=== PATIENT | male | born 1950 | race Caucasian/White ===

== ENCOUNTER 2019-07-10 13:51 | Inpatient (IN) ==
--- OUTSIDE RECORDS SUMMARY | 2019-07-10 13:53 | External Medical Summary | Continuity of Care Document ---
:1950 Author Name Tj Palm Address Unavailable Unavailable , Care Team Providers Name Role Phone Jaleel Damon M.D. 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 Refills: 0 Aspirin EC 81 MG Oral Tablet Delayed Release; TAKE 1 TABLET DAILY. Refills: 0 Fish Oil 1000 MG Oral Capsule; Take one capsule three times a day. Refills: 0 Multi-Vitamin TABS; TAKE 1 TABLET DAILY. Refills: 0 Iron 325 (65 Fe) MG Oral Tablet; Take 1 tablet daily Refills: 0 Glucovance 5-500 MG TABS; Take one tablet 3 times each day. Refills: 0 Procedures History of Neuroplasty Decompression Median Nerve At Carpal Status: Completed Tunnel History of Cardiovascular Surgery Cardiac Defect Repair Status: Completed Immunizations Immunizations not documented Family History Father Family history of Non-Hodgkin's Lymphoma Status: Active Mother Family history of Lung Cancer (V16.1) Status: Active Family history of Type 2 Diabetes Mellitus Status: Active Sister Family history of Type 2 Diabetes Mellitus Status: Active Family history of Type 2 Diabetes Mellitus Status: Active Social History - Smoking Status Ex-smoker Plan of Treatment Planned Observations Planned Goals not documented Results No Known Results Results not documented
[2019-07-10] MEDS ORDERED: SODIUM CHLORIDE 0.9% 1000ML 1,000 ML IV SCH (14:30)
--- NOTE | 2019-07-10 14:51 | Emergency Department Note ---
History of Present Illness General Chief complaint: Shortness of Breath/Dyspnea Stated complaint: SOB Time Seen by Provider: 07/10/19 14:21 History of Present Illness Maximum Pain Intensity: 0 This is a 69-year-old male presenting to the emergency department for evaluation of shortness of breath symptoms over the past 3 days. The patient has a past medical history of liver transplant at the age of 19, and is currently on the transplant list for a kidney transplant. He does have chronic kidney disease and had a fistula placed at [facility] 5 days ago. The patient delayed presentation to the ER with his symptoms because he had an appointment today with his nephrology team. The patient was referred to the ER for evaluation following that visit. The patient is diabetic but states his sugars have been running well. He is not on any blood thinners, but is unable to walk more than 20 feet without having to stop to breathe. He has not had any recent fever symptoms, and does relate a dry cough. He does urinate, but states that his last creatinine was 3.9. The patient does not have a reported history of cardiac disease. He is on immunosuppressants due to his transplant history. Home Medications Home Medications Medication Instructions Recorded Confirmed Type amlodipine 5 mg PO BID 07/10/19 07/11/19 History cholecalciferol (vitamin D3) 2,000 unit PO DAILY 07/10/19 07/10/19 History [Vitamin D3] clindamycin phosphate 1 applic TOPICAL BID 07/10/19 07/10/19 History entecavir 0.5 mg PO DAILY 07/10/19 07/10/19 History ezetimibe [Zetia] 10 mg PO DAILY 07/10/19 07/10/19 History hydralazine 75 mg PO BID 07/10/19 07/11/19 History hydroxyzine HCl 25 mg PO Q6 PRN 07/10/19 07/10/19 History insulin aspart U-100 10 - 16 unit SUBCUT TIDM 07/10/19 07/10/19 History levothyroxine 75 mcg PO DAILY 07/10/19 07/10/19 History metoprolol succinate 100 mg PO DAILY 07/10/19 07/10/19 History mycophenolate mofetil 250 mg PO BID 07/10/19 07/10/19 History omeprazole 20 mg PO BID 07/10/19 07/10/19 History sodium bicarbonate 1,300 mg PO BID 07/10/19 07/10/19 History tacrolimus 1 mg PO Q12H 07/10/19 07/10/19 History Allergies Allergy/AdvReac Type Severity Reaction Status Date / Time aspirin AdvReac told Verified 07/10/19 15:23 him to not take any aspirin Past Med/Surg History Medical History Abnormal CT scan, chest ACEI/ARB contraindicated Acute hypoxemic respiratory failure Anemia CKD (chronic kidney disease) stage 5, GFR less than 15 ml/min Diabetes mellitus type 2 with complications Diastolic CHF, acute on chronic DVT (deep venous thrombosis) Esophageal varices History of hepatocellular carcinoma associated with HERNANDEZ cirrhosis; s/p liver transplant Hypertension Hypothyroidism Idiopathic interstitial pneumonia Immunocompromised patient Liver transplant recipient HERNANDEZ (nonalcoholic steatohepatitis) Peripheral vascular disease in diabetes mellitus Sleep apnea Surgical History Status post liver transplant Family History Mother Colorectal cancer Diabetes Father Non-Hodgkin lymphoma Sister Renal cancer Sister Diabetes Brother Diabetes Social History Preferred Language: Swedish Communication Ability: Effective 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 Beliefs That Will Affect Care: None Current Living Situation: Spouse Other Information That Helps Us Care for You: No Feels Safe at Home: Yes Safety Concerns: Feels Safe At This Time Smoking Status: Former smoker Hx Alcohol Use: No Hx Substance Use: No Review of Systems A total of 10 systems reviewed and were otherwise negative Physical Exam Vital Signs Vital Signs - 24 hr 07/10/19 16:41 07/10/19 16:53 07/10/19 17:00 Pulse Rate 101 H 101 H Pulse Rate [Apical] 103 H Pulse Rate from SpO2 Sensor 89 89 Pulse Rhythm [Apical] Irregular Pulse Strength [Apical] Normal Respiratory Rate 29 H 22 30 H Respiratory Effort / Characteristics Non-Labored Spontaneous Respiratory Depth Normal Respiratory Pattern Regular Blood Pressure 171/80 H 170/98 H Blood Pressure [Right Arm] 171/80 H Blood Pressure Mean 107 116 Blood Pressure Mean [Right Arm] 110 Blood Pressure Position [Right Arm] Lying Pulse Oximetry 91 92 93 Oxygen Delivery Method Nasal Cannula Nasal Cannula Nasal Cannula Oxygen Flow Rate 3 2 3 VITALS: Vitals are noted on the nurse's note and reviewed by myself. Vital signs with hypertension, tachycardia, and hypoxia GENERAL: Well-developed, well-nourished, white male, who is in no acute distress and resting comfortably. Patient is cooperative with the examination. HEAD: Normocephalic atraumatic. MOUTH: Mucous membranes moist. Tonsils are not enlarged. Pharynx without erythema, blood, or exudate. Uvula midline. Airway patent. NECK: Supple without nuchal rigidity. No lymphadenopathy. No thyromegaly. Cervical spine is nontender. HEART: Regular rate and rhythm without murmurs gallops or rubs. LUNGS: Mildly distant but otherwise clear bilateral ABDOMEN: Positive normal bowel sounds x 4. Soft, nontender, without masses or organomegaly. No guarding or rebound tenderness. MUSCULOSKELETAL: No muscle atrophy, erythema, or edema noted. Full range of motion in all extremities. Dialysis fistula identified in the left arm appears well-healing. No significant lower extremity edema. NEURO: Patient was alert and oriented to person place and time. CN II through XII grossly intact. SKIN: The skin was without rashes, erythema, edema, or bruising. Capillary refill less than 2 seconds. Course Administered Medications Amlodipine Besylate (Norvasc) 5 mg PO BID [facility] Stop: 08/10/19 08:59 Last Admin: 07/11/19 09:05 Dose: 5 mg Documented by: [id number] Clotrimazole (Lotrimin 1%) 1 appln EXT BID [facility] Stop: 08/10/19 08:59 Last Admin: 07/11/19 09:14 Dose: 1 appln Documented by: [id number] Ezetimibe (Zetia) 10 mg PO DAILY [facility] Stop: 08/10/19 08:59 Last Admin: 07/11/19 09:05 Dose: 10 mg Documented by: [id number] Hydralazine HCl (Apresoline) 75 mg PO BID [facility] Stop: 08/10/19 08:59 Last Admin: 07/11/19 09:04 Dose: 75 mg Documented by: [id number] Hydroxyzine HCl (Vistaril) 25 mg PO Q6 PRN PRN Reason: Itching Stop: 03/25/20 19:31 Last Admin: 07/11/19 09:03 Dose: 25 mg Documented by: [id number] Heparin Sodium/Dextrose (Heparin Sodium/Dextrose) 25,000 units in 500 mls @ 31 mls/hr IV .Q16H8M [facility]; Protocol Stop: 08/10/19 00:44 Last Titration: 07/11/19 19:12 Dose: 1,550 units/hr, 31 mls/hr Documented by: [id number] Cosigned by: [id number] Admin: 07/11/19 17:46 Dose: 1,550 units/hr, 31 mls/hr Documented by: [id number] Cosigned by: [id number] Titration: 07/11/19 17:46 Dose: 1,550 units/hr, 31 mls/hr Documented by: [id number] Cosigned by: [id number] Titration: 07/11/19 15:03 Dose: 1,550 units/hr, 31 mls/hr Documented by: [id number] Cosigned by: [id number] Titration: 07/11/19 07:03 Dose: 1,550 units/hr, 31 mls/hr Documented by: [id number] Cosigned by: [id number] Admin: 07/11/19 02:12 Dose: 1,550 units/hr, 31 mls/hr Documented by: [id number] Cosigned by: [id number] Ceftriaxone Sodium 2,000 mg/ (Dextrose) 70 mls @ 100 mls/hr IV Q24H [facility]; Protocol Stop: 07/18/19 15:59 Last Infusion: 07/11/19 17:27 Dose: 0 mls/hr Documented by: [id number] Admin: 07/11/19 16:48 Dose: 100 mls/hr Documented by: [id number] Azithromycin 500 mg/ Dextrose 255 mls @ 125 mls/hr IV Q24H [facility] Stop: 07/18/19 16:59 Last Admin: 07/11/19 17:46 Dose: 125 mls/hr Documented by: [id number] Insulin Aspart (Novolog Flexpen) 0 units SC ACHS [facility] Stop: 08/09/19 20:59 Last Admin: 07/11/19 17:15 Dose: 6 units Documented by: [id number] Cosigned by: [id number] Admin: 07/11/19 12:14 Dose: 8 units Documented by: [id number] Cosigned by: [id number] Admin: 02/25/20 09:23 Dose: 4 units Documented by: [id number] Cosigned by: [id number] Admin: 07/10/19 21:34 Dose: 7 units Documented by: [id number] Cosigned by: [id number] Insulin Glargine (Lantus Solostar Pen) 0 - 12 units SC BID [facility]; Protocol Stop: 08/10/19 08:59 Last Admin: 07/11/19 09:11 Dose: 8 units Documented by: [id number] Cosigned by: [id number] Levothyroxine Sodium (Synthroid) 75 mcg PO DAILYBB [facility] Stop: 08/10/19 06:29 Last Admin: 07/11/19 06:20 Dose: 75 mcg Documented by: [id number] Magnesium Oxide (Mag-Ox) 400 mg PO QAM [facility] Stop: 08/10/19 08:59 Last Admin: 07/11/19 09:07 Dose: 400 mg Documented by: [id number] Metoprolol Succinate (Toprol Xl) 100 mg PO DAILY [facility] Stop: 08/10/19 08:59 Last Admin: 07/11/19 09:03 Dose: 100 mg Documented by: [id number] Miscellaneous (Order Awaiting Action) 1 ea N/A QS [facility] Stop: 08/10/19 00:00 Last Admin: 07/11/19 15:51 Dose: Not Given Documented by: [id number] Admin: 07/11/19 09:14 Dose: Not Given Documented by: [id number] Admin: 07/11/19 01:03 Dose: Not Given Documented by: [id number] Mycophenolate Mofetil (Cellcept) 250 mg PO BID [facility] Stop: 08/09/19 20:59 Last Admin: 07/11/19 09:08 Dose: 250 mg Documented by: [id number] Admin: 07/10/19 21:26 Dose: 250 mg Documented by: [id number] Pantoprazole Sodium (Protonix) 40 mg PO BID [facility] Stop: 08/09/19 20:59 Last Admin: 07/11/19 09:06 Dose: 40 mg Documented by: [id number] Admin: 07/10/19 21:31 Dose: 40 mg Documented by: [id number] Sodium Bicarbonate (Sodium Bicarbonate) 1,300 mg PO BID [facility] Stop: 08/09/19 20:59 Last Admin: 07/11/19 09:05 Dose: 1,300 mg Documented by: [id number] Admin: 07/10/19 21:30 Dose: 1,300 mg Documented by: [id number] Tacrolimus (Prograf) 1 mg PO Q12 [facility] Stop: 08/09/19 20:59 Last Admin: 07/11/19 17:16 Dose: 1 mg Documented by: [id number] Admin: 07/11/19 11:07 Dose: 1 mg Documented by: [id number] Admin: 07/10/19 21:26 Dose: 1 mg Documented by: [id number] Vitamin D (Vitamin D3) 2,000 units PO DAILY [facility] Stop: 08/10/19 08:59 Last Admin: 07/11/19 09:03 Dose: 2,000 units Documented by: [id number] Discontinued Medications Heparin Sodium/Dextrose () 1 ea IV Q15M [facility]; Protocol Stop: 07/11/19 03:00 Last Admin: 07/11/19 01:54 Dose: Not Given Documented by: [id number] Hydralazine HCl (Apresoline) 75 mg PO QID [facility] Stop: 08/09/19 20:59 Last Admin: 07/10/19 21:26 Dose: 75 mg Documented by: [id number] Sodium Chloride (Nss 1000ml) 1,000 mls @ 999 mls/hr IV .Q1H1M [facility] Stop: 07/10/19 15:30 Last Infusion: 07/10/19 16:22 Dose: 0 mls/hr Documented by: [id number] Admin: 07/10/19 15:03 Dose: 999 mls/hr Documented by: [id number] Piperacillin Sod/Tazobactam Sod (Zosyn) 4.5 gm in 120 mls @ 240 mls/hr IV NOW ONE Stop: 07/10/19 17:41 Last Infusion: 07/10/19 18:36 Dose: 0 mls/hr Documented by: [id number] Admin: 07/10/19 17:36 Dose: 240 mls/hr Documented by: [id number] Furosemide 80 mg/ Syringe 8 mls @ 4 mls/min IV NOW ONE Stop: 07/10/19 20:46 Last Admin: 07/10/19 21:06 Dose: 4 mls/min Documented by: [id number] Magnesium Sulfate/Dextrose (Magnesium Sulfate / D5w) 1 gm in 100 mls @ 100 mls/hr IV ONE ONE Stop: 07/10/19 21:44 Last Infusion: 07/10/19 23:14 Dose: 0 mls/hr Documented by: [id number] Admin: 07/10/19 21:06 Dose: 100 mls/hr Documented by: [id number] Heparin Sodium (Porcine) 7,000 (units/ Syringe) 7 mls @ 10 mls/min IV NOW ONE Stop: 07/11/19 02:01 Last Admin: 07/11/19 02:12 Dose: 10 mls/min Documented by: [id number] Cosigned by: [id number] Furosemide 40 mg/ Syringe 4 mls @ 4 mls/min IV ONE ONE Stop: 07/11/19 16:01 Last Admin: 07/11/19 16:48 Dose: 4 mls/min Documented by: [id number] Medical Decision Making Differential Diagnosis Differential diagnosis includes, but is not limited to: Myocardial infarction, dysrhythmia, pericarditis, pneumothorax, aortic aneurysm/dissection, DVT/PE, anxiety, GERD, PUD, electrolyte imbalance, thyroid disorder, pneumonia, bronchitis, pancreatitis, and others Laboratory Data Result diagrams: 07/10/19 14:40 07/11/19 09:06 Lab Results 07/10/19 07/10/19 07/10/19 Range/Units 14:40 14:40 14:40 WBC 10.24 (4.8-10.8) K/uL RBC 4.65 L (4.7-6.1) M/uL Hgb 11.8 L (14.0-18.0) g/dL Hct 36.0 L (42-52) % MCV 77.4 L (80-100) fL MCH 25.4 (25-34) pg MCHC 32.8 (32-36) g/dL RDW Std Deviation 40.5 (36.4-46.3) fL RDW Coeff of Ana María 14.3 (11.5-14.5) % Plt Count 205 (130-400) K/uL MPV 10.1 (7.4-10.4) fL Immature Gran % (Auto) 0.5 % Neut % (Auto) 71.6 % Lymph % (Auto) 15.7 % [place] % (Auto) 10.2 % Eos % (Auto) 1.8 % Baso % (Auto) 0.2 % Immature Gran # (Auto) 0.05 H (0.00-0.02) K/uL Neut # (Auto) 7.34 H (1.4-6.5) K/uL Lymph # (Auto) 1.61 (1.2-3.4) K/uL [place] # (Auto) 1.04 H (0.11-0.59) K/uL Eos # (Auto) 0.18 (0-0.5) K/uL Baso # (Auto) 0.02 (0-0.2) K/uL ESR > 90 H (0-14) mm/hr PT (9.0-12.0) Seconds INR (0.9-1.1) APTT (21.0-31.0) Seconds PTT Ratio ABG pH (7.35-7.45) ABG pCO2 (35-46) mmHg ABG pO2 (80-95) mmHg ABG HCO3 (19-24) mmol/L ABG O2 Saturation (90-95) % ABG Base Excess (-9-1.8) mEq/L Rolo Test (Pos) Barometric Pressure mm/Hg Oxygen Given Sodium 136 (136-145) mmol/L Potassium 4.2 (3.5-5.1) mmol/L Chloride 109 H (98-107) mmol/L Carbon Dioxide 18 L (21-32) mmol/L Anion Gap 9.0 (3-11) BUN 61 H (7-18) mg/dl Creatinine 4.22 H (0.6-1.4) mg/dl Est Cr Clr Drug Dosing 20.0 ml/min Est GFR ( Amer) 15.5 Est GFR (Non-Af Amer) 13.4 BUN/Creatinine Ratio 14.5 (10-20) Glucose 173 H (70-99) mg/dl Lactate (0.4-2.0) mmol/L Calcium 9.4 (8.5-10.1) mg/dl Magnesium 1.7 L (1.8-2.4) mg/dl Total Bilirubin 0.5 (0.2-1) mg/dl AST 10 L (15-37) U/L ALT 9 L (12-78) U/L Alkaline Phosphatase 75 (45-117) U/L Troponin I < 0.015 (0-0.045) ng/ml C-Reactive Protein 12.20 H (0-0.29) mg/dl NT-Pro-B Natriuret Pep 7988 H (0-900) pg/ml Total Protein 8.0 (6.4-8.2) gm/dl Albumin 3.4 (3.4-5.0) gm/dl Globulin 4.6 H (2.5-4.0) gm/dl Albumin/Globulin Ratio 0.7 L (0.9-2) Lipase 162 (73-393) U/L Procalcitonin (0-0.5) ng/ml 07/10/19 07/10/19 07/10/19 Range/Units 14:40 14:40 14:40 WBC (4.8-10.8) K/uL RBC (4.7-6.1) M/uL Hgb (14.0-18.0) g/dL Hct (42-52) % MCV (80-100) fL MCH (25-34) pg MCHC (32-36) g/dL RDW Std Deviation (36.4-46.3) fL RDW Coeff of Ana María (11.5-14.5) % Plt Count (130-400) K/uL MPV (7.4-10.4) fL Immature Gran % (Auto) % Neut % (Auto) % Lymph % (Auto) % [place] % (Auto) % Eos % (Auto) % Baso % (Auto) % Immature Gran # (Auto) (0.00-0.02) K/uL Neut # (Auto) (1.4-6.5) K/uL Lymph # (Auto) (1.2-3.4) K/uL [place] # (Auto) (0.11-0.59) K/uL Eos # (Auto) (0-0.5) K/uL Baso # (Auto) (0-0.2) K/uL ESR (0-14) mm/hr PT 11.2 (9.0-12.0) Seconds INR 1.1 (0.9-1.1) APTT 31.1 H (21.0-31.0) Seconds PTT Ratio 1.1 ABG pH (7.35-7.45) ABG pCO2 (35-46) mmHg ABG pO2 (80-95) mmHg ABG HCO3 (19-24) mmol/L ABG O2 Saturation (90-95) % ABG Base Excess (-9-1.8) mEq/L Rolo Test (Pos) Barometric Pressure mm/Hg Oxygen Given Sodium (136-145) mmol/L Potassium (3.5-5.1) mmol/L Chloride (98-107) mmol/L Carbon Dioxide (21-32) mmol/L Anion Gap (3-11) BUN (7-18) mg/dl Creatinine (0.6-1.4) mg/dl Est Cr Clr Drug Dosing ml/min Est GFR ( Amer) Est GFR (Non-Af Amer) BUN/Creatinine Ratio (10-20) Glucose (70-99) mg/dl Lactate 1.2 (0.4-2.0) mmol/L Calcium (8.5-10.1) mg/dl Magnesium (1.8-2.4) mg/dl Total Bilirubin (0.2-1) mg/dl AST (15-37) U/L ALT (12-78) U/L Alkaline Phosphatase (45-117) U/L Troponin I (0-0.045) ng/ml C-Reactive Protein (0-0.29) mg/dl NT-Pro-B Natriuret Pep (0-900) pg/ml Total Protein (6.4-8.2) gm/dl Albumin (3.4-5.0) gm/dl Globulin (2.5-4.0) gm/dl Albumin/Globulin Ratio (0.9-2) Lipase (73-393) U/L Procalcitonin 0.20 (0-0.5) ng/ml 07/10/19 Range/Units 14:51 WBC (4.8-10.8) K/uL RBC (4.7-6.1) M/uL Hgb (14.0-18.0) g/dL Hct (42-52) % MCV (80-100) fL MCH (25-34) pg MCHC (32-36) g/dL RDW Std Deviation (36.4-46.3) fL RDW Coeff of Ana María (11.5-14.5) % Plt Count (130-400) K/uL MPV (7.4-10.4) fL Immature Gran % (Auto) % Neut % (Auto) % Lymph % (Auto) % [place] % (Auto) % Eos % (Auto) % Baso % (Auto) % Immature Gran # (Auto) (0.00-0.02) K/uL Neut # (Auto) (1.4-6.5) K/uL Lymph # (Auto) (1.2-3.4) K/uL [place] # (Auto) (0.11-0.59) K/uL Eos # (Auto) (0-0.5) K/uL Baso # (Auto) (0-0.2) K/uL ESR (0-14) mm/hr PT (9.0-12.0) Seconds INR (0.9-1.1) APTT (21.0-31.0) Seconds PTT Ratio ABG pH 7.39 (7.35-7.45) ABG pCO2 26 L (35-46) mmHg ABG pO2 73 L (80-95) mmHg ABG HCO3 15 L (19-24) mmol/L ABG O2 Saturation 95.1 H (90-95) % ABG Base Excess -8.4 (-9-1.8) mEq/L Rolo Test Pos (Pos) Barometric Pressure 729.3 mm/Hg Oxygen Given 2L Sodium (136-145) mmol/L Potassium (3.5-5.1) mmol/L Chloride (98-107) mmol/L Carbon Dioxide (21-32) mmol/L Anion Gap (3-11) BUN (7-18) mg/dl Creatinine (0.6-1.4) mg/dl Est Cr Clr Drug Dosing ml/min Est GFR ( Amer) Est GFR (Non-Af Amer) BUN/Creatinine Ratio (10-20) Glucose (70-99) mg/dl Lactate (0.4-2.0) mmol/L Calcium (8.5-10.1) mg/dl Magnesium (1.8-2.4) mg/dl Total Bilirubin (0.2-1) mg/dl AST (15-37) U/L ALT (12-78) U/L Alkaline Phosphatase (45-117) U/L Troponin I (0-0.045) ng/ml C-Reactive Protein (0-0.29) mg/dl NT-Pro-B Natriuret Pep (0-900) pg/ml Total Protein (6.4-8.2) gm/dl Albumin (3.4-5.0) gm/dl Globulin (2.5-4.0) gm/dl Albumin/Globulin Ratio (0.9-2) Lipase (73-393) U/L Procalcitonin (0-0.5) ng/ml Imaging Data Radiologist's Impression: XR chest 2V PA/lateral CLINICAL HISTORY: Shortness of breath. COMPARISON STUDY: Chest radiograph August 12, 2012. Chest CT August 14, 2012. FINDINGS: Note is made of median sternotomy wires. There is no pneumothorax. Small left and trace right pleural effusions are present. Interstitial thickening is noted with multifocal bilateral airspace opacities, greater within the left lung. Mild cardiomegaly is noted. IMPRESSION: 1. Interstitial thickening and bilateral airspace opacities, greater within the left lung. Pulmonary edema is favored however an infectious process could appear similar. Radiographic follow up is recommended. 2. Small left and trace right pleural effusions. ECG Data Attestation: I personally reviewed and interpreted this ECG as follows: Indication: + SOB/dyspnea Additional Comments: Normal sinus rhythm @96 BPM QT [address] and T wave abnormality Abnormal ECG When compared with ECG of 25-JUL-2012 21:25, Vent. rate has increased BY 32 BPM Criteria for Septal infarct are no longer Present MDM Narrative Physical exam and history were performed. Nursing notes, EMR, and Medication List were personally reviewed. Patient appears to have difficulty breathing over the past few days. He does have an extensive past medical history. IV access was established and labs were obtained. Chest x-ray was performed. EKG is as above. He was placed on the magnetic observer. He does have a recent procedure with a fistula placement in his left arm. The patient's blood work is as above and was reviewed. He does not have a significantly elevated white blood cell count. His hemoglobin is 11.8. INR is negative. His creatinine is 4.4 which is evidently slightly worse than normal, but he does have chronic kidney disease. Transaminases are not diagnostic. Inflammatory markers are elevated. Procalcitonin and lactic acid are negative. Troponin x1 is negative. Chest x-ray may show pulmonary edema versus interstitial thickening per my and radiology interpretation. The patient remained in normal sinus rhythm with a rate in the 70s while on the magnetic observer. On reevaluation he continued to have episodic hypoxia and responded well with ox ygen via nasal cannula. The case was discussed with my attending, Dr. Gutierrez, who remained involved in care decision making. Overall the patient does not appear well for discharge home. The case was discussed with the [facility] team who agreed to evaluate the patient here in the ER. Please see their dictation for further patient course, plan, and disposition. The chart was completed utilizing [employer] Speech Voice Recognition Software. Grammatical errors, random word insertions, pronoun errors, and incomplete sentences are an occasional consequence of this system due to software limitations, ambient noise, and hardware issues. Any formal questions or concerns about the content, text, or information contained within the body of this dictation should be directly addressed to the provider for clarification. . Impression & Plan Acute respiratory failure with hypoxia, Elevated sedimentation rate Discharge Plan Visit Data *Final* Discharge Date/Time: 07/10/19 18:51 Chief Complaint: Shortness of Breath/Dyspnea Stated Complaint: SOB ED Provider: Celso Gutierrez ED Midlevel Provider: Harsh Basilio Discharge Problem: Acute respiratory failure with hypoxia, Elevated sedimentation rate Patient Disposition: Admitted As Inpatient Discharge Instructions Interventions: ED Discharge Assessment Last Done: 07/10/19 18:51
[2019-07-10 14:58] LABS: Basophils # (auto) 0.02 K/uL (0-0.2); Basophils % (auto) 0.2 %; Eosinophils # (auto) 0.18 K/uL (0-0.5); Eosinophils % (auto) 1.8 %; Hemoglobin 11.8 g/dL (14.0-18.0); Immature Granulocytes # (auto) 0.05 K/uL (0.00-0.02); Immature Granulocytes % (auto) 0.5 %; Lymphocytes # (auto) 1.61 K/uL (1.2-3.4); Lymphocytes % (auto) 15.7 %; Mean Corpuscular Hemoglobin 25.4 pg (25-34); Mean Corpuscular Hgb Conc 32.8 g/dL (32-36); Mean Corpuscular Volume 77.4 fL (80-100); Mean Platelet Volume 10.1 fL (7.4-10.4); Monocytes # (auto) 1.04 K/uL (0.11-0.59); Monocytes % (auto) 10.2 %; Neutrophils # (auto) 7.34 K/uL (1.4-6.5); Neutrophils % (auto) 71.6 %; Platelet Count 205 K/uL (130-400); RDW Coefficient of Variation 14.3 % (11.5-14.5); RDW Standard Deviation 40.5 fL (36.4-46.3); Red Blood Count 4.65 M/uL (4.7-6.1); White Blood Count 10.24 K/uL (4.8-10.8)
[2019-07-10 15:09] LABS: INR 1.1 (0.9-1.1); Partial Thromboplastin Ratio 1.1; Partial Thromboplastin Time 31.1 Seconds (21.0-31.0); Prothrombin Time 11.2 Seconds (9.0-12.0)
[2019-07-10 15:13] LABS: Alanine Aminotransferase 9 U/L (12-78); Albumin Level 3.4 gm/dl (3.4-5.0); Aspartate Aminotransferase 10 U/L (15-37); BUN Creatinine Ratio 14.5 (10-20); Blood Urea Nitrogen 61 mg/dl (7-18); Calcium 9.4 mg/dl (8.5-10.1); Carbon Dioxide 18 mmol/L (21-32); Chloride 109 mmol/L (98-107); Est GFR (African American) 15.5; Est GFR (Non-African American) 13.4; Glucose 173 mg/dl (70-99); Lipase 162 U/L (73-393); Magnesium 1.7 mg/dl (1.8-2.4); Potassium 4.2 mmol/L (3.5-5.1); Sodium 136 mmol/L (136-145)
[2019-07-10 15:14] LABS: Base Excess ABG -8.4 mEq/L (-9-1.8); HCO3 ABG 15 mmol/L (19-24); Oxygen Saturation ABG 95.1 % (90-95); PCO2 ABG 26 mmHg (35-46); PO2 ABG 73 mmHg (80-95); pH ABG 7.39 (7.35-7.45)
[2019-07-10 15:15] LABS: Allen Test Pos (Pos)
[2019-07-10 15:16] LABS: Albumin Globulin Ratio 0.7 (0.9-2); Alkaline Phosphatase 75 U/L (45-117); Bilirubin,Total 0.5 mg/dl (0.2-1); Globulin 4.6 gm/dl (2.5-4.0); NT Pro B Type Natriuretic Pept 7928 pg/ml (0-900); Troponin I < 0.015 ng/ml (0-0.045)
--- NOTE | 2019-07-10 16:31 | Emergency Department Note ---
ED Visit Note This Patient was discussed with the physician medical assistant secretary, Harsh Basilio PA-C. The pertinent historical and physical exam findings were confirmed. I agree with the studies ordered and with the interpretations of these studies. I agree with the disposition and care plan. .
--- NOTE | 2019-07-10 16:37 | XRay Report ---
XR chest 2V PA/lateral CLINICAL HISTORY: Shortness of breath. COMPARISON STUDY: Chest radiograph August 12, 2012. Chest CT August 14, 2012. FINDINGS: Note is made of median sternotomy wires. There is no pneumothorax. Small left and trace rig ht pleural effusions are present. Interstitial thickening is noted with multifocal bilateral airspace opacities, greater within the left lung. Mild cardiomegaly is noted. IMPRESSION: 1. Interstitial thickening and bilateral airspace opacities, greater within the left lung. Pulmonary edema is favored however an infectious process could appear similar. Radiographic follow up is recomm ended. 2. Small left and trace right pleural effusions. ACT 112: Negative or not required by law. Electronically signed by: Gio Johnson M.D. 07/10/2019 4:36 PM
[2019-07-10] MEDS ORDERED: PIPERACILL/TAZOBAC CONSULT ACTIVE PRN (17:12)
[2019-07-10] MEDS ORDERED: PIPERACILLIN/TAZOBACTAM 4.5 GM/120 ML BAG IV ONE (17:12)
--- NOTE | 2019-07-10 18:41 | History & Physical Report ---
Date of Service July 10, 2019 Assessment & Plan (1) Acute respiratory failure with hypoxia: Progressive dyspnea over past several weeks. Now SOB with minimal exertion. Tachypneic. O2 sats as low as 86% on RA. Chest x-ray suggests pulmonary edema, but consider infectious or inflammatory process. Calf DVT. May or may not have pulmonary embolism, but chest x-ray suggests other processes. Supplemental O2 as needed. Specific problems are discussed below. (2) Abnormal chest x-ray: Chest x-ray suggests pulmonary edema, but consider infectious or inflammatory process. Pro-BNP elevated, but may been high because of CKD. Furosemide 80 mg IV tonight. Check f/u chest x-ray in a.m. Check echo. If chest x-ray does not improve with diuresis, must consider other pathologies besides pulmonary edema. Consider CMV pneumonia. Check blood CMV PCR. Consider inflammatory etiologies. May need further imaging (e.g., CT) and / or Pulmonary Medicine consultation if no improvement. (3) DVT (deep venous thrombosis): VTE considered because of acute worsening of symptoms a few days ago. Venous duplex demonstrates calf DVT (present on admission). May or may not have pulmonary embolism. Best not to obtain CTA of chest due to CKD and unlikely that VQ scan would be useful. Not good candidate for enoxaparin or DOAC because of renal disease. Start IV heparin and consider starting warfarin pending further consideration. (4) Elevated sedimentation rate: ESR > 90. CRP 12.2. No fever. Respiratory symptoms as noted. Consider infection or inflammatory disease. Blood cultures obtained in ED and received a dose of piperacillin / tazobactam. Will hold further dosing of antibiotics unless cultures positive or clinical condition changes. Immunosuppressed. Consider opportunistic infections, including CMV. Check blood CMV PCR. Will need further pulmonary evaluation if chest x-ray and symptoms do not improve with diuresis. On hydralazine. Consider drug-induced lupus. Check KHADRA. Consider further testing for inflammatory disorders if ongoing concerns. (5) Hypertension: Continue metoprolol, amlodipine, hydralazine. (6) Status post liver transplant: History of cirrhosis attributed to HERNANEDZ. S/P liver transplant at [facility] [place] 2012. Continue mycophenolate mofetil and tacrolimus. (7) CKD (chronic kidney disease) stage 4, GFR 15-29 ml/min: CKD IV with creatinine now 4.22. Recent AV fistula LUE. Consult Nephrology to assist with management. (8) Hypomagnesemia: Serum Mg 1.7. Ventricular ectopy noted on ekg monitor tech. Replace with caution. Follow. (9) Diabetes mellitus type 2 with complications: DM type 2 complicated by peripheral vascular disease. Managed with insulin aspartate at home. Check Hgb A1C. Lantus / NovoLog per protocol. (10) Peripheral vascular disease in diabetes mellitus: History of intermittent claudication. Patient reports that he was seen by a specialist (? Vascular Surgery) who did not recommend any intervention. Suspected occlusion of bilateral posterior tibial arteries noted on venous duplex. Check follow-up arterial duplex. (11) DVT prophylaxis: Treating for acute DVT as discussed above (12) Discharge planning issues: Discharge disposition to be determined. Family Medicine follow-up with Dr. Maldonado. Nephrology follow-up with Dr. Kamara. Transplant Medicine follow-up at [facility] [place]. History of Present Illness Chief Complaint: SOB Primary Care Provider: Herberth Maldonado MD 69 YO male followed by Dr. Maldonado. History of hypertension, CKD IV, liver transplant, DM type 2 and other problems as noted. Experiencing dyspnea on exertion for last several weeks. Occasional nonproductive cough. No fever. One day of mild pharyngitis. No anginal symptoms or pleuritic chest pain. Worsening dyspnea a few days ago. Seen in clinic today and referred to ED because of respiratory symptoms. Allergies Allergy/AdvReac Type Severity Reaction Status Date / Time aspirin AdvReac told Verified 07/10/19 15:23 him to not take any aspirin Home Medications Home Medications Medication Instructions Recorded Confirmed Type amlodipine 5 mg PO BID 07/10/19 07/11/19 History cholecalciferol (vitamin D3) 2,000 unit PO DAILY 07/10/19 07/10/19 History [Vitamin D3] clindamycin phosphate 1 applic TOPICAL BID 07/10/19 07/10/19 History entecavir 0.5 mg PO DAILY 07/10/19 07/10/19 History ezetimibe [Zetia] 10 mg PO DAILY 07/10/19 07/10/19 History hydralazine 75 mg PO BID 07/10/19 07/11/19 History hydroxyzine HCl 25 mg PO Q6 PRN 07/10/19 07/10/19 History insulin aspart U-100 10 - 16 unit SUBCUT TIDM 07/10/19 07/10/19 History levothyroxine 75 mcg PO DAILY 07/10/19 07/10/19 History metoprolol succinate 100 mg PO DAILY 07/10/19 07/10/19 History mycophenolate mofetil 250 mg PO BID 07/10/19 07/10/19 History omeprazole 20 mg PO BID 07/10/19 07/10/19 History sodium bicarbonate 1,300 mg PO BID 07/10/19 07/10/19 History tacrolimus 1 mg PO Q12H 07/10/19 07/10/19 History Past Med/Surg History Medical History (Updated 07/11/19 @ 01:30 by Dereck Smiley MD) ACEI/ARB contraindicated Anemia CKD (chronic kidney disease) stage 4, GFR 15-29 ml/min Diabetes mellitus type 2 with complications Esophageal varices History of hepatocellular carcinoma associated with HERNANDEZ cirrhosis; s/p liver transplant Hypertension Hypothyroidism HERNANDEZ (nonalcoholic steatohepatitis) Peripheral vascular disease in diabetes mellitus Sleep apnea Surgical History Status post liver transplant Family History (Updated 07/11/19 @ 00:30 by Dereck Smiley MD) Mother Colorectal cancer Diabetes Father Non-Hodgkin lymphoma Sister Renal cancer Sister Diabetes Brother Diabetes Social History Preferred Language: Com[place] Communication Ability: 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 Beliefs That Will Affect Care: None Current Living Situation: Spouse Other Information That Helps Us Care for You: No Feels Safe at Home: Yes Safety Concerns: Feels Safe At This Time Smoking Status: Former smoker Hx Alcohol Use: No Hx Substance Use: No Review of Systems Constitutional: + weight loss (few pounds); no fever Eyes: no diplopia and no worsening vision Ear, Nose, Mouth, Throat: as per Subjective / HPI Respiratory: as per Subjective / HPI Cardiovascular: no chest pain, no palpitations and no edema Gastrointestinal: no nausea, no vomiting, no constipation, no diarrhea/loose s tools, no blood in stools and no melena Musculoskeletal: no joint pain and no myalgia Integumentary: no rash and no new lesions Neurologic: no headache(s) Endocrine: no polydipsia and no polyuria Hematologic / Lymphatic: + easy bruising; no easy bleeding and no lymphadenopathy Physical Exam Constitutional: WD/WN, vitals as above no acute distress Eyes: PERRL, conjunctivae normal, anicteric sclerae ENMT: external ear and nose normal, oropharynx normal Neck: trachea midline, no thyromegaly Respiratory: + tachypneic Auscultation: + rales Cardiovascular: Rate/Rhythm: regular rate (with occasional ectopy) Heart Sounds: no gallop, no murmur and no cardiac rub Vessels: + JVD Extremities: normal capillary refill; no calf tenderness and no edema Gastrointestinal (Abdomen): normal bowel sounds, soft, nontender, no hepatosplenomegaly Musculoskeletal: Head/Neck/Chest: neck supple Extremities: strength 5/5 throughout; + extremities abnormal to inspection (recent AV fistula LUE; good thrill; incision OK), no cyanosis and no clubbing Skin: + rash (erythematous rash right abdomen measuring few cm in diameter) Neurologic: PERRL, EOMI no facial palsy no dysarthria or aphasia Psychiatric: Orientation: alert and oriented x 3 Affect: euthymic affect Lymphatic: no cervical lymphadenopathy Results & Data Vital Signs (Past 12 Hours) Vital Signs Temp Pulse Pulse Resp BP BP Pulse Ox 07/10/19 16:53 103 H 22 171/80 H 92 07/10/19 14:33 93 H 17 94 07/10/19 14:16 36.8 C 112 H 20 186/81 H 86 L Laboratory Results Laboratory Results - last 24 hr 07/10/19 07/10/19 07/10/19 14:40 14:40 14:40 WBC 10.24 RBC 4.65 L Hgb 11.8 L Hct 36.0 L MCV 77.4 L MCH 25.4 MCHC 32.8 RDW Std Deviation 40.5 RDW Coeff of Ana María 14.3 Plt Count 205 MPV 10.1 Immature Gran % (Auto) 0.5 Neut % (Auto) 71.6 Lymph % (Auto) 15.7 Power % (Auto) 10.2 Eos % (Auto) 1.8 Baso % (Auto) 0.2 Immature Gran # (Auto) 0.05 H Neut # (Auto) 7.34 H Lymph # (Auto) 1.61 Power # (Auto) 1.04 H Eos # (Auto) 0.18 Baso # (Auto) 0.02 ESR > 90 H PT INR APTT PTT Ratio ABG pH ABG pCO2 ABG pO2 ABG HCO3 ABG O2 Saturation ABG Base Excess Rolo Test Barometric Pressure Oxygen Given Sodium 136 Potassium 4.2 Chloride 109 H Carbon Dioxide 18 L Anion Gap 9.0 BUN 61 H Creatinine 4.22 H Est Cr Clr Drug Dosing 20.0 Est GFR ( Amer) 15.5 Est GFR (Non-Af Amer) 13.4 BUN/Creatinine Ratio 14.5 Glucose 173 H POC Glucose Lactate Calcium 9.4 Magnesium 1.7 L Total Bilirubin 0.5 AST 10 L ALT 9 L Alkaline Phosphatase 75 Troponin I < 0.015 C-Reactive Protein 12.20 H NT-Pro-B Natriuret Pep 7928 H Total Protein 8.0 Albumin 3.4 Globulin 4.6 H Albumin/Globulin Ratio 0.7 L Lipase 162 Procalcitonin Urine Color Urine Appearance Urine pH Ur Specific [place] Urine Protein Urine Glucose (UA) Urine Ketones Urine Blood Urine Nitrite Urine Bilirubin Urine Urobilinogen Ur Leukocyte Esterase Urine WBC (Auto) Urine RBC (Auto) U Hyaline Cast (Auto) U Epithel Cells (Auto) Urine Bacteria (Auto) Urine Yeast 07/10/19 07/10/19 07/10/19 14:40 14:40 14:40 WBC RBC Hgb Hct MCV MCH MCHC RDW Std Deviation RDW Coeff of Ana María Plt Count MPV Immature Gran % (Auto) Neut % (Auto) Lymph % (Auto) Power % (Auto) Eos % (Auto) Baso % (Auto) Immature Gran # (Auto) Neut # (Auto) Lymph # (Auto) Power # (Auto) Eos # (Auto) Baso # (Auto) ESR PT 11.2 INR 1.1 APTT 31.1 H PTT Ratio 1.1 ABG pH ABG pCO2 ABG pO2 ABG HCO3 ABG O2 Saturation ABG Base Excess Rolo Test Barometric Pressure Oxygen Given Sodium Potassium Chloride Carbon Dioxide Anion Gap BUN Creatinine Est Cr Clr Drug Dosing Est GFR ( Amer) Est GFR (Non-Af Amer) BUN/Creatinine Ratio Glucose POC Glucose Lactate 1.2 Calcium Magnesium Total Bilirubin AST ALT Alkaline Phosphatase Troponin I C-Reactive Protein NT-Pro-B Natriuret Pep Total Protein Albumin Globulin Albumin/Globulin Ratio Lipase Procalcitonin 0.20 Urine Color Urine Appearance Urine pH Ur Specific [place] Urine Protein Urine Glucose (UA) Urine Ketones Urine Blood Urine Nitrite Urine Bilirubin Urine Urobilinogen Ur Leukocyte Esterase Urine WBC (Auto) Urine RBC (Auto) U Hyaline Cast (Auto) U Epithel Cells (Auto) Urine Bacteria (Auto) Urine Yeast 07/10/19 07/10/19 07/10/19 14:51 18:40 19:47 WBC RBC Hgb Hct MCV MCH MCHC RDW Std Deviation RDW Coeff of Ana María Plt Count MPV Immature Gran % (Auto) Neut % (Auto) Lymph % (Auto) Power % (Auto) Eos % (Auto) Baso % (Auto) Immature Gran # (Auto) Neut # (Auto) Lymph # (Auto) Power # (Auto) Eos # (Auto) Baso # (Auto) ESR PT INR APTT PTT Ratio ABG pH 7.39 ABG pCO2 26 L ABG pO2 73 L ABG HCO3 15 L ABG O2 Saturation 95.1 H ABG Base Excess -8.4 Rolo Test Pos Barometric Pressure 729.3 Oxygen Given 2L Sodium 138 Potassium 4.1 Chloride 112 H Carbon Dioxide 17 L Anion Gap 9.0 BUN 57 H Creatinine 4.08 H Est Cr Clr Drug Dosing 20.7 Est GFR ( Amer) 16.2 Est GFR (Non-Af Amer) 14.0 BUN/Creatinine Ratio 14.0 Glucose 145 H POC Glucose Lactate Calcium 8.7 Magnesium Total Bilirubin AST ALT Alkaline Phosphatase Troponin I C-Reactive Protein NT-Pro-B Natriuret Pep Total Protein Albumin Globulin Albumin/Globulin Ratio Lipase Procalcitonin Urine Color Yellow Urine Appearance Clear Urine pH 5.0 Ur Specific [place] 1.017 Urine Protein 3+ H Urine Glucose (UA) Trace H Urine Ketones Negative Urine Blood Negative Urine Nitrite Negative Urine Bilirubin Negative Urine Urobilinogen Negative Ur Leukocyte Esterase Negative Urine WBC (Auto) 1-5 Urine RBC (Auto) 0-4 U Hyaline Cast (Auto) 1-5 U Epithel Cells (Auto) 5-10 H Urine Bacteria (Auto) Negative Urine Yeast Not Reportable 07/10/19 20:37 WBC RBC Hgb Hct MCV MCH MCHC RDW Std Deviation RDW Coeff of Ana María Plt Count MPV Immature Gran % (Auto) Neut % (Auto) Lymph % (Auto) Power % (Auto) Eos % (Auto) Baso % (Auto) Immature Gran # (Auto) Neut # (Auto) Lymph # (Auto) Power # (Auto) Eos # (Auto) Baso # (Auto) ESR PT INR APTT PTT Ratio ABG pH ABG pCO2 ABG pO2 ABG HCO3 ABG O2 Saturation ABG Base Excess Rolo Test Barometric Pressure Oxygen Given Sodium Potassium Chloride Carbon Dioxide Anion Gap BUN Creatinine Est Cr Clr Drug Dosing Est GFR ( Amer) Est GFR (Non-Af Amer) BUN/Creatinine Ratio Glucose POC Glucose 219 H Lactate Calcium Magnesium Total Bilirubin AST ALT Alkaline Phosphatase Troponin I C-Reactive Protein NT-Pro-B Natriuret Pep Total Protein Albumin Globulin Albumin/Globulin Ratio Lipase Procalcitonin Urine Color Urine Appearance Urine pH Ur Specific [place] Urine Protein Urine Glucose (UA) Urine Ketones Urine Blood Urine Nitrite Urine Bilirubin Urine Urobilinogen Ur Leukocyte Esterase Urine WBC (Auto) Urine RBC (Auto) U Hyaline Cast (Auto) U Epithel Cells (Auto) Urine Bacteria (Auto) Urine Yeast Diagnostic Findings PORTABLE CHEST X-RAY FINDINGS: Note is made of median sternotomy wires. There is no pneumothorax. Small left and trace right pleural effusions are present. Interstitial thickening is noted with multifocal bilateral airspace opacities, greater within the left lung. Mild cardiomegaly is noted. IMPRESSION: 1. Interstitial thickening and bilateral airspace opacities, greater within the left lung. Pulmonary edema is favored however an infectious process could appear similar. Radiographic follow up is recommended. 2. Small left and trace right pleural effusions. ACT 112: Negative or not required by law. Electronically signed by: Gio Johnson M.D. 07/10/2019 4:36 PM VENOUS DUPLEX LOWER EXTREMITIES FINDINGS: There is deep venous thrombus within one of two paired right posterior tibial veins. No additional sites of deep venous thrombus are identified within either lower extremity. Incidental note was made of suspected occlusion of the bilateral posterior tibial arteries. IMPRESSION: 1. Deep venous thrombus within one of two paired right posterior tibial veins. No additional sites of deep venous thrombus within either lower extremity. 2. Suspected occlusion of the bilateral posterior tibial arteries. ACT 112: Negative or not required by law. Electronically signed by: Gio Johnson M.D. 07/10/2019 11:04 PM ECG Additional Comments: EKG performed at 1433 reviewed and demonstrated NSR at 96 / min, T-wave flattening I, aVL, slight ST depression V4-6. Code Status & VTE Plan Code Status Advanced directives and code status discussed with patient. He believes that he has some form of advanced directive, but does not recall specific document. He indicates that he would not want extraordinary measures undertaken or continued if prognosis was grave, but would want resuscitation attempted in the event of a cardiopulmonary arrest if there was a reasonable chance of a meaningful recovery. Resuscitation status, therefore, is full code.
[2019-07-10 19:27] LABS: Appearance Urine Clear (Clear); Bacteria Urine Automated Negative (Negative); Bilirubin Urine Negative (Negative); Blood Urine Negative (Negative); Color Urine Yellow; Glucose Urine UA Trace (Negative); Ketones Urine Negative (Negative); Leukocyte Esterase Urine Negative (Negative); Nitrite Urine Negative (Negative); Protein Urine 3+ (Negative); RBC Urine Automated 0-4 /hpf (0-4); Specific Gravity Urine 1.017 (1.000-1.030); Urobilinogen Urine Negative (Negative)
[2019-07-10 20:39] LABS: Calcium 8.7 mg/dl (8.5-10.1); Creatinine Clr Calc Pharmacy 20.7 ml/min; Est GFR (African American) 16.2; Potassium 4.1 mmol/L (3.5-5.1)
[2019-07-10] MEDS ORDERED: MAGNESIUM SULFATE / D5W 1 GM/100 ML BAG IV ONE (20:45)
[2019-07-10] MEDS ORDERED: FUROSEMIDE 80 MG in SYRINGE 0 ML IV ONE (20:45)
[2019-07-10] MEDS: MYCOPHENOLATE MOFETIL 250 MG CAP PO SCH (21:26)
[2019-07-10] MEDS: TACROLIMUS 1 MG CAP PO SCH (21:26)
[2019-07-10] MEDS: SODIUM BICARBONATE 650 MG TAB PO SCH (21:30)
[2019-07-10] MEDS: PANTOprazole 40 MG TAB PO SCH (21:31)
[2019-07-10] MEDS: INSULIN ASPART 100 UNITS/ML 3 ML PEN SC SCH (21:34)
--- NOTE | 2019-07-10 23:05 | Ultrasound Report ---
BILATERAL LOWER EXTREMITY VENOUS DOPPLER CLINICAL HISTORY: Shortness of breath. COMPARISON STUDY: No previous studies for comparison. TECHNIQUE: Sonography of the deep venous system of the bilateral lower extremities was performed. Co mpression and augmentation were evaluated. FINDINGS: There is deep venous thrombus within one of two paired right posterior tibial veins. No add itional sites of deep venous thrombus are identified within either lower extremity. Incidental note w as made of suspected occlusion of the bilateral posterior tibial arteries. IMPRESSION: 1. Deep venous thrombus within one of two paired right posterior tibial veins. No additional sites of deep venous thrombus within either lower extremity. 2. Suspected occlusion of the bilateral posterior tibial arteries. ACT 112: Negative or not required by law. Electronically signed by: Gio Johnson M.D. 07/10/2019 11:04 PM
[2019-07-11] MEDS ORDERED: HEPARIN IV BOLUS 7,000 UNITS in SYRINGE 0 ML IV ONE ×2 (02:00→20:00)
[2019-07-11] MEDS: HEPARIN SODIUM/DEXTROSE 25,000 UNITS/500 ML BAG IV SCH ×2 (02:12→17:46)
[2019-07-11] MEDS: LEVOTHYROXINE SODIUM 75 MCG TABLET PO SCH (06:20)
--- NOTE | 2019-07-11 07:05 | XRay Report ---
XR chest 1V portable HISTORY: 69 years-old Male dyspnea acute shortness of breath COMPARISON: Chest radiographs 07/10/2019, chest CT 08/14/2012 TECHNIQUE: Portable AP view of the chest FINDINGS: Cardiac silhouette is enlarged, unchanged. Prior median sternotomy. Calcified plaque of the thoracic aortic arch. No pneumothorax. Degenerative changes of the shoulders and spine. There is mildly improv ed aeration of the left lung with persistent mixed interstitial and alveolar opacities. Trace pleural effusions. IMPRESSION: 1. Mildly improved aeration of the left lung with persistent mixed interstitial and alveolar opacitie s, left greater than right. Findings are suggestive of probable asymmetric pulmonary edema with nonsp ecific pneumonitis also in the differential. 2. Trace pleural effusions. ACT 112: Negative or not required by law. The above report was generated using voice recognition software. It may contain grammatical, syntax o r spelling errors. Electronically signed by: Phillip Murcia M.D. 07/11/2019 7:04 AM
[2019-07-11 07:50] LABS: Influenza A virus by PCR Neg for Influ A (Neg); Influenza B virus by PCR Neg for Influ B (Neg)
--- NOTE | 2019-07-11 08:16 | Nephrology Consultation ---
Date of Consultation July 11, 2019 Assessment & Plan (1) Acute hypoxemic respiratory failure: he had 80 mg IV lasix last evening; and got another 40 mg this afternoon IV. at baseline he has no 02 needs. -will give another 40 mg this evening IV lasix 2100, than standing for am bid17 40 mg IV -can use more lasix prn as indicated -f/u pulm recs Present on Admission?: Yes (2) Status post liver transplant: -continue FK, MMF current doses -ordered level for FK 8 AM tomorrow; also retimed AM labs for 0800 Present on Admission?: Yes (3) CKD (chronic kidney disease) stage 5, GFR less than 15 ml/min: baseline creatinine since early April 3.9-4.5, for early CKD 5. pt has maturing AVF. he is also listed for renal transplant. he has a nonanion gap metabolic acidosis; no other electrolyte issues at this time -daily bmp -no indication for emergent dialysis but cannot rule out need this admission; would need dialysis access if need arose -continue sodium bicarbonate po > he had not been taking this as OP so we may get improvement after a few doses; follow on bmp -for now no fluid or sodium limit, no renal diet necessarily needed -f/u vascular consultation recommendations Present on Admission?: Yes (4) Abnormal CT scan, chest: -pulmonary following; work up in process >> top of differential is idiopathic interstitial PNA / interstitial lung disease Present on Admission?: Yes History of Present Illness Attending Physician: Dashawn Tabor MD History of Present Illness 69-year-old male whom I am asked to evaluate for acute on chronic renal failure after he was admitted yesterday for evaluation of acute hypoxic respiratory failure and DVT. Past medical history includes liver transplant for N[place] and hepatocellular carcinoma 2012, about 2 g daily proteinuric CKD 4 from diabetes and calcineurin inhibitor toxicity, hypertension, peripheral arterial disease. I saw the patient in CKD clinic yesterday and referred him to the ER for evaluation of worsening exertional dyspnea the point where he could not walk 15 feet on a flat surface without stopping to rest in the setting of uncontrolled hypertension. He had undergone AV fistula creation July 05. Breathing symptoms came on abruptly July 06 and worsened through the weekend. He had opted without seeking medical advice starting July 08 not to take any of his blood pressure medications due to concerns that these might worsen his dyspnea. He had also sought evaluation by PCP in May for a week of intermittent dyspnea with dry cough. No marked exertional component at that time; chest x- ray was unremarkable for acute or chronic process. Within May and a clinic visit yesterday, 3 and physical exam not particularly remarkable for volume overload: No edema no weight gain no crackles on lung exam. His creatinine as an outpatient has been running in the high threes to mid fours since summer 2018, most recently 3.9 on May 22, 2019. Allergies Allergy/AdvReac Type Severity Reaction Status Date / Time aspirin AdvReac told Verified 07/10/19 15:23 him to not take any aspirin Home Medications Home Medications Medication Instructions Recorded Confirmed Type amlodipine 5 mg PO BID 07/10/19 07/11/19 History cholecalciferol (vitamin D3) 2,000 unit PO DAILY 07/10/19 07/10/19 History [Vitamin D3] clindamycin phosphate 1 applic TOPICAL BID 07/10/19 07/10/19 History entecavir 0.5 mg PO DAILY 07/10/19 07/10/19 History ezetimibe [Zetia] 10 mg PO DAILY 07/10/19 07/10/19 History hydralazine 75 mg PO BID 07/10/19 07/11/19 History hydroxyzine HCl 25 mg PO Q6 PRN 07/10/19 07/10/19 History insulin aspart U-100 10 - 16 unit SUBCUT TIDM 07/10/19 07/10/19 History levothyroxine 75 mcg PO DAILY 07/10/19 07/10/19 History metoprolol succinate 100 mg PO DAILY 07/10/19 07/10/19 History mycophenolate mofetil 250 mg PO BID 07/10/19 07/10/19 History omeprazole 20 mg PO BID 07/10/19 07/10/19 History sodium bicarbonate 1,300 mg PO BID 07/10/19 07/10/19 History tacrolimus 1 mg PO Q12H 07/10/19 07/10/19 History Patient History Medical History Abnormal CT scan, chest ACEI/ARB contraindicated Acute hypoxemic respiratory failure Anemia CKD (chronic kidney disease) stage 5, GFR less than 15 ml/min Diabetes mellitus type 2 with complications Diastolic CHF, acute on chronic DVT (deep venous thrombosis) Esophageal varices History of hepatocellular carcinoma associated with NUNES cirrhosis; s/p liver transplant Hypertension Hypothyroidism Idiopathic interstitial pneumonia Immunocompromised patient Liver transplant recipient NUNES (nonalcoholic steatohepatitis) Peripheral vascular disease in diabetes mellitus Sleep apnea Surgical History Status post liver transplant Family History Mother Colorectal cancer Diabetes Father Non-Hodgkin lymphoma Sister Renal cancer Sister Diabetes Brother Diabetes Social History Preferred Language: Portuguese Communication Ability: Effective Autos Disassembler Required: No Beliefs That Will Affect Care: None Current Living Situation: Spouse Other Information That Helps Us Care for You: No Feels Safe at Home: Yes Safety Concerns: Feels Safe At This Time Smoking Status: Former smoker Hx Alcohol Use: No Hx Substance Use: No Review of Systems Review of Systems: All systems reviewed & are unremarkable except as noted in HPI & below Respiratory: as per Subjective / HPI, + cough and + dyspnea on exertion; no pain on inspiration Cardiovascular: no palpitations and no edema Gastrointestinal: no early satiety, no vomiting and no diarrhea/loose stools Genitourinary: no dysuria, no difficulty urinating, no urinary frequency and no urinary hesitancy Integumentary: no rash Physical Exam Constitutional: well developed and well nourished; no acute distress (on 02NC3L) Eyes: EOM intact bilaterally ENMT: Ears: no external ear abnormality Nose: no external nose abnormality Mouth: + dry oral mucous membranes Neck: no nuchal rigidity Respiratory: normal respiratory effort Auscultation: + diminished lung sounds and + crackles (fine insp and diffuse in post gallardo) Cardiovascular: RRR, no murmur, no edema Extremities: + AV fistula (+t/b) Gastrointestinal (Abdomen): Inspection/Auscultation: normal bowel sounds Percussion/Palpation: abdomen soft; abdomen nontender Musculoskeletal: Extremities: strength 5/5 throughout Skin: no rashes, warm and dry Neurologic: sam, fluent speech; unchanged fine tremor Psychiatric: A+Ox3, euthymic affect Results & Data Vital Signs (Past 12 Hours) Vital Signs Temp Pulse Resp BP Pulse Ox 07/11/19 07:31 36.9 C 85 18 184/77 H 93 07/11/19 04:28 36.4 C L 79 19 176/80 H 94 07/10/19 23:28 36.5 C 86 22 178/63 H 92 Laboratory Results 07/10/19 14:40 07/10/19 19:47 urine and blood cxs in process abg reviewed Diagnostic Findings venous doppler 1. Deep venous thrombus within one of two paired right posterior tibial veins. No additional sites of deep venous thrombus within either lower extremity. 2. Suspected occlusion of the bilateral posterior tibial arteries. CXR 1. Mildly improved aeration of the left lung with persistent mixed interstitial and alveolar opacities, left greater than right. Findings are suggestive of probable asymmetric pulmonary edema with nonspecific pneumonitis also in the differential. 2. Trace pleural effusions. chest CT FINDINGS: Mild paraseptal emphysema. No pneumothorax. The central airways are patent. Small bilateral pleural effusions. There is mild subpleural interstitial thickening with scattered subpleural densities seen throughout the lungs. Small areas of honeycombing within the left upper lobe anteriorly. Therefore, this favors chronic fibrotic change. There is also perihilar groundglass density throughout the majority of the left upper lobe. There are a few additional patchy groundglass densities within the left lower lobe. There are poststernotomy changes. No suspicious lytic or blastic osseous lesions. The visualized liver, spleen, and adrenal glands unremarkable. The heart is normal in size. Caliber thoracic aorta. There are few mildly enlarged mediastinal lymph nodes. Dominant subcarinal lymph node measures 1.7 cm in short axis diameter. There are few prominent AP window lymph nodes. No definite hilar lymphadenopathy. IMPRESSION: 1. Groundglass densities throughout the majority of the left lung which likely represents an acute pneumonitis. 2. Mild subpleural initial thickening with scattered subpleural densities and a few small areas of honeycombing. This favors chronic fibrotic change. 3. Mild paraseptal emphysema. 4. Small bilateral pleural effusions. 5. Prominent mediastinal lymph nodes. This may be reactive.
--- NOTE | 2019-07-11 08:58 | Ultrasound Report ---
US arterial duplex LE BI CLINICAL HISTORY: intermittent claudication COMPARISON STUDY: None. FINDINGS: The ankle brachial indices were not performed due to the patient's known right DVT. Elevate d peak systolic velocity within the bilateral common femoral, right mid peroneal, left mid anterior t ibial, left proximal superficial femoral, and right dorsalis pedis arteries consistent with areas of stenosis. Monophasic waveforms within the bilateral dorsalis pedis arteries. The distal right posteri or tibial artery and the distal left posterior tibial artery appear occluded. IMPRESSION: 1. Occluded bilateral distal posterior tibial arteries.. 2. Monophasic waveforms within the bilateral dorsalis pedis arteries likely due to diffuse atheroscle rotic disease. 3. Multifocal areas of stenosis as described above. ACT 112: Negative or not required by law. Electronically signed by: Saurabh Nunez M.D. 07/11/2019 8:57 AM
[2019-07-11] MEDS ORDERED: AMLODIPINE BESYLATE 5 MG TAB PO SCH (09:00)
[2019-07-11] MEDS ORDERED: ENTECAVIR 0.5 MG PO SCH (09:00)
[2019-07-11] MEDS: METOPROLOL SUCC 50MG EXT REL TAB PO SCH (09:03)
[2019-07-11] MEDS: CHOLECALCIFEROL 1,000 UNITS 25 MCG TAB PO SCH (09:03)
[2019-07-11] MEDS: AMLODIPINE BESYLATE 5 MG TAB PO SCH ×2 (09:05→20:29)
[2019-07-11] MEDS: SODIUM BICARBONATE 650 MG TAB PO SCH ×2 (09:05→20:28)
[2019-07-11] MEDS: EZETIMIBE 10 MG TABLET PO SCH (09:05)
[2019-07-11] MEDS: PANTOprazole 40 MG TAB PO SCH ×2 (09:06→20:28)
[2019-07-11] MEDS: MAGNESIUM OXIDE 400 MG TAB PO SCH (09:07)
[2019-07-11] MEDS: MYCOPHENOLATE MOFETIL 250 MG CAP PO SCH ×2 (09:08→20:29)
[2019-07-11] MEDS: INSULIN GLARGINE SOLOSTAR 100 UNITS/ML 3 ML PEN SC SCH ×2 (09:11→20:32)
[2019-07-11] MEDS: CLOTRIMAZOLE 1% CR 15 GM TUBE EXT SCH ×2 (09:14→20:30)
[2019-07-11] MEDS: INSULIN ASPART 100 UNITS/ML 3 ML PEN SC SCH ×4 (09:23→20:32)
[2019-07-11 09:48] LABS: Partial Thromboplastin Ratio 1.7
[2019-07-11 09:51] LABS: Partial Thromboplastin Time 45.2 Seconds (21.0-31.0)
[2019-07-11 09:52] LABS: BUN Creatinine Ratio 13.2 (10-20); Calcium 9.1 mg/dl (8.5-10.1); Creatinine Clr Calc Pharmacy 18.9 ml/min; Est GFR (African American) 14.6; Est GFR (Non-African American) 12.6; Magnesium 1.8 mg/dl (1.8-2.4)
[2019-07-11 09:54] LABS: Estimated Average Glucose 140 mg/dl; Hemoglobin A1C 6.5 % (4.5-5.6)
[2019-07-11] MEDS: TACROLIMUS 1 MG CAP PO SCH ×2 (11:07→17:16)
--- NOTE | 2019-07-11 11:36 | CT Scan Report ---
CT chest wo con CT DOSE: 495.31 mGy.cm HISTORY: Abnormal chest x-ray. R/O Pneumonia/Interstial lung disease TECHNIQUE: Multiaxial CT images of the chest were performed without contrast. A dose lowering techni que was utilized adhering to the principles of ALARA. COMPARISON: Chest CT 08/14/2012. Chest x-ray 07/11/2019. FINDINGS: Mild paraseptal emphysema. No pneumothorax. The central airways are patent. Small bilateral pleural effusions. There is mild subpleural interstitial thickening with scattered subpleural densit ies seen throughout the lungs. Small areas of honeycombing within the left upper lobe anteriorly. The refore, this favors chronic fibrotic change. There is also perihilar groundglass density throughout t he majority of the left upper lobe. There are a few additional patchy groundglass densities within th e left lower lobe. There are poststernotomy changes. No suspicious lytic or blastic osseous lesions. The visualized liver, spleen, and adrenal glands unremarkable. The heart is normal in size. Caliber t horacic aorta. There are few mildly enlarged mediastinal lymph nodes. Dominant subcarinal lymph node measures 1.7 cm in short axis diameter. There are few prominent AP window lymph nodes. No definite hi lar lymphadenopathy. IMPRESSION: 1. Groundglass densities throughout the majority of the left lung which likely represents an acute pn eumonitis. 2. Mild subpleural initial thickening with scattered subpleural densities and a few small areas of ho neycombing. This favors chronic fibrotic change. 3. Mild paraseptal emphysema. 4. Small bilateral pleural effusions. 5. Prominent mediastinal lymph nodes. This may be reactive. ACT 112: Negative or not required by law. Electronically signed by: Saurabh Nunez M.D. 07/11/2019 11:34 AM
--- NOTE | 2019-07-11 14:31 | Electrocardiogram Report ---
Test Reason : Blood Pressure : / mmHG Vent. Rate : 096 BPM Atrial Rate : 096 BPM P-R Int : 148 ms QRS Dur : 092 ms QT Int : 338 ms P-R-T Axes : 053 -06 087 degrees QTc Int : 427 ms Normal sinus rhythm Nonspecific ST and T wave abnormality Abnormal ECG When compared with ECG of 25-JUL-2012 21:25, Vent. rate has increased BY 32 BPM Confirmed by Geovanni Little ([id number]) on 07/11/2019 2:31:01 PM Referred By: Confirmed By:Gibson Little
--- NOTE | 2019-07-11 15:27 | Pulmonary Consultation ---
Date of Consultation July 11, 2019 Assessment & Plan (1) Idiopathic interstitial pneumonia: I did review the patient's chest CT which demonstrates upper lobe groundglass opacities with subpleural honeycombing. He also has some increased septal line thickening and small bilateral effusions. This is a nonspecific pattern and is likely related to an ill-defined idiopathic interstitial pneumonia. These findings may be compatible with fibrotic NSIP and less likely UIP-like pattern. Rheumatological/mixed connective tissue disorder may also present this way. 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 Infectious etiology may also present this way especially in light of his immunocompromised state. Pneumocystis carinii pneumonia is always a concern in those who are immunocompromised. I will check an LDH, however this is nonspecific. If it is negative, it is very unlikely that he has pneumocystis. I suspect that common things being common, this is most likely an IIP/ILD with superimposed heart failure given his grade 2 diastolic dysfunction and/or pneumonia. Recommend diuresis. Unfortunately, he was unable to undergo a CT of his chest with contrast to evaluate for evidence of pulmonary embolism. He does have an acute DVT. I am very reluctant to perform a bronchoscopy in light of the possibility that he may have pulmonary emboli and also in light of the fact that he is anticoagulated. He would not be a good candidate for a VQ scan at this time given the acute infiltrates in addition to his chronic fibrotic findings on his lung. I would also treat for the possibility of typical bacterial pneumonia and atypical infectious processes such as mycoplasma and Legionella. Please check a mycoplasma antibody and a urine Legionella specimen. I would recommend starting him on Rocephin and azithromycin and transitioning him to oral medications once he shows clinical improvement. He will need follow-up in the pulmonary clinic with pulmonary function testing and repeat imaging. I am ordering for serologic testing for interstitial lung disease. Lastly, there is an unlikely possibility that these findings are bilingual call center representative of pulmonary infarcts, however pulmonary infarcts usually present with wedge-shaped opacities in the periphery and not as groundglass opacities with subpleural honeycombing. Continue anticoagulation for his DVT. Thank you for the consult. I will continue to follow with you. (2) Diastolic CHF, acute on chronic: (3) CKD (chronic kidney disease) stage 5, GFR less than 15 ml/min: (4) Immunocompromised patient: (5) Abnormal CT scan, chest: (6) Acute hypoxemic respiratory failure: (7) DVT (deep venous thrombosis): History of Present Illness Reason for Consultation: Abnormal CT chest Requesting Physician: Dr. Smiley Attending Physician: Dashawn Tabor MD History of Present Illness This is a 69-year-old male with a past medical history of chronic renal failure (CKD stage IV/V, diabetes, liver transplant for fatty liver disease and hepatocellular carcinoma in 2012, hypertension and peripheral arterial disease who presented to the ER after going to his CKD clinic appointment. His symptoms are notable for significant exertional dyspnea while walking on a flat surface. He was also hypertensive in the emergency department with systolic blood pressures in the 170s. He recently undergone a fistula placement in his left arm on July 05 and noticed he had breathing issues the following day and through the weekend. He has been having some dry coughing. He denies any chest pain. He denies any nausea or vomiting. Troponin on admission was negative. EKG demonstrated nonspecific ST and T wave abnormalities. Echocardiogram on 07/11/2019 demonstrated normal ejection fraction with an EF of 55- 60%. Moderate concentric left ventricular hypertrophy was noted. Left atrium was mildly dilated. Right ventricle was normal. No significant valvular pericardial issues. Labs were significant for mild microcytic anemia with a hemoglobin of 11.8. No significant peripheral eosinophilia was noted. ESR was greater than 90. ABG was consistent with mixed respiratory alkalosis and metabolic acidosis and hypoxemia with a PO2 of 73. Chemistry with metabolic acidosis and creatinine of 4.4. Glucose elevated to 219. Anion gap of 8. Ultrasound of the bilateral lower extremities was performed which demonstrated a DVT within 1 of the 2 paired right posterior tibial veins. CT chest demonstrated groundglass densities throughout the majority of the left lung which likely represent an acute pneumonitis. Mild subpleural interstitial thickening with scattered subpleural densities and a few small areas of honeycombing noted. Patient smoked proximally 35 years ago. He smoked for 20 years roughly 1 pack/day. 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 He lives with his and has hot air for air conditioning. He lives in a house that is approximately 100 years old and [place]. He was previously in the and served in the [employer]. He served for 2 years. He was stationed in [place], [place], [place] and [place]. Underwent a liver transplant in 2012. He is on Prograf and tacrolimus. Denies any animal exposures at home. No open water sources. Allergies Allergy/AdvReac Type Severity Reaction Status Date / Time aspirin AdvReac told Verified 07/10/19 15:23 him to not take any aspirin Home Medications Home Medications Medication Instructions Recorded Confirmed Type amlodipine 5 mg PO BID 07/10/19 07/11/19 History cholecalciferol (vitamin D3) 2,000 unit PO DAILY 07/10/19 07/10/19 History [Vitamin D3] clindamycin phosphate 1 applic TOPICAL BID 07/10/19 07/10/19 History entecavir 0.5 mg PO DAILY 07/10/19 07/10/19 History ezetimibe [Zetia] 10 mg PO DAILY 07/10/19 07/10/19 History hydralazine 75 mg PO BID 07/10/19 07/11/19 History hydroxyzine HCl 25 mg PO Q6 PRN 07/10/19 07/10/19 History insulin aspart U-100 10 - 16 unit SUBCUT TIDM 07/10/19 07/10/19 History levothyroxine 75 mcg PO DAILY 07/10/19 07/10/19 History metoprolol succinate 100 mg PO DAILY 07/10/19 07/10/19 History mycophenolate mofetil 250 mg PO BID 07/10/19 07/10/19 History omeprazole 20 mg PO BID 07/10/19 07/10/19 History sodium bicarbonate 1,300 mg PO BID 07/10/19 07/10/19 History tacrolimus 1 mg PO Q12H 07/10/19 07/10/19 History Patient History Medical History (Updated 07/11/19 @ 15:32 by Vidal Abad MD) Abnormal CT scan, chest ACEI/ARB contraindicated Acute hypoxemic respiratory failure Anemia CKD (chronic kidney disease) stage 4, GFR 15-29 ml/min CKD (chronic kidney disease) stage 5, GFR less than 15 ml/min Diabetes mellitus type 2 with complications Diastolic CHF, acute on chronic DVT (deep venous thrombosis) Esophageal varices History of hepatocellular carcinoma associated with HERNANDEZ cirrhosis; s/p liver transplant Hypertension Hypothyroidism Idiopathic interstitial pneumonia Immunocompromised patient Liver transplant recipient HERNANDEZ (nonalcoholic steatohepatitis) Peripheral vascular disease in diabetes mellitus Sleep apnea Surgical History Status post liver transplant Family History (Updated 07/11/19 @ 00:30 by Dereck Smiley MD) Mother Colorectal cancer Diabetes Father Non-Hodgkin lymphoma Sister Renal cancer Sister Diabetes Brother Diabetes Social History Preferred Language: Kiswahili Communication Ability: Effective Naturopathic Physician Required: No Beliefs That Will Affect Care: None Current Living Situation: Spouse Other Information That Helps Us Care for You: No Feels Safe at Home: Yes Safety Concerns: Feels Safe At This Time Smoking Status: Former smoker Hx Alcohol Use: No Hx Substance Use: No Review of Systems Review of Systems: All systems reviewed & are unremarkable except as noted in Subjective Physical Exam Constitutional: WD/WN, vitals as above Eyes: PERRL, conjunctivae normal, anicteric sclerae ENMT: external ear and nose normal, oropharynx normal Neck: normal visual inspection Respiratory: Mild inspiratory crackles noted. Mild tachypnea. Cardiovascular: RRR, no murmur, no edema Gastrointestinal (Abdomen): Inspection/Auscultation: abdomen not distended Old surgical scar noted. Small macular rash on the right side of his abdomen. Musculoskeletal: no cyanosis or clubbing, extremities motor strength 5/5 Skin: no rashes, warm and dry Neurologic: PERRL, EOMI, accommodation nl, no face palsy, no dysarthria Psychiatric: A+Ox3, euthymic affect Results & Data ([facility]) Vital Signs (Past 12 Hours) Vital Signs Temp Pulse Pulse Resp BP Pulse Ox 07/11/19 11:12 97.7 F 76 16 158/74 H 97 07/11/19 08:00 76 07/11/19 07:31 98.4 F 85 18 184/77 H 93 07/11/19 04:28 97.5 F L 79 19 176/80 H 94 PG Care Time/CCT Total # of Minutes Spent Total Time Spent with Patient: Total time spent is greater than 50% in coordination of care (as documented) at patient's floor/unit and/or counseling patient: Coding Level of Care Code 90881 Inpt Consult Level 5 Diagnoses Idiopathic interstitial pneumonia J84.111 Diastolic CHF, acute on chronic I50.33 CKD (chronic kidney disease) stage 5, GFR less than 15 ml/min N18.5 Immunocompromised patient D89.[address] scan, chest R93.89 Acute hypoxemic respiratory failure J96.01 DVT (deep venous thrombosis) I82.409
[2019-07-11] MEDS ORDERED: FUROSEMIDE 40 MG in SYRINGE 0 ML IV ONE ×2 (16:00→21:00)
[2019-07-11] MEDS ORDERED: cefTRIAXone SODIUM 2,000 MG in DEXTROSE 5% 50 ML IV SCH (16:00)
[2019-07-11 16:09] LABS: C Reactive Protein 11.1 mg/dl (0-0.29)
[2019-07-11] MEDS ORDERED: AZITHROMYCIN 500 MG in DEXTROSE 5% 250 ML IV SCH (17:00)
--- NOTE | 2019-07-11 17:34 | Hospitalist Progress Note ---
Date of Service July 11, 2019 Assessment & Plan (1) Acute respiratory failure with hypoxia: Progressive dyspnea over past several weeks. Likely secondary to interstitial lung disease/interstitial inflammatory process and is complicated by diastolic CHF Now SOB with minimal exertion. Chest x-ray suggests pulmonary edema, but consider infectious or inflammatory process. CT of the chest showed probable interstitial pneumonitis/pulmonary fibrosis Has bilateral leg DVT and has been on intravenous heparin, no contrasted study to rule out pulmonary embolism Appreciate pulmonary input and recommendation Received 1 dose of Zosyn in the emergency room and will continue with intravenous ceftriaxone and azithromycin for 5 days in total Received another dose of IV Lasix today of 40 mg Clinically a little better today (2) Diastolic CHF, acute on chronic: Acute diastolic CHF with preserved EF Admitted with progressive shortness of breath for several weeks Chest x-ray and CT did show questionable fluid overload Echo-normal LV chamber size with moderate concentric LVH, EF of 55 to 60%, no segmental LV wall motion abnormalities, grade 2 diastolic dysfunction, mild LA enlargement and no significant valvular pathology Received 80 mg of Lasix IV in the emergency room Will give 40 mg IV x1 dose today (3) Abnormal chest x-ray: Interstitial pneumonitis/fibrotic lung disease Chest x-ray suggests pulmonary edema, but consider infectious or inflammatory process. Pro-BNP elevated, but may been high because of CKD. CT scan of the chest showed-groundglass densities throughout the majority of the left lung which is likely representing acute pneumonitis Chronic fibrotic changes with a small bilateral pleural effusion and prominent mediastinal lymph nodes Will send mycoplasma and Legionella titer CMV serologies already been sent Has been started with intravenous ceftriaxone and azithromycin (4) DVT (deep venous thrombosis): VTE considered because of acute worsening of symptoms a few days ago. Venous duplex demonstrates calf DVT (present on admission). May or may not have pulmonary embolism. Best not to obtain CTA of chest due to CKD and unlikely that VQ scan would be useful. Not good candidate for enoxaparin or DOAC because of renal disease. Start IV heparin and consider starting warfarin pending further consideration. Remains stable (5) Elevated sedimentation rate: ESR > 90. CRP 12.2. No fever. Respiratory symptoms as noted. Consider infection or inflammatory disease. Blood cultures obtained in ED and received a dose of piperacillin / tazobactam. Likely has pneumonitis Antibiotics have been started (6) Hypertension: Continue metoprolol, amlodipine, hydralazine. (7) Status post liver transplant: History of cirrhosis attributed to HERNANDEZ. S/P liver transplant at [facility] [place] 2012. Continue mycophenolate mofetil and tacrolimus. (8) CKD (chronic kidney disease) stage 4, GFR 15-29 ml/min: CKD IV with creatinine now 4.22. Recent AV fistula LUE. Consult Nephrology to assist with management. Appreciate nephrology input and recommendation (9) Hypomagnesemia: Serum Mg 1.7. Ventricular ectopy noted on substance abuse counselor. Replace with caution. Follow. (10) Diabetes mellitus type 2 with complications: DM type 2 complicated by peripheral vascular disease. Managed with insulin aspartate at home. Check Hgb A1C. Lantus / NovoLog per protocol. (11) Peripheral vascular disease in diabetes mellitus: History of intermittent claudication. Patient reports that he was seen by a specialist (? Vascular Surgery) who did not recommend any intervention. Suspected occlusion of bilateral posterior tibial arteries noted on venous duplex. Check follow-up arterial duplex.-Shows posterior tibial occlusion Will get vascular surgery involved (12) DVT prophylaxis: Treating for acute DVT as discussed above (13) Discharge planning issues: Discharge disposition to be determined. Family Medicine follow-up with Dr. Maldonado. Nephrology follow-up with Dr. Kamara. Transplant Medicine follow-up at [facility] [place]. Admission and Anticipated Discharge Date Admission Date: July 10, 2019 Subjective 07/11/2019 Patient was seen and examined in telemetry unit Is a 69-year-old male with significant past medical history including CKD, type 2 diabetes with complications, esophageal varices, history of hepatocellular carcinoma status post liver transplant, hypertension, peripheral vascular disease and sleep apnea was admitted yesterday with increasing shortness of breath that has been going on for about 2 weeks He has been feeling a little bit better this morning Still has shortness of breath at rest without any pain No fever and/or chills and denies any abdominal pain nausea or vomiting Review of Systems Review of Systems: All systems reviewed and are unremarkable except as noted below Constitutional: + weight loss (few pounds); no fever Ear, Nose, Mouth, Throat: as per Subjective / HPI Respiratory: + cough, + dyspnea, + dyspnea on exertion and + wheezing; no hemoptysis Musculoskeletal: Pain secondary to claudication Hematologic / Lymphatic: + easy bruising; no easy bleeding and no lymphadenopathy Physical Exam Physical Exam: Lying in bed with moderate distress due to shortness of breath Constitutional: well developed, well nourished, + acute distress (Mild shortness of breath) and + ill appearing Eyes: PERRL, conjunctivae normal, anicteric sclerae ENMT: external ear and nose normal, oropharynx normal Neck: trachea midline, no thyromegaly Respiratory: + respiratory distress (Moderate shortness of breath at rest) Auscultation: + diminished lung sounds, + crackles (Bibasilar crackles) and + wheezes (Minimal wheezing) Cardiovascular: Rate/Rhythm: regular rate and regular rhythm Heart Sounds: no murmur Gastrointestinal (Abdomen): Inspection/Auscultation: abdomen normal to inspection and normal bowel sounds; abdomen not distended Percussion/Palpation: abdomen soft; abdomen nontender Musculoskeletal: Extremities: no cyanosis, no clubbing and no petechiae No acute arthritis involving any joints Neurologic: moves all extremities; no focal motor deficits Alert, awake and oriented x3 Lymphatic: no cervical or axillary lymphadenopathy Results & Data ([facility]) Vital Signs (Past 12 Hours) Vital Signs Temp Pulse Pulse Resp BP Pulse Ox 07/11/19 15:31 36.5 C 76 18 152/69 H 99 07/11/19 11:12 36.5 C 76 16 158/74 H 97 07/11/19 08:00 76 07/11/19 07:31 36.9 C 85 18 184/77 H 93 Laboratory Results [facility] 07/10/19 07/11/19 19:47 09:06 Sodium 138 138 Potassium 4.1 4.0 Chloride 112 H 110 H Carbon Dioxide 17 L 20 L BUN 57 H 59 H Creatinine 4.08 H 4.44 H D Glucose 145 H 164 H Calcium 8.7 9.1 Cardiac Enzymes 07/11/19 Range/Units 15:27 Total Creatine Kinase 41 (39-308) U/L Urine 07/10/19 Range/Units 18:40 Urine Color Yellow Urine Appearance Clear (Clear) Urine pH 5.0 (4.5-7.5) Ur Specific [place] 1.017 (1.000-1.030) Urine Protein 3+ H (Negative) Urine Glucose (UA) Trace H (Negative) Diagnostic Findings CT of the chest without contrast 1. Groundglass densities throughout the majority of the left lung which likely represents an acute pneumonitis. 2. Mild subpleural initial thickening with scattered subpleural densities and a few small areas of honeycombing. This favors chronic fibrotic change. 3. Mild paraseptal emphysema. 4. Small bilateral pleural effusions. 5. Prominent mediastinal lymph nodes. This may be reactive. Arterial Doppler:IMPRESSION: 1. Occluded bilateral distal posterior tibial arteries.. 2. Monophasic waveforms within the bilateral dorsalis pedis arteries likely due to diffuse atherosclerotic disease. 3. Multifocal areas of stenosis as described above. Venous duplex: IMPRESSION: 1. Deep venous thrombus within one of two paired right posterior tibial veins. No additional sites of deep venous thrombus within either lower extremity. 2. Suspected occlusion of the bilateral posterior tibial arteries. Medications Administered Current Inpatient Medications Amlodipine Besylate (Norvasc) 5 mg PO BID [facility] Stop: 08/10/19 08:59 Last Admin: 07/11/19 09:05 Dose: 5 mg Documented by: Clotrimazole (Lotrimin 1%) 1 appln EXT BID [facility] Stop: 08/10/19 08:59 Last Admin: 07/11/19 09:14 Dose: 1 appln Documented by: Ezetimibe (Zetia) 10 mg PO DAILY [facility] Stop: 08/10/19 08:59 Last Admin: 07/11/19 09:05 Dose: 10 mg Documented by: Hydralazine HCl (Apresoline) 75 mg PO BID [facility] Stop: 08/10/19 08:59 Last Admin: 07/11/19 09:04 Dose: 75 mg Documented by: Hydroxyzine HCl (Vistaril) 25 mg PO Q6 PRN PRN Reason: Itching Stop: 08/09/19 19:31 Last Admin: 07/11/19 09:03 Dose: 25 mg Documented by: Heparin Sodium/Dextrose (Heparin Sodium/Dextrose) 25,000 units in 500 mls @ 31 mls/hr IV .[id number] [facility]; Protocol Stop: 08/10/19 00:44 Last Titration: 07/11/19 15:03 Dose: 1,550 units/hr, 31 mls/hr Documented by: Ceftriaxone Sodium 2,000 mg/ (Dextrose) 70 mls @ 100 mls/hr IV Q24H [facility]; Protocol Stop: 07/18/19 15:59 Last Admin: 07/11/19 16:48 Dose: 100 mls/hr Documented by: Azithromycin 500 mg/ Dextrose 255 mls @ 125 mls/hr IV Q24H [facility] Stop: 07/18/19 16:59 Furosemide 40 mg/ Syringe 4 mls @ 4 mls/min IV ONE ONE Stop: 07/11/19 21:01 Furosemide 40 mg/ Syringe 4 mls @ 4 mls/min IV BID17 [facility] Stop: 08/11/19 08:59 Insulin Aspart (Novolog Flexpen) 0 units SC ACHS [facility] Stop: 08/09/19 20:59 Last Admin: 07/11/19 17:15 Dose: 6 units Documented by: Insulin Glargine (Lantus Solostar Pen) 0 - 12 units SC BID [facility]; Protocol Stop: 08/10/19 08:59 Last Admin: 07/11/19 09:11 Dose: 8 units Documented by: Levothyroxine Sodium (Synthroid) 75 mcg PO DAILYBB [facility] Stop: 08/10/19 06:29 Last Admin: 07/11/19 06:20 Dose: 75 mcg Documented by: Magnesium Oxide (Mag-Ox) 400 mg PO QAM [facility] Stop: 08/10/19 08:59 Last Admin: 07/11/19 09:07 Dose: 400 mg Documented by: Metoprolol Succinate (Toprol Xl) 100 mg PO DAILY [facility] Stop: 08/10/19 08:59 Last Admin: 07/11/19 09:03 Dose: 100 mg Documented by: Miscellaneous (Order Awaiting Action) 1 ea N/A QS [facility] Stop: 08/10/19 00:00 Last Admin: 07/11/19 15:51 Dose: Not Given Documented by: Mycophenolate Mofetil (Cellcept) 250 mg PO BID [facility] Stop: 08/09/19 20:59 Last Admin: 07/11/19 09:08 Dose: 250 mg Documented by: Pantoprazole Sodium (Protonix) 40 mg PO BID [facility] Stop: 08/09/19 20:59 Last Admin: 07/11/19 09:06 Dose: 40 mg Documented by: Sodium Bicarbonate (Sodium Bicarbonate) 1,300 mg PO BID [facility] Stop: 08/09/19 20:59 Last Admin: 07/11/19 09:05 Dose: 1,300 mg Documented by: Tacrolimus (Prograf) 1 mg PO Q12 [facility] Stop: 08/09/19 20:59 Last Admin: 07/11/19 17:16 Dose: 1 mg Documented by: Vitamin D (Vitamin D3) 2,000 units PO DAILY [facility] Stop: 08/10/19 08:59 Last Admin: 07/11/19 09:03 Dose: 2,000 units Documented by:
[2019-07-11 19:35] LABS: Partial Thromboplastin Ratio 1.3; Partial Thromboplastin Time 35.9 Seconds (21.0-31.0)
[2019-07-12 03:03] LABS: Partial Thromboplastin Ratio 2.3
[2019-07-12 03:21] LABS: Partial Thromboplastin Time 61.5 Seconds (21.0-31.0)
[2019-07-12] MEDS: LEVOTHYROXINE SODIUM 75 MCG TABLET PO SCH (05:06)
[2019-07-12 05:49] LABS: Basophils # (auto) 0.03 K/uL (0-0.2); Basophils % (auto) 0.4 %; Eosinophils # (auto) 0.42 K/uL (0-0.5); Eosinophils % (auto) 5.5 %; Hematocrit (blood only) 32.4 % (42-52); Hemoglobin 10.6 g/dL (14.0-18.0); Immature Granulocytes # (auto) 0.02 K/uL (0.00-0.02); Immature Granulocytes % (auto) 0.3 %; Lymphocytes # (auto) 1.57 K/uL (1.2-3.4); Lymphocytes % (auto) 20.6 %; Mean Corpuscular Hemoglobin 24.9 pg (25-34); Mean Corpuscular Hgb Conc 32.7 g/dL (32-36); Mean Corpuscular Volume 76.2 fL (80-100); Mean Platelet Volume 9.6 fL (7.4-10.4); Monocytes # (auto) 0.86 K/uL (0.11-0.59); Monocytes % (auto) 11.3 %; Neutrophils # (auto) 4.71 K/uL (1.4-6.5); Neutrophils % (auto) 61.9 %; Platelet Count 185 K/uL (130-400); RDW Coefficient of Variation 13.9 % (11.5-14.5); RDW Standard Deviation 38.4 fL (36.4-46.3); Red Blood Count 4.25 M/uL (4.7-6.1); White Blood Count 7.61 K/uL (4.8-10.8)
[2019-07-12 06:26] LABS: BUN Creatinine Ratio 14.2 (10-20); Creatinine Clr Calc Pharmacy 18.5 ml/min; Est GFR (African American) 14.3; Est GFR (Non-African American) 12.4
--- NOTE | 2019-07-12 08:00 | Hospitalist Progress Note ---
Date of Service July 12, 2019 Assessment & Plan (1) Acute respiratory failure with hypoxia: Progressive dyspnea over past several weeks. Likely secondary to interstitial lung disease/interstitial inflammatory process and is complicated by diastolic CHF SOB with minimal exertion. Chest x-ray suggests pulmonary edema, but consider infectious or inflammatory process. CT of the chest showed probable interstitial pneumonitis/pulmonary fibrosis Has bilateral leg DVT and has been on intravenous heparin, no contrasted study to rule out pulmonary embolism Appreciate pulmonary input and recommendation Received 1 dose of Zosyn in the emergency room and will continue with intravenous ceftriaxone and azithromycin for 5 days in total IV Lasix 40 mg x2 today Clinically better today (2) Diastolic CHF, acute on chronic: Acute diastolic CHF with preserved EF Admitted with progressive shortness of breath for several weeks Chest x-ray and CT did show questionable fluid overload Echo-normal LV chamber size with moderate concentric LVH, EF of 55 to 60%, no segmental LV wall motion abnormalities, grade 2 diastolic dysfunction, mild LA enlargement and no significant valvular pathology Received 80 mg of Lasix IV in the emergency room Then again 40 mg IV x1 dose yesterday and 40 mg IV x2 today (07/12) (3) Abnormal chest x-ray: Interstitial pneumonitis/fibrotic lung disease Chest x-ray suggests pulmonary edema, but consider infectious or inflammatory process. Pro-BNP elevated, but may been high because of CKD. CT scan of the chest showed-groundglass densities throughout the majority of the left lung which is likely representing acute pneumonitis Chronic fibrotic changes with a small bilateral pleural effusion and prominent mediastinal lymph nodes Will send mycoplasma and Legionella titer - pending CMV serologies already been sent - pending Started on intravenous ceftriaxone and azithromycin (4) DVT (deep venous thrombosis): VTE considered because of acute worsening of symptoms a few days ago. Venous duplex demonstrates calf DVT (present on admission). May or may not have pulmonary embolism. Best not to obtain CTA of chest due to CKD and unlikely that VQ scan would be useful. Not good candidate for enoxaparin or DOAC because of renal disease. Started IV heparin, plan to start warfarin tonight (07/12), monitor PT/INR Remains stable (5) Elevated sedimentation rate: ESR > 90. CRP 12.2. No fever. Respiratory symptoms as noted. Consider infection or inflammatory disease. Blood cultures obtained in ED and received a dose of piperacillin / tazobactam, now on ceftriaxone and azithro Likely has pneumonitis Antibiotics have been started (6) Hypertension: Continue metoprolol, amlodipine, hydralazine. (7) Status post liver transplant: History of cirrhosis attributed to HERNANDEZ. S/P liver transplant at [facility] 2012. Continue mycophenolate mofetil and tacrolimus. (8) CKD (chronic kidney disease) stage 4, GFR 15-29 ml/min: CKD stage V with creatinine now 4.5 Recent AV fistula LUE. Nephrology consulted to assist with management. Appreciate nephrology input and recommendation (9) Hypomagnesemia: Serum Mg 1.7. Ventricular ectopy noted on alarm security or surveillance monitor. Replace with caution. Follow. (10) Diabetes mellitus type 2 with complications: DM type 2 complicated by peripheral vascular disease. Managed with insulin aspartate at home. Hgb A1C 6.5% Lantus / NovoLog per protocol. (11) Peripheral vascular disease in diabetes mellitus: History of intermittent claudication. Patient reports that he was seen by a specialist (? Vascular Surgery) who did not recommend any intervention. Suspected occlusion of bilateral posterior tibial arteries noted on venous duplex. Check follow-up arterial duplex.-Shows posterior tibial occlusion Vascular surgery consulted - no intervention planned at this time. (12) DVT prophylaxis: Treating for acute DVT as discussed above (13) Discharge planning issues: Discharge disposition to be determined. Family Medicine follow-up with Dr. Maldonado. Nephrology follow-up with Dr. Kamara. Transplant Medicine follow-up at [facility]. Admission and Anticipated Discharge Date Admission Date: July 10, 2019 Subjective No acute events overnight. Pt is ambulating to the bathroom w/o difficulty. Denies any fever, chills, chest pain.He continues to have dry cough, no sputum production. Denies any abd. pain, nausea or vomiting. Review of Systems Review of Systems: All systems reviewed & are unremarkable except as noted in HPI & below Constitutional: no fever and no chills Respiratory: + cough (dry) and + dyspnea (improved) Cardiovascular: no chest pain and no palpitations Gastrointestinal: no abdominal pain, no nausea and no vomiting Physical Exam Physical Exam: Physical Exam: Sitting up in bed, in NAD, on NC Constitutional: well developed, well nourished,+ ill appearing Eyes: PERRL, EOMI, conjunctivae normal, anicteric sclerae ENMT: external ear and nose normal, oropharynx normal Neck: trachea midline, no thyromegaly Respiratory: + diminished lung sounds, + crackles (mild bibasilar crackles) and + wheezes (minimal wheezing) Cardiovascular: Rate/Rhythm: regular rate and regular rhythm Heart Sounds: no murmur Gastrointestinal (Abdomen): Inspection/Auscultation: abdomen normal to inspection and normal bowel sounds; abdomen not distended Percussion/Palpation: abdomen soft; abdomen nontender Musculoskeletal: Extremities: no cyanosis, no clubbing and no petechiae, No acute arthritis involving any joints, moves all 4 extremities spontaneously Neurologic: Alert, awake and oriented x3, speech fluent, no facial asymmetry, moves all extremities Results & Data ([facility]) Vital Signs (Past 12 Hours) Vital Signs Temp Pulse Pulse Resp BP BP Pulse Ox 07/12/19 07:20 36.5 C 72 19 151/71 H 93 07/12/19 03:41 36.7 C 63 17 169/72 H 95 07/12/19 03:30 36.4 C L 91 H 18 107/67 92 07/12/19 00:23 77 07/12/19 00:07 36.5 C 78 19 139/80 96 Laboratory Results 07/12/19 07/12/19 07/12/19 Range/Units 07:43 05:30 05:30 WBC 7.61 (4.8-10.8) K/uL RBC 4.25 L (4.7-6.1) M/uL Hgb 10.6 L (14.0-18.0) g/dL Hct 32.4 L (42-52) % MCV 76.2 L (80-100) fL MCH 24.9 L (25-34) pg MCHC 32.7 (32-36) g/dL RDW Std Deviation 38.4 (36.4-46.3) fL RDW Coeff of Ana María 13.9 (11.5-14.5) % Plt Count 185 (130-400) K/uL MPV 9.6 (7.4-10.4) fL Immature Gran % (Auto) 0.3 % Neut % (Auto) 61.9 % Lymph % (Auto) 20.6 % [place] % (Auto) 11.3 % Eos % (Auto) 5.5 % Baso % (Auto) 0.4 % Immature Gran # (Auto) 0.02 (0.00-0.02) K/uL Neut # (Auto) 4.71 (1.4-6.5) K/uL Lymph # (Auto) 1.57 (1.2-3.4) K/uL [place] # (Auto) 0.86 H (0.11-0.59) K/uL Eos # (Auto) 0.42 (0-0.5) K/uL Baso # (Auto) 0.03 (0-0.2) K/uL ESR (0-14) mm/hr APTT (21.0-31.0) Seconds PTT Ratio Sodium 135 L (136-145) mmol/L Potassium 4.0 (3.5-5.1) mmol/L Chloride 105 (98-107) mmol/L Carbon Dioxide 19 L (21-32) mmol/L Anion Gap 11.0 (3-11) BUN 64 H (7-18) mg/dl Creatinine 4.51 H* (0.6-1.4) mg/dl Est Cr Clr Drug Dosing 18.5 ml/min Est GFR ( Amer) 14.3 Est GFR (Non-Af Amer) 12.4 BUN/Creatinine Ratio 14.2 (10-20) Glucose 138 H (70-99) mg/dl POC Glucose 144 H (70-99) mg/dl Estimat Average Glucose mg/dl Hemoglobin A1c (4.5-5.6) % Calcium 9.0 (8.5-10.1) mg/dl Magnesium (1.8-2.4) mg/dl Lactate Dehydrogenase (87-241) U/L Total Creatine Kinase (39-308) U/L C-Reactive Protein (0-0.29) mg/dl Tacrolimus Rheumatoid Factor Cycl Citrul Peptide IgG (0-4.99) U/ml KHADRA Screen Proteinase 3 (PR3) ANCA Anti-Neutrophil (Flow) TAWNYA-1 Antibody SS-A/Ro Antibody SS-B/La Antibody Sm (James) Antibody BUYER TOBACCO HEAD Antibody Scl-70 Scleroderma Ab Double Strand DNA Ab Anti-Centromere Ab Glomerular Base Memb Ab CMV Specimen Source CMV Qnt PCR IU/mL CMV Qnt PCR log IU/mL Urine Legionella Ag Mycoplasma pneumon IgM 07/12/19 07/12/19 07/11/19 Range/Units 05:30 02:22 20:04 WBC (4.8-10.8) K/uL RBC (4.7-6.1) M/uL Hgb (14.0-18.0) g/dL Hct (42-52) % MCV (80-100) fL MCH (25-34) pg MCHC (32-36) g/dL RDW Std Deviation (36.4-46.3) fL RDW Coeff of Ana María (11.5-14.5) % Plt Count (130-400) K/uL MPV (7.4-10.4) fL Immature Gran % (Auto) % Neut % (Auto) % Lymph % (Auto) % [place] % (Auto) % Eos % (Auto) % Baso % (Auto) % Immature Gran # (Auto) (0.00-0.02) K/uL Neut # (Auto) (1.4-6.5) K/uL Lymph # (Auto) (1.2-3.4) K/uL [place] # (Auto) (0.11-0.59) K/uL Eos # (Auto) (0-0.5) K/uL Baso # (Auto) (0-0.2) K/uL ESR (0-14) mm/hr APTT 61.5 H* (21.0-31.0) Seconds PTT Ratio 2.3 Sodium (136-145) mmol/L Potassium (3.5-5.1) mmol/L Chloride (98-107) mmol/L Carbon Dioxide (21-32) mmol/L Anion Gap (3-11) BUN (7-18) mg/dl Creatinine (0.6-1.4) mg/dl Est Cr Clr Drug Dosing ml/min Est GFR ( Amer) Est GFR (Non-Af Amer) BUN/Creatinine Ratio (10-20) Glucose (70-99) mg/dl POC Glucose 153 H (70-99) mg/dl Estimat Average Glucose mg/dl Hemoglobin A1c (4.5-5.6) % Calcium (8.5-10.1) mg/dl Magnesium (1.8-2.4) mg/dl Lactate Dehydrogenase (87-241) U/L Total Creatine Kinase (39-308) U/L C-Reactive Protein (0-0.29) mg/dl Tacrolimus Pending Rheumatoid Factor Cycl Citrul Peptide IgG (0-4.99) U/ml KHADRA Screen Proteinase 3 (PR3) ANCA Anti-Neutrophil (Flow) TAWNYA-1 Antibody SS-A/Ro Antibody SS-B/La Antibody Sm (James) Antibody BUYER TOBACCO HEAD Antibody Scl-70 Scleroderma Ab Double Strand DNA Ab Anti-Centromere Ab Glomerular Base Memb Ab CMV Specimen Source CMV Qnt PCR IU/mL CMV Qnt PCR log IU/mL Urine Legionella Ag Mycoplasma pneumon IgM 07/11/19 07/11/19 07/11/19 Range/Units 19:07 17:16 16:22 WBC (4.8-10.8) K/uL RBC (4.7-6.1) M/uL Hgb (14.0-18.0) g/dL Hct (42-52) % MCV (80-100) fL MCH (25-34) pg MCHC (32-36) g/dL RDW Std Deviation (36.4-46.3) fL RDW Coeff of Ana María (11.5-14.5) % Plt Count (130-400) K/uL MPV (7.4-10.4) fL Immature Gran % (Auto) % Neut % (Auto) % Lymph % (Auto) % [place] % (Auto) % Eos % (Auto) % Baso % (Auto) % Immature Gran # (Auto) (0.00-0.02) K/uL Neut # (Auto) (1.4-6.5) K/uL Lymph # (Auto) (1.2-3.4) K/uL [place] # (Auto) (0.11-0.59) K/uL Eos # (Auto) (0-0.5) K/uL Baso # (Auto) (0-0.2) K/uL ESR (0-14) mm/hr APTT 35.9 H (21.0-31.0) Seconds PTT Ratio 1.3 Sodium (136-145) mmol/L Potassium (3.5-5.1) mmol/L Chloride (98-107) mmol/L Carbon Dioxide (21-32) mmol/L Anion Gap (3-11) BUN (7-18) mg/dl Creatinine (0.6-1.4) mg/dl Est Cr Clr Drug Dosing ml/min Est GFR ( Amer) Est GFR (Non-Af Amer) BUN/Creatinine Ratio (10-20) Glucose (70-99) mg/dl POC Glucose 123 H (70-99) mg/dl Estimat Average Glucose mg/dl Hemoglobin A1c (4.5-5.6) % Calcium (8.5-10.1) mg/dl Magnesium (1.8-2.4) mg/dl Lactate Dehydrogenase (87-241) U/L Total Creatine Kinase (39-308) U/L C-Reactive Protein (0-0.29) mg/dl Tacrolimus Rheumatoid Factor Cycl Citrul Peptide IgG (0-4.99) U/ml KHADRA Screen Proteinase 3 (PR3) ANCA Anti-Neutrophil (Flow) TAWNYA-1 Antibody SS-A/Ro Antibody SS-B/La Antibody Sm (James) Antibody BUYER TOBACCO HEAD Antibody Scl-70 Scleroderma Ab Double Strand DNA Ab Anti-Centromere Ab Glomerular Base Memb Ab CMV Specimen Source CMV Qnt PCR IU/mL CMV Qnt PCR log IU/mL Urine Legionella Ag Pending Mycoplasma pneumon IgM 07/11/19 07/11/19 07/11/19 Range/Units 15:27 15:27 15:27 WBC (4.8-10.8) K/uL RBC (4.7-6.1) M/uL Hgb (14.0-18.0) g/dL Hct (42-52) % MCV (80-100) fL MCH (25-34) pg MCHC (32-36) g/dL RDW Std Deviation (36.4-46.3) fL RDW Coeff of Ana María (11.5-14.5) % Plt Count (130-400) K/uL MPV (7.4-10.4) fL Immature Gran % (Auto) % Neut % (Auto) % Lymph % (Auto) % [place] % (Auto) % Eos % (Auto) % Baso % (Auto) % Immature Gran # (Auto) (0.00-0.02) K/uL Neut # (Auto) (1.4-6.5) K/uL Lymph # (Auto) (1.2-3.4) K/uL [place] # (Auto) (0.11-0.59) K/uL Eos # (Auto) (0-0.5) K/uL Baso # (Auto) (0-0.2) K/uL ESR (0-14) mm/hr APTT (21.0-31.0) Seconds PTT Ratio Sodium (136-145) mmol/L Potassium (3.5-5.1) mmol/L Chloride (98-107) mmol/L Carbon Dioxide (21-32) mmol/L Anion Gap (3-11) BUN (7-18) mg/dl Creatinine (0.6-1.4) mg/dl Est Cr Clr Drug Dosing ml/min Est GFR ( Amer) Est GFR (Non-Af Amer) BUN/Creatinine Ratio (10-20) Glucose (70-99) mg/dl POC Glucose (70-99) mg/dl Estimat Average Glucose mg/dl Hemoglobin A1c (4.5-5.6) % Calcium (8.5-10.1) mg/dl Magnesium (1.8-2.4) mg/dl Lactate Dehydrogenase 169 (87-241) U/L Total Creatine Kinase (39-308) U/L C-Reactive Protein (0-0.29) mg/dl Tacrolimus Rheumatoid Factor Pending Cycl Citrul Peptide IgG < 0.40 (0-4.99) U/ml KHADRA Screen Proteinase 3 (PR3) Pending ANCA Anti-Neutrophil (Flow) Pending TAWNYA-1 Antibody Pending SS-A/Ro Antibody Pending SS-B/La Antibody Pending Sm (James) Antibody Pending BUYER TOBACCO HEAD Antibody Pending Scl-70 Scleroderma Ab Pending Double Strand DNA Ab Pending Anti-Centromere Ab Pending Glomerular Base Memb Ab Pending CMV Specimen Source CMV Qnt PCR IU/mL CMV Qnt PCR log IU/mL Urine Legionella Ag Mycoplasma pneumon IgM Pending 07/11/19 07/11/19 07/11/19 Range/Units 15:27 15:27 11:11 WBC (4.8-10.8) K/uL RBC (4.7-6.1) M/uL Hgb (14.0-18.0) g/dL Hct (42-52) % MCV (80-100) fL MCH (25-34) pg MCHC (32-36) g/dL RDW Std Deviation (36.4-46.3) fL RDW Coeff of Ana María (11.5-14.5) % Plt Count (130-400) K/uL MPV (7.4-10.4) fL Immature Gran % (Auto) % Neut % (Auto) % Lymph % (Auto) % [place] % (Auto) % Eos % (Auto) % Baso % (Auto) % Immature Gran # (Auto) (0.00-0.02) K/uL Neut # (Auto) (1.4-6.5) K/uL Lymph # (Auto) (1.2-3.4) K/uL [place] # (Auto) (0.11-0.59) K/uL Eos # (Auto) (0-0.5) K/uL Baso # (Auto) (0-0.2) K/uL ESR 88 H (0-14) mm/hr APTT (21.0-31.0) Seconds PTT Ratio Sodium (136-145) mmol/L Potassium (3.5-5.1) mmol/L Chloride (98-107) mmol/L Carbon Dioxide (21-32) mmol/L Anion Gap (3-11) BUN (7-18) mg/dl Creatinine (0.6-1.4) mg/dl Est Cr Clr Drug Dosing ml/min Est GFR ( Amer) Est GFR (Non-Af Amer) BUN/Creatinine Ratio (10-20) Glucose (70-99) mg/dl POC Glucose 219 H (70-99) mg/dl Estimat Average Glucose mg/dl Hemoglobin A1c (4.5-5.6) % Calcium (8.5-10.1) mg/dl Magnesium (1.8-2.4) mg/dl Lactate Dehydrogenase (87-241) U/L Total Creatine Kinase 41 (39-308) U/L C-Reactive Protein 11.10 H (0-0.29) mg/dl Tacrolimus Rheumatoid Factor Cycl Citrul Peptide IgG (0-4.99) U/ml KHADRA Screen Proteinase 3 (PR3) ANCA Anti-Neutrophil (Flow) TAWNYA-1 Antibody SS-A/Ro Antibody SS-B/La Antibody Sm (James) Antibody BUYER TOBACCO HEAD Antibody Scl-70 Scleroderma Ab Double Strand DNA Ab Anti-Centromere Ab Glomerular Base Memb Ab CMV Specimen Source CMV Qnt PCR IU/mL CMV Qnt PCR log IU/mL Urine Legionella Ag Mycoplasma pneumon IgM 07/11/19 07/11/19 07/11/19 Range/Units 09:06 09:06 09:06 WBC (4.8-10.8) K/uL RBC (4.7-6.1) M/uL Hgb (14.0-18.0) g/dL Hct (42-52) % MCV (80-100) fL MCH (25-34) pg MCHC (32-36) g/dL RDW Std Deviation (36.4-46.3) fL RDW Coeff of Ana María (11.5-14.5) % Plt Count (130-400) K/uL MPV (7.4-10.4) fL Immature Gran % (Auto) % Neut % (Auto) % Lymph % (Auto) % [place] % (Auto) % Eos % (Auto) % Baso % (Auto) % Immature Gran # (Auto) (0.00-0.02) K/uL Neut # (Auto) (1.4-6.5) K/uL Lymph # (Auto) (1.2-3.4) K/uL [place] # (Auto) (0.11-0.59) K/uL Eos # (Auto) (0-0.5) K/uL Baso # (Auto) (0-0.2) K/uL ESR (0-14) mm/hr APTT 45.2 H* (21.0-31.0) Seconds PTT Ratio 1.7 Sodium (136-145) mmol/L Potassium (3.5-5.1) mmol/L Chloride (98-107) mmol/L Carbon Dioxide (21-32) mmol/L Anion Gap (3-11) BUN (7-18) mg/dl Creatinine (0.6-1.4) mg/dl Est Cr Clr Drug Dosing ml/min Est GFR ( Amer) Est GFR (Non-Af Amer) BUN/Creatinine Ratio (10-20) Glucose (70-99) mg/dl POC Glucose (70-99) mg/dl Estimat Average Glucose 140 mg/dl Hemoglobin A1c 6.5 H (4.5-5.6) % Calcium (8.5-10.1) mg/dl Magnesium (1.8-2.4) mg/dl Lactate Dehydrogenase (87-241) U/L Total Creatine Kinase (39-308) U/L C-Reactive Protein (0-0.29) mg/dl Tacrolimus Rheumatoid Factor Cycl Citrul Peptide IgG (0-4.99) U/ml KHADRA Screen Pending Proteinase 3 (PR3) ANCA Pending Anti-Neutrophil (Flow) TAWNYA-1 Antibody SS-A/Ro Antibody SS-B/La Antibody Sm (James) Antibody BUYER TOBACCO HEAD Antibody Scl-70 Scleroderma Ab Double Strand DNA Ab Anti-Centromere Ab Glomerular Base Memb Ab CMV Specimen Source Pending CMV Qnt PCR IU/mL Pending CMV Qnt PCR log IU/mL Pending Urine Legionella Ag Mycoplasma pneumon IgM 07/11/19 07/11/19 Range/Units 09:06 09:02 WBC (4.8-10.8) K/uL RBC (4.7-6.1) M/uL Hgb (14.0-18.0) g/dL Hct (42-52) % MCV (80-100) fL MCH (25-34) pg MCHC (32-36) g/dL RDW Std Deviation (36.4-46.3) fL RDW Coeff of Ana María (11.5-14.5) % Plt Count (130-400) K/uL MPV (7.4-10.4) fL Immature Gran % (Auto) % Neut % (Auto) % Lymph % (Auto) % [place] % (Auto) % Eos % (Auto) % Baso % (Auto) % Immature Gran # (Auto) (0.00-0.02) K/uL Neut # (Auto) (1.4-6.5) K/uL Lymph # (Auto) (1.2-3.4) K/uL [place] # (Auto) (0.11-0.59) K/uL Eos # (Auto) (0-0.5) K/uL Baso # (Auto) (0-0.2) K/uL ESR (0-14) mm/hr APTT (21.0-31.0) Seconds PTT Ratio Sodium 138 (136-145) mmol/L Potassium 4.0 (3.5-5.1) mmol/L Chloride 110 H (98-107) mmol/L Carbon Dioxide 20 L (21-32) mmol/L Anion Gap 8.0 (3-11) BUN 59 H (7-18) mg/dl Creatinine 4.44 H D (0.6-1.4) mg/dl Est Cr Clr Drug Dosing 18.9 ml/min Est GFR ( Amer) 14.6 Est GFR (Non-Af Amer) 12.6 BUN/Creatinine Ratio 13.2 (10-20) Glucose 164 H (70-99) mg/dl POC Glucose 161 H (70-99) mg/dl Estimat Average Glucose mg/dl Hemoglobin A1c (4.5-5.6) % Calcium 9.1 (8.5-10.1) mg/dl Magnesium 1.8 (1.8-2.4) mg/dl Lactate Dehydrogenase (87-241) U/L Total Creatine Kinase (39-308) U/L C-Reactive Protein (0-0.29) mg/dl Tacrolimus Rheumatoid Factor Cycl Citrul Peptide IgG (0-4.99) U/ml KHADRA Screen Proteinase 3 (PR3) ANCA Anti-Neutrophil (Flow) TAWNYA-1 Antibody SS-A/Ro Antibody SS-B/La Antibody Sm (James) Antibody BUYER TOBACCO HEAD Antibody Scl-70 Scleroderma Ab Double Strand DNA Ab Anti-Centromere Ab Glomerular Base Memb Ab CMV Specimen Source CMV Qnt PCR IU/mL CMV Qnt PCR log IU/mL Urine Legionella Ag Mycoplasma pneumon IgM Medications Administered Current Inpatient Medications Amlodipine Besylate (Norvasc) 5 mg PO BID [facility] Stop: 08/10/19 08:59 Last Admin: 07/11/19 20:29 Dose: 5 mg Documented by: Clotrimazole (Lotrimin 1%) 1 appln EXT BID MARIO Stop: 08/10/19 08:59 Last Admin: 07/11/19 20:30 Dose: 1 appln Documented by: Ezetimibe (Zetia) 10 mg PO DAILY [facility] Stop: 08/10/19 08:59 Last Admin: 07/11/19 09:05 Dose: 10 mg Documented by: Hydralazine HCl (Apresoline) 75 mg PO BID [facility] Stop: 08/10/19 08:59 Last Admin: 07/11/19 20:27 Dose: 75 mg Documented by: Hydroxyzine HCl (Vistaril) 25 mg PO Q6 PRN PRN Reason: Itching Stop: 08/09/19 19:31 Last Admin: 07/11/19 09:03 Dose: 25 mg Documented by: Heparin Sodium/Dextrose (Heparin Sodium/Dextrose) 25,000 units in 500 mls @ 38 mls/hr IV .[id number] [facility]; Protocol Stop: 08/10/19 00:44 Last Titration: 07/12/19 07:18 Dose: Infused Documented by: Ceftriaxone Sodium 2,000 mg/ (Dextrose) 70 mls @ 100 mls/hr IV Q24H [facility]; Protocol Stop: 07/18/19 15:59 Last Infusion: 07/11/19 17:27 Dose: Infused Documented by: Azithromycin 500 mg/ Dextrose 255 mls @ 125 mls/hr IV Q24H [facility] Stop: 07/18/19 16:59 Last Infusion: 07/11/19 19:58 Dose: Infused Documented by: Furosemide 40 mg/ Syringe 4 mls @ 4 mls/min IV [id number] [facility] Stop: 08/11/19 08:59 Insulin Aspart (Novolog Flexpen) 0 units SC ACHS [facility] Stop: 08/09/19 20:59 Last Admin: 07/11/19 20:32 Dose: Not Given Documented by: Insulin Glargine (Lantus Solostar Pen) 0 - 12 units SC BID [facility]; Protocol Stop: 08/10/19 08:59 Last Admin: 07/11/19 20:32 Dose: 8 units Documented by: Levothyroxine Sodium (Synthroid) 75 mcg PO DAILYBB [facility] Stop: 08/10/19 06:29 Last Admin: 07/12/19 05:06 Dose: 75 mcg Documented by: Magnesium Oxide (Mag-Ox) 400 mg PO QAM [facility] Stop: 08/10/19 08:59 Last Admin: 07/11/19 09:07 Dose: 400 mg Documented by: Metoprolol Succinate (Toprol Xl) 100 mg PO DAILY [facility] Stop: 08/10/19 08:59 Last Admin: 07/11/19 09:03 Dose: 100 mg Documented by: Miscellaneous (Order Awaiting Action) 1 ea N/A QS [facility] Stop: 08/10/19 00:00 Last Admin: 07/11/19 23:07 Dose: Not Given Documented by: Mycophenolate Mofetil (Cellcept) 250 mg PO BID [facility] Stop: 08/09/19 20:59 Last Admin: 07/11/19 20:29 Dose: 250 mg Documented by: Pantoprazole Sodium (Protonix) 40 mg PO BID [facility] Stop: 08/09/19 20:59 Last Admin: 07/11/19 20:28 Dose: 40 mg Documented by: Sodium Bicarbonate (Sodium Bicarbonate) 1,300 mg PO BID [facility] Stop: 08/09/19 20:59 Last Admin: 07/11/19 20:28 Dose: 1,300 mg Documented by: Tacrolimus (Prograf) 1 mg PO Q12 [facility] Stop: 08/09/19 20:59 Last Admin: 07/11/19 17:16 Dose: 1 mg Documented by: Vitamin D (Vitamin D3) 2,000 units PO DAILY [facility] Stop: 08/10/19 08:59 Last Admin: 07/11/19 09:03 Dose: 2,000 units Documented by:
[2019-07-12] MEDS: INSULIN ASPART 100 UNITS/ML 3 ML PEN SC SCH ×4 (08:03→20:47)
[2019-07-12] MEDS: HEPARIN SODIUM/DEXTROSE 25,000 UNITS/500 ML BAG IV SCH ×2 (08:03→21:20)
[2019-07-12] MEDS: INSULIN GLARGINE SOLOSTAR 100 UNITS/ML 3 ML PEN SC SCH ×2 (08:03→20:47)
[2019-07-12] MEDS: AMLODIPINE BESYLATE 5 MG TAB PO SCH ×2 (08:04→20:30)
[2019-07-12] MEDS: MYCOPHENOLATE MOFETIL 250 MG CAP PO SCH ×2 (08:05→20:30)
[2019-07-12] MEDS: PANTOprazole 40 MG TAB PO SCH ×2 (08:05→20:29)
[2019-07-12] MEDS: MAGNESIUM OXIDE 400 MG TAB PO SCH (08:05)
[2019-07-12] MEDS: EZETIMIBE 10 MG TABLET PO SCH (08:05)
[2019-07-12] MEDS: CHOLECALCIFEROL 1,000 UNITS 25 MCG TAB PO SCH (08:05)
[2019-07-12] MEDS: METOPROLOL SUCC 50MG EXT REL TAB PO SCH (08:05)
[2019-07-12] MEDS: SODIUM BICARBONATE 650 MG TAB PO SCH ×2 (08:05→20:29)
[2019-07-12] MEDS: TACROLIMUS 1 MG CAP PO SCH ×2 (08:05→20:30)
[2019-07-12] MEDS: CLOTRIMAZOLE 1% CR 15 GM TUBE EXT SCH ×2 (08:06→20:29)
[2019-07-12] MEDS: FUROSEMIDE 40 MG in SYRINGE 0 ML IV SCH ×2 (08:49→16:51)
[2019-07-12] MEDS: AZITHROMYCIN 250 MG TAB PO SCH (12:00)
--- NOTE | 2019-07-12 13:36 | Consultation ---
Date of Consultation July 12, 2019 Assessment & Plan (1) Peripheral vascular disease in diabetes mellitus: Pt with mild/moderate PAD which only limits his distance ambulation to 6/10 mile and does not affect normal daily activities. Pt also with severe CKD. Pt discussed with Dr Boston. Do not recommend vascular surgical intervention at this time d/t renal risk and pt with only mild sx. Would be happy to reconsider only if pt presents with limb threatening ischemia/tissue loss. This was communicated to pt and he expresses understanding. Thank you for allowing us to participate in the care of this pt. Please call if needed. History of Present Illness Reason for Consultation: PAD Attending Physician: Dao Dacosta MD History of Present Illness 69 yo m with hx of liver transplant d/t HERNANDEZ, CKD V, hypothyroidism, DMII, PAD, HTN, and chronic anemia, admitted with worsening cough over past few weeks, seen in consultation today for PAD noted on arterial US. Pt states was seen by a different vascular surgeon in past for same, and was told that he needed to continue ambulating and did not need surgery. Pt states he used to be able to ambulate 3-5 miles and can now only ambulate 6/10 mile before his BL calves cramp. States these were same sx as he had when he saw the other vascular surgeon. No prior hx of DVT/PE, and pt denies any pain in calves at rest or edema. Pt denies rest pain, ulcerations or nonhealing wounds, chest pain, fever, LARSON, abd pain, N/V, other complaints. Pt also on the list for renal transplant and underwent LUE brachiocephalic AVF creation at [facility] last week. Arterial US demonstrates BL post tib art occlusions and mild diffuse disease otherwise. No SAMANTHA's were performed. Venous doppler demonstrates small nonocclusive throombus in 1 of 2 paired post tib veins in RLE. Allergies Allergy/AdvReac Type Severity Reaction Status Date / Time aspirin AdvReac told Verified 07/10/19 15:23 him to not take any aspirin Home Medications Home Medications Medication Instructions Recorded Confirmed Type amlodipine 5 mg PO BID 07/10/19 07/11/19 History cholecalciferol (vitamin D3) 2,000 unit PO DAILY 07/10/19 07/10/19 History [Vitamin D3] clindamycin phosphate 1 applic TOPICAL BID 07/10/19 07/10/19 History entecavir 0.5 mg PO DAILY 07/10/19 07/10/19 History ezetimibe [Zetia] 10 mg PO DAILY 07/10/19 07/10/19 History hydralazine 75 mg PO BID 07/10/19 07/11/19 History hydroxyzine HCl 25 mg PO Q6 PRN 07/10/19 07/10/19 History insulin aspart U-100 10 - 16 unit SUBCUT TIDM 07/10/19 07/10/19 History levothyroxine 75 mcg PO DAILY 07/10/19 07/10/19 History metoprolol succinate 100 mg PO DAILY 07/10/19 07/10/19 History mycophenolate mofetil 250 mg PO BID 07/10/19 07/10/19 History omeprazole 20 mg PO BID 07/10/19 07/10/19 History sodium bicarbonate 1,300 mg PO BID 07/10/19 07/10/19 History tacrolimus 1 mg PO Q12H 07/10/19 07/10/19 History Patient History Medical History Abnormal CT scan, chest ACEI/ARB contraindicated Acute hypoxemic respiratory failure Anemia CKD (chronic kidney disease) stage 5, GFR less than 15 ml/min Diabetes mellitus type 2 with complications Diastolic CHF, acute on chronic DVT (deep venous thrombosis) Esophageal varices History of hepatocellular carcinoma associated with HERNANDEZ cirrhosis; s/p liver transplant Hypertension Hypothyroidism Idiopathic interstitial pneumonia Immunocompromised patient Liver transplant recipient HERNANDEZ (nonalcoholic steatohepatitis) Peripheral vascular disease in diabetes mellitus Sleep apnea Surgical History Status post liver transplant Family History Mother Colorectal cancer Diabetes Father Non-Hodgkin lymphoma Sister Renal cancer Sister Diabetes Brother Diabetes Social History Preferred Language: Amharic Communication Ability: Effective Toe Trimmer Required: No Beliefs That Will Affect Care: None Current Living Situation: Spouse Other Information That Helps Us Care for You: No Feels Safe at Home: Yes Safety Concerns: Feels Safe At This Time Smoking Status: Former smoker Hx Alcohol Use: No Hx Substance Use: No Review of Systems Review of Systems: All systems reviewed & are unremarkable except as noted in HPI & below Physical Exam Constitutional: WD/WN, vitals as above healthy appearing and comfortable; not in distress Eyes: PERRL, conjunctivae normal, anicteric sclerae ENMT: external ear and nose normal, oropharynx normal Ears: no hearing impairment Neck: trachea midline, no thyromegaly Respiratory: normal respiratory effort, lungs clear to auscultation Auscultation: + diminished lung sounds Cardiovascular: RRR, no murmur, no edema Vessels: femoral pulses present, dorsalis pedis pulses present (+2 BLE), brachial pulses present and radial pulses present; + abnormal peripheral pulses and + posterior tibial pulses abnormal Extremities: normal capillary refill and + AV fistula (LUE with excellent thrill/bruit noted. Incision healing well.) Gastrointestinal (Abdomen): normal bowel sounds, soft, nontender, no hep atosplenomegaly Musculoskeletal: no cyanosis or clubbing, extremities motor strength 5/5 Skin: no rashes, warm and dry no ulcers and no wound Neurologic: moves all extremities; no focal motor deficits and not confused Psychiatric: A+Ox3, euthymic affect Results & Data Vital Signs (Past 12 Hours) Vital Signs Temp Pulse Resp BP BP Pulse Ox 07/12/19 10:52 36.6 C 71 18 153/66 H 95 07/12/19 07:20 36.5 C 72 19 151/71 H 93 07/12/19 03:41 36.7 C 63 17 169/72 H 95 07/12/19 03:30 36.4 C L 91 H 18 107/67 92
--- NOTE | 2019-07-12 13:49 | XRay Report ---
XR chest 2V PA/lateral HISTORY: Shortness of breath. follow up post diuresis film COMPARISON: Chest CT 07/11/2019. FINDINGS: No pneumothorax. Trace bilateral pleural effusions persist. The heart is mildly enlarged. T here are poststernotomy changes. There is left greater than right interstitial thickening most pronou nced along the periphery. The interstitial thickening slightly improved. Therefore, this favors resol ving congestive change with underlying chronic interstitial disease. No new focal lung consolidations . IMPRESSION: Improvement in the interstitial thickening suggestive of resolving congestive change on the backgroun d of chronic interstitial disease. ACT 112: Negative or not required by law. Electronically signed by: Saurabh Nunez M.D. 07/12/2019 1:48 PM
--- NOTE | 2019-07-12 15:11 | Pulmonology Progress Note ---
Date of Service July 12, 2019 Assessment & Plan (1) Idiopathic interstitial pneumonia: Procalcitonin is negative Ceftriaxone and azithromycin started Complete course of antibiotics for acute pneumonitis Avoid IV steroids Will complete work-up for fibrotic lung disease as an outpatient Continue to manage supportively (2) DVT (deep venous thrombosis): Currently anticoagulated on a heparin drip No plans for bronchoscopy or other interventional pulmonary procedures Anticoagulation per primary team (3) Acute hypoxemic respiratory failure: 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 Serologic testing has been ordered and is pending Patient with positive DVT. Anticoagulation started * Doubt that this is pulmonary emboli but unable to rule out via CTA due to renal failure and VQ scan secondary to superimposed infection. * Continue anticoagulation Continue to supplement oxygen to maintain SaO2 greater than 90% LDH is negative so probably not PCP Continue to monitor on telemetry We will follow-up in the outpatient clinic to discuss serologic testing and consideration of pulmonary function testing Thank you for including us in the care of this patient. Please refer to Dr. Abad's addendum for further recommendations and corrections We will continue to follow along with you Subjective Attending: Dr. Agosto Is a 69-year-old male that is status post liver transplant currently on antirejection medications including tacrolimus and Prograf. Presented with shortness of breath and cough. CT scan reviewed and this is most likely IIP/ILD with superimposed heart failure. Patient did respond favorably to diuretics Additional dose of furosemide ordered today LDH was negative making this unlikely to be PCP. Patient was started on ceftriaxone and azithromycin and says that he has improvement today Continues with occasional cough which is nonproductive Ambulating to and from the restroom and for short walks in the [place] without shortness of breath. No acute complaints today. Review of Systems Review of Systems: All systems reviewed & are unremarkable except as noted in HPI & below Physical Exam Physical Exam: GENERAL : No acute distress EYES: No icterus, gaze conjugate NOSE: No evidence of epistaxis MOUTH: No lesions or candidiasis NECK: Supple LUNGS: CTA B/L, no wheezes, rales or rhonchi. No induced cough with deep inspiration HEART: Regular, rate controlled ABDOMEN: Soft, NT, ND, BS Present EXTREMITIES: B/L LE edema, pedal pulses intact NEURO: A&OX3 Results & Data ([facility]) Vital Signs (Past 12 Hours) Vital Signs Temp Pulse Pulse Resp BP BP Pulse Ox 07/12/19 15:02 74 07/12/19 10:52 36.6 C 71 18 153/66 H 95 07/12/19 07:20 36.5 C 72 19 151/71 H 93 07/12/19 03:41 36.7 C 63 17 169/72 H 95 07/12/19 03:30 36.4 C L 91 H 18 107/67 92 Laboratory Results 07/12/19 05:30 07/12/19 05:30 Cumulative ins and outs: +395 mL Diagnostic Findings XR chest 2V PA/lateral HISTORY: Shortness of breath. follow up post diuresis film COMPARISON: Chest CT 07/11/2019. FINDINGS: No pneumothorax. Trace bilateral pleural effusions persist. The heart is mildly enlarged. There are poststernotomy changes. There is left greater than right interstitial thickening most pronounced along the periphery. The interstitial thickening slightly improved. Therefore, this favors resolving congestive change with underlying chronic interstitial disease. No new focal lung consolidations. IMPRESSION: Improvement in the interstitial thickening suggestive of resolving congestive change on the background of chronic interstitial disease. ACT 112: Negative or not required by law. Electronically signed by: Saurabh Nunez M.D. 07/12/2019 1:48 PM PG Care Time/CCT Total # of Minutes Spent Total Time Spent with Patient: Total time spent is greater than 50% in coordination of care (as documented) at patient's floor/unit and/or counseling patient: 20 minutes [place] [address] Subseq Hosp Care Lvl 2 Patient Type Established History Expanded Problem Focused Exam Expanded Problem Focused Medical Decision Making Moderate Complexity Diagnoses Idiopathic interstitial pneumonia J84.111 DVT (deep venous thrombosis) I82.409 Acute hypoxemic respiratory failure J96.01 Time Spent (min) 20
[2019-07-12] MEDS: DEXTROSE 5% IV SCH (16:56)
[2019-07-12] MEDS: CEFTRIAXONE SODIUM IV SCH (16:56)
[2019-07-12] MEDS ORDERED: WARFARIN SOD 5 MG TAB PO STA (18:53)
--- NOTE | 2019-07-12 21:01 | Nephrology Progress Note ---
Date of Service July 12, 2019 Assessment & Plan (1) Acute hypoxemic respiratory failure: he had 80 mg IV lasix last evening; and got another 40 mg this afternoon IV. at baseline he has no 02 needs. -cont lasix bid17 40 mg IV -can use more lasix prn as indicated -f/u w/ pulm OP (2) Status post liver transplant: -continue FK, MMF current doses -f/u pending FK trough (3) CKD (chronic kidney disease) stage 5, GFR less than 15 ml/min: baseline creatinine since early April 3.9-4.5, for early CKD 5. pt has maturing AVF. he is also listed for renal transplant. he has a nonanion gap metabolic acidosis which is improving on po bicarbonate; no other electrolyte issues at this time -daily bmp -no indication for emergent dialysis but cannot rule out need this admission; would need dialysis access if need arose -continue sodium bicarbonate po -for now no fluid or sodium limit, no renal diet necessarily needed (4) Abnormal CT scan, chest: -pulmonary following; w/u in process; no procedures planned imminently and to f/u w/ pulm as OP >> top of differential is idiopathic interstitial PNA / interstitial lung disease Admission and Anticipated Discharge Date Admission Date: July 10, 2019 Subjective pt seen on evenign rounds at about 1840. no big change in sx > still marked exertional dyspnea; no n/v, no edema, no voiding c/o; no musculoskeletal pain Review of Systems Review of Systems: All systems reviewed & are unremarkable except as noted in HPI & below Physical Exam Constitutional: well developed and well nourished; no acute distress (on 02NC3L) Eyes: EOM intact bilaterally ENMT: Ears: no external ear abnormality Nose: no external nose abnormality Mouth: + dry oral mucous membranes Neck: no nuchal rigidity Respiratory: + labored breathing (just got back in bed after up t bathroom) and able to speak in complete sentences (but pauses after each) Auscultation: + diminished lung sounds and + crackles (fine insp and diffuse in post gallardo) Cardiovascular: RRR, no murmur, no edema Extremities: + AV fistula (+t/b) Gastrointestinal (Abdomen): Inspection/Auscultation: normal bowel sounds Percussion/Palpation: abdomen soft; abdomen nontender Musculoskeletal: Extremities: strength 5/5 throughout Skin: no rashes, warm and dry Neurologic: sam, fluent speech, no tremor Psychiatric: A+Ox3, euthymic affect Results & Data ([facility]) Vital Signs (Past 12 Hours) Vital Signs Temp Pulse Pulse Resp BP BP Pulse Ox 07/12/19 19:30 36.5 C 89 18 139/63 96 07/12/19 16:00 36.4 C L 76 18 147/68 H 96 07/12/19 15:02 74 07/12/19 10:52 36.6 C 71 18 153/66 H 95
[2019-07-13] MEDS: LEVOTHYROXINE SODIUM 75 MCG TABLET PO SCH (04:38)
[2019-07-13] MEDS: ENTECAVIR 0.5 MG SCH (04:38)
[2019-07-13] MEDS: INSULIN ASPART 100 UNITS/ML 3 ML PEN SC SCH ×4 (08:12→21:36)
[2019-07-13] MEDS: METOPROLOL SUCC 50MG EXT REL TAB PO SCH (08:13)
[2019-07-13] MEDS: INSULIN GLARGINE SOLOSTAR 100 UNITS/ML 3 ML PEN SC SCH ×2 (08:13→21:34)
[2019-07-13] MEDS: MAGNESIUM OXIDE 400 MG TAB PO SCH (08:13)
[2019-07-13] MEDS: TACROLIMUS 1 MG CAP PO SCH ×2 (08:13→21:29)
[2019-07-13] MEDS: AMLODIPINE BESYLATE 5 MG TAB PO SCH ×2 (08:13→21:39)
[2019-07-13] MEDS: SODIUM BICARBONATE 650 MG TAB PO SCH ×2 (08:13→21:32)
[2019-07-13] MEDS: CHOLECALCIFEROL 1,000 UNITS 25 MCG TAB PO SCH (08:13)
[2019-07-13] MEDS: EZETIMIBE 10 MG TABLET PO SCH (08:13)
[2019-07-13] MEDS: PANTOprazole 40 MG TAB PO SCH ×2 (08:13→21:29)
[2019-07-13] MEDS: MYCOPHENOLATE MOFETIL 250 MG CAP PO SCH ×2 (08:14→21:28)
[2019-07-13] MEDS: CLOTRIMAZOLE 1% CR 15 GM TUBE EXT SCH (08:14)
[2019-07-13] MEDS: FUROSEMIDE 40 MG in SYRINGE 0 ML IV SCH (08:14)
[2019-07-13 08:17] LABS: Hematocrit (blood only) 33.1 % (42-52); Mean Corpuscular Hemoglobin 25.1 pg (25-34); Mean Corpuscular Hgb Conc 33.2 g/dL (32-36); Mean Corpuscular Volume 75.6 fL (80-100); Mean Platelet Volume 9.5 fL (7.4-10.4); Platelet Count 204 K/uL (130-400); RDW Coefficient of Variation 13.7 % (11.5-14.5); RDW Standard Deviation 37.4 fL (36.4-46.3); Red Blood Count 4.38 M/uL (4.7-6.1); White Blood Count 9.82 K/uL (4.8-10.8)
[2019-07-13 08:41] LABS: INR 1.2 (0.9-1.1); Partial Thromboplastin Ratio 1.9; Prothrombin Time 11.7 Seconds (9.0-12.0)
[2019-07-13] MEDS ORDERED: ENTECAVIR 0.5 MG SCH (09:00)
[2019-07-13 09:05] LABS: BUN Creatinine Ratio 13.9 (10-20); Calcium 8.7 mg/dl (8.5-10.1); Creatinine Clr Calc Pharmacy 16.8 ml/min; Est GFR (African American) 12.7; Magnesium 1.5 mg/dl (1.8-2.4); Potassium 3.9 mmol/L (3.5-5.1)
[2019-07-13 09:12] LABS: Partial Thromboplastin Time 52.8 Seconds (21.0-31.0)
--- NOTE | 2019-07-13 11:19 | Nephrology Progress Note ---
Date of Service July 13, 2019 Assessment & Plan (1) Acute hypoxemic respiratory failure: at baseline he has no 02 needs but suspect he will have new baseline w/ new 02 needs -will today chnage lasix to po 60 mg bid 17 -can use more lasix prn as indicated -f/u w/ pulm OP (2) Status post liver transplant: -continue FK, MMF current doses -f/u pending FK trough (still in process 07/13 AM) (3) CKD (chronic kidney disease) stage 5, GFR less than 15 ml/min: baseline creatinine since early April 3.9-4.5, for early CKD 5. pt has maturing AVF. he is also listed for renal transplant. he has a nonanion gap metabolic acidosis which is stalled despite starting po bicarbonate; no other electrolyte issues at this time; 3+ dipstick proteinuria on presentation; hx of known 1.5-2 gm OP protienuria, as recently as 04/2019. Already for lung dz has several serologies w/ potential renal overlap pending such as ANCA, anti ds DNA, anti GBM. However w/ his advanced ckd, unlikely to salvage renal function w/ tx if any of these come back positive -will check prot/creat ratio and for completeness of proteinuria w/u recheck spep/upep, kappa-lambda ratio (low index of suspicion for paraproteinemia however) -daily bmp -no indication for emergent dialysis but cannot rule out need this admission; would need dialysis access if need arose -continue sodium bicarbonate po -for now no fluid or sodium limit, no renal diet necessarily needed (4) Abnormal CT scan, chest: -pulmonary following; w/u in process; no procedures planned imminently and to f/u w/ pulm as OP >> top of differential is idiopathic interstitial PNA / interstitial lung disease Admission and Anticipated Discharge Date Admission Date: July 10, 2019 Subjective seen on rounds this am; still w/ exertional dypsnea; not much dyspnea at rest. does have decreased appetite; no edema, no N/v, no confusion, no voiding c/o Review of Systems Review of Systems: All systems reviewed & are unremarkable except as noted in HPI & below Physical Exam Constitutional: well developed and well nourished; no acute distress (on 02NC3 L) Eyes: EOM intact bilaterally ENMT: Ears: no external ear abnormality Nose: no external nose abnormality Mouth: + dry oral mucous membranes Neck: no nuchal rigidity Respiratory: + labored breathing (even sitting in bed; slight) and able to speak in complete sentences (but pauses after several) Auscultation: + diminished lung sounds and + crackles (fine insp and diffuse in post gallardo) Cardiovascular: RRR, no murmur, no edema Extremities: + AV fistula (+t/b) Gastrointestinal (Abdomen): Inspection/Auscultation: normal bowel sounds Percussion/Palpation: abdomen soft; abdomen nontender Musculoskeletal: Extremities: strength 5/5 throughout Skin: no rashes, warm and dry Neurologic: sam, fluent speech, no tremor Psychiatric: A+Ox3, euthymic affect Results & Data ([facility]) Vital Signs (Past 12 Hours) Vital Signs Temp Pulse Pulse Resp BP BP Pulse Ox 07/13/19 07:46 36.8 C 76 18 146/74 H 96 07/13/19 07:43 74 07/13/19 00:29 75 07/12/19 23:29 36.6 C 75 18 150/55 H 94 Laboratory Results 07/13/19 08:02 07/13/19 08:02
--- NOTE | 2019-07-13 11:23 | Pulmonology Progress Note ---
Date of Service July 13, 2019 Assessment & Plan (1) Idiopathic interstitial pneumonia: Procalcitonin is negative Day #4 of antibiotics * ceftriaxone and azithromycin Complete course of antibiotics for acute pneumonitis Avoid IV steroids Will complete work-up for fibrotic lung disease as an outpatient Continue to manage supportively (2) Acute hypoxemic respiratory failure: 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 Serologic testing has been ordered and is pending Patient with positive DVT. Anticoagulation started * Doubt that this is pulmonary emboli but unable to rule out via CTA due to renal failure and VQ scan secondary to superimposed infection. * Continue anticoagulation Continue to supplement oxygen to maintain SaO2 greater than 90% LDH is negative so probably not PCP Patient was walked in the [place] this morning and desaturated to 78% on room air with exercise with good waveform on pulse oximeter. Patient will need a formal 6-minute walk test prior to discharge and may require supplemental oxygen. Chest x-ray yesterday with improvement following diuresis (3) DVT (deep venous thrombosis): Currently anticoagulated on a heparin drip No plans for bronchoscopy or other interventional pulmonary procedures Anticoagulation per primary team Thank you for including us in the care of this patient. Please refer to Dr. Abad's addendum for further recommendations and corrections We will sign off at this time. Please feel free to reconsult as needed We will follow-up in the outpatient clinic to discuss serologic testing and consideration of pulmonary function testing Subjective Attending: Dr. Abad Patient is doing well this morning. He feels like his oxygen requirements are decreased. He was ambulating in the room without difficulty overnight and this morning. He denies any chest pain or tightness. He has no fever or chills. He has no acute complaints. Review of Systems Review of Systems: All systems reviewed & are unremarkable except as noted in HPI & below Physical Exam Physical Exam: GENERAL : No acute distress EYES: No icterus, gaze conjugate NOSE: No evidence of epistaxis MOUTH: No lesions or candidiasis NECK: Supple LUNGS: CTA B/L, no wheezes, rales or rhonchi HEART: Regular, rate controlled ABDOMEN: Soft, NT, ND, BS Present EXTREMITIES: No LE edema, pedal pulses intact NEURO: A&OX3 Results & Data ([facility]) Vital Signs (Past 12 Hours) Vital Signs Temp Pulse Pulse Resp BP BP Pulse Ox 07/13/19 07:46 36.8 C 76 18 146/74 H 96 02/27/20 07:43 74 07/13/19 00:29 75 07/12/19 23:29 36.6 C 75 18 150/55 H 94 Laboratory Results 07/13/19 08:02 07/13/19 08:02 Diagnostic Findings XR chest 2V PA/lateral HISTORY: Shortness of breath. follow up post diuresis film COMPARISON: Chest CT 07/11/2019. FINDINGS: No pneumothorax. Trace bilateral pleural effusions persist. The heart is mildly enlarged. There are poststernotomy changes. There is left greater than right interstitial thickening most pronounced along the periphery. The interstitial thickening slightly improved. Therefore, this favors resolving congestive change with underlying chronic interstitial disease. No new focal lung consolidations. IMPRESSION: Improvement in the interstitial thickening suggestive of resolving congestive change on the background of chronic interstitial disease. ACT 112: Negative or not required by law. Electronically signed by: Saurabh Nunez M.D. 07/12/2019 1:48 PM PG Care Time/CCT Total # of Minutes Spent Total Time Spent with Patient: Total time spent is greater than 50% in coordination of care (as documented) at patient's floor/unit and/or counseling patient: 20 Coding Level of Care Code 53817 Subseq Hosp Care Lvl 2 Diagnoses Idiopathic interstitial pneumonia J84.111 Acute hypoxemic respiratory failure J96.01 DVT (deep venous thrombosis) I82.409
[2019-07-13] MEDS: AZITHROMYCIN 250 MG TAB PO SCH (12:16)
[2019-07-13] MEDS: HEPARIN SODIUM/DEXTROSE 25,000 UNITS/500 ML BAG IV SCH (12:18)
--- NOTE | 2019-07-13 14:29 | Hospitalist Progress Note ---
Date of Service July 13, 2019 Assessment & Plan (1) Acute respiratory failure with hypoxia: Progressive dyspnea over past several weeks. Likely secondary to interstitial lung disease/interstitial inflammatory process and is complicated by diastolic CHF SOB with minimal exertion. Chest x-ray suggests pulmonary edema, but consider infectious or inflammatory process. CT of the chest showed probable interstitial pneumonitis/pulmonary fibrosis Has bilateral leg DVT and has been on intravenous heparin, no contrasted study to rule out pulmonary embolism Appreciate pulmonary input and recommendation Received 1 dose of Zosyn in the emergency room and will continue with IV ceftriaxone and azithromycin for 5 days in total IV Lasix 40 mg x2 yesterday, will switch to PO lasix 60 mg x2 today Seems clinically better today, down to 2L from 3L (2) Diastolic CHF, acute on chronic: Acute diastolic CHF with preserved EF Admitted with progressive shortness of breath for several weeks Chest x-ray and CT did show questionable fluid overload Echo-normal LV chamber size with moderate concentric LVH, EF of 55 to 60%, no segmental LV wall motion abnormalities, grade 2 diastolic dysfunction, mild LA enlargement and no significant valvular pathology Received 80 mg of Lasix IV in the emergency room Continued IV diuresis, received 40 mg IV x2 yesterday, will switch to PO lasix (07/13) (3) Abnormal chest x-ray: Interstitial pneumonitis/fibrotic lung disease Chest x-ray suggests pulmonary edema, but consider infectious or inflammatory process. Pro-BNP elevated, but may been high because of CKD. CT scan of the chest showed-groundglass densities throughout the majority of the left lung which is likely representing acute pneumonitis Chronic fibrotic changes with a small bilateral pleural effusion and prominent mediastinal lymph nodes Will send mycoplasma and Legionella titer - pending CMV serologies already been sent - pending Started on intravenous ceftriaxone and azithromycin (4) DVT (deep venous thrombosis): VTE considered because of acute worsening of symptoms a few days ago. Venous duplex demonstrates calf DVT (present on admission). May or may not have pulmonary embolism. Best not to obtain CTA of chest due to CKD and unlikely that VQ scan would be useful. Not good candidate for enoxaparin or DOAC because of renal disease. Started IV heparin- continue,started warfarin (07/12), monitor PT/INR Remains stable (5) Elevated sedimentation rate: ESR > 90. CRP 12.2. No fever. Respiratory symptoms as noted. Consider infection or inflammatory disease. Blood cultures obtained in ED and received a dose of piperacillin / tazobactam, now on ceftriaxone and azithro Likely has pneumonitis Antibiotics have been started (6) Hypertension: Continue metoprolol, amlodipine, hydralazine. (7) Status post liver transplant: History of cirrhosis attributed to HERNANDEZ. [place] [facility] [place] Continue mycophenolate mofetil and tacrolimus. (8) CKD (chronic kidney disease) stage 4, GFR 15-29 ml/min: CKD stage V with creatinine now 4.5 Recent AV fistula LUE. Nephrology consulted to assist with management. Appreciate nephrology input and recommendation (9) Hypomagnesemia: Serum Mg 1.7. Ventricular ectopy noted on physics instructor. Replace with caution. Follow. (10) Diabetes mellitus type 2 with complications: DM type 2 complicated by peripheral vascular disease. Managed with insulin aspartate at home. Hgb A1C 6.5% Lantus / NovoLog per protocol. (11) Peripheral vascular disease in diabetes mellitus: History of intermittent claudication. Patient reports that he was seen by a specialist (? Vascular Surgery) who did not recommend any intervention. Suspected occlusion of bilateral posterior tibial arteries noted on venous duplex. Check follow-up arterial duplex.-Shows posterior tibial occlusion Vascular surgery consulted - no intervention planned at this time. (12) DVT prophylaxis: Treating for acute DVT as discussed above (13) Discharge planning issues: Discharge disposition to be determined. Family Medicine follow-up with Dr. Maldonado. Nephrology follow-up with Dr. Kamara. [place] [facility] [place] Admission and Anticipated Discharge Date Admission Date: July 10, 2019 Subjective Pt is lying in bed, in NAD, on NC. Denies fever, chills, chest pain, abd. pain, nausea or vomiting. Ambulates w/o much difficulty. Started on warfarin, brochure and information provided. IV lasix switched to PO. Review of Systems Review of Systems: All systems reviewed & are unremarkable except as noted in HPI & below All systems reviewed and are unremarkable except as noted below Constitutional: no fever and no chills Ear, Nose, Mouth, Throat: as per Subjective / HPI Respiratory: + cough (dry) and + dyspnea (improved) Cardiovascular: no chest pain, no palpitations and no edema Gastrointestinal: no abdominal pain, no nausea and no vomiting Physical Exam Physical Exam: Physical Exam: Sitting up in bed, in NAD, on NC Constitutional: well developed, well nourished,+ ill appearing Eyes: PERRL, EOMI, conjunctivae normal, anicteric sclerae ENMT: external ear and nose normal, oropharynx normal Neck: trachea midline, no thyromegaly Respiratory: CTAB, only very mild bibasilar crackles, no wheezing Cardiovascular: Rate/Rhythm: regular rate and regular rhythm Heart Sounds: no murmur Gastrointestinal (Abdomen): Inspection/Auscultation: abdomen normal to inspection, normal bowel sounds; abdomen not distended, soft, nontender Musculoskeletal: Extremities: no cyanosis, no clubbing and no petechiae, No acute arthritis involving any joints, moves all 4 extremities spontaneously Neurologic: Alert, awake and oriented x3, speech fluent, no facial asymmetry, moves all extremities Results & Data ([facility]) Vital Signs (Past 12 Hours) Vital Signs Temp Pulse Pulse Resp BP BP Pulse Ox 07/13/19 12:11 36.6 C 71 16 146/81 H 95 07/13/19 07:46 36.8 C 76 18 146/74 H 96 07/13/19 07:43 74 Laboratory Results 07/13/19 07/13/19 07/13/19 Range/Units Unknown 11:59 08:02 WBC (4.8-10.8) K/uL RBC (4.7-6.1) M/uL Hgb (14.0-18.0) g/dL Hct (42-52) % MCV (80-100) fL MCH (25-34) pg MCHC (32-36) g/dL RDW Std Deviation (36.4-46.3) fL RDW Coeff of Ana María (11.5-14.5) % Plt Count (130-400) K/uL MPV (7.4-10.4) fL PT (9.0-12.0) Seconds INR (0.9-1.1) APTT (21.0-31.0) Seconds PTT Ratio Sodium 131 L (136-145) mmol/L Potassium 3.9 (3.5-5.1) mmol/L Chloride 99 (98-107) mmol/L Carbon Dioxide 18 L (21-32) mmol/L Anion Gap 14.0 H (3-11) BUN 69 H (7-18) mg/dl Creatinine 4.98 H* D (0.6-1.4) mg/dl Est Cr Clr Drug Dosing 16.8 ml/min Est GFR ( Amer) 12.7 Est GFR (Non-Af Amer) 11.0 BUN/Creatinine Ratio 13.9 (10-20) Glucose 167 H (70-99) mg/dl POC Glucose 138 H (70-99) mg/dl Calcium 8.7 (8.5-10.1) mg/dl Magnesium 1.5 L (1.8-2.4) mg/dl Ur Random Creatinine Pending U Random Total Protein Pending Protein/Creatinin Ratio Pending Tacrolimus 07/13/19 07/13/19 07/13/19 Range/Units 08:02 08:02 07:29 WBC 9.82 (4.8-10.8) K/uL RBC 4.38 L (4.7-6.1) M/uL Hgb 11.0 L (14.0-18.0) g/dL Hct 33.1 L (42-52) % MCV 75.6 L (80-100) fL MCH 25.1 (25-34) pg MCHC 33.2 (32-36) g/dL RDW Std Deviation 37.4 (36.4-46.3) fL RDW Coeff of Ana María 13.7 (11.5-14.5) % Plt Count 204 (130-400) K/uL MPV 9.5 (7.4-10.4) fL PT 11.7 (9.0-12.0) Seconds INR 1.2 H (0.9-1.1) APTT 52.8 H* (21.0-31.0) Seconds PTT Ratio 1.9 Sodium (136-145) mmol/L Potassium (3.5-5.1) mmol/L Chloride (98-107) mmol/L Carbon Dioxide (21-32) mmol/L Anion Gap (3-11) BUN (7-18) mg/dl Creatinine (0.6-1.4) mg/dl Est Cr Clr Drug Dosing ml/min Est GFR ( Amer) Est GFR (Non-Af Amer) BUN/Creatinine Ratio (10-20) Glucose (70-99) mg/dl POC Glucose 151 H (70-99) mg/dl Calcium (8.5-10.1) mg/dl Magnesium (1.8-2.4) mg/dl Ur Random Creatinine U Random Total Protein Protein/Creatinin Ratio Tacrolimus 07/12/19 07/12/19 07/12/19 Range/Units 20:41 16:06 05:30 WBC (4.8-10.8) K/uL RBC (4.7-6.1) M/uL Hgb (14.0-18.0) g/dL Hct (42-52) % MCV (80-100) fL MCH (25-34) pg MCHC (32-36) g/dL RDW Std Deviation (36.4-46.3) fL RDW Coeff of Ana María (11.5-14.5) % Plt Count (130-400) K/uL MPV (7.4-10.4) fL PT (9.0-12.0) Seconds INR (0.9-1.1) APTT (21.0-31.0) Seconds PTT Ratio Sodium (136-145) mmol/L Potassium (3.5-5.1) mmol/L Chloride (98-107) mmol/L Carbon Dioxide (21-32) mmol/L Anion Gap (3-11) BUN (7-18) mg/dl Creatinine (0.6-1.4) mg/dl Est Cr Clr Drug Dosing ml/min Est GFR ( Amer) Est GFR (Non-Af Amer) BUN/Creatinine Ratio (10-20) Glucose (70-99) mg/dl POC Glucose 129 H 148 H (70-99) mg/dl Calcium (8.5-10.1) mg/dl Magnesium (1.8-2.4) mg/dl Ur Random Creatinine U Random Total Protein Protein/Creatinin Ratio Tacrolimus Medications Administered Current Inpatient Medications Amlodipine Besylate (Norvasc) 5 mg PO BID [facility] Stop: 08/10/19 08:59 Last Admin: 07/13/19 08:13 Dose: 5 mg Documented by: Azithromycin (Zithromax) 500 mg PO QDL [facility]; Protocol Stop: 07/18/19 11:29 Last Admin: 07/13/19 12:16 Dose: 500 mg Documented by: Clotrimazole (Lotrimin 1%) 1 appln EXT BID [facility] Stop: 08/10/19 08:59 Last Admin: 07/13/19 08:14 Dose: 1 appln Documented by: Ezetimibe (Zetia) 10 mg PO DAILY [facility] Stop: 08/10/19 08:59 Last Admin: 07/13/19 08:13 Dose: 10 mg Documented by: Furosemide (Lasix) 60 mg PO BID17 [facility] Stop: 08/12/19 16:59 Hydralazine HCl (Apresoline) 75 mg PO BID [facility] Stop: 08/10/19 08:59 Last Admin: 07/13/19 08:13 Dose: 75 mg Documented by: Hydroxyzine HCl (Vistaril) 25 mg PO Q6 PRN PRN Reason: Itching Stop: 08/09/19 19:31 Last Admin: 07/11/19 09:03 Dose: 25 mg Documented by: Heparin Sodium/Dextrose (Heparin Sodium/Dextrose) 25,000 units in 500 mls @ 38 mls/hr IV .[id number] [facility]; Protocol Stop: 08/10/19 00:44 Last Admin: 07/13/19 12:18 Dose: 1,900 units/hr, 38 mls/hr Documented by: Ceftriaxone Sodium 2,000 mg/ (Dextrose) 50 mls @ 100 mls/hr IV Q24H [facility]; P rotocol Stop: 07/18/19 15:59 Last Infusion: 07/12/19 17:26 Dose: Infused Documented by: Magnesium Sulfate/Dextrose (Magnesium Sulfate / D5w) 1 gm in 100 mls @ 100 mls/hr IV ONE ONE Stop: 07/13/19 15:44 Insulin Aspart (Novolog Flexpen) 0 units SC ACHS [facility] Stop: 08/09/19 20:59 Last Admin: 07/13/19 12:16 Dose: 5 units Documented by: Insulin Glargine (Lantus Solostar Pen) 0 - 12 units SC BID [facility]; Protocol Stop: 08/10/19 08:59 Last Admin: 07/13/19 08:13 Dose: 8 units Documented by: Levothyroxine Sodium (Synthroid) 75 mcg PO DAILYBB [facility] Stop: 08/10/19 06:29 Last Admin: 07/13/19 04:38 Dose: 75 mcg Documented by: Magnesium Oxide (Mag-Ox) 400 mg PO QAM [facility] Stop: 08/10/19 08:59 Last Admin: 07/13/19 08:13 Dose: 400 mg Documented by: Metoprolol Succinate (Toprol Xl) 100 mg PO DAILY [facility] Stop: 08/10/19 08:59 Last Admin: 07/13/19 08:13 Dose: 100 mg Documented by: Miscellaneous (Non-Formulary Medication) 1 ea N/A DAILY@0630 [facility] Stop: 08/12/19 06:29 Last Admin: 07/13/19 04:38 Dose: 1 ea Documented by: Mycophenolate Mofetil (Cellcept) 250 mg PO BID [facility] Stop: 08/09/19 20:59 Last Admin: 07/13/19 08:14 Dose: 250 mg Documented by: Pantoprazole Sodium (Protonix) 40 mg PO BID [facility] Stop: 08/09/19 20:59 Last Admin: 07/13/19 08:13 Dose: 40 mg Documented by: Sodium Bicarbonate (Sodium Bicarbonate) 1,300 mg PO BID [facility] Stop: 08/09/19 20:59 Last Admin: 07/13/19 08:13 Dose: 1,300 mg Documented by: Tacrolimus (Prograf) 1 mg PO Q12 [facility] Stop: 08/09/19 20:59 Last Admin: 07/13/19 08:13 Dose: 1 mg Documented by: Vitamin D (Vitamin D3) 2,000 units PO DAILY [facility] Stop: 08/10/19 08:59 Last Admin: 07/13/19 08:13 Dose: 2,000 units Documented by: Warfarin Sodium (Coumadin) 5 mg PO DAILY@1600 [facility] Stop: 08/12/19 15:59
[2019-07-13 14:33] LABS: Protein Creatinine Ratio Urine 1.1 (0-0.2); Total Protein Urine Random 40.9 mg/dl (0-11.9)
[2019-07-13] MEDS ORDERED: MAGNESIUM SULFATE / D5W 1 GM/100 ML BAG IV ONE (14:45)
[2019-07-13] MEDS: CEFTRIAXONE SODIUM IV SCH (15:36)
[2019-07-13] MEDS: DEXTROSE 5% IV SCH (15:36)
[2019-07-13] MEDS: FUROSEMIDE 20 MG TAB PO SCH (15:36)
[2019-07-13] MEDS ORDERED: WARFARIN SOD 5 MG TAB PO SCH (16:00)
[2019-07-13 16:29] LABS: ANCA Screen Negative (Negative); Anti Nuclear Antibody Screen NEGATIVE (NEGATIVE); CMV DNA Qnt Real Time PCR <200 IU/mL (<200); CMV DNA Quant PCR <2.30 log IU/mL (<2.30)
[2019-07-14] MEDS: CLOTRIMAZOLE 1% CR 15 GM TUBE EXT SCH ×3 (00:11→20:52)
[2019-07-14] MEDS: HEPARIN SODIUM/DEXTROSE 25,000 UNITS/500 ML BAG IV SCH ×2 (00:11→12:29)
[2019-07-14 05:50] LABS: Hematocrit (blood only) 30.8 % (42-52); Hemoglobin 10.3 g/dL (14.0-18.0); Mean Corpuscular Hemoglobin 25.4 pg (25-34); Mean Corpuscular Hgb Conc 33.4 g/dL (32-36); Mean Corpuscular Volume 75.9 fL (80-100); Mean Platelet Volume 9.8 fL (7.4-10.4); Platelet Count 214 K/uL (130-400); RDW Coefficient of Variation 13.6 % (11.5-14.5); RDW Standard Deviation 37.7 fL (36.4-46.3); Red Blood Count 4.06 M/uL (4.7-6.1); White Blood Count 6.97 K/uL (4.8-10.8)
[2019-07-14 06:00] LABS: INR 1.2 (0.9-1.1); Prothrombin Time 12.2 Seconds (9.0-12.0)
[2019-07-14] MEDS: ENTECAVIR 0.5 MG SCH (06:12)
[2019-07-14] MEDS: LEVOTHYROXINE SODIUM 75 MCG TABLET PO SCH (06:13)
[2019-07-14 06:37] LABS: BUN Creatinine Ratio 14.6 (10-20); Calcium 8.5 mg/dl (8.5-10.1); Creatinine Clr Calc Pharmacy 16.5 ml/min; Est GFR (African American) 12.4; Est GFR (Non-African American) 10.7; Magnesium 1.8 mg/dl (1.8-2.4)
[2019-07-14 07:45] LABS: Partial Thromboplastin Ratio 2.4
[2019-07-14 07:48] LABS: Partial Thromboplastin Time 64.7 Seconds (21.0-31.0)
[2019-07-14] MEDS: FUROSEMIDE 20 MG TAB PO SCH (07:59)
[2019-07-14] MEDS: MYCOPHENOLATE MOFETIL 250 MG CAP PO SCH ×2 (07:59→20:49)
[2019-07-14] MEDS: AMLODIPINE BESYLATE 5 MG TAB PO SCH ×2 (07:59→20:48)
[2019-07-14] MEDS: TACROLIMUS 1 MG CAP PO SCH ×2 (07:59→20:51)
[2019-07-14] MEDS: SODIUM BICARBONATE 650 MG TAB PO SCH ×2 (07:59→20:50)
[2019-07-14] MEDS: INSULIN GLARGINE SOLOSTAR 100 UNITS/ML 3 ML PEN SC SCH ×2 (08:00→20:45)
[2019-07-14] MEDS: INSULIN ASPART 100 UNITS/ML 3 ML PEN SC SCH ×4 (08:02→20:45)
[2019-07-14] MEDS: MAGNESIUM OXIDE 400 MG TAB PO SCH (08:03)
[2019-07-14] MEDS: CHOLECALCIFEROL 1,000 UNITS 25 MCG TAB PO SCH (08:04)
[2019-07-14] MEDS: EZETIMIBE 10 MG TABLET PO SCH (08:04)
[2019-07-14] MEDS: METOPROLOL SUCC 50MG EXT REL TAB PO SCH (08:04)
--- NOTE | 2019-07-14 08:33 | Hospitalist Progress Note ---
Date of Service July 14, 2019 Assessment & Plan (1) Acute respiratory failure with hypoxia: Progressive dyspnea over past several weeks. Likely secondary to interstitial lung disease/interstitial inflammatory process and is complicated by diastolic CHF SOB with minimal exertion. Chest x-ray suggests pulmonary edema, but consider infectious or inflammatory process. CT of the chest showed probable interstitial pneumonitis/pulmonary fibrosis Has bilateral leg DVT and has been on intravenous heparin, no contrasted study to rule out pulmonary embolism Appreciate pulmonary input and recommendation Received 1 dose of Zosyn in the emergency room and will continue with IV ceftriaxone and azithromycin for 5 days in total IV Lasix switched to PO lasix , received 60 mg x2 yesterday, plan to decrease to 40 mg bid, appreciate nephro input Clinically better today - on Room Air (for the first time)- 07/14, while at rest - asked the nursing to eval when walking - pt desatting w/ walking - will order Step 2 test for tomorrow PM (2) Diastolic CHF, acute on chronic: Acute diastolic CHF with preserved EF Admitted with progressive shortness of breath for several weeks Chest x-ray and CT did show questionable fluid overload Echo-normal LV chamber size with moderate concentric LVH, EF of 55 to 60%, no segmental LV wall motion abnormalities, grade 2 diastolic dysfunction, mild LA enlargement and no significant valvular pathology Received 80 mg of Lasix IV in the emergency room Continued diuresis, initially IV now on PO lasix, as above -switched to PO lasix (07/13), plan to decrease to 40 mg bid (3) Abnormal chest x-ray: Interstitial pneumonitis/fibrotic lung disease Chest x-ray suggests pulmonary edema, but consider infectious or inflammatory process. Pro-BNP elevated, but may been high because of CKD. CT scan of the chest showed-groundglass densities throughout the majority of the left lung which is likely representing acute pneumonitis Chronic fibrotic changes with a small bilateral pleural effusion and prominent mediastinal lymph nodes Will send mycoplasma and Legionella titer - pending CMV serologies already been sent - pending Started on intravenous ceftriaxone and azithromycin (4) DVT (deep venous thrombosis): VTE considered because of acute worsening of symptoms a few days ago. Venous duplex demonstrates calf DVT (present on admission). May or may not have pulmonary embolism. Best not to obtain CTA of chest due to CKD and unlikely that VQ scan would be useful. Not good candidate for enoxaparin or DOAC because of renal disease. Started IV heparin- continue,started warfarin (07/12), monitor PT/INR INR subtherapeutic, will incr. warfarin dose today - brochure and info on warfarin provided Remains stable (5) Elevated sedimentation rate: ESR > 90. CRP 12.2. No fever. Respiratory symptoms as noted. Consider infection or inflammatory disease. Blood cultures obtained in ED and received a dose of piperacillin / tazobactam, now on ceftriaxone and azithro Likely has pneumonitis Antibiotics have been started (6) Hypertension: Continue metoprolol, amlodipine, hydralazine. (7) Status post liver transplant: History of cirrhosis attributed to HERNANDEZ. S/P liver transplant at [facility] 2012. Continue mycophenolate mofetil and tacrolimus. (8) CKD (chronic kidney disease) stage 4, GFR 15-29 ml/min: CKD stage V with creatinine now 4.5 Recent AV fistula LUE. Nephrology consulted to assist with management. Appreciate nephrology input and recommendation (9) Hypomagnesemia: Serum Mg 1.7. 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 Replace with caution. Follow. (10) Diabetes mellitus type 2 with complications: DM type 2 complicated by peripheral vascular disease. Managed with insulin aspartate at home. Hgb A1C 6.5% Lantus / NovoLog per protocol. (11) Peripheral vascular disease in diabetes mellitus: History of intermittent claudication. Patient reports that he was seen by a specialist (? Vascular Surgery) who did not recommend any intervention. Suspected occlusion of bilateral posterior tibial arteries noted on venous duplex. Check follow-up arterial duplex.-Shows posterior tibial occlusion Vascular surgery consulted - no intervention planned at this time. (12) DVT prophylaxis: Treating for acute DVT as discussed above (13) Discharge planning issues: Discharge disposition to be determined. Family Medicine follow-up with Dr. Maldonado. Nephrology follow-up with Dr. Kamara. Transplant Medicine follow-up at [facility]. Admission and Anticipated Discharge Date Admission Date: July 10, 2019 Subjective Pt is lying in bed, in NAD, currently on room air. Per nursing staff pt has been on RA w/o difficulty. Asked nursing staff to check pt's sats when walking, pt desatting when walks. Denies fever, chills, chest pain, abd. pain, nausea or vomiting. Ambulates w/o much difficulty. Started on warfarin, brochure and information provided. INR not therapeutic. IV lasix already switched to PO, plan to decrease PO dose today, per nephro. Also continue bicarb. Review of Systems Review of Systems: All systems reviewed & are unremarkable except as noted in HPI & below All systems reviewed and are unremarkable except as noted below Constitutional: no fever and no chills Ear, Nose, Mouth, Throat: as per Subjective / HPI Respiratory: + cough (dry) and + dyspnea (improved) Cardiovascular: no chest pain and no palpitations Gastrointestinal: no abdominal pain, no nausea and no vomiting Physical Exam Physical Exam: Physical Exam: Sitting up in bed, in NAD, on Room Air Constitutional: well developed, well nourished,+ ill appearing Eyes: PERRL, EOMI, conjunctivae normal, anicteric sclerae ENMT: external ear and nose normal, oropharynx normal Neck: trachea midline, no thyromegaly Respiratory: CTAB, only very mild bibasilar crackles, no wheezing Cardiovascular: Rate/Rhythm: regular rate and regular rhythm Heart Sounds: no murmur Gastrointestinal (Abdomen): Inspection/Auscultation: abdomen normal to inspection, normal bowel sounds; abdomen not distended, soft, nontender Musculoskeletal: Extremities: no cyanosis, no clubbing and no petechiae, No acute arthritis involving any joints, moves all 4 extremities spontaneously Neurologic: Alert, awake and oriented x3, speech fluent, no facial asymmetry, moves all extremities Results & Data ([facility]) Vital Signs (Past 12 Hours) Vital Signs Temp Pulse Resp BP Pulse Ox 07/14/19 07:01 36.5 C 73 19 155/66 H 92 07/14/19 02:52 36.6 C 79 20 152/76 H 95 07/13/19 23:12 36.7 C 58 L 16 133/74 96 Laboratory Results 07/14/19 07/14/19 07/14/19 Range/Units 07:18 05:21 05:21 WBC (4.8-10.8) K/uL RBC (4.7-6.1) M/uL Hgb (14.0-18.0) g/dL Hct (42-52) % MCV (80-100) fL MCH (25-34) pg MCHC (32-36) g/dL RDW Std Deviation (36.4-46.3) fL RDW Coeff of Ana María (11.5-14.5) % Plt Count (130-400) K/uL MPV (7.4-10.4) fL PT (9.0-12.0) Seconds INR (0.9-1.1) APTT 64.7 H* (21.0-31.0) Seconds PTT Ratio 2.4 Sodium (136-145) mmol/L Potassium (3.5-5.1) mmol/L Chloride (98-107) mmol/L Carbon Dioxide (21-32) mmol/L Anion Gap (3-11) BUN (7-18) mg/dl Creatinine (0.6-1.4) mg/dl Est Cr Clr Drug Dosing ml/min Est GFR ( Amer) Est GFR (Non-Af Amer) BUN/Creatinine Ratio (10-20) Glucose (70-99) mg/dl POC Glucose 138 H (70-99) mg/dl Calcium (8.5-10.1) mg/dl Magnesium (1.8-2.4) mg/dl Total Protein (PEP) Pending Albumin (PEP) Pending Brmmj-7-Kftzqrinm Pending Pyqvw-4-Hpcnjzqjy Pending Hxql-5-Okzdafau Pending Oikj-5-Esdqostq Pending Gamma Globulins Pending Monoclonal Peak 3 Pending Ser Monoclonl Protein Pending Ser Monoclonal Prot 2 Pending PEP Interpretation Pending Ur Random Creatinine mg/dl U Random Total Protein (0-11.9) mg/dl Protein/Creatinin Ratio (0-0.2) Tacrolimus KHADRA Screen (NEGATIVE) ANCA (Negative) Free Madison LC, Quant Pending Free Lambda LC, Quant Pending Free Madison/Lambda Ratio Pending CMV Specimen Source CMV Qnt PCR IU/mL (<200) IU/mL CMV Qnt PCR log IU/mL (<2.30) log IU/mL 07/14/19 07/14/19 07/14/19 Range/Units 05:21 05:21 05:21 WBC 6.97 (4.8-10.8) K/uL RBC 4.06 L (4.7-6.1) M/uL Hgb 10.3 L (14.0-18.0) g/dL Hct 30.8 L (42-52) % MCV 75.9 L (80-100) fL MCH 25.4 (25-34) pg MCHC 33.4 (32-36) g/dL RDW Std Deviation 37.7 (36.4-46.3) fL RDW Coeff of Ana María 13.6 (11.5-14.5) % Plt Count 214 (130-400) K/uL MPV 9.8 (7.4-10.4) fL PT 12.2 H (9.0-12.0) Seconds INR 1.2 H (0.9-1.1) APTT (21.0-31.0) Seconds PTT Ratio Sodium 133 L (136-145) mmol/L Potassium 4.0 (3.5-5.1) mmol/L Chloride 99 (98-107) mmol/L Carbon Dioxide 20 L (21-32) mmol/L Anion Gap 14.0 H (3-11) BUN 74 H (7-18) mg/dl Creatinine 5.07 H* (0.6-1.4) mg/dl Est Cr Clr Drug Dosing 16.5 ml/min Est GFR ( Amer) 12.4 Est GFR (Non-Af Amer) 10.7 BUN/Creatinine Ratio 14.6 (10-20) Glucose 129 H (70-99) mg/dl POC Glucose (70-99) mg/dl Calcium 8.5 (8.5-10.1) mg/dl Magnesium 1.8 (1.8-2.4) mg/dl Total Protein (PEP) Albumin (PEP) Hfdhf-6-Hhbbjgvez Ytdkg-0-Sbmvvnhoi Xhjt-7-Adqntblv Xoux-1-Ucoaeshs Gamma Globulins Monoclonal Peak 3 Ser Monoclonl Protein Ser Monoclonal Prot 2 PEP Interpretation Ur Random Creatinine mg/dl U Random Total Protein (0-11.9) mg/dl Protein/Creatinin Ratio (0-0.2) Tacrolimus KHADRA Screen (NEGATIVE) ANCA (Negative) Free Madison LC, Quant Free Lambda LC, Quant Free Madison/Lambda Ratio CMV Specimen Source CMV Qnt PCR IU/mL (<200) IU/mL CMV Qnt PCR log IU/mL (<2.30) log IU/mL 07/13/19 07/13/19 07/13/19 Range/Units Unknown 20:28 16:40 WBC (4.8-10.8) K/uL RBC (4.7-6.1) M/uL Hgb (14.0-18.0) g/dL Hct (42-52) % MCV (80-100) fL MCH (25-34) pg MCHC (32-36) g/dL RDW Std Deviation (36.4-46.3) fL RDW Coeff of Ana María (11.5-14.5) % Plt Count (130-400) K/uL MPV (7.4-10.4) fL PT (9.0-12.0) Seconds INR (0.9-1.1) APTT (21.0-31.0) Seconds PTT Ratio Sodium (136-145) mmol/L Potassium (3.5-5.1) mmol/L Chloride (98-107) mmol/L Carbon Dioxide (21-32) mmol/L Anion Gap (3-11) BUN (7-18) mg/dl Creatinine (0.6-1.4) mg/dl Est Cr Clr Drug Dosing ml/min Est GFR ( Amer) Est GFR (Non-Af Amer) BUN/Creatinine Ratio (10-20) Glucose (70-99) mg/dl POC Glucose 152 H 155 H (70-99) mg/dl Calcium (8.5-10.1) mg/dl Magnesium (1.8-2.4) mg/dl Total Protein (PEP) Albumin (PEP) Rlpmd-0-Fcxpuagvy Tjmgo-5-Hvahhokrz Muug-4-Ljrboxcq Gawt-6-Cmjfolej Gamma Globulins Monoclonal Peak 3 Ser Monoclonl Protein Ser Monoclonal Prot 2 PEP Interpretation Ur Random Creatinine 36.0 mg/dl U Random Total Protein 40.9 H (0-11.9) mg/dl Protein/Creatinin Ratio 1.1 H (0-0.2) Tacrolimus KHADRA Screen (NEGATIVE) ANCA (Negative) Free Madison LC, Quant Free Lambda LC, Quant Free Madison/Lambda Ratio CMV Specimen Source CMV Qnt PCR IU/mL (<200) IU/mL CMV Qnt PCR log IU/mL (<2.30) log IU/mL 07/13/19 07/13/19 07/13/19 Range/Units 11:59 08:02 08:02 WBC (4.8-10.8) K/uL RBC (4.7-6.1) M/uL Hgb (14.0-18.0) g/dL Hct (42-52) % MCV (80-100) fL MCH (25-34) pg MCHC (32-36) g/dL RDW Std Deviation (36.4-46.3) fL RDW Coeff of Ana María (11.5-14.5) % Plt Count (130-400) K/uL MPV (7.4-10.4) fL PT 11.7 (9.0-12.0) Seconds INR 1.2 H (0.9-1.1) APTT 52.8 H* (21.0-31.0) Seconds PTT Ratio 1.9 Sodium 131 L (136-145) mmol/L Potassium 3.9 (3.5-5.1) mmol/L Chloride 99 (98-107) mmol/L Carbon Dioxide 18 L (21-32) mmol/L Anion Gap 14.0 H (3-11) BUN 69 H (7-18) mg/dl Creatinine 4.98 H* D (0.6-1.4) mg/dl Est Cr Clr Drug Dosing 16.8 ml/min Est GFR ( Amer) 12.7 Est GFR (Non-Af Amer) 11.0 BUN/Creatinine Ratio 13.9 (10-20) Glucose 167 H (70-99) mg/dl POC Glucose 138 H (70-99) mg/dl Calcium 8.7 (8.5-10.1) mg/dl Magnesium 1.5 L (1.8-2.4) mg/dl Total Protein (PEP) Albumin (PEP) Rzbxl-5-Xiysjlilf Cbdxf-1-Bynxvbvmi Xlmk-2-Jelzohsy Nbzb-3-Rypaflmm Gamma Globulins Monoclonal Peak 3 Ser Monoclonl Protein Ser Monoclonal Prot 2 PEP Interpretation Ur Random Creatinine mg/dl U Random Total Protein (0-11.9) mg/dl Protein/Creatinin Ratio (0-0.2) Tacrolimus KHADRA Screen (NEGATIVE) ANCA (Negative) Free Madison LC, Quant Free Lambda LC, Quant Free Madison/Lambda Ratio CMV Specimen Source CMV Qnt PCR IU/mL (<200) IU/mL CMV Qnt PCR log IU/mL (<2.30) log IU/mL 07/12/19 07/11/19 Range/Units 05:30 09:06 WBC (4.8-10.8) K/uL RBC (4.7-6.1) M/uL Hgb (14.0-18.0) g/dL Hct (42-52) % MCV (80-100) fL MCH (25-34) pg MCHC (32-36) g/dL RDW Std Deviation (36.4-46.3) fL RDW Coeff of Ana María (11.5-14.5) % Plt Count (130-400) K/uL MPV (7.4-10.4) fL PT (9.0-12.0) Seconds INR (0.9-1.1) APTT (21.0-31.0) Seconds PTT Ratio Sodium (136-145) mmol/L Potassium (3.5-5.1) mmol/L Chloride (98-107) mmol/L Carbon Dioxide (21-32) mmol/L Anion Gap (3-11) BUN (7-18) mg/dl Creatinine (0.6-1.4) mg/dl Est Cr Clr Drug Dosing ml/min Est GFR ( Amer) Est GFR (Non-Af Amer) BUN/Creatinine Ratio (10-20) Glucose (70-99) mg/dl POC Glucose (70-99) mg/dl Calcium (8.5-10.1) mg/dl Magnesium (1.8-2.4) mg/dl Total Protein (PEP) Albumin (PEP) Ohxvz-8-Gncxtpjae Msfll-8-Qtoqebzmb Wykm-5-Snyaynoc Aixt-2-Babhesyf Gamma Globulins Monoclonal Peak 3 Ser Monoclonl Protein Ser Monoclonal Prot 2 PEP Interpretation Ur Random Creatinine mg/dl U Random Total Protein (0-11.9) mg/dl Protein/Creatinin Ratio (0-0.2) Tacrolimus KHADRA Screen NEGATIVE (NEGATIVE) ANCA Negative (Negative) Free Madison LC, Quant Free Lambda LC, Quant Free Madison/Lambda Ratio CMV Specimen Source Plasma CMV Qnt PCR IU/mL <200 (<200) IU/mL CMV Qnt PCR log IU/mL <2.30 (<2.30) log IU/mL Medications Administered Current Inpatient Medications Amlodipine Besylate (Norvasc) 5 mg PO BID [facility] Stop: 08/10/19 08:59 Last Admin: 07/14/19 07:59 Dose: 5 mg Documented by: Azithromycin (Zithromax) 500 mg PO QDL [facility]; Protocol Stop: 07/18/19 11:29 Last Admin: 07/13/19 12:16 Dose: 500 mg Documented by: Clotrimazole (Lotrimin 1%) 1 appln EXT BID [facility] Stop: 08/10/19 08:59 Last Admin: 07/14/19 08:00 Dose: 1 appln Documented by: Ezetimibe (Zetia) 10 mg PO DAILY [facility] Stop: 08/10/19 08:59 Last Admin: 07/14/19 08:04 Dose: 10 mg Documented by: Furosemide (Lasix) 60 mg PO BID17 [facility] Stop: 08/12/19 16:59 Last Admin: 07/14/19 07:59 Dose: 60 mg Documented by: Hydralazine HCl (Apresoline) 75 mg PO BID [facility] Stop: 08/10/19 08:59 Last Admin: 07/14/19 07:57 Dose: 75 mg Documented by: Hydroxyzine HCl (Vistaril) 25 mg PO Q6 PRN PRN Reason: Itching Stop: 08/09/19 19:31 Last Admin: 07/11/19 09:03 Dose: 25 mg Documented by: Heparin Sodium/Dextrose (Heparin Sodium/Dextrose) 25,000 units in 500 mls @ 38 mls/hr IV .[id number] [facility]; Protocol Stop: 08/10/19 00:44 Last Titration: 07/14/19 08:11 Dose: 1,900 units/hr, 38 mls/hr Documented by: Ceftriaxone Sodium 2,000 mg/ (Dextrose) 50 mls @ 100 mls/hr IV Q24H [facility]; Protocol Stop: 07/18/19 15:59 Last Infusion: 07/13/19 16:16 Dose: Infused Documented by: Insulin Aspart (Novolog Flexpen) 0 units SC ACHS [facility] Stop: 08/09/19 20:59 Last Admin: 07/14/19 08:02 Dose: 6 units Documented by: Insulin Glargine (Lantus Solostar Pen) 0 - 12 units SC BID [facility]; Protocol Stop: 08/10/19 08:59 Last Admin: 07/14/19 08:00 Dose: 4 units Documented by: Levothyroxine Sodium (Synthroid) 75 mcg PO DAILYBB [facility] Stop: 08/10/19 06:29 Last Admin: 07/14/19 06:13 Dose: 75 mcg Documented by: Magnesium Oxide (Mag-Ox) 400 mg PO QAM [facility] Stop: 08/10/19 08:59 Last Admin: 07/14/19 08:03 Dose: 400 mg Documented by: Metoprolol Succinate (Toprol Xl) 100 mg PO DAILY [facility] Stop: 08/10/19 08:59 Last Admin: 07/14/19 08:04 Dose: 100 mg Documented by: Miscellaneous (Non-Formulary Medication) 1 ea N/A DAILY@0630 [facility] Stop: 08/12/19 06:29 Last Admin: 07/14/19 06:12 Dose: 1 ea Documented by: Mycophenolate Mofetil (Cellcept) 250 mg PO BID [facility] Stop: 08/09/19 20:59 Last Admin: 07/14/19 07:59 Dose: 250 mg Documented by: Pantoprazole Sodium (Protonix) 40 mg PO BID [facility] Stop: 08/09/19 20:59 Last Admin: 07/13/19 21:29 Dose: 40 mg Documented by: Sodium Bicarbonate (Sodium Bicarbonate) 1,300 mg PO BID [facility] Stop: 08/09/19 20:59 Last Admin: 07/14/19 07:59 Dose: 1,300 mg Documented by: Tacrolimus (Prograf) 1 mg PO Q12 [facility] Stop: 08/09/19 20:59 Last Admin: 07/14/19 07:59 Dose: 1 mg Documented by: Vitamin D (Vitamin D3) 2,000 units PO DAILY [facility] Stop: 08/10/19 08:59 Last Admin: 07/14/19 08:04 Dose: 2,000 units Documented by: Warfarin Sodium (Coumadin) 7.5 mg PO DAILY@1600 [facility] Stop: 08/13/19 15:59
[2019-07-14] MEDS: PANTOprazole 40 MG TAB PO SCH ×2 (08:59→20:50)
[2019-07-14] MEDS: AZITHROMYCIN 250 MG TAB PO SCH (11:35)
[2019-07-14] MEDS ORDERED: WARFARIN SOD 7.5 MG TAB PO SCH (16:00)
--- NOTE | 2019-07-14 16:58 | Nephrology Progress Note ---
Date of Service July 14, 2019 Assessment & Plan (1) Acute hypoxemic respiratory failure: at baseline he has no 02 needs; today is first day on RA -will today change lasix to po 40 mg bid 17 -can use more lasix prn as indicated -f/u w/ [facility] pulm OP (2) Status post liver transplant: -continue FK, MMF current doses -f/u pending FK trough (still in process 07/13 AM) (3) CKD (chronic kidney disease) stage 5, GFR less than 15 ml/min: Worsening renal function with obligate diuretic therapy. No bairon uremic symptoms at this time however. Baseline creatinine since early April 3.9- 4.5, for early CKD 5. pt has maturing AVF. he is also listed for renal transplant. he has a nonanion gap metabolic acidosis which is slowly improving with starting po bicarbonate; no other electrolyte issues at this time apart from mild hyponatremia and azotemia; 3+ dipstick proteinuria on presentation; hx of known 1.5-2 gm OP protienuria, as recently as 04/2019. Has 1.1 g proteinuria here. Already for lung dz has several serologies w/ potential renal overlap pending such as anti ds DNA, anti GBM. ANCA and KHADRA are negative. However w/ his advanced ckd, unlikely to salvage renal function w/ tx if any of these come back positive -Follow-up Spep/upep, kappa-lambda ratio (low index of suspicion for par aproteinemia however) -daily bmp -no indication for emergent dialysis but cannot rule out need this admission; would need dialysis access if need arose -continue sodium bicarbonate po now and at discharge -for now no fluid or sodium limit, no renal diet necessarily needed -will continue to follow with you in hospital Discharge recommendations (discharge summary updated 07/14): Recommend discharge on sodium bicarbonate -Recommend weekly basic metabolic panel, phosphorus, hemoglobin to be ordered by nephrology x4 mechanical planner to update nephrology nurses when patient is discharged mechanical planner to schedule follow-up in kidney clinic with Dr. Kamara 2 to 4 weeks after discharge in [facility] or [place] mechanical planner to schedule appointment to establish care with [facility] (4) Abnormal CT scan, chest: -pulmonary following; w/u in process; no procedures planned imminently and to f/u w/ pulm as OP >> top of differential is idiopathic interstitial PNA / interstitial lung disease >> Agree with outpatient pulmonary follow-up. Recommend given his liver transplant status and renal transplant candidacy both at [facility] that he follow-up with [facility] pulmonary team; discussed with patient and he agrees Admission and Anticipated Discharge Date Admission Date: July 10, 2019 Subjective Seen on rounds this morning at approximately 745. Feels his breathing is better. He was on room air when I saw him and remains on that this afternoon. No voiding complaints. No edema. No nausea vomiting or decreased p.o. No chest pain. Feels his exertional dyspnea has improved but he also had not been out of bed when I saw him. No rash or joint pain Review of Systems Review of Systems: All systems reviewed & are unremarkable except as noted in HPI & below Physical Exam Constitutional: well developed and well nourished; no acute distress (on room air) Eyes: EOM intact bilaterally ENMT: Ears: no external ear abnormality Nose: no external nose abnormality Mouth: + dry oral mucous membranes Neck: no nuchal rigidity Respiratory: able to speak in complete sentences (And today with no pauses); no labored breathing Auscultation: + diminished lung sounds and + crackles (fine insp and diffuse in post gallardo) Cardiovascular: RRR, no murmur, no edema Extremities: + AV fistula (+t/b) Gastrointestinal (Abdomen): Inspection/Auscultation: normal bowel sounds Percussion/Palpation: abdomen soft; abdomen nontender Musculoskeletal: Extremities: strength 5/5 throughout Skin: no rashes, warm and dry Neurologic: moves all extremities, fluent speech, no tremor Psychiatric: A+Ox3, euthymic affect Results & Data ([facility]) Vital Signs (Past 12 Hours) Vital Signs Temp Pulse Pulse Resp BP Pulse Ox 07/14/19 15:43 72 07/14/19 10:45 36.7 C 72 19 125/68 93 07/14/19 08:00 73 07/14/19 07:01 36.5 C 73 19 155/66 H 92 Laboratory Results 07/14/19 05:21 07/14/19 05:21 Tacrolimus trough 6.3
[2019-07-14] MEDS: CEFTRIAXONE SODIUM IV SCH (17:28)
[2019-07-14] MEDS: DEXTROSE 5% IV SCH (17:28)
[2019-07-14] MEDS: FUROSEMIDE 40 MG TAB PO SCH (18:53)
[2019-07-15] MEDS: HEPARIN SODIUM/DEXTROSE 25,000 UNITS/500 ML BAG IV SCH ×5 (01:24→14:34)
[2019-07-15 05:55] LABS: Hematocrit (blood only) 30.7 % (42-52); Mean Corpuscular Hemoglobin 24.7 pg (25-34); Mean Corpuscular Hgb Conc 32.6 g/dL (32-36); Mean Corpuscular Volume 75.8 fL (80-100); Mean Platelet Volume 9.8 fL (7.4-10.4); Platelet Count 210 K/uL (130-400); RDW Coefficient of Variation 13.5 % (11.5-14.5); RDW Standard Deviation 37.1 fL (36.4-46.3); Red Blood Count 4.05 M/uL (4.7-6.1); White Blood Count 6.68 K/uL (4.8-10.8)
[2019-07-15] MEDS: ENTECAVIR 0.5 MG SCH (06:11)
[2019-07-15] MEDS: LEVOTHYROXINE SODIUM 75 MCG TABLET PO SCH (06:12)
[2019-07-15 06:23] LABS: INR 1.4 (0.9-1.1); Partial Thromboplastin Ratio 3.1; Prothrombin Time 13.9 Seconds (9.0-12.0)
[2019-07-15 06:41] LABS: BUN Creatinine Ratio 15.1 (10-20); Calcium 8.6 mg/dl (8.5-10.1); Creatinine Clr Calc Pharmacy 16.3 ml/min; Est GFR (African American) 12.3; Est GFR (Non-African American) 10.6; Magnesium 1.8 mg/dl (1.8-2.4); Potassium 3.8 mmol/L (3.5-5.1)
[2019-07-15 06:48] LABS: Partial Thromboplastin Time 85.3 Seconds (21.0-31.0)
[2019-07-15] MEDS: INSULIN ASPART 100 UNITS/ML 3 ML PEN SC SCH ×4 (08:37→20:45)
[2019-07-15] MEDS: INSULIN GLARGINE SOLOSTAR 100 UNITS/ML 3 ML PEN SC SCH ×2 (08:38→20:46)
[2019-07-15] MEDS: METOPROLOL SUCC 50MG EXT REL TAB PO SCH (08:39)
[2019-07-15] MEDS: SODIUM BICARBONATE 650 MG TAB PO SCH ×2 (08:40→20:48)
[2019-07-15] MEDS: CHOLECALCIFEROL 1,000 UNITS 25 MCG TAB PO SCH (08:40)
[2019-07-15] MEDS: MAGNESIUM OXIDE 400 MG TAB PO SCH (08:40)
[2019-07-15] MEDS: MYCOPHENOLATE MOFETIL 250 MG CAP PO SCH ×2 (08:40→20:48)
[2019-07-15] MEDS: TACROLIMUS 1 MG CAP PO SCH ×2 (08:40→20:47)
[2019-07-15] MEDS: AMLODIPINE BESYLATE 5 MG TAB PO SCH ×2 (08:40→20:48)
[2019-07-15] MEDS: PANTOprazole 40 MG TAB PO SCH ×2 (08:40→20:48)
[2019-07-15] MEDS: CLOTRIMAZOLE 1% CR 15 GM TUBE EXT SCH ×2 (08:41→20:47)
[2019-07-15] MEDS: EZETIMIBE 10 MG TABLET PO SCH (08:41)
[2019-07-15] MEDS: FUROSEMIDE 40 MG TAB PO SCH ×2 (08:52→16:54)
--- NOTE | 2019-07-15 09:06 | Hospitalist Progress Note ---
Date of Service July 15, 2019 Assessment & Plan (1) Acute respiratory failure with hypoxia: Progressive dyspnea over past several weeks. Likely secondary to interstitial lung disease/interstitial inflammatory process and is complicated by diastolic CHF SOB with minimal exertion. Chest x-ray suggests pulmonary edema, but consider infectious or inflammatory process. CT of the chest showed probable interstitial pneumonitis/pulmonary fibrosis Has bilateral leg DVT and has been on intravenous heparin, no contrasted study to rule out pulmonary embolism Appreciate pulmonary input and recommendation Received 1 dose of Zosyn in the emergency room and will continue with IV ceftriaxone and azithromycin for 5 days in total IV Lasix switched to PO lasix , received 60 mg x2 yesterday, plan to decrease to 40 mg bid, appreciate nephro input Clinically better today - on Room Air (for the first time)- 07/14, while at rest - asked the nursing to eval when walking - pt desatting w/ walking - Step 2 test ordered (2) Diastolic CHF, acute on chronic: Acute diastolic CHF with preserved EF Admitted with progressive shortness of breath for several weeks Chest x-ray and CT did show questionable fluid overload Echo-normal LV chamber size with moderate concentric LVH, EF of 55 to 60%, no segmental LV wall motion abnormalities, grade 2 diastolic dysfunction, mild LA enlargement and no significant valvular pathology Received 80 mg of Lasix IV in the emergency room Continued diuresis, initially IV now on PO lasix, as above -switched to PO lasix (07/13), now decreased to 40 mg bid (3) Abnormal chest x-ray: Interstitial pneumonitis/fibrotic lung disease Chest x-ray suggests pulmonary edema, but consider infectious or inflammatory process. Pro-BNP elevated, but may been high because of CKD. CT scan of the chest showed-groundglass densities throughout the majority of the left lung which is likely representing acute pneumonitis Chronic fibrotic changes with a small bilateral pleural effusion and prominent mediastinal lymph nodes Will send mycoplasma and Legionella titer - pending CMV serologies already been sent - negative Started on intravenous ceftriaxone and azithromycin (4) DVT (deep venous thrombosis): VTE considered because of acute worsening of symptoms a few days ago Venous duplex demonstrates calf DVT (present on admission). May or may not have pulmonary embolism. Best not to obtain CTA of chest due to CKD and unlikely that VQ scan would be useful. Not good candidate for enoxaparin or DOAC because of renal disease. Started IV heparin- continue,started warfarin (07/12), monitor PT/INR INR subtherapeutic, will incr. warfarin dose today - brochure and info on warfarin provided Remains stable (5) Elevated sedimentation rate: ESR > 90. CRP 12.2. No fever. Respiratory symptoms as noted. Consider infection or inflammatory disease. Blood cultures obtained in ED and received a dose of piperacillin / tazobactam, now on ceftriaxone and azithro Likely has pneumonitis Antibiotics have been started (6) Hypertension: Continue metoprolol, amlodipine, hydralazine. (7) Status post liver transplant: History of cirrhosis attributed to HERNANDEZ. [place] [facility] [place] Continue mycophenolate mofetil and tacrolimus. (8) CKD (chronic kidney disease) stage 4, GFR 15-29 ml/min: CKD stage V with creatinine now 4.5 Recent AV fistula LUE. Nephrology consulted to assist with management. Appreciate nephrology input and recommendation - continue bicarb (9) Hypomagnesemia: Serum Mg 1.7. Ventricular ectopy noted on tie tamper. Replace with caution. Follow. (10) Diabetes mellitus type 2 with complications: DM type 2 complicated by peripheral vascular disease. Managed with insulin aspartate at home. Hgb A1C 6.5% Lantus / NovoLog per protocol. (11) Peripheral vascular disease in diabetes mellitus: History of intermittent claudication. Patient reports that he was seen by a specialist (? Vascular Surgery) who did not recommend any intervention. Suspected occlusion of bilateral posterior tibial arteries noted on venous duplex. Check follow-up arterial duplex.-Shows posterior tibial occlusion Vascular surgery consulted - no intervention planned at this time. (12) DVT prophylaxis: Treating for acute DVT as discussed above (13) Discharge planning issues: Discharge disposition: likely home Family Medicine follow-up with Dr. Maldonado. Nephrology follow-up with Dr. Kamara. [place] [facility] [place] Admission and Anticipated Discharge Date Admission Date: July 10, 2019 Subjective Pt is lying in bed, in NAD. Ambulates w/o much difficulty (but reportedly desats with walking). Denies fever, chills, chest pain, abd. pain, nausea or vomiting. Started on warfarin, brochure and information provided. INR not therapeutic yet. Cont. Po lasix and also continue bicarb. Review of Systems Review of Systems: All systems reviewed & are unremarkable except as noted in HPI & below All systems reviewed and are unremarkable except as noted below Constitutional: no fever and no chills Respiratory: + cough (dry) and + dyspnea (improved) Cardiovascular: no chest pain, no palpitations and no edema Gastrointestinal: no abdominal pain, no nausea and no vomiting Physical Exam Physical Exam: Physical Exam: Sitting up in bed, in NAD, on Room Air Constitutional: well developed, well nourished,+ ill appearing Eyes: PERRL, EOMI, conjunctivae normal, anicteric sclerae ENMT: external ear and nose normal, oropharynx normal Neck: trachea midline, no thyromegaly Respiratory: CTAB, only very mild bibasilar crackles, no wheezing Cardiovascular: Rate/Rhythm: regular rate and regular rhythm Heart Sounds: no murmur Gastrointestinal (Abdomen): Inspection/Auscultation: abdomen normal to inspection, normal bowel sounds; abdomen not distended, soft, nontender Musculoskeletal: Extremities: no cyanosis, no clubbing and no petechiae, No acute arthritis involving any joints, moves all 4 extremities spontaneously Neurologic: Alert, awake and oriented x3, speech fluent, no facial asymmetry, moves all extremities Results & Data ([facility]) Vital Signs (Past 12 Hours) Vital Signs Temp Pulse Pulse Pulse Resp BP Pulse Ox 07/15/19 07:12 36.7 C 70 16 136/68 96 07/15/19 04:15 36.4 C L 71 16 149/66 H 95 07/14/19 23:11 37 C 81 16 135/61 91 07/14/19 22:20 73 Laboratory Results 07/15/19 07/15/19 07/15/19 Range/Units 07:06 05:22 05:22 WBC (4.8-10.8) K/uL RBC (4.7-6.1) M/uL Hgb (14.0-18.0) g/dL Hct (42-52) % MCV (80-100) fL MCH (25-34) pg MCHC (32-36) g/dL RDW Std Deviation (36.4-46.3) fL RDW Coeff of Ana María (11.5-14.5) % Plt Count (130-400) K/uL MPV (7.4-10.4) fL PT 13.9 H (9.0-12.0) Seconds INR 1.4 H (0.9-1.1) APTT 85.3 H* (21.0-31.0) Seconds PTT Ratio 3.1 Sodium 131 L (136-145) mmol/L Potassium 3.8 (3.5-5.1) mmol/L Chloride 98 (98-107) mmol/L Carbon Dioxide 19 L (21-32) mmol/L Anion Gap 14.0 H (3-11) BUN 78 H (7-18) mg/dl Creatinine 5.13 H* (0.6-1.4) mg/dl Est Cr Clr Drug Dosing 16.3 ml/min Est GFR ( Amer) 12.3 Est GFR (Non-Af Amer) 10.6 BUN/Creatinine Ratio 15.1 (10-20) Glucose 128 H (70-99) mg/dl POC Glucose 141 H (70-99) mg/dl Calcium 8.6 (8.5-10.1) mg/dl Magnesium 1.8 (1.8-2.4) mg/dl Urine Legionella Ag 07/15/19 07/14/19 07/14/19 Range/Units 05:22 20:11 16:00 WBC 6.68 (4.8-10.8) K/uL RBC 4.05 L (4.7-6.1) M/uL Hgb 10.0 L (14.0-18.0) g/dL Hct 30.7 L (42-52) % MCV 75.8 L (80-100) fL MCH 24.7 L (25-34) pg MCHC 32.6 (32-36) g/dL RDW Std Deviation 37.1 (36.4-46.3) fL RDW Coeff of Ana María 13.5 (11.5-14.5) % Plt Count 210 (130-400) K/uL MPV 9.8 (7.4-10.4) fL PT (9.0-12.0) Seconds INR (0.9-1.1) APTT (21.0-31.0) Seconds PTT Ratio Sodium (136-145) mmol/L Potassium (3.5-5.1) mmol/L Chloride (98-107) mmol/L Carbon Dioxide (21-32) mmol/L Anion Gap (3-11) BUN (7-18) mg/dl Creatinine (0.6-1.4) mg/dl Est Cr Clr Drug Dosing ml/min Est GFR ( Amer) Est GFR (Non-Af Amer) BUN/Creatinine Ratio (10-20) Glucose (70-99) mg/dl POC Glucose 143 H 139 H (70-99) mg/dl Calcium (8.5-10.1) mg/dl Magnesium (1.8-2.4) mg/dl Urine Legionella Ag 07/14/19 07/11/19 Range/Units 11:13 17:16 WBC (4.8-10.8) K/uL RBC (4.7-6.1) M/uL Hgb (14.0-18.0) g/dL Hct (42-52) % MCV (80-100) fL MCH (25-34) pg MCHC (32-36) g/dL RDW Std Deviation (36.4-46.3) fL RDW Coeff of Ana María (11.5-14.5) % Plt Count (130-400) K/uL MPV (7.4-10.4) fL PT (9.0-12.0) Seconds INR (0.9-1.1) APTT (21.0-31.0) Seconds PTT Ratio Sodium (136-145) mmol/L Potassium (3.5-5.1) mmol/L Chloride (98-107) mmol/L Carbon Dioxide (21-32) mmol/L Anion Gap (3-11) BUN (7-18) mg/dl Creatinine (0.6-1.4) mg/dl Est Cr Clr Drug Dosing ml/min Est GFR ( Amer) Est GFR (Non-Af Amer) BUN/Creatinine Ratio (10-20) Glucose (70-99) mg/dl POC Glucose 134 H (70-99) mg/dl Calcium (8.5-10.1) mg/dl Magnesium (1.8-2.4) mg/dl Urine Legionella Ag SEE NOTE Medications Administered Current Inpatient Medications Amlodipine Besylate (Norvasc) 5 mg PO BID [facility] Stop: 08/10/19 08:59 Last Admin: 07/15/19 08:40 Dose: 5 mg Documented by: Azithromycin (Zithromax) 500 mg PO QDL [facility]; Protocol Stop: 07/18/19 11:29 Last Admin: 07/14/19 11:35 Dose: 500 mg Documented by: Clotrimazole (Lotrimin 1%) 1 appln EXT BID [facility] Stop: 08/10/19 08:59 Last Admin: 07/15/19 08:41 Dose: 1 appln Documented by: Ezetimibe (Zetia) 10 mg PO DAILY [facility] Stop: 08/10/19 08:59 Last Admin: 07/15/19 08:41 Dose: 10 mg Documented by: Furosemide (Lasix) 40 mg PO BID17 [facility] Stop: 08/13/19 16:59 Last Admin: 07/15/19 08:52 Dose: 40 mg Documented by: Hydralazine HCl (Apresoline) 75 mg PO BID [facility] Stop: 08/10/19 08:59 Last Admin: 07/15/19 08:40 Dose: 75 mg Documented by: Hydroxyzine HCl (Vistaril) 25 mg PO Q6 PRN PRN Reason: Itching Stop: 08/09/19 19:31 Last Admin: 07/11/19 09:03 Dose: 25 mg Documented by: Heparin Sodium/Dextrose (Heparin Sodium/Dextrose) 25,000 units in 500 mls @ 35 mls/hr IV .[id number] [facility]; Protocol Stop: 08/10/19 00:44 Last Titration: 07/15/19 07:24 Dose: 1,750 units/hr, 35 mls/hr Documented by: Ceftriaxone Sodium 2,000 mg/ (Dextrose) 50 mls @ 100 mls/hr IV Q24H [facility]; Protocol Stop: 07/18/19 15:59 Last Infusion: 07/14/19 18:18 Dose: Infused Documented by: Insulin Aspart (Novolog Flexpen) 0 units SC ACHS [facility] Stop: 08/09/19 20:59 Last Admin: 07/15/19 08:37 Dose: 5 units Documented by: Insulin Glargine (Lantus Solostar Pen) 0 - 12 units SC BID [facility]; Protocol Stop: 08/10/19 08:59 Last Admin: 07/15/19 08:38 Dose: 4 units Documented by: Levothyroxine Sodium (Synthroid) 75 mcg PO DAILYBB [facility] Stop: 08/10/19 06:29 Last Admin: 07/15/19 06:12 Dose: 75 mcg Documented by: Magnesium Oxide (Mag-Ox) 400 mg PO QAM [facility] Stop: 08/10/19 08:59 Last Admin: 07/15/19 08:40 Dose: 400 mg Documented by: Metoprolol Succinate (Toprol Xl) 100 mg PO DAILY [facility] Stop: 08/10/19 08:59 Last Admin: 07/15/19 08:39 Dose: 100 mg Documented by: Miscellaneous (Non-Formulary Medication) 1 ea N/A DAILY@0630 [facility] Stop: 08/12/19 06:29 Last Admin: 07/15/19 06:11 Dose: 1 ea Documented by: Mycophenolate Mofetil (Cellcept) 250 mg PO BID [facility] Stop: 08/09/19 20:59 Last Admin: 07/15/19 08:40 Dose: 250 mg Documented by: Pantoprazole Sodium (Protonix) 40 mg PO BID [facility] Stop: 08/09/19 20:59 Last Admin: 07/15/19 08:40 Dose: 40 mg Documented by: Sodium Bicarbonate (Sodium Bicarbonate) 1,300 mg PO BID [facility] Stop: 08/09/19 20:59 Last Admin: 07/15/19 08:40 Dose: 1,300 mg Documented by: Tacrolimus (Prograf) 1 mg PO Q12 [facility] Stop: 08/09/19 20:59 Last Admin: 07/15/19 08:40 Dose: 1 mg Documented by: Vitamin D (Vitamin D3) 2,000 units PO DAILY [facility] Stop: 08/10/19 08:59 Last Admin: 07/15/19 08:40 Dose: 2,000 units Documented by: Warfarin Sodium (Coumadin) 10 mg PO DAILY@1600 [facility] Stop: 08/14/19 15:59
[2019-07-15] MEDS: AZITHROMYCIN 250 MG TAB PO SCH (12:48)
[2019-07-15 14:03] LABS: Partial Thromboplastin Ratio 2.5
[2019-07-15 14:23] LABS: Partial Thromboplastin Time 67.8 Seconds (21.0-31.0)
[2019-07-15] MEDS: DEXTROSE 5% IV SCH (16:53)
[2019-07-15] MEDS: CEFTRIAXONE SODIUM IV SCH (16:53)
[2019-07-15] MEDS: WARFARIN SOD 10 MG TAB PO SCH (16:54)
[2019-07-15 21:50] LABS: Partial Thromboplastin Time 52.9 Seconds (21.0-31.0)
[2019-07-16 06:09] LABS: INR 1.8 (0.9-1.1); Partial Thromboplastin Ratio 2.5; Prothrombin Time 17.8 Seconds (9.0-12.0)
[2019-07-16 06:13] LABS: Partial Thromboplastin Time 67.4 Seconds (21.0-31.0)
[2019-07-16] MEDS: HEPARIN SODIUM/DEXTROSE 25,000 UNITS/500 ML BAG IV SCH ×2 (06:16→06:34)
[2019-07-16] MEDS: ENTECAVIR 0.5 MG SCH (06:20)
[2019-07-16] MEDS: LEVOTHYROXINE SODIUM 75 MCG TABLET PO SCH (06:20)
[2019-07-16] MEDS: EZETIMIBE 10 MG TABLET PO SCH (07:49)
[2019-07-16] MEDS: AMLODIPINE BESYLATE 5 MG TAB PO SCH ×2 (07:49→20:40)
[2019-07-16] MEDS: FUROSEMIDE 40 MG TAB PO SCH ×2 (07:50→18:18)
[2019-07-16] MEDS: TACROLIMUS 1 MG CAP PO SCH ×2 (07:50→20:40)
[2019-07-16] MEDS: SODIUM BICARBONATE 650 MG TAB PO SCH ×2 (07:50→20:39)
[2019-07-16] MEDS: CHOLECALCIFEROL 1,000 UNITS 25 MCG TAB PO SCH (07:50)
[2019-07-16] MEDS: METOPROLOL SUCC 50MG EXT REL TAB PO SCH (07:50)
[2019-07-16] MEDS: MAGNESIUM OXIDE 400 MG TAB PO SCH (07:50)
[2019-07-16] MEDS: PANTOprazole 40 MG TAB PO SCH ×2 (07:50→20:39)
[2019-07-16] MEDS: MYCOPHENOLATE MOFETIL 250 MG CAP PO SCH ×2 (07:50→20:39)
[2019-07-16] MEDS: INSULIN ASPART 100 UNITS/ML 3 ML PEN SC SCH ×4 (07:51→20:42)
[2019-07-16] MEDS: CLOTRIMAZOLE 1% CR 15 GM TUBE EXT SCH ×2 (07:51→20:41)
[2019-07-16] MEDS: INSULIN GLARGINE SOLOSTAR 100 UNITS/ML 3 ML PEN SC SCH ×2 (07:57→20:41)
--- NOTE | 2019-07-16 08:37 | Hospitalist Progress Note ---
Date of Service July 16, 2019 Assessment & Plan (1) Acute respiratory failure with hypoxia: Progressive dyspnea over past several weeks. Likely secondary to interstitial lung disease/interstitial inflammatory process and is complicated by diastolic CHF SOB with minimal exertion. Chest x-ray suggests pulmonary edema, but consider infectious or inflammatory process. CT of the chest showed probable interstitial pneumonitis/pulmonary fibrosis Has bilateral leg DVT and has been on intravenous heparin, no contrasted study to rule out pulmonary embolism Appreciate pulmonary input and recommendation Received 1 dose of Zosyn in the emergency room and will continue with IV ceftriaxone and azithromycin for 5 days in total IV Lasix switched to PO lasix , received 60 mg x2 yesterday, plan to decrease to 40 mg bid, appreciate nephro input Clinically better - on Room Air (for the first time on 07/14,) while at rest - asked the nursing to eval when walking - pt desatting w/ walking - Step 2 test ordered (2) Diastolic CHF, acute on chronic: Acute diastolic CHF with preserved EF Admitted with progressive shortness of breath for several weeks Chest x-ray and CT did show questionable fluid overload Echo-normal LV chamber size with moderate concentric LVH, EF of 55 to 60%, no segmental LV wall motion abnormalities, grade 2 diastolic dysfunction, mild LA enlargement and no significant valvular pathology Received 80 mg of Lasix IV in the emergency room Continued diuresis, initially IV now on PO lasix, as above -switched to PO lasix (07/13), now decreased to 40 mg bid (3) Abnormal chest x-ray: Interstitial pneumonitis/fibrotic lung disease Chest x-ray suggests pulmonary edema, but consider infectious or inflammatory process. Pro-BNP elevated, but may been high because of CKD. CT scan of the chest showed-groundglass densities throughout the majority of the left lung which is likely representing acute pneumonitis Chronic fibrotic changes with a small bilateral pleural effusion and prominent mediastinal lymph nodes Will send mycoplasma and Legionella titer - pending CMV serologies already been sent - negative Started on intravenous ceftriaxone and azithromycin, finished course (4) DVT (deep venous thrombosis): VTE considered because of acute worsening of symptoms a few days ago Venous duplex demonstrates calf DVT (present on admission). May or may not have pulmonary embolism. Best not to obtain CTA of chest due to CKD and unlikely that VQ scan would be useful. Not good candidate for enoxaparin or DOAC because of renal disease. Started IV heparin- continue,started warfarin (07/12), monitor PT/INR INR subtherapeutic, cont. to monitor - brochure and info on warfarin provided Remains stable (5) Elevated sedimentation rate: ESR > 90. CRP 12.2. No fever. Respiratory symptoms as noted. Consider infection or inflammatory disease. Blood cultures obtained in ED and received a dose of piperacillin / tazobactam, now on ceftriaxone and azithro Likely has pneumonitis Antibiotics have been started (6) Hypertension: Continue metoprolol, amlodipine, hydralazine. (7) Status post liver transplant: History of cirrhosis attributed to HERNANDEZ. S/P liver transplant at [facility] [place]. Continue mycophenolate mofetil and tacrolimus. (8) CKD (chronic kidney disease) stage 4, GFR 15-29 ml/min: CKD stage V with creatinine now 4.5 Recent AV fistula LUE. Nephrology consulted to assist with management. Appreciate nephrology input and recommendation - continue bicarb (9) Hypomagnesemia: Serum Mg 1.7. Ventricular ectopy noted on [employer]. Replace with caution. Follow. (10) Diabetes mellitus type 2 with complications: DM type 2 complicated by peripheral vascular disease. Managed with insulin aspartate at home. Hgb A1C 6.5% Lantus / NovoLog per protocol. (11) Peripheral vascular disease in diabetes mellitus: History of intermittent claudication. Patient reports that he was seen by a specialist (? Vascular Surgery) who did not recommend any intervention. Suspected occlusion of bilateral posterior tibial arteries noted on venous duplex. Check follow-up arterial duplex.-Shows posterior tibial occlusion Vascular surgery consulted - no intervention planned at this time. (12) DVT prophylaxis: Treating for acute DVT as discussed above (13) Discharge planning issues: Discharge disposition: likely home Family Medicine follow-up with Dr. Maldonado. Nephrology follow-up with Dr. Kamara. Transplant Medicine follow-up at [facility] [place]. Admission and Anticipated Discharge Date Admission Date: July 10, 2019 Subjective Pt is lying in bed, in NAD. Ambulates w/o much difficulty (but reportedly desats with walking). Denies fever, chills, chest pain, abd. pain, nausea or vomiting. Started on warfarin, brochure and information provided. INR not therapeutic yet. Cont. Po lasix and also continue bicarb. Review of Systems Review of Systems: All systems reviewed & are unremarkable except as noted in HPI & below All systems reviewed and are unremarkable except as noted below Constitutional: no fever and no chills Ear, Nose, Mouth, Throat: as per Subjective / HPI Respiratory: + cough (dry) and + dyspnea (improved) Cardiovascular: no chest pain and no palpitations Gastrointestinal: no abdominal pain, no nausea and no vomiting Physical Exam Physical Exam: Physical Exam: Sitting up in bed, in NAD, on Room Air Constitutional: well developed, well nourished Eyes: PERRL, EOMI, conjunctivae normal, anicteric sclerae ENMT: external ear and nose normal, oropharynx normal Neck: trachea midline, no thyromegaly Respiratory: CTAB, only very mild bibasilar crackles, no wheezing Cardiovascular: Rate/Rhythm: regular rate and regular rhythm Heart Sounds: no murmur Gastrointestinal (Abdomen): Inspection/Auscultation: abdomen normal to inspection, normal bowel sounds; abdomen not distended, soft, nontender Musculoskeletal: Extremities: no cyanosis, no clubbing and no petechiae, No acute arthritis involving any joints, moves all 4 extremities spontaneously Neurologic: Alert, awake and oriented x3, speech fluent, no facial asymmetry, moves all extremities Results & Data ([facility]) Vital Signs (Past 12 Hours) Vital Signs Temp Pulse Pulse Resp BP Pulse Ox 07/16/19 07:09 36.7 C 66 16 136/64 95 07/16/19 03:11 36.6 C 70 16 153/72 H 95 07/15/19 23:02 36.7 C 76 22 167/76 H 97 07/15/19 22:20 72 Laboratory Results reviewed Medications Administered reviewed
[2019-07-16 08:49] LABS: Hematocrit (blood only) 30.5 % (42-52); Mean Corpuscular Hemoglobin 24.8 pg (25-34); Mean Corpuscular Hgb Conc 32.8 g/dL (32-36); Mean Corpuscular Volume 75.7 fL (80-100); Mean Platelet Volume 10.4 fL (7.4-10.4); Platelet Count 224 K/uL (130-400); RDW Coefficient of Variation 13.4 % (11.5-14.5); Red Blood Count 4.03 M/uL (4.7-6.1); White Blood Count 5.93 K/uL (4.8-10.8)
[2019-07-16 09:09] LABS: BUN Creatinine Ratio 16.3 (10-20); Calcium 8.7 mg/dl (8.5-10.1); Creatinine Clr Calc Pharmacy 16.5 ml/min; Est GFR (African American) 12.4; Est GFR (Non-African American) 10.7; Potassium 4.2 mmol/L (3.5-5.1)
[2019-07-16] MEDS: AZITHROMYCIN 250 MG TAB PO SCH (12:06)
--- NOTE | 2019-07-16 12:22 | Progress Note ---
DATE: 07/16/2019 SUBJECTIVE: Overnight, no new issues. He feels his breathing is significantly better. Denies nausea, vomiting, chest pain or any new symptoms. He is urinating fairly well at this time. PHYSICAL EXAMINATION: VITAL SIGNS: Blood pressure 136/64, 95% on room air, temperature 36.7, pulse rate 69, respiratory rate 16. HEENT: Mucous membranes moist. NECK: Supple. No jugular venous distention. CHEST: Bilateral clear to auscultation at this time. CARDIOVASCULAR: S1 and S2, regular. ABDOMEN: Soft, nontender. EXTREMITIES: Shows no edema. LABORATORY TESTS: From this morning reviewed and shows a fairly stable CKD V, creatinine is 5.09, BUN 83. Sodium 133, potassium 4.2. Creatinine has been in the low 5 now for the last few days. Hemoglobin 10.0, platelet count 224. ASSESSMENT AND PLAN: A 69-year-old male with status post liver transplant and CKD V at baseline, admitted in the hospital with respiratory failure as well as DVT. Respiratory failure is from CHF versus idiopathic interstitial pneumonia. CKD V. Creatinine is slightly worse than his baseline. He already has an AV fistula in place for starting dialysis in near future. Continue Lasix 40 twice daily as is being done. He does not need dialysis at this moment. Continue all his transplant medication as before. No change needed. MTDD
[2019-07-16 12:45] LABS: Partial Thromboplastin Ratio 2.3
[2019-07-16 12:59] LABS: Partial Thromboplastin Time 62.6 Seconds (21.0-31.0)
[2019-07-16] MEDS: WARFARIN SOD 10 MG TAB PO SCH (16:54)
[2019-07-16] MEDS: DEXTROSE 5% IV SCH (17:42)
[2019-07-16] MEDS: CEFTRIAXONE SODIUM IV SCH (17:42)
[2019-07-16] MEDS: LACTOBACILLUS ACIDOPHILUS (FLORANEX) TAB PO SCH (18:27)
[2019-07-16] MEDS ORDERED: SODIUM CHLORIDE 0.65% NA SOLN 45 ML (OCEAN) ONE (20:44)
[2019-07-17] MEDS: HEPARIN SODIUM/DEXTROSE 25,000 UNITS/500 ML BAG IV SCH (00:29)
[2019-07-17 06:00] LABS: Hematocrit (blood only) 30.5 % (42-52); Mean Corpuscular Hemoglobin 24.6 pg (25-34); Mean Corpuscular Hgb Conc 32.8 g/dL (32-36); Mean Corpuscular Volume 74.9 fL (80-100); Mean Platelet Volume 9.5 fL (7.4-10.4); Platelet Count 211 K/uL (130-400); RDW Coefficient of Variation 13.4 % (11.5-14.5); RDW Standard Deviation 36.9 fL (36.4-46.3); Red Blood Count 4.07 M/uL (4.7-6.1); White Blood Count 5.61 K/uL (4.8-10.8)
[2019-07-17 06:19] LABS: INR 2.6 (0.9-1.1); Partial Thromboplastin Ratio 2.4; Prothrombin Time 24.9 Seconds (9.0-12.0)
[2019-07-17] MEDS: LEVOTHYROXINE SODIUM 75 MCG TABLET PO SCH (06:22)
[2019-07-17] MEDS: ENTECAVIR 0.5 MG SCH (06:22)
[2019-07-17 06:29] LABS: Partial Thromboplastin Time 64.1 Seconds (21.0-31.0)
[2019-07-17 06:47] LABS: Creatinine Clr Calc Pharmacy 16.8 ml/min; Est GFR (African American) 12.7; Potassium 4.1 mmol/L (3.5-5.1)
[2019-07-17] MEDS: AMLODIPINE BESYLATE 5 MG TAB PO SCH (08:29)
[2019-07-17] MEDS: EZETIMIBE 10 MG TABLET PO SCH (08:29)
[2019-07-17] MEDS: LACTOBACILLUS ACIDOPHILUS (FLORANEX) TAB PO SCH ×3 (08:30→16:09)
[2019-07-17] MEDS: PANTOprazole 40 MG TAB PO SCH (08:30)
[2019-07-17] MEDS: METOPROLOL SUCC 50MG EXT REL TAB PO SCH (08:30)
[2019-07-17] MEDS: TACROLIMUS 1 MG CAP PO SCH (08:30)
[2019-07-17] MEDS: SODIUM BICARBONATE 650 MG TAB PO SCH (08:30)
[2019-07-17] MEDS: MAGNESIUM OXIDE 400 MG TAB PO SCH (08:30)
[2019-07-17] MEDS: MYCOPHENOLATE MOFETIL 250 MG CAP PO SCH (08:30)
[2019-07-17] MEDS: FUROSEMIDE 40 MG TAB PO SCH ×2 (08:31→16:09)
[2019-07-17] MEDS: CHOLECALCIFEROL 1,000 UNITS 25 MCG TAB PO SCH (08:31)
[2019-07-17] MEDS: CLOTRIMAZOLE 1% CR 15 GM TUBE EXT SCH (08:31)
[2019-07-17] MEDS: INSULIN GLARGINE SOLOSTAR 100 UNITS/ML 3 ML PEN SC SCH (08:36)
[2019-07-17] MEDS: INSULIN ASPART 100 UNITS/ML 3 ML PEN SC SCH ×2 (08:37→11:45)
--- NOTE | 2019-07-17 14:41 | Nephrology Progress Note ---
Date of Service July 17, 2019 Assessment & Plan (1) Acute hypoxemic respiratory failure: at baseline he has no 02 needs; today is first day on RA -will today change lasix to po 40 mg bid 17 -can use more lasix prn as indicated -f/u w/ [facility] OP (2) Status post liver transplant: -continue FK, MMF current doses -f/u pending FK trough (still in process 07/13 AM) (3) CKD (chronic kidney disease) stage 5, GFR less than 15 ml/min: Worsening renal function with obligate diuretic therapy. No bairon uremic symptoms at this time however. Baseline creatinine since early April 3.9- 4.5, for early CKD 5. Creatinine today of 4.9 and BUN of 85. pt has maturing AVF. he is also listed for renal transplant. he has a nonanion gap metabolic acidosis which is slowly improving with starting po bicarbonate; no other electrolyte issues at this time apart from mild hyponatremia and azotemia; 3+ dipstick proteinuria on presentation; hx of known 1.5-2 gm OP protienuria, as recently as 04/2019. Has 1.1 g proteinuria here. Already for lung dz has several serologies w/ potential renal overlap pending such as anti ds DNA, anti GBM. ANCA and KHADRA are negative. However w/ his advanced ckd, unlikely to sa lvage renal function w/ tx if any of these come back positive -Follow-up Spep/upep, kappa-lambda ratio (low index of suspicion for paraproteinemia however) -daily bmp -no indication for emergent dialysis but cannot rule out need this admission; would need dialysis access if need arose -continue sodium bicarbonate po now and at discharge -for now no fluid or sodium limit, no renal diet necessarily needed -will continue to follow with you in hospital Discharge recommendations (discharge summary updated 07/14): Recommend discharge on sodium bicarbonate -Recommend weekly basic metabolic panel, phosphorus, hemoglobin to be ordered by nephrology x4 enterprise resource planner to update nephrology nurses when patient is discharged enterprise resource planner to schedule follow-up in kidney clinic with Dr. Kamara 2 to 4 weeks after discharge in [facility] or [place] enterprise resource planner to schedule appointment to establish care with [facility] (4) Abnormal CT scan, chest: -pulmonary following; w/u in process; no procedures planned imminently and to f/u w/ pulm as OP >> top of differential is idiopathic interstitial PNA / interstitial lung disease >> Agree with outpatient pulmonary follow-up. Patient to see Pulmonary as an outpatient given his liver transplant status and renal transplant candidacy both at [facility]. Admission and Anticipated Discharge Date Admission Date: July 10, 2019 Subjective Patient feels better denies any shortness of breath at rest. He has been ambulating in the halls. He gets exertional dyspnea. Still on heparin drip and Coumadin bridge. Creatinine stable at 4.9 Review of Systems Review of Systems: All systems reviewed & are unremarkable except as noted in HPI & below Physical Exam Physical Exam: General exam: Appears comfortable, no acute distress HEENT: Pupils are equal and reactive to light Neck: No JVD, neck is supple trachea is midline Respiratory system: Clear breath sounds bilaterally. Gastrointestinal: Abdomen is soft, non distended, non tender, bowel sounds are present CVS: Regular rate and rhythm. No murmurs, rubs or gallops Musculoskeletal: No joint or muscle tenderness Extremities: Non tender, no edema, peripheral pulses are present Neuro: Oriented, no tremors, no focal neurological deficits Skin: No rashes Access: Left upper arm AV fistula with good bruit Results & Data ([facility]) Vital Signs (Past 12 Hours) Vital Signs Temp Pulse Pulse Pulse Pulse Pulse Pulse 07/17/19 11:02 36.6 C 66 07/17/19 09:30 80 83 78 73 07/17/19 08:35 72 07/17/19 07:11 36.5 C 73 07/17/19 03:55 36.9 C 70 Resp Resp Resp Resp Resp BP Pulse Ox 07/17/19 11:02 16 117/66 94 07/17/19 09:30 18 20 16 16 07/17/19 08:35 07/17/19 07:11 20 113/68 94 07/17/19 03:55 20 145/74 H 93 Pulse Ox Pulse Ox Pulse Ox Pulse Ox 07/17/19 11:02 07/17/19 09:30 91 85 L 94 93 07/17/19 08:35 07/17/19 07:11 07/17/19 03:55 Laboratory Results 07/17/19 05:28 07/17/19 05:28 WBC 5.61 RBC 4.07 L MCV 74.9 L MCH 24.6 L MCHC 32.8 RDW Std Deviation 36.9 RDW Coeff of Ana María 13.4 Plt Count 211 MPV 9.5
[2019-07-17] MEDS ORDERED: WARFARIN SOD 7.5 MG TAB PO SCH (16:00)
--- NOTE | 2019-07-17 16:10 | Discharge Summary ---
Date of Service July 17, 2019 Admission HPI Per Admitting Provider 69 [address]O male followed by Dr. Maldonado. History of hypertension, CKD IV, liver transplant, DM type 2 and other problems as noted. Experiencing dyspnea on exertion for last several weeks. Occasional nonproductive cough. No fever. One day of mild pharyngitis. No anginal symptoms or pleuritic chest pain. Worsening dyspnea a few days ago. Seen in clinic today and referred to ED because of respiratory symptoms. Admission Exam Per Admitting Provider Constitutional: WD/WN, vitals as above no acute distress Eyes: PERRL, conjunctivae normal, anicteric sclerae ENMT: external ear and nose normal, oropharynx normal Neck: trachea midline, no thyromegaly Respiratory: + tachypneic Auscultation: + rales Cardiovascular: Rate/Rhythm: regular rate (with occasional ectopy) Heart Sounds: no gallop, no murmur and no cardiac rub Vessels: + JVD Extremities: normal capillary refill; no calf tenderness and no edema Gastrointestinal (Abdomen): normal bowel sounds, soft, nontender, no hepatosplenomegaly Musculoskeletal: Head/Neck/Chest: neck supple Extremities: strength 5/5 throughout; + extremities abnormal to inspection (recent AV fistula LUE; good thrill; incision OK), no cyanosis and no clubbing Skin: + rash (erythematous rash right abdomen measuring few cm in diameter) Neurologic: PERRL, EOMI, no facial palsy, no dysarthria or aphasia Psychiatric: Orientation: alert and oriented x 3 Affect: euthymic affect Lymphatic: no cervical lymphadenopathy Principal Diagnosis Acute hypoxemic respiratory failure CKD (Chronic kidney disease), stage 5 DVT CHF (diastolic, acute on chronic) 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 Discharge Exam Physical Exam: Sitting up in bed, in NAD, on Room Air Constitutional: well developed, well nourished Eyes: PERRL, EOMI, conjunctivae normal, anicteric sclerae ENMT: external ear and nose normal, oropharynx normal Neck: trachea midline, no thyromegaly Respiratory: CTAB, only very mild bibasilar crackles, no wheezing Cardiovascular: Rate/Rhythm: regular rate and regular rhythm Heart Sounds: no murmur Gastrointestinal (Abdomen): Inspection/Auscultation: abdomen normal to inspection, normal bowel sounds; abdomen not distended, soft, nontender Musculoskeletal: Extremities: no cyanosis, no clubbing and no petechiae, No acute arthritis involving any joints, moves all 4 extremities spontaneously Neurologic: Alert, awake and oriented x3, speech fluent, no facial asymmetry, moves all extremities Discharge Data Allergies Allergy/AdvReac Type Severity Reaction Status Date / Time aspirin AdvReac told Verified 07/10/19 15:23 him to not take any aspirin Consultations 07/10/19 17:13 ED Decision to Admit Stat 07/11/19 01:33 Consult Nephrology Routine 07/11/19 08:00 Consult Pulmonology Routine 07/11/19 10:32 Consult Vascular Surgery Routine Ordered Studies 07/10/19 19:32 US venous doppler LE Urgent IMPRESSION: 1. Deep venous thrombus within one of two paired right posterior tibial veins. No additional sites of deep venous thrombus within either lower extremity. 2. Suspected occlusion of the bilateral posterior tibial arteries. 07/11/19 09:00 US arterial duplex LE Routine IMPRESSION: 1. Occluded bilateral distal posterior tibial arteries.. 2. Monophasic waveforms within the bilateral dorsalis pedis arteries likely due to diffuse atherosclerotic disease. 3. Multifocal areas of stenosis as described above. 07/11/19 10:28 CT chest wo con Routine IMPRESSION: 1. Groundglass densities throughout the majority of the left lung which likely represents an acute pneumonitis. 2. Mild subpleural initial thickening with scattered subpleural densities and a few small areas of honeycombing. This favors chronic fibrotic change. 3. Mild paraseptal emphysema. 4. Small bilateral pleural effusions. 5. Prominent mediastinal lymph nodes. This may be reactive. Hospital Course (1) Acute respiratory failure with hypoxia: Progressive dyspnea over past several weeks. 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 Chest x-ray suggests pulmonary edema, but consider infectious or inflammatory process. CT of the chest showed probable interstitial pneumonitis/pulmonary fibrosis Has bilateral leg DVT and has been on intravenous heparin, no contrasted study to rule out pulmonary embolism Pulmonary medicine consulted - recommend to finish Abx course, tests to eval interst. lung disease obtained and pending - Pt should follow up with [facility] pulmonary medicine, as his other care (post-transplant) is with [facility] Pt received 1 dose of Zosyn in the emergency room, then continued with IV ceftriaxone and azithromycin and finished Abx treatment IV Lasix switched to PO lasix Nephrology consulted - recommend to continue lasix 40 mg BID on discharge, and cont. home bicarb - Also, pt will need weekly BMP, Phos, Hgb x4 after discharge, and follow up with backup sawyer, Dr. Kamara Clinically much better - on Room Air at rest, but requires 2L/min of suppl. O2 w/ ambulation - Step 2 test ordered - pt needs suppl. O2 w/ ambulation as above (2) Diastolic CHF, acute on chronic: Acute diastolic CHF with preserved EF Admitted with progressive shortness of breath for several weeks Chest x-ray and CT did show questionable fluid overload Echo-normal LV chamber size with moderate concentric LVH, EF of 55 to 60%, no segmental LV wall motion abnormalities, grade 2 diastolic dysfunction, mild LA enlargement and no significant valvular pathology Received 80 mg of Lasix IV in the emergency room Continued diuresis, initially IV now on PO lasix, as above -switched to PO lasix (07/13), now decreased to 40 mg bid (3) Abnormal chest x-ray: Interstitial pneumonitis/fibrotic lung disease Chest x-ray suggests pulmonary edema, but consider infectious or inflammatory process. Pro-BNP elevated, but may be high because of CKD. 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 May or may not have pulmonary embolism. Best not to obtain CTA of chest due to CKD and unlikely that VQ scan would be useful. Not good candidate for enoxaparin or DOAC because of renal disease. Started IV heparin- continue,started warfarin (07/12), monitor PT/INR INR 2.6 (today 07/17/2019) therapeutic, cont. to monitor - pt will need to check his INR in next 2 days - pt will be discharged on warfarin7.5 mg daily - brochure and information on warfarin provided Remains stable (5) Elevated sedimentation rate: ESR > 90. CRP 12.2. No fever. Respiratory symptoms as noted. Consider infection or inflammatory disease. Blood cultures obtained in ED and received a dose of piperacillin / tazobactam, then on ceftriaxone and azithro - finished Abx course Likely has pneumonitis/ interstitial pna vs interstitial lung disease (6) Hypertension: Continue metoprolol, amlodipine, hydralazine. (7) Status post liver transplant: History of cirrhosis attributed to HERNANDEZ. S/[place] [facility] [place]. Continue mycophenolate mofetil and tacrolimus. (8) CKD (chronic kidney disease) stage 4, GFR 15-29 ml/min: CKD stage V with creatinine now 4.5 Recent AV fistula LUE. Nephrology consulted to assist with management. Appreciate nephrology input and recommendation - continue home bicarb, lasix 40 mg BID - follow up w/ Dr. Kamara as outpt (9) Hypomagnesemia: Serum Mg 1.7. Ventricular ectopy noted on manager cardiac. Replace with caution. Follow. (10) Diabetes mellitus type 2 with complications: DM type 2 complicated by peripheral vascular disease. Managed with insulin aspartate at home. Hgb A1C 6.5% Lantus / NovoLog per protocol. (11) Peripheral vascular disease in diabetes mellitus: History of intermittent claudication. Patient reports that he was seen by a specialist (? Vascular Surgery) who did not recommend any intervention. Suspected occlusion of bilateral posterior tibial arteries noted on venous duplex. Check follow-up arterial duplex.-Shows posterior tibial occlusion Vascular surgery consulted - no intervention planned at this time. (12) DVT prophylaxis: Treating for acute DVT as discussed above (13) Discharge planning issues: Discharge disposition: home Family Medicine follow-up with Dr. Maldonado. Nephrology follow-up with Dr. Kamara. [place] Medicine [place] [facility] Pulmonary medicine follow up - needs arranged. Total Time Total Time Spent Total Time Spent (In Minutes): 50 Total Time Includes: Examination of the Patient, Discharge Planning, Medication Reconciliation and Communication With Other Providers Discharge Plan Discharge Items Patient Disposition: Home - Self-Care Reason For Visit: HYPOXIA,CHF,CKD Discharge Diagnosis: Acute hypoxemic respiratory failure CKD (Chronic kidney disease), stage 5 DVT CHF (diastolic, acute on chronic) Activity: As commented below Non-emergency contact: Primary Care Provider, [employer] and [employer] Inspector Call non-emergency contact if: you have any medication questions and your symptoms worsen Follow-up/Referrals: Herberth Maldonado MD [Primary Care Provider] - Diet: Carb Consistent or DM2 and Heart Healthy Addtl Attending Provider Instructions: Follow up with primary care doctor on 07/21/2019 at 11:05 AM . Start taking warfarin (coumadin) 7.5 mg daily, for your DVT. This dose will ad justed depending on your INR (blood test). You will need to have your INR checked in 2 days. Clinic will contact you. Take furosemide 40 mg twice a day. Use oxygen (2L / min) when ambulating. Weekly basic metabolic panel, phosphorus, hemoglobin to be ordered by nephrology x4 - blood work will be arranged by your kidney doctor. Follow-up in kidney clinic with Dr. Kamara 2 to 4 weeks after discharge in [facility] or [place], you will be called about the appointment. Establish care with [facility] pulmonary medicine - they will call you about the appointment Pending Studies at Discharge: Yes Studies:: per pulmonary Stand-Alone Forms: My [facility] [employer] [place], Smoking Cessation Medications and DC Order Prescriptions: New furosemide 40 mg Tablet 40 mg PO BID17 30 Days Qty: 30 RF: 0 warfarin [Coumadin] 7.5 mg Tablet 7.5 mg PO DAILY@1600 14 Days Qty: 14 RF: 0 magnesium oxide 400 mg (241.3 mg magnesium) Tablet 400 mg PO QAM 10 Days Qty: 10 RF: 0 Lactobacillus acidoph-L.bulgar [Floranex] 1 million cell Tablet 4 tab PO TIDM 10 Days Qty: 40 RF: 0 Continued mycophenolate mofetil 250 mg Capsule 250 mg PO BID RF: 0 metoprolol succinate 100 mg Tablet Extended Release 24 Hr 100 mg PO DAILY RF: 0 amlodipine 5 mg Tablet 5 mg PO BID RF: 0 levothyroxine 75 mcg Tablet 75 mcg PO DAILY RF: 0 clindamycin phosphate 1 % Gel 1 applic TOPICAL BID RF: 0 sodium bicarbonate 650 mg Tablet 1,300 mg PO BID RF: 0 insulin aspart U-100 100 unit/mL Solution 10 - 16 unit SUBCUT TIDM RF: 0 omeprazole 20 mg Capsule,Delayed Release(Dr/Ec) 20 mg PO BID RF: 0 hydroxyzine HCl 25 mg Tablet 25 mg PO Q6 PRN (Reason: Itching) RF: 0 hydralazine 50 mg Tablet 75 mg PO BID RF: 0 tacrolimus 1 mg Capsule 1 mg PO Q12H RF: 0 ezetimibe [Zetia] 10 mg Tablet 10 mg PO DAILY RF: 0 entecavir 0.5 mg Tablet 0.5 mg PO DAILY RF: 0 cholecalciferol (vitamin D3) [Vitamin D3] 50 mcg (2,000 unit) Capsule 2,000 unit PO DAILY RF: 0 Discharge Orders: Discharge Order (Routine); Ordered 07/17/19 Ordered By: Dao Dacosta Admission Data Admit Date/Time: 07/10/19 17:40 Attending Provider: Dao Dacosta Admit Provider: Dereck Smiley Primary Care Provider: Herberth Maldonado Other Providers: Lori Kamara ; Vidal Abad ; Chris Siegel Other Interventions: Discharge Summary Assessment (RN) Last Done: 07/17/19 16:20 DC Date/Time DO NOT enter until pt leaves facility: 07/17/19 16:37
[2019-07-19 01:50] LABS: Anti-Centromere Ab <1.0 NEG AI (<1.0 NEG); Anti-Glom Basement Antibody <1.0 AI (<1.0); Anti-Neutrophil Antibody NONE DETECTED (NONE DETECTED); Anti-SS-A <1.0 NEG AI (<1.0 NEG); Anti-SS-B <1.0 NEG AI (<1.0 NEG); Anti-dsDNA Recombinant <1 IU/mL; JO 1 Antibody <1.0 NEG AI (<1.0 NEG); Mycoplasma pneumoniae Ab, IgM 2365 U/mL (<770); Proteinase-3 Ab <1.0 AI; RNP Antibody <1.0 NEG AI (<1.0 NEG); Rheumatoid Factor 55 IU/mL (<14); Scleroderma Anti Scl-70 Ab <1.0 NEG AI (<1.0 NEG); Sm Antibody <1.0 NEG AI (<1.0 NEG)
--- NOTE | 2019-07-19 06:55 | Coding Query ---
CODING QUERY To promote full compliance with coding requirements relating to patient care, provider participation is requested in all cases of curb machine operator uncertainty. Please assist us with the question(s) below: Coding Question: Idiopathic Interstitial Pneumonia was documented by Pulmonary and in the PN but didn't make it to the DC summary. Please clarify if the patient was treated for Pneumonia during their stay. Thank you so much for your help! Have a great day! Pt was treated for interstitial pneumonia during this admission, concern for underlying interstitial lung disease - tests ordered, pt will follow up w/ specialists as outpt to determine this. ( ) Interstitial Pneumonia, present on admission ( ) Interstitial Pneumonia, not present on admission ( ) Interstitial Pneumonia, ruled-out ( ) Other, explain Thank you! Dara Agee Principal Diagnosis: "that condition established after study, to be chiefly responsible for occasioning the admission of the patient to the hospital for care." Co-Existing Principal Diagnosis: "when two or more diagnoses equally meet the criteria for principal diagnosis as determined by the circumstances of admission, diagnostic work up, and/or therapy provided, and the Alphabetic Index, Tabular List, or another coding guideline does not provide sequencing direction, any one of the diagnoses may be sequenced first." "When the physician has documented what appears to be a current diagnosis in the body of the record, but has not included the diagnosis in the final diagnostic statement, the physician should be asked whether the diagnosis should be added." (Source Coding Clinic 2 QTR90. p3-4) AVIS
[2019-07-19 09:05] LABS: Albumin 3.2 g/dL (3.8-4.8); Alpha 1 Globulin 0.6 g/dL (0.2-0.3); Alpha 2 Globulin 0.9 g/dL (0.5-0.9); Beta-1-Globulin 0.4 g/dL (0.4-0.6); Beta-2-Globulin 0.3 g/dL (0.2-0.5); Free Kappa 106.4 mg/L (3.3-19.4); Free Kappa/Lambda Ratio 0.97 (0.26-1.65); Free Lambda 109.5 mg/L (5.7-26.3); Gamma Globulin 0.7 g/dL (0.8-1.7); Monoclonal Protein Band 1 DNR g/dL (NONE DETECTED); Monoclonal Protein Band 2 DNR g/dL (NONE DETECTED); Monoclonal Protein Band 3 DNR g/dL (NONE DETECTED); Total Protein 6.1 g/dL (6.1-8.1)
== END 2019-07-17 16:37 | disposition home or self-care (01) | DRG 196 ==
LOC: ED 13:51 → 2S 17:40 → SUATTDRO 17:40 → 2S 18:51

== ENCOUNTER 2019-07-28 12:31 | Inpatient (IN) ==
--- NOTE | 2019-07-28 13:33 | Emergency Department Note ---
History of Present Illness General Chief complaint: Shortness of Breath/Dyspnea Stated complaint: SOB, COUGH Time Seen by Provider: 07/28/19 13:19 History of Present Illness Provider complaint: Shortness of breath. 69-year-old male with history of congestive heart failure CKD stage V, presents with dyspnea on exertion. Patient reports no chest pain. He states that he has been having no hematuria hematochezia melena syncope. He denies any weight gain or increased leg swelling. He states he is discharged from the hospital recently on 4 L of oxygen. He states he has a home pulse oximeter. He states when he walks up to go to the bathroom he becomes extremely winded and his pulse oximeter goes down into the 80s. He states when he is not walking his pulse oximeter is in the low 90s. Home Medications Home Medications Medication Instructions Recorded Confirmed Type amlodipine 5 mg PO BID 07/10/19 07/28/19 History cholecalciferol (vitamin D3) 2,000 unit PO QAM 07/10/19 07/28/19 History [Vitamin D3] entecavir 0.5 mg PO QAM 07/10/19 07/28/19 History ezetimibe [Zetia] 10 mg PO QAM 07/10/19 07/28/19 History hydralazine 75 mg PO BID 07/10/19 07/28/19 History hydroxyzine HCl 25 mg PO Q6 PRN 07/10/19 07/28/19 History insulin aspart U-100 10 - 16 unit SUBCUT TIDM 07/10/19 07/28/19 History levothyroxine 75 mcg PO QAM 07/10/19 07/28/19 History metoprolol succinate 100 mg PO QAM 07/10/19 07/28/19 History mycophenolate mofetil 250 mg PO BID 07/10/19 07/28/19 History omeprazole 20 mg PO BID 07/10/19 07/28/19 History sodium bicarbonate 1,300 mg PO BID 07/10/19 07/28/19 History tacrolimus 1 mg PO Q12H 07/10/19 07/28/19 History furosemide 40 mg PO BID17 30 Days #30 tab 07/17/19 07/28/19 Rx warfarin [Coumadin] 0 mg PO DAILY@1700 07/28/19 07/28/19 History Allergies Allergy/AdvReac Type Severity Reaction Status Date / Time adhesive tape AdvReac Severe skin tears Unverified 07/28/19 14:24 Mnatrnu-[id number]-Ben Reductase AdvReac Severe muscle and Unverified 07/28/19 14:24 Inhibitor joint aches lisinopril AdvReac Unknown Unknown Unverified 07/28/19 14:24 aspirin AdvReac told Verified 07/28/19 14:24 him to not take any aspirin Past Med/Surg History Medical History Abnormal CT scan, chest ACEI/ARB contraindicated Acute hypoxemic respiratory failure Anemia CKD (chronic kidney disease) stage 5, GFR less than 15 ml/min Diabetes mellitus type 2 with complications Diastolic CHF, acute on chronic DVT (deep venous thrombosis) Esophageal varices History of hepatocellular carcinoma associated with HERNANDEZ cirrhosis; s/p liver transplant Hypertension Hypothyroidism Idiopathic interstitial pneumonia Immunocompromised patient Liver transplant recipient HERNANDEZ (nonalcoholic steatohepatitis) Peripheral vascular disease in diabetes mellitus Sleep apnea Surgical History Status post liver transplant Family History Mother Colorectal cancer Diabetes Father Non-Hodgkin lymphoma Sister Renal cancer Sister Diabetes Brother Diabetes Social History Preferred Language: Albanian Communication Ability: Effective Pitch Filler Required: No Beliefs That Will Affect Care: None Current Living Situation: Spouse Current Living Situation Comment: lives with Other Information That Helps Us Care for You: No Feels Safe at Home: Yes Safety Concerns: Feels Safe At This Time Smoking Status: Former smoker Hx Alcohol Use: No Hx Substance Use: No Review of Systems A total of 10 systems reviewed and were otherwise negative Physical Exam Vital Signs Vital Signs - 24 hr 07/28/19 12:37 07/28/19 13:14 07/28/19 13:23 Temperature 36.8 C Temperature Source Oral Pulse Rate 84 78 Pulse Rate from SpO2 Sensor 78 Respiratory Rate 24 18 Respiratory Effort / Characteristics Non-Labored Spontaneous Respiratory Depth Normal Blood Pressure 142/63 H Blood Pressure Mean 89 Blood Pressure Position Sitting Pulse Oximetry 89 L 94 91 Oxygen Delivery Method Nasal Cannula Nasal Cannula Nasal Cannula Oxygen Flow Rate 4 4 4 Sepsis Recent Fever Within 48 Hours No Sepsis Action Taken by Nursing No Action Required 07/28/19 13:30 07/28/19 13:31 07/28/19 14:00 Temperature Temperature Source Pulse Rate 75 74 75 Pulse Rate from SpO2 Sensor 75 74 75 Respiratory Rate 22 22 26 H Respiratory Effort / Characteristics Respiratory Depth Blood Pressure 149/66 H 147/69 H Blood Pressure Mean 90 105 Blood Pressure Position Pulse Oximetry 92 93 92 Oxygen Delivery Method Nasal Cannula Nasal Cannula Nasal Cannula Oxygen Flow Rate 4 4 4 Sepsis Recent Fever Within 48 Hours Sepsis Action Taken by Nursing 07/28/19 14:01 07/28/19 14:30 07/28/19 14:31 Temperature Temperature Source Pulse Rate 76 73 74 Pulse Rate from SpO2 Sensor 75 73 74 Respiratory Rate 26 H 19 22 Respiratory Effort / Characteristics Respiratory Depth Blood Pressure 151/70 H Blood Pressure Mean 94 Blood Pressure Position Pulse Oximetry 91 92 93 Oxygen Delivery Method Nasal Cannula Nasal Cannula Nasal Cannula Oxygen Flow Rate 4 4 4 Sepsis Recent Fever Within 48 Hours Sepsis Action Taken by Nursing 07/28/19 15:00 07/28/19 15:01 07/28/19 15:30 Temperature Temperature Source Pulse Rate 74 73 76 Pulse Rate from SpO2 Sensor 74 73 76 Respiratory Rate 25 H 24 29 H Respiratory Effort / Characteristics Respiratory Depth Blood Pressure 142/66 H 148/69 H Blood Pressure Mean 99 97 Blood Pressure Position Pulse Oximetry 94 94 90 Oxygen Delivery Method Nasal Cannula Nasal Cannula Nasal Cannula Oxygen Flow Rate 4 4 4 Sepsis Recent Fever Within 48 Hours Sepsis Action Taken by Nursing 07/28/19 15:31 Temperature Temperature Source Pulse Rate 76 Pulse Rate from SpO2 Sensor 76 Respiratory Rate 29 H Respiratory Effort / Characteristics Respiratory Depth Blood Pressure Blood Pressure Mean Blood Pressure Position Pulse Oximetry 91 Oxygen Delivery Method Oxygen Flow Rate Sepsis Recent Fever Within 48 Hours Sepsis Action Taken by Nursing Physical Exam GENERAL: He is oriented to person, place, and time. He appears well-developed and well-nourished. He does not appear distressed. HENT: Exam performed. - Head: Normocephalic and atraumatic. - Right Ear: External ear normal. No mastoid tenderness. - Left Ear: External ear normal. No mastoid tenderness. - Mouth/Throat: The oropharynx is clear and moist. No trismus in the jaw. No dental abscesses or uvula swelling. No oropharyngeal exudate or tonsillar abscesses. EYES: Conjunctivae and EOM are normal. Pupils are equal, round, and reactive to light. Right eye exhibits no discharge. Left eye exhibits no discharge. No scleral icterus. NECK: Normal range of motion. Neck supple. No JVD present. No spinous process tenderness present. No carotid bruit present. No rigidity. No tracheal deviation and normal range of motion present. No Brudzinski's sign and no Kernig's sign noted. CV: Normal rate, regular rhythm, normal heart sounds and intact distal pulses. There is no peripheral edema. Palpable radial pulses bue. PULM/CHEST: Rales at the bases bilaterally. - Chest Wall: He exhibits no tenderness. ABD: The abdomen is soft. Bowel sounds are normal. He has no distension. No mass is present. There is no tenderness. There is no rebound, no guarding, no Torre's sign and no tenderness at McBurney's point. Rovsig negative. MUSC/SKEL: Normal range of motion. There is no peripheral edema, tenderness or deformity. LYMPH: No cervical adenopathy. NEURO: He is alert and oriented to person, place, and time. He has normal strength. No cranial nerve deficit or sensory deficit. Coordination and gait normal. GCS eye subscore is 4. GCS verbal subscore is 5. GCS motor subscore is 6. Cerebellar tests wnl. SKIN: Skin is warm and dry. He is not diaphoretic. PSYCH: He has a normal mood and affect. Behavior is normal. Judgment and thought content normal. Course Course 1320: Vital signs stable on supplemental oxygen that the patient wears at baseline since discharge. Patient has a history of hypertension, CKD stage V, liver transplant, and diabetes. Patient was admitted from the hospital from July 10 to July 16. He was admitted for acute respiratory failure with hypoxia that was likely secondary to idiopathic interstitial pneumonia and complicated diastolic CHF. Echo showed a left ventricular ejection fraction of 55 to 60% with no segmental left ventricular wall motion abnormalities grade 2 diastolic dysfunction. He was discharged with Lasix 40 mg twice daily. Patient has CT of the chest which showed chronic fibrotic changes and small bilateral effusion CMV was negative. Patient finished course of azithromycin and Rocephin. Patient also had a DVT and was started on heparin and discharged on Coumadin. Creatinine was 4.5 during admission. 1516: Vital signs stable on supplemental oxygen. Labs are within normal limits with exception of a creatinine of 4.4 which is at the patient's baseline. INR is therapeutic. Patient's chest x-ray shows for fluid overloaded and proBNP is elevated. Patient be treated 40 of Lasix admitted to the hospital service. Discussed with [facility] hospitalist Dr. Mendez. Administered Medications Furosemide (Lasix) 40 mg PO BID17 MARIO Stop: 08/27/19 16:59 Last Admin: 07/28/19 18:08 Dose: 40 mg Documented by: [id number] Insulin Aspart (Novolog Flexpen) 0 units SC ACHS MARIO Stop: 08/27/19 17:44 Last Admin: 07/28/19 18:11 Dose: Not Given Documented by: [id number] Cosigned by: [id number] Warfarin Sodium (Coumadin) 3 mg PO DAILY@1600 MARIO Stop: 08/27/19 17:29 Last Admin: 07/28/19 18:07 Dose: 3 mg Documented by: [id number] Discontinued Medications Furosemide (Lasix) 40 mg IV NOW STA Stop: 07/28/19 14:46 Last Admin: 07/28/19 15:26 Dose: 40 mg Documented by: [id number] Miscellaneous (Order Awaiting Action) 1 ea N/A QS MARIO Stop: 08/27/19 17:29 Last Admin: 07/28/19 18:11 Dose: Not Given Documented by: [id number] Sodium Bicarbonate (Sodium Bicarbonate) 1,300 mg PO ONE STA Stop: 07/28/19 15:26 Last Admin: 07/28/19 15:40 Dose: 1,300 mg Documented by: [id number] Medical Decision Making Laboratory Data Result diagrams: 07/28/19 13:33 07/28/19 13:33 Lab Results 07/28/19 07/28/19 07/28/19 Range/Units 13:33 13:33 13:33 WBC 10.27 (4.8-10.8) K/uL RBC 4.08 L (4.7-6.1) M/uL Hgb 10.2 L (14.0-18.0) g/dL Hct 31.9 L (42-52) % MCV 78.2 L (80-100) fL MCH 25.0 (25-34) pg MCHC 32.0 (32-36) g/dL RDW Std Deviation 41.0 (36.4-46.3) fL RDW Coeff of Ana María 14.4 (11.5-14.5) % Plt Count 273 (130-400) K/uL MPV 9.0 (7.4-10.4) fL Immature Gran % (Auto) 0.4 % Neut % (Auto) 77.4 % Lymph % (Auto) 12.1 % [place] % (Auto) 8.3 % Eos % (Auto) 1.6 % Baso % (Auto) 0.2 % Immature Gran # (Auto) 0.04 H (0.00-0.02) K/uL Neut # (Auto) 7.96 H (1.4-6.5) K/uL Lymph # (Auto) 1.24 (1.2-3.4) K/uL [place] # (Auto) 0.85 H (0.11-0.59) K/uL Eos # (Auto) 0.16 (0-0.5) K/uL Baso # (Auto) 0.02 (0-0.2) K/uL PT 28.7 H (9.0-12.0) Seconds INR 2.9 H (0.9-1.1) APTT 46.5 H* (21.0-31.0) Seconds PTT Ratio 1.7 VBG pH (7.36-7.41) VBG pCO2 (38-50) mmHg VBG pO2 mmHg VBG HCO3 mmol/L VBG O2 Saturation % VBG Base Excess mEq/L Barometric Pressure mm/Hg Sodium 135 L (136-145) mmol/L Potassium 4.7 (3.5-5.1) mmol/L Chloride 108 H (98-107) mmol/L Carbon Dioxide 17 L (21-32) mmol/L Anion Gap 10.0 (3-11) BUN 77 H (7-18) mg/dl Creatinine 4.40 H (0.6-1.4) mg/dl Est Cr Clr Drug Dosing 19.0 ml/min Est GFR ( Amer) 14.8 Est GFR (Non-Af Amer) 12.7 BUN/Creatinine Ratio 17.5 (10-20) Glucose 140 H (70-99) mg/dl Calcium 9.0 (8.5-10.1) mg/dl Total Bilirubin 0.3 (0.2-1) mg/dl Direct Bilirubin < 0.1 (0-0.2) mg/dl AST 15 (15-37) U/L ALT 19 (12-78) U/L Alkaline Phosphatase 67 (45-117) U/L Troponin I < 0.015 (0-0.045) ng/ml NT-Pro-B Natriuret Pep 6394 H (0-900) pg/ml Total Protein 7.4 (6.4-8.2) gm/dl Albumin 3.2 L (3.4-5.0) gm/dl Lipase 148 (73-393) U/L Influenza Type A (PCR) (Neg) Influenza Type B (PCR) (Neg) 07/28/19 07/28/19 Range/Units 13:33 13:40 WBC (4.8-10.8) K/uL RBC (4.7-6.1) M/uL Hgb (14.0-18.0) g/dL Hct (42-52) % MCV (80-100) fL MCH (25-34) pg MCHC (32-36) g/dL RDW Std Deviation (36.4-46.3) fL RDW Coeff of Ana María (11.5-14.5) % Plt Count (130-400) K/uL MPV (7.4-10.4) fL Immature Gran % (Auto) % Neut % (Auto) % Lymph % (Auto) % [place] % (Auto) % Eos % (Auto) % Baso % (Auto) % Immature Gran # (Auto) (0.00-0.02) K/uL Neut # (Auto) (1.4-6.5) K/uL Lymph # (Auto) (1.2-3.4) K/uL [place] # (Auto) (0.11-0.59) K/uL Eos # (Auto) (0-0.5) K/uL Baso # (Auto) (0-0.2) K/uL PT (9.0-12.0) Seconds INR (0.9-1.1) APTT (21.0-31.0) Seconds PTT Ratio VBG pH 7.28 L (7.36-7.41) VBG pCO2 37 L (38-50) mmHg VBG pO2 32 mmHg VBG HCO3 17 mmol/L VBG O2 Saturation < 60.0 % VBG Base Excess -9.4 mEq/L Barometric Pressure 729.3 mm/Hg Sodium (136-145) mmol/L Potassium (3.5-5.1) mmol/L Chloride (98-107) mmol/L Carbon Dioxide (21-32) mmol/L Anion Gap (3-11) BUN (7-18) mg/dl Creatinine (0.6-1.4) mg/dl Est Cr Clr Drug Dosing ml/min Est GFR ( Amer) Est GFR (Non-Af Amer) BUN/Creatinine Ratio (10-20) Glucose (70-99) mg/dl Calcium (8.5-10.1) mg/dl Total Bilirubin (0.2-1) mg/dl Direct Bilirubin (0-0.2) mg/dl AST (15-37) U/L ALT (12-78) U/L Alkaline Phosphatase (45-117) U/L Troponin I (0-0.045) ng/ml NT-Pro-B Natriuret Pep (0-900) pg/ml Total Protein (6.4-8.2) gm/dl Albumin (3.4-5.0) gm/dl Lipase (73-393) U/L Influenza Type A (PCR) Neg for Influ A (Neg) Influenza Type B (PCR) Neg for Influ B (Neg) Imaging Data Radiologist's Impression: XR chest 1V portable CLINICAL HISTORY: Chest Pain dyspnea COMPARISON STUDY: 07/12/2019 FINDINGS: Progressive left and to a lesser extent right hemithoracic interstit ial and bronchovascular change compared to the prior exam. Slight increase in cardiac size. Prior median sternotomy. IMPRESSION: Developing congestive heart failure superimposed upon slightly progressive interstitial change. ACT 112: Negative or not required by law. The above report was generated using voice recognition software. It may contain grammatical, syntax or spelling errors. Electronically signed by: Valentino Rosa M.D. 07/28/2019 1:51 PM Dictated: 07/28/19 1350 Transcribed: 07/28/19 1350 ECG Data Rate (beats per minute): 76 Rhythm: + normal sinus ECG Intervals/blocks: + Normal QRS, + Normal [place] and + Normal QT-c Additional Comments: Sinus Rhythym. Rate 76. [place] QRS and Qtc intervals within normal limits. No ST elevation or ST depression [facility] Narrative 1320: Vital signs stable on supplemental oxygen that the patient wears at baseline since discharge. Patient has a history of hypertension, CKD stage V, liver transplant, and diabetes. Patient was admitted from the hospital from July 10 to July 16. He was admitted for acute respiratory failure with hypoxia that was likely secondary to idiopathic interstitial pneumonia and complicated diastolic CHF. Echo showed a left ventricular ejection fraction of 55 to 60% with no segmental left ventricular wall motion abnormalities grade 2 diastolic dysfunction. He was discharged with Lasix 40 mg twice daily. Patient has CT of the chest which showed chronic fibrotic changes and small bilateral effusion CMV was negative. Patient finished course of azithromycin and Rocephin. Patient also had a DVT and was started on heparin and discharged on Coumadin. Creatinine was 4.5 during admission. 1516: Vital signs stable on supplemental oxygen. Labs are within normal limits with exception of a creatinine of 4.4 which is at the patient's baseline. INR is therapeutic. Patient's chest x-ray shows for fluid overloaded and proBNP is elevated. Patient be treated 40 of Lasix admitted to the hospital service. Discussed with [facility] hospitalist Dr. Mendez. Impression & Plan Acute exacerbation of CHF (congestive heart failure), CKD (chronic kidney disease) stage 4, GFR 15-29 ml/min Discharge Plan Visit Data *Final* Discharge Date/Time: 07/28/19 16:48 Chief Complaint: Shortness of Breath/Dyspnea Stated Complaint: SOB, COUGH ED Provider: Wilner Siddiqi Discharge Problem: Acute exacerbation of CHF (congestive heart failure), CKD (chronic kidney disease) stage 4, GFR 15-29 ml/min Patient Disposition: Admitted As Inpatient Discharge Instructions Interventions: ED Discharge Assessment Last Done: 07/28/19 16:48 Discharge Problem: Acute exacerbation of CHF (congestive heart failure) Qualifiers: Heart failure type: unspecified Qualified Code(s): I50.9 - Heart failure, unspecified
[2019-07-28 13:48] LABS: Base Excess VBG -9.4 mEq/L; HCO3 VBG 17 mmol/L; PCO2 VBG 37 mmHg (38-50); PO2 VBG 32 mmHg; pH VBG 7.28 (7.36-7.41)
[2019-07-28 13:50] LABS: Oxygen Saturation VBG < 60.0 %
--- NOTE | 2019-07-28 13:53 | XRay Report ---
XR chest 1V portable CLINICAL HISTORY: Chest Pain dyspnea COMPARISON STUDY: 07/12/2019 FINDINGS: Progressive left and to a lesser extent right hemithoracic interstitial and bronchovascular change compared to the prior exam. Slight increase in cardiac size. Prior median sternotomy. IMPRESSION: Developing congestive heart failure superimposed upon slightly progressive interstitial change. ACT 112: Negative or not required by law. The above report was generated using voice recognition software. It may contain grammatical, syntax or spelling errors. Electronically signed by: Valentino Rosa M.D. 07/28/2019 1:51 PM
[2019-07-28 13:54] LABS: Basophils # (auto) 0.02 K/uL (0-0.2); Basophils % (auto) 0.2 %; Eosinophils # (auto) 0.16 K/uL (0-0.5); Eosinophils % (auto) 1.6 %; Hematocrit (blood only) 31.9 % (42-52); Hemoglobin 10.2 g/dL (14.0-18.0); Immature Granulocytes # (auto) 0.04 K/uL (0.00-0.02); Immature Granulocytes % (auto) 0.4 %; Lymphocytes # (auto) 1.24 K/uL (1.2-3.4); Lymphocytes % (auto) 12.1 %; Mean Corpuscular Volume 78.2 fL (80-100); Monocytes # (auto) 0.85 K/uL (0.11-0.59); Monocytes % (auto) 8.3 %; Neutrophils # (auto) 7.96 K/uL (1.4-6.5); Neutrophils % (auto) 77.4 %; Platelet Count 273 K/uL (130-400); RDW Coefficient of Variation 14.4 % (11.5-14.5); Red Blood Count 4.08 M/uL (4.7-6.1); White Blood Count 10.27 K/uL (4.8-10.8)
[2019-07-28 14:11] LABS: Alanine Aminotransferase 19 U/L (12-78); Albumin Level 3.2 gm/dl (3.4-5.0); Aspartate Aminotransferase 15 U/L (15-37); BUN Creatinine Ratio 17.5 (10-20); Bilirubin Direct < 0.1 mg/dl (0-0.2); Blood Urea Nitrogen 77 mg/dl (7-18); Carbon Dioxide 17 mmol/L (21-32); Chloride 108 mmol/L (98-107); Est GFR (African American) 14.8; Est GFR (Non-African American) 12.7; Glucose 140 mg/dl (70-99); Lipase 148 U/L (73-393); Potassium 4.7 mmol/L (3.5-5.1); Sodium 135 mmol/L (136-145)
[2019-07-28 14:16] LABS: Alkaline Phosphatase 67 U/L (45-117); Bilirubin,Total 0.3 mg/dl (0.2-1); NT Pro B Type Natriuretic Pept 6394 pg/ml (0-900); Total Protein 7.4 gm/dl (6.4-8.2); Troponin I < 0.015 ng/ml (0-0.045)
[2019-07-28 14:17] LABS: INR 2.9 (0.9-1.1); Partial Thromboplastin Ratio 1.7; Prothrombin Time 28.7 Seconds (9.0-12.0)
[2019-07-28 14:26] LABS: Partial Thromboplastin Time 46.5 Seconds (21.0-31.0)
[2019-07-28 14:29] LABS: Influenza A virus by PCR Neg for Influ A (Neg); Influenza B virus by PCR Neg for Influ B (Neg)
[2019-07-28] MEDS ORDERED: FUROSEMIDE 40 MG/4 ML VIAL IV STA (14:45)
[2019-07-28] MEDS ORDERED: SODIUM BICARBONATE 650 MG TAB PO STA (15:25)
[2019-07-28] MEDS ORDERED: POLYETHYLENE (MIRALAX) 17 GM PACK PO PRN (15:53)
[2019-07-28] MEDS ORDERED: ACETAMINOPHEN 325 MG TAB PO PRN (15:53)
[2019-07-28] MEDS ORDERED: TACROLIMUS 1 MG CAP PO SCH (16:00)
--- NOTE | 2019-07-28 16:09 | History & Physical Report ---
Date of Service July 28, 2019 Assessment & Plan (1) Acute and chronic respiratory failure with hypoxia: - likely secondary from pulm. fluid congestion as noted on CXR - pt has multiple co-morbidities possibly contributing (see below) - discharged on suppl. O2 last time - pt has CKD stage 5 on diuretics, may have incr. fluid from that, not on HD - likely component of diastolic HF - pt was diagnosed with DVT during last admission and PE could not be ruled out, however pt been treated and current INR therapeutic, so this is less likely - abnormal chest imaging during last admission, pulmonary medicine involved for poss. interstitial lung disease eval/ treatment - pt is to follow up with [facility] pulmonary medicine but has not been seen yet/ established care with them - pt is also immunocompromised given hx of liver transplant - does not appear infected though, lactate, procalcitonin wnl - no fever, chills, sick contacts - has some cough, occasional sputum seems clear - will cont. to closely monitor for any signs of infection, will repeat CXR or CT after diuresis to eval further (2) CKD (chronic kidney disease) stage 5, GFR less than 15 ml/min: - Pt follows w/ Dr. Kamara - AV fistula placed in June, pt did not require HD yet - was discharged on lasix 40 mg BID - he was also supposed to cont. bicarb 1,300 mg BID however says he was not able to obtain bicarb - currently metab. acidosis w/ bicarb 17 - will restart bicarb, and will provide one stat dose while in the ED - received IV lasix 40 mg in the ED, will re-assess need for IV diuretics - will restart home PO lasix (3) Diastolic CHF, acute on chronic: BNP elevated in the ED in 6000s CXR c/w pulm. congestion Recent Echo-normal LV chamber size with moderate concentric LVH, EF of 55 to 60%, no segmental LV wall motion abnormalities, grade 2 diastolic dysfunction, mild LA enlargement and no significant valvular pathology - pt was given 40 IV lasix by ED physician - when reviewing his weight, does not seem to be sign. elevated - will cont. to closely monitor response to diuretics, I/O, daily standing weight - low sodium diet, fluid restriction - restart PO lasix, will re-assess the need for IV lasix - Nephrology consulted, appreciate further input (4) DVT (deep venous thrombosis): - diagnosed during last recent admission - at that time was on IV heparin and started on coumadin - pt follows w/ coumadin clinic - current INR 2.9 - cont. to monitor - doses approximately Mon 7.5, and 3.75 most of the days - will give 3mg today and will cont. to monitor (5) Abnormal CT scan, chest: Poss. Interstitial lung disease Recent chest imaging - CT scan of the chest showed-groundglass densities throughout the majority of the left lung which is likely representing acute pneumonitis Chronic fibrotic changes with a small bilateral pleural effusion and prominent mediastinal lymph nodes - abnormal chest imaging during last admission, pulmonary medicine involved for poss. interstitial lung disease eval/ treatment - pt is to follow up with [facility] pulmonary medicine but has not been seen ye t/ established care with them (6) Status post liver transplant: (7) Immunocompromised patient: History of cirrhosis attributed to HERNANDEZ. S/P liver transplant at [facility] [place] 2012. Continue mycophenolate mofetil and tacrolimus. (8) Anemia: - chronic - likely secondary to CKD - stable at this time, cont. to monitor (9) DM type 2 (diabetes mellitus, type 2): DM type 2 complicated by peripheral vascular disease. On insulin Hgb A1C 6.5% Lantus / NovoLog per protocol Glycemic pharm consulted DVT ppx: on coumadin for diagnosed DVT, INR therapeutic Dispo: likely home Code: Full History of Present Illness Primary Care Provider: Herberth Maldonado MD 69 y/o male with hx of CKD stage 5 (not on HD but w/ AV fistula placed in June 2019), hx of HERNANDEZ cirrhosis s/p liver transplant, DM type 2, who was recently discharged from our hospital. At that time pt was found hypoxic and required to be discharged on home suppl. O2. He was diagnosed with DVT at that time and started on coumadin, PE was not ruled out. Interestingly though, pt's CT images were abnormal and pulmonary medicine was consulted for possible interstitial lung disease. He was also treated with Abx for poss. pneumonia. He was supposed to follow up with [facility] pulmonary medicine but did not have an appointment yet (he says he is scheduled though). He also follows w/ nephrology, but tells me that he was not able to obtain his bicarb, and so since last discharge did not take his bicarbonate. He was established with anticoagulation clinic and his INR is therapeutic. Pt says he felt well after discharge but 2 days ago started to feel short of breath w/ exertion. He tells me that he was previously walking around w/o his oxygen and was able to do so w/o much difficulty (says he was checking his pulse ox when he did it but can not remember numbers). However 2 days ago he had troubles when walking and was more short of breath. His pulse ox was in lower 80s even with his suppl. O2 on. He also now has occasional cough, with some clear sputum. CXR in ED significant for pulm. congestion. BNP elevated. Pt denies any chest pain. EKG - NSR, normal EKG, nonspecific T wave abnormality in inf. leads. Pt says he has been taking his lasix as prescribed. ED provider gave 40 IV lasix. Hospitalist team was called for further management. Reviewed pt's chart and noted messages between nephrology office and the pt. Pt reported not able to take bicarb. Gave 1,300 mg bicarb in the ED. (bicarb ~17 on current labs). On my evaluation pt is lying in bed, pt's at the bedside. pt is in NAD, he is using suppl. O2. Denies any fever, chills, travel, or sick contacts. Denies any sore throat, or sinus pressure. As above, denies any chest pain. He also denies any abd. pain, nausea, vomiting, diarrhea. Allergies Allergy/AdvReac Type Severity Reaction Status Date / Time adhesive tape AdvReac Severe skin tears Unverified 07/28/19 14:24 [id number]-[id number] Reductase AdvReac Severe muscle and Unverified 07/28/19 14:24 Inhibitor joint aches lisinopril AdvReac Unknown Unknown Unverified 07/28/19 14:24 aspirin AdvReac told Verified 07/28/19 14:24 him to not take any aspirin Home Medications Home Medications Medication Instructions Recorded Confirmed Type amlodipine 5 mg PO BID 07/10/19 07/28/19 History cholecalciferol (vitamin D3) 2,000 unit PO QAM 07/10/19 07/28/19 History [Vitamin D3] entecavir 0.5 mg PO QAM 07/10/19 07/28/19 History ezetimibe [Zetia] 10 mg PO QAM 07/10/19 07/28/19 History hydralazine 75 mg PO BID 07/10/19 07/28/19 History hydroxyzine HCl 25 mg PO Q6 PRN 07/10/19 07/28/19 History insulin aspart U-100 10 - 16 unit SUBCUT TIDM 07/10/19 07/28/19 History levothyroxine 75 mcg PO QAM 07/10/19 07/28/19 History metoprolol succinate 100 mg PO QAM 07/10/19 07/28/19 History mycophenolate mofetil 250 mg PO BID 07/10/19 07/28/19 History omeprazole 20 mg PO BID 07/10/19 07/28/19 History sodium bicarbonate 1,300 mg PO BID 07/10/19 07/28/19 History tacrolimus 1 mg PO Q12H 07/10/19 07/28/19 History furosemide 40 mg PO BID17 30 Days #30 tab 07/17/19 07/28/19 Rx warfarin [Coumadin] 0 mg PO DAILY@1700 07/28/19 07/28/19 History Past Med/Surg History Medical History Abnormal CT scan, chest ACEI/ARB contraindicated Acute hypoxemic respiratory failure Anemia CKD (chronic kidney disease) stage 5, GFR less than 15 ml/min Diabetes mellitus type 2 with complications Diastolic CHF, acute on chronic DVT (deep venous thrombosis) Esophageal varices History of hepatocellular carcinoma associated with HERNANDEZ cirrhosis; s/p liver transplant Hypertension Hypothyroidism Idiopathic interstitial pneumonia Immunocompromised patient Liver transplant recipient HERNANDEZ (nonalcoholic steatohepatitis) Peripheral vascular disease in diabetes mellitus Sleep apnea Surgical History Status post liver transplant Family History Mother Colorectal cancer Diabetes Father Non-Hodgkin lymphoma Sister Renal cancer Sister Diabetes Brother Diabetes Social History Preferred Language: Kyr[place] Communication Ability: Effective [employer] Required: No Beliefs That Will Affect Care: None Current Living Situation: Spouse Current Living Situation Comment: lives with Other Information That Helps Us Care for You: No Feels Safe at Home: Yes Safety Concerns: Feels Safe At This Time Smoking Status: Former smoker Hx Alcohol Use: No Hx Substance Use: No Review of Systems Review of Systems: All systems reviewed & are unremarkable except as noted in HPI & below Constitutional: no fever and no chills Eyes: no worsening vision and no problem reported Ear, Nose, Mouth, Throat: no ear pain and no dizziness Respiratory: + cough and + dyspnea; no pain on inspiration Cardiovascular: no chest pain and no palpitations Gastrointestinal: no abdominal pain, no nausea and no vomiting Neurologic: no tingling, no numbness and no abnormal speech Psychiatric: no depression, no hopelessness and no confusion Endocrine: no heat intolerance and no flushing Hematologic / Lymphatic: no lymphadenopathy Allergy / Immunological: no lip swelling and no urticaria Physical Exam Physical Exam: elderly male lying in bed, in NAD, on NC Constitutional: WD/WN, vitals as above no acute distress and not ill appearing Eyes: PERRL, conjunctivae normal, anicteric sclerae EOM intact bilaterally ENMT: external ear and nose normal, oropharynx normal Neck: trachea midline, no thyromegaly Respiratory: normal respiratory effort, lungs clear to auscultation + cough Auscultation: + crackles (diffuse mild b/l) Cardiovascular: RRR, no murmur, no edema Chest (Breasts): Chest: normal inspection of chest Gastrointestinal (Abdomen): Inspection/Auscultation: abdomen normal to inspection and normal bowel sounds; abdomen not distended Percussion/Palpation: abdomen soft; abdomen nontender and no guarding Musculoskeletal: no cyanosis or clubbing, extremities motor strength 5/5 Head/Neck/Chest: normocephalic and head atraumatic Extremities: strength 5/5 throughout Skin: no rashes, warm and dry normal turgor Neurologic: PERRL, EOMI, accommodation nl, no face palsy, no dysarthria normal touch/pain/proprioception and moves all extremities; no focal motor deficits Speech / Cognition: normal speech Psychiatric: A+Ox3, euthymic affect Genitourinary: no CVA tenderness Lymphatic: no lymphadenopathy Results & Data Vital Signs (Past 12 Hours) Vital Signs Temp Pulse Resp BP Pulse Ox 07/28/19 15:30 76 29 H 148/69 H 90 07/28/19 15:01 73 24 94 07/28/19 15:00 74 25 H 142/66 H 94 07/28/19 14:31 74 22 93 07/28/19 14:30 73 19 151/70 H 92 07/28/19 14:01 76 26 H 91 07/28/19 14:00 75 26 H 147/69 H 92 07/28/19 13:31 74 22 93 07/28/19 13:30 75 22 149/66 H 92 07/28/19 13:23 78 18 91 07/28/19 13:14 94 07/28/19 12:37 36.8 C 84 24 142/63 H 89 L Laboratory Results 07/28/19 07/28/19 07/28/19 Range/Units 13:40 13:33 13:33 WBC (4.8-10.8) K/uL RBC (4.7-6.1) M/uL Hgb (14.0-18.0) g/dL Hct (42-52) % MCV (80-100) fL MCH (25-34) pg MCHC (32-36) g/dL RDW Std Deviation (36.4-46.3) fL RDW Coeff of Ana María (11.5-14.5) % Plt Count (130-400) K/uL MPV (7.4-10.4) fL Immature Gran % (Auto) % Neut % (Auto) % Lymph % (Auto) % [place] % (Auto) % Eos % (Auto) % Baso % (Auto) % Immature Gran # (Auto) (0.00-0.02) K/uL Neut # (Auto) (1.4-6.5) K/uL Lymph # (Auto) (1.2-3.4) K/uL [place] # (Auto) (0.11-0.59) K/uL Eos # (Auto) (0-0.5) K/uL Baso # (Auto) (0-0.2) K/uL PT (9.0-12.0) Seconds INR (0.9-1.1) APTT (21.0-31.0) Seconds PTT Ratio VBG pH 7.28 L (7.36-7.41) VBG pCO2 37 L (38-50) mmHg VBG pO2 32 mmHg VBG HCO3 17 mmol/L VBG O2 Saturation < 60.0 % VBG Base Excess -9.4 mEq/L Barometric Pressure 729.3 mm/Hg Sodium 135 L (136-145) mmol/L Potassium 4.7 (3.5-5.1) mmol/L Chloride 108 H (98-107) mmol/L Carbon Dioxide 17 L (21-32) mmol/L Anion Gap 10.0 (3-11) BUN 77 H (7-18) mg/dl Creatinine 4.40 H (0.6-1.4) mg/dl Est Cr Clr Drug Dosing 19.0 ml/min Est GFR ( Amer) 14.8 Est GFR (Non-Af Amer) 12.7 BUN/Creatinine Ratio 17.5 (10-20) Glucose 140 H (70-99) mg/dl Calcium 9.0 (8.5-10.1) mg/dl Total Bilirubin 0.3 (0.2-1) mg/dl Direct Bilirubin < 0.1 (0-0.2) mg/dl AST 15 (15-37) U/L ALT 19 (12-78) U/L Alkaline Phosphatase 67 (45-117) U/L Troponin I < 0.015 (0-0.045) ng/ml NT-Pro-B Natriuret Pep 6394 H (0-900) pg/ml Total Protein 7.4 (6.4-8.2) gm/dl Albumin 3.2 L (3.4-5.0) gm/dl Lipase 148 (73-393) U/L Influenza Type A (PCR) Neg for Influ A (Neg) Influenza Type B (PCR) Neg for Influ B (Neg) 07/28/19 07/28/19 Range/Units 13:33 13:33 WBC 10.27 (4.8-10.8) K/uL RBC 4.08 L (4.7-6.1) M/uL Hgb 10.2 L (14.0-18.0) g/dL Hct 31.9 L (42-52) % MCV 78.2 L (80-100) fL MCH 25.0 (25-34) pg MCHC 32.0 (32-36) g/dL RDW Std Deviation 41.0 (36.4-46.3) fL RDW Coeff of Ana María 14.4 (11.5-14.5) % Plt Count 273 (130-400) K/uL MPV 9.0 (7.4-10.4) fL Immature Gran % (Auto) 0.4 % Neut % (Auto) 77.4 % Lymph % (Auto) 12.1 % [place] % (Auto) 8.3 % Eos % (Auto) 1.6 % Baso % (Auto) 0.2 % Immature Gran # (Auto) 0.04 H (0.00-0.02) K/uL Neut # (Auto) 7.96 H (1.4-6.5) K/uL Lymph # (Auto) 1.24 (1.2-3.4) K/uL [place] # (Auto) 0.85 H (0.11-0.59) K/uL Eos # (Auto) 0.16 (0-0.5) K/uL Baso # (Auto) 0.02 (0-0.2) K/uL PT 28.7 H (9.0-12.0) Seconds INR 2.9 H (0.9-1.1) APTT 46.5 H* (21.0-31.0) Seconds PTT Ratio 1.7 VBG pH (7.36-7.41) VBG pCO2 (38-50) mmHg VBG pO2 mmHg VBG HCO3 mmol/L VBG O2 Saturation % VBG Base Excess mEq/L Barometric Pressure mm/Hg Sodium (136-145) mmol/L Potassium (3.5-5.1) mmol/L Chloride (98-107) mmol/L Carbon Dioxide (21-32) mmol/L Anion Gap (3-11) BUN (7-18) mg/dl Creatinine (0.6-1.4) mg/dl Est Cr Clr Drug Dosing ml/min Est GFR ( Amer) Est GFR (Non-Af Amer) BUN/Creatinine Ratio (10-20) Glucose (70-99) mg/dl Calcium (8.5-10.1) mg/dl Total Bilirubin (0.2-1) mg/dl Direct Bilirubin (0-0.2) mg/dl AST (15-37) U/L ALT (12-78) U/L Alkaline Phosphatase (45-117) U/L Troponin I (0-0.045) ng/ml NT-Pro-B Natriuret Pep (0-900) pg/ml Total Protein (6.4-8.2) gm/dl Albumin (3.4-5.0) gm/dl Lipase (73-393) U/L Influenza Type A (PCR) (Neg) Influenza Type B (PCR) (Neg) Diagnostic Findings CXR 07/28/2019 FINDINGS: Progressive left and to a lesser extent right hemithoracic interstitial and bronchovascular change compared to the prior exam. Slight increase in cardiac size. Prior median sternotomy. IMPRESSION: Developing congestive heart failure superimposed upon slightly progressive interstitial change. EKG - NSR, normal EKG, nonspecific T wave abnormality in inf. leads Medications Administered Current Inpatient Medications Acetaminophen (Tylenol) 650 mg PO Q4H PRN PRN Reason: Pain or Fever Stop: 08/27/19 15:52 Amlodipine Besylate (Norvasc) 5 mg PO BID [facility]IO Stop: 08/27/19 20:59 Ezetimibe (Zetia) 10 mg PO QAM [facility] Stop: 08/28/19 08:59 Furosemide (Lasix) 40 mg PO BID17 [facility] Stop: 08/27/19 16:59 Hydralazine HCl (Apresoline) 75 mg PO BID [facility] Stop: 08/27/19 20:59 Hydroxyzine HCl (Vistaril) 25 mg PO Q6 PRN PRN Reason: Itching Stop: 08/27/19 15:59 Levothyroxine Sodium (Synthroid) 75 mcg PO QAM [facility] Stop: 08/28/19 08:59 Metoprolol Succinate (Toprol Xl) 100 mg PO QAM [facility] Stop: 08/28/19 08:59 Mycophenolate Mofetil (Cellcept) 250 mg PO BID [facility] Stop: 08/27/19 20:59 Non-Formulary Medication (Omeprazole) 20 mg PO BID [facility] Stop: 08/27/19 20:59 Non-Formulary Medication (Entecavir) 0.5 mg PO QAM [facility] Stop: 08/28/19 08:59 Non-Formulary Medication (Cholecalciferol (Vitamin D3) [Vitamin D3]) 2,000 units PO QAM [facility] Stop: 08/28/19 08:59 Polyethylene Glycol (Miralax Powder Packet) 17 gm PO DAILY PRN PRN Reason: Constipation Stop: 08/27/19 15:52 Sodium Bicarbonate (Sodium Bicarbonate) 1,300 mg PO BID [facility] Stop: 08/27/19 20:59 Tacrolimus (Prograf) 1 mg PO Q12H [facility] Stop: 08/27/19 15:59 Warfarin Sodium (Coumadin) 3 mg PO DAILY@1600 [facility] Stop: 08/28/19 15:59 Code Status & VTE Plan VTE Prophylaxis Plan VTE Prophylaxis will be ordered: Yes
--- NOTE | 2019-07-28 16:53 | Electrocardiogram Report ---
Test Reason : Blood Pressure : / mmHG Vent. Rate : 076 BPM Atrial Rate : 076 BPM P-R Int : 160 ms QRS Dur : 092 ms QT Int : 390 ms P-R-T Axes : 028 000 015 degrees QTc Int : 438 ms Normal sinus rhythm Normal ECG When compared with ECG of 10-JUL-2019 14:33, Nonspecific T wave abnormality now evident in Inferior leads Nonspecific T wave abnormality no longer evident in Lateral leads Confirmed by Donavon Salinas ([id number]) on 07/28/2019 4:53:43 PM Referred By: Confirmed By:Donavon Salinas
[2019-07-28] MEDS ORDERED: PHARMACY GLYCEMIC MGMT CONSULT PRN (17:24)
[2019-07-28] MEDS ORDERED: GLUCOSE 40% GEL 15 GM TUBE PO PRN (17:45)
[2019-07-28] MEDS ORDERED: CARBOHYDRATES FOR HYPOGLYCEMIA PO PRN (17:45)
[2019-07-28] MEDS ORDERED: GLUCOSE 10 TABS/TUBE PO PRN (17:45)
[2019-07-28] MEDS ORDERED: GLUCAGON FOR INJ 1 MG VIAL IM PRN (17:45)
[2019-07-28] MEDS ORDERED: DEXTROSE 50% 50 ML SYRINGE IV PRN (17:45)
[2019-07-28] MEDS: WARFARIN SOD 3 MG TAB PO SCH (18:07)
[2019-07-28] MEDS: FUROSEMIDE 40 MG TAB PO SCH (18:08)
[2019-07-28] MEDS: INSULIN ASPART 100 UNITS/ML 3 ML PEN SC SCH ×2 (18:11→20:55)
[2019-07-28] MEDS ORDERED: Nursing to Pharmacy Communication ONE (18:40)
[2019-07-28] MEDS: TACROLIMUS 1 MG CAP PO SCH (19:24)
[2019-07-28] MEDS: AMLODIPINE BESYLATE 5 MG TAB PO SCH (19:24)
[2019-07-28] MEDS: MYCOPHENOLATE MOFETIL 250 MG CAP PO SCH (19:27)
[2019-07-28] MEDS: SODIUM BICARBONATE 650 MG TAB PO SCH (19:27)
[2019-07-28] MEDS: PANTOprazole 40 MG TAB PO SCH (19:28)
--- NOTE | 2019-07-28 20:59 | Pharmacy Report ---
Pharmacy Glycemic Short Note 2 - Date of Service July 28, 2019 - Glycemic Short BSG Results (Last 24 hours): 07/28/19 07/28/19 13:33 19:51 Glucose 140 H POC Glucose 151 H OUTPATIENT ANTIDIABETIC REGIMEN: * Novolog 10-16 units TIDM ASSESSMENT: * Pt admitted from the ED with progressive CHF; multiple comorbidities including CKD V, Chronic anemia, HTN, PVD, s/p Liver Transplant. * At time of consult on had one POC BSG of 140. Pt reports on med rec that he last took 12 units of Novolog this morning. Given significant renal and hepatic impairment, plan to dose insulin conservatively. PLAN FOR INPATIENT GLYCEMIC CONTROL: * Did not order any basal insulin based on outpatient insulin needs -- if fasting BSGs are high tomorrow please reassess basal needs. * Bolus insulin * NovoLog per scale ACHS or Q6hrs while NPO * Goal Range: Low 110 mg/dL - High 140 mg/dL * Correction Factor: 25 mg/dL/unit * Nutritional / Prandial insulin per carb ratio of 1 unit per 8 grams CHO consumed PLAN FOR DISCHARGE: * To be evaluated once insulin needs have been assessed.
[2019-07-28] MEDS ORDERED: AMLODIPINE BESYLATE 5 MG TAB PO SCH (21:00)
[2019-07-29] MEDS: ENTECAVIR PO SCH (06:08)
[2019-07-29] MEDS: LEVOTHYROXINE SODIUM 75 MCG TABLET PO SCH (06:08)
[2019-07-29 06:52] LABS: Hematocrit (blood only) 32.3 % (42-52); Hemoglobin 10.1 g/dL (14.0-18.0); Mean Corpuscular Hemoglobin 24.5 pg (25-34); Mean Corpuscular Hgb Conc 31.3 g/dL (32-36); Mean Corpuscular Volume 78.4 fL (80-100); Mean Platelet Volume 9.3 fL (7.4-10.4); Platelet Count 267 K/uL (130-400); RDW Coefficient of Variation 14.4 % (11.5-14.5); RDW Standard Deviation 41.1 fL (36.4-46.3); Red Blood Count 4.12 M/uL (4.7-6.1); White Blood Count 7.09 K/uL (4.8-10.8)
[2019-07-29 07:04] LABS: INR 2.9 (0.9-1.1)
[2019-07-29 07:41] LABS: BUN Creatinine Ratio 17.3 (10-20); Calcium 9.1 mg/dl (8.5-10.1); Creatinine Clr Calc Pharmacy 17.4 ml/min; Est GFR (African American) 13.3; Est GFR (Non-African American) 11.5; Magnesium 1.9 mg/dl (1.8-2.4); Potassium 4.3 mmol/L (3.5-5.1)
[2019-07-29] MEDS: TACROLIMUS 1 MG CAP PO SCH ×2 (08:25→20:06)
[2019-07-29] MEDS: AMLODIPINE BESYLATE 5 MG TAB PO SCH ×2 (08:25→20:08)
[2019-07-29] MEDS: METOPROLOL SUCC 50MG EXT REL TAB PO SCH (08:25)
[2019-07-29] MEDS: FUROSEMIDE 40 MG TAB PO SCH (08:26)
[2019-07-29] MEDS: INSULIN ASPART 100 UNITS/ML 3 ML PEN SC SCH ×4 (08:27→20:10)
[2019-07-29] MEDS: MYCOPHENOLATE MOFETIL 250 MG CAP PO SCH ×2 (08:27→20:07)
[2019-07-29] MEDS: SODIUM BICARBONATE 650 MG TAB PO SCH ×2 (08:27→20:08)
[2019-07-29] MEDS: EZETIMIBE 10 MG TABLET PO SCH (08:27)
[2019-07-29] MEDS: PANTOprazole 40 MG TAB PO SCH ×2 (08:27→20:08)
[2019-07-29] MEDS: CHOLECALCIFEROL 1,000 UNITS 25 MCG TAB PO SCH (08:27)
--- NOTE | 2019-07-29 12:32 | Hospitalist Progress Note ---
Date of Service July 29, 2019 Assessment & Plan (1) Acute and chronic respiratory failure with hypoxia: - likely secondary from pulm. fluid congestion as noted on CXR - pt has multiple co-morbidities possibly contributing (see below) - discharged on suppl. O2 last time - pt has CKD stage 5 on diuretics, may have incr. fluid from that, not on HD - likely component of diastolic HF - pt was diagnosed with DVT during last admission and PE could not be ruled out, however pt been treated and current INR therapeutic, so this is less likely - abnormal chest imaging during last admission, pulmonary medicine involved for poss. interstitial lung disease eval/ treatment - pt is to follow up with [facility] pulmonary medicine but has not been seen yet/ established care with them - pt is also immunocompromised given hx of liver transplant - does not appear infected though, lactate, procalcitonin wnl - WBC ~10 K on admission, now down to 7K after diuresis - no fever, chills, sick contacts - has some cough, occasional sputum seems clear - will cont. to closely monitor for any signs of infection, no Abx at this time, will repeat CXR or CT after diuresis to eval further - CXR ordered for tmrw AM (2) CKD (chronic kidney disease) stage 5, GFR less than 15 ml/min: - Pt follows w/ Dr. Kamara - AV fistula placed in June, pt did not require HD yet - was discharged on lasix 40 mg BID - he was also supposed to cont. bicarb 1,300 mg BID however says he was not able to obtain bicarb - on admission metab. acidosis w/ bicarb 17 - will restart bicarb 1,300 mg BID - received IV lasix 40 mg in the ED, will re-assess need for IV diuretics - discussed w/ nephrology, will re-start 40 IV lasix BID for now, also recommend pulmonary medicine eval (3) Diastolic CHF, acute on chronic: BNP elevated in the ED in 6000s CXR c/w pulm. congestion Recent Echo-normal LV chamber size with moderate concentric LVH, EF of 55 to 60%, no segmental LV wall motion abnormalities, grade 2 diastolic dysfunction, mild LA enlargement and no significant valvular pathology - pt was given 40 IV lasix by ED physician - when reviewing his weight, does not seem to be sign. elevated - will cont. to closely monitor response to diuretics, I/O, daily standing weight - low sodium diet, fluid restriction - 40 IV lasix BID, will re-assess need for IV diuretics daily - Nephrology consulted, appreciate further input (4) DVT (deep venous thrombosis): - diagnosed during last recent admission - at that time was on IV heparin and started on coumadin - pt follows w/ coumadin clinic - current INR 2.9 - cont. to monitor - doses approximately Mon 7.5, and 3.75 most of the days - will give 3mg today and will cont. to monitor (5) Abnormal CT scan, chest: Poss. Interstitial lung disease Recent chest imaging - CT scan of the chest showed-groundglass densities throughout the majority of the left lung which is likely representing acute pneumonitis Chronic fibrotic changes with a small bilateral pleural effusion and prominent mediastinal lymph nodes - abnormal chest imaging during last admission, pulmonary medicine involved for poss. interstitial lung disease eval/ treatment - pt is to follow up with [facility] pulmonary medicine but has not been seen yet/ established care with them - Pulmonary medicine consult for tmrw AM (6) Status post liver transplant: (7) Immunocompromised patient: History of cirrhosis attributed to HERNANDEZ, HCC S/P liver transplant at [facility] [place] 2012. Continue mycophenolate mofetil and tacrolimus. - tacrolimus level Wednesday AM lab (8) Anemia: - chronic - likely secondary to CKD - stable at this time, cont. to monitor (9) DM type 2 (diabetes mellitus, type 2): DM type 2 complicated by peripheral vascular disease. On insulin Hgb A1C 6.5% Lantus / NovoLog per protocol Glycemic pharm consulted DVT ppx: on coumadin for diagnosed DVT, INR therapeutic Dispo: likely home Code: Full Admission and Anticipated Discharge Date Admission Date: July 28, 2019 Subjective Pt is lying in bed in NAD, on NC. Pt's at the bedside. They both state that pt seems better today, but still gets short of breath with walking. He seems to be comfortable and speaks in full sentences when resting. Responded to diuresis but still remains on 4L O2. Denies any fever, chills, chest pain, abd. pain, nausea, vomiting, diarrhea, dizziness, lightheadedness. He continues to have occasional cough. Review of Systems Review of Systems: All systems reviewed & are unremarkable except as noted in HPI & below Constitutional: no fever and no chills Respiratory: + cough (occasional clear sputum) and + dyspnea (on exertion) Cardiovascular: no chest pain and no palpitations Gastrointestinal: no abdominal pain, no nausea and no vomiting Genitourinary: no dysuria Physical Exam Physical Exam: elderly male lying in bed, in NAD, on NC, speaking in full sentences Constitutional: WD/WN, vitals as above no acute distress and not ill appearing Eyes: PERRL, conjunctivae normal, anicteric sclerae EOM intact bilaterally ENMT: external ear and nose normal, oropharynx normal Neck: trachea midline, no thyromegaly Respiratory: normal respiratory effort and + cough (w/ deep inspiration); no respiratory distress and no labored breathing Auscultation: + crackles (mild b/l) decreased breath sounds b/l Cardiovascular: RRR, no murmur, no edema Chest (Breasts): Chest: normal inspection of chest Gastrointestinal (Abdomen): Inspection/Auscultation: abdomen normal to inspection and normal bowel sounds; abdomen not distended Percussion/Palpation: abdomen soft; abdomen nontender and no guarding Musculoskeletal: no cyanosis or clubbing, extremities motor strength 5/5 Head/Neck/Chest: normocephalic and head atraumatic Extremities: strength 5/5 throughout Skin: no rashes, warm and dry normal turgor Neurologic: PERRL, EOMI, accommodation nl, no face palsy, no dysarthria normal touch/pain/proprioception and moves all extremities; no focal motor deficits Speech / Cognition: normal speech Psychiatric: A+Ox3, euthymic affect Genitourinary: no CVA tenderness Results & Data ([facility]) Vital Signs (Past 12 Hours) Vital Signs Temp Pulse Pulse Pulse Resp BP BP 07/29/19 11:17 36.7 C 68 18 149/73 H 07/29/19 08:00 69 07/29/19 07:19 36.7 C 70 18 146/67 H 07/29/19 04:00 36.7 C 75 20 130/61 130/61 Pulse Ox 07/29/19 11:17 92 07/29/19 08:00 07/29/19 07:19 92 07/29/19 04:00 90 Laboratory Results 07/29/19 07/29/19 07/29/19 Range/Units 11:17 07:17 06:19 WBC (4.8-10.8) K/uL RBC (4.7-6.1) M/uL Hgb (14.0-18.0) g/dL Hct (42-52) % MCV (80-100) fL MCH (25-34) pg MCHC (32-36) g/dL RDW Std Deviation (36.4-46.3) fL RDW Coeff of Ana María (11.5-14.5) % Plt Count (130-400) K/uL MPV (7.4-10.4) fL Immature Gran % (Auto) % Neut % (Auto) % Lymph % (Auto) % Pierce % (Auto) % Eos % (Auto) % Baso % (Auto) % Immature Gran # (Auto) (0.00-0.02) K/uL Neut # (Auto) (1.4-6.5) K/uL Lymph # (Auto) (1.2-3.4) K/uL Pierce # (Auto) (0.11-0.59) K/uL Eos # (Auto) (0-0.5) K/uL Baso # (Auto) (0-0.2) K/uL PT 29.0 H (9.0-12.0) Seconds INR 2.9 H (0.9-1.1) APTT (21.0-31.0) Seconds PTT Ratio VBG pH (7.36-7.41) VBG pCO2 (38-50) mmHg VBG pO2 mmHg VBG HCO3 mmol/L VBG O2 Saturation % VBG Base Excess mEq/L Barometric Pressure mm/Hg Sodium (136-145) mmol/L Potassium (3.5-5.1) mmol/L Chloride (98-107) mmol/L Carbon Dioxide (21-32) mmol/L Anion Gap (3-11) BUN (7-18) mg/dl Creatinine (0.6-1.4) mg/dl Est Cr Clr Drug Dosing ml/min Est GFR ( Amer) Est GFR (Non-Af Amer) BUN/Creatinine Ratio (10-20) Glucose (70-99) mg/dl POC Glucose 125 H 149 H (70-99) mg/dl Lactate (0.4-2.0) mmol/L Calcium (8.5-10.1) mg/dl Phosphorus (2.5-4.9) mg/dl Magnesium (1.8-2.4) mg/dl Total Bilirubin (0.2-1) mg/dl Direct Bilirubin (0-0.2) mg/dl AST (15-37) U/L ALT (12-78) U/L Alkaline Phosphatase (45-117) U/L Troponin I (0-0.045) ng/ml NT-Pro-B Natriuret Pep (0-900) pg/ml Total Protein (6.4-8.2) gm/dl Albumin (3.4-5.0) gm/dl Lipase (73-393) U/L Procalcitonin (0-0.5) ng/ml Influenza Type A (PCR) (Neg) Influenza Type B (PCR) (Neg) 07/29/19 07/29/19 07/28/19 Range/Units 06:19 06:19 19:51 WBC 7.09 (4.8-10.8) K/uL RBC 4.12 L (4.7-6.1) M/uL Hgb 10.1 L (14.0-18.0) g/dL Hct 32.3 L (42-52) % MCV 78.4 L (80-100) fL MCH 24.5 L (25-34) pg MCHC 31.3 L (32-36) g/dL RDW Std Deviation 41.1 (36.4-46.3) fL RDW Coeff of Ana María 14.4 (11.5-14.5) % Plt Count 267 (130-400) K/uL MPV 9.3 (7.4-10.4) fL Immature Gran % (Auto) % Neut % (Auto) % Lymph % (Auto) % Pierce % (Auto) % Eos % (Auto) % Baso % (Auto) % Immature Gran # (Auto) (0.00-0.02) K/uL Neut # (Auto) (1.4-6.5) K/uL Lymph # (Auto) (1.2-3.4) K/uL Pierce # (Auto) (0.11-0.59) K/uL Eos # (Auto) (0-0.5) K/uL Baso # (Auto) (0-0.2) K/uL PT (9.0-12.0) Seconds INR (0.9-1.1) APTT (21.0-31.0) Seconds PTT Ratio VBG pH (7.36-7.41) VBG pCO2 (38-50) mmHg VBG pO2 mmHg VBG HCO3 mmol/L VBG O2 Saturation % VBG Base Excess mEq/L Barometric Pressure mm/Hg Sodium 136 (136-145) mmol/L Potassium 4.3 (3.5-5.1) mmol/L Chloride 106 (98-107) mmol/L Carbon Dioxide 19 L (21-32) mmol/L Anion Gap 11.0 (3-11) BUN 83 H (7-18) mg/dl Creatinine 4.79 H* D (0.6-1.4) mg/dl Est Cr Clr Drug Dosing 17.4 ml/min Est GFR ( Amer) 13.3 Est GFR (Non-Af Amer) 11.5 BUN/Creatinine Ratio 17.3 (10-20) Glucose 125 H (70-99) mg/dl POC Glucose 151 H (70-99) mg/dl Lactate (0.4-2.0) mmol/L Calcium 9.1 (8.5-10.1) mg/dl Phosphorus 6.0 H (2.5-4.9) mg/dl Magnesium 1.9 (1.8-2.4) mg/dl Total Bilirubin (0.2-1) mg/dl Direct Bilirubin (0-0.2) mg/dl AST (15-37) U/L ALT (12-78) U/L Alkaline Phosphatase (45-117) U/L Troponin I (0-0.045) ng/ml NT-Pro-B Natriuret Pep (0-900) pg/ml Total Protein (6.4-8.2) gm/dl Albumin (3.4-5.0) gm/dl Lipase (73-393) U/L Procalcitonin (0-0.5) ng/ml Influenza Type A (PCR) (Neg) Influenza Type B (PCR) (Neg) 07/28/19 07/28/19 07/28/19 Range/Units 17:38 17:38 13:40 WBC (4.8-10.8) K/uL RBC (4.7-6.1) M/uL Hgb (14.0-18.0) g/dL Hct (42-52) % MCV (80-100) fL MCH (25-34) pg MCHC (32-36) g/dL RDW Std Deviation (36.4-46.3) fL RDW Coeff of Ana María (11.5-14.5) % Plt Count (130-400) K/uL MPV (7.4-10.4) fL Immature Gran % (Auto) % Neut % (Auto) % Lymph % (Auto) % Pierce % (Auto) % Eos % (Auto) % Baso % (Auto) % Immature Gran # (Auto) (0.00-0.02) K/uL Neut # (Auto) (1.4-6.5) K/uL Lymph # (Auto) (1.2-3.4) K/uL Pierce # (Auto) (0.11-0.59) K/uL Eos # (Auto) (0-0.5) K/uL Baso # (Auto) (0-0.2) K/uL PT (9.0-12.0) Seconds INR (0.9-1.1) APTT (21.0-31.0) Seconds PTT Ratio VBG pH (7.36-7.41) VBG pCO2 (38-50) mmHg VBG pO2 mmHg VBG HCO3 mmol/L VBG O2 Saturation % VBG Base Excess mEq/L Barometric Pressure mm/Hg Sodium (136-145) mmol/L Potassium (3.5-5.1) mmol/L Chloride (98-107) mmol/L Carbon Dioxide (21-32) mmol/L Anion Gap (3-11) BUN (7-18) mg/dl Creatinine (0.6-1.4) mg/dl Est Cr Clr Drug Dosing ml/min Est GFR ( Amer) Est GFR (Non-Af Amer) BUN/Creatinine Ratio (10-20) Glucose (70-99) mg/dl POC Glucose (70-99) mg/dl Lactate 0.8 (0.4-2.0) mmol/L Calcium (8.5-10.1) mg/dl Phosphorus (2.5-4.9) mg/dl Magnesium (1.8-2.4) mg/dl Total Bilirubin (0.2-1) mg/dl Direct Bilirubin (0-0.2) mg/dl AST (15-37) U/L ALT (12-78) U/L Alkaline Phosphatase (45-117) U/L Troponin I (0-0.045) ng/ml NT-Pro-B Natriuret Pep (0-900) pg/ml Total Protein (6.4-8.2) gm/dl Albumin (3.4-5.0) gm/dl Lipase (73-393) U/L Procalcitonin 0.17 (0-0.5) ng/ml Influenza Type A (PCR) Neg for Influ A (Neg) Influenza Type B (PCR) Neg for Influ B (Neg) 07/28/19 07/28/19 07/28/19 Range/Units 13:33 13:33 13:33 WBC (4.8-10.8) K/uL RBC (4.7-6.1) M/uL Hgb (14.0-18.0) g/dL Hct (42-52) % MCV (80-100) fL MCH (25-34) pg MCHC (32-36) g/dL RDW Std Deviation (36.4-46.3) fL RDW Coeff of Ana María (11.5-14.5) % Plt Count (130-400) K/uL MPV (7.4-10.4) fL Immature Gran % (Auto) % Neut % (Auto) % Lymph % (Auto) % Pierce % (Auto) % Eos % (Auto) % Baso % (Auto) % Immature Gran # (Auto) (0.00-0.02) K/uL Neut # (Auto) (1.4-6.5) K/uL Lymph # (Auto) (1.2-3.4) K/uL Pierce # (Auto) (0.11-0.59) K/uL Eos # (Auto) (0-0.5) K/uL Baso # (Auto) (0-0.2) K/uL PT 28.7 H (9.0-12.0) Seconds INR 2.9 H (0.9-1.1) APTT 46.5 H* (21.0-31.0) Seconds PTT Ratio 1.7 VBG pH 7.28 L (7.36-7.41) VBG pCO2 37 L (38-50) mmHg VBG pO2 32 mmHg VBG HCO3 17 mmol/L VBG O2 Saturation < 60.0 % VBG Base Excess -9.4 mEq/L Barometric Pressure 729.3 mm/Hg Sodium 135 L (136-145) mmol/L Potassium 4.7 (3.5-5.1) mmol/L Chloride 108 H (98-107) mmol/L Carbon Dioxide 17 L (21-32) mmol/L Anion Gap 10.0 (3-11) BUN 77 H (7-18) mg/dl Creatinine 4.40 H (0.6-1.4) mg/dl Est Cr Clr Drug Dosing 19.0 ml/min Est GFR ( Amer) 14.8 Est GFR (Non-Af Amer) 12.7 BUN/Creatinine Ratio 17.5 (10-20) Glucose 140 H (70-99) mg/dl POC Glucose (70-99) mg/dl Lactate (0.4-2.0) mmol/L Calcium 9.0 (8.5-10.1) mg/dl Phosphorus (2.5-4.9) mg/dl Magnesium (1.8-2.4) mg/dl Total Bilirubin 0.3 (0.2-1) mg/dl Direct Bilirubin < 0.1 (0-0.2) mg/dl AST 15 (15-37) U/L ALT 19 (12-78) U/L Alkaline Phosphatase 67 (45-117) U/L Troponin I < 0.015 (0-0.045) ng/ml NT-Pro-B Natriuret Pep 6394 H (0-900) pg/ml Total Protein 7.4 (6.4-8.2) gm/dl Albumin 3.2 L (3.4-5.0) gm/dl Lipase 148 (73-393) U/L Procalcitonin (0-0.5) ng/ml Influenza Type A (PCR) (Neg) Influenza Type B (PCR) (Neg) 07/28/19 Range/Units 13:33 WBC 10.27 (4.8-10.8) K/uL RBC 4.08 L (4.7-6.1) M/uL Hgb 10.2 L (14.0-18.0) g/dL Hct 31.9 L (42-52) % MCV 78.2 L (80-100) fL MCH 25.0 (25-34) pg MCHC 32.0 (32-36) g/dL RDW Std Deviation 41.0 (36.4-46.3) fL RDW Coeff of Ana María 14.4 (11.5-14.5) % Plt Count 273 (130-400) K/uL MPV 9.0 (7.4-10.4) fL Immature Gran % (Auto) 0.4 % Neut % (Auto) 77.4 % Lymph % (Auto) 12.1 % Pierce % (Auto) 8.3 % Eos % (Auto) 1.6 % Baso % (Auto) 0.2 % Immature Gran # (Auto) 0.04 H (0.00-0.02) K/uL Neut # (Auto) 7.96 H (1.4-6.5) K/uL Lymph # (Auto) 1.24 (1.2-3.4) K/uL Pierce # (Auto) 0.85 H (0.11-0.59) K/uL Eos # (Auto) 0.16 (0-0.5) K/uL Baso # (Auto) 0.02 (0-0.2) K/uL PT (9.0-12.0) Seconds INR (0.9-1.1) APTT (21.0-31.0) Seconds PTT Ratio VBG pH (7.36-7.41) VBG pCO2 (38-50) mmHg VBG pO2 mmHg VBG HCO3 mmol/L VBG O2 Saturation % VBG Base Excess mEq/L Barometric Pressure mm/Hg Sodium (136-145) mmol/L Potassium (3.5-5.1) mmol/L Chloride (98-107) mmol/L Carbon Dioxide (21-32) mmol/L Anion Gap (3-11) BUN (7-18) mg/dl Creatinine (0.6-1.4) mg/dl Est Cr Clr Drug Dosing ml/min Est GFR ( Amer) Est GFR (Non-Af Amer) BUN/Creatinine Ratio (10-20) Glucose (70-99) mg/dl POC Glucose (70-99) mg/dl Lactate (0.4-2.0) mmol/L Calcium (8.5-10.1) mg/dl Phosphorus (2.5-4.9) mg/dl Magnesium (1.8-2.4) mg/dl Total Bilirubin (0.2-1) mg/dl Direct Bilirubin (0-0.2) mg/dl AST (15-37) U/L ALT (12-78) U/L Alkaline Phosphatase (45-117) U/L Troponin I (0-0.045) ng/ml NT-Pro-B Natriuret Pep (0-900) pg/ml Total Protein (6.4-8.2) gm/dl Albumin (3.4-5.0) gm/dl Lipase (73-393) U/L Procalcitonin (0-0.5) ng/ml Influenza Type A (PCR) (Neg) Influenza Type B (PCR) (Neg) Medications Administered Current Inpatient Medications Acetaminophen (Tylenol) 650 mg PO Q4H PRN PRN Reason: Pain or Fever Stop: 08/27/19 15:52 Amlodipine Besylate (Norvasc) 5 mg PO 0900,1930 [facility] Stop: 08/27/19 19:29 Last Admin: 07/29/19 08:25 Dose: 5 mg Documented by: Dextrose (Dextrose 50%) 25 - 50 ml IV UD PRN; Protocol PRN Reason: Hypoglycemia Protocol Stop: 08/27/19 17:44 Ezetimibe (Zetia) 10 mg PO QAM [facility] Stop: 08/28/19 08:59 Last Admin: 07/29/19 08:27 Dose: 10 mg Documented by: Furosemide (Lasix) 40 mg PO BID17 [facility] Stop: 08/27/19 16:59 Last Admin: 07/29/19 08:26 Dose: 40 mg Documented by: Glucagon (Glucagen) 1 mg IM UD PRN; Protocol PRN Reason: Hypoglycemia Protocol Stop: 08/27/19 17:44 Glucose (Glucose 40%) 15 - 30 gm PO UD PRN; Protocol PRN Reason: Hypoglycemia Protocol Stop: 08/27/19 17:44 Glucose (Dex4 Glucose) 4 - 8 tabs PO UD PRN; Protocol PRN Reason: Hypoglycemia Protocol Stop: 08/27/19 17:44 Hydralazine HCl (Apresoline) 75 mg PO 0900,1930 [facility] Stop: 08/27/19 19:29 Last Admin: 07/29/19 08:26 Dose: 75 mg Documented by: Hydroxyzine HCl (Vistaril) 25 mg PO Q6H PRN PRN Reason: Itching Stop: 08/27/19 15:59 Insulin Aspart (Novolog Flexpen) 0 units SC ACHS [facility] Stop: 08/27/19 17:44 Last Admin: 07/29/19 11:44 Dose: 6 units Documented by: Levothyroxine Sodium (Synthroid) 75 mcg PO DAILYBB [facility] Stop: 08/28/19 06:29 Last Admin: 07/29/19 06:08 Dose: 75 mcg Documented by: Metoprolol Succinate (Toprol Xl) 100 mg PO QAM [facility] Stop: 08/28/19 08:59 Last Admin: 07/29/19 08:25 Dose: 100 mg Documented by: Miscellaneous (Carbohydrates For Hypoglycemia) 15 - 30 gm PO UD PRN PRN Reason: Hypoglycemia Treatment Stop: 08/27/19 17:44 Miscellaneous Information (Consult Glycemic Management Pharmacy) 1 ea N/A UD PRN PRN Reason: Consult Stop: 08/27/19 17:23 Mycophenolate Mofetil (Cellcept) 250 mg PO BID [facility] Stop: 08/27/19 20:59 Last Admin: 07/29/19 08:27 Dose: 250 mg Documented by: *Entecavir*Non- Formulary Patient's Own Med 1 ea PO DAILYBB [facility] Stop: 08/28/19 06:29 Last Admin: 07/29/19 06:08 Dose: 1 tab Documented by: Pantoprazole Sodium (Protonix) 40 mg PO BID [facility] Stop: 08/27/19 20:59 Last Admin: 07/29/19 08:27 Dose: 40 mg Documented by: Polyethylene Glycol (Miralax Powder Packet) 17 gm PO DAILY PRN PRN Reason: Constipation Stop: 08/27/19 15:52 Sodium Bicarbonate (Sodium Bicarbonate) 1,300 mg PO BID [facility] Stop: 08/27/19 20:59 Last Admin: 07/29/19 08:27 Dose: 1,300 mg Documented by: Tacrolimus (Prograf) 1 mg PO Q12H [facility] Stop: 04/12/20 19:29 Last Admin: 07/29/19 08:25 Dose: 1 mg Documented by: Vitamin D (Vitamin D3) 2,000 units PO QAM [facility] Stop: 08/28/19 08:59 Last Admin: 07/29/19 08:27 Dose: 2,000 units Documented by: Warfarin Sodium (Coumadin) 3 mg PO DAILY@1600 [facility] Stop: 08/27/19 17:29 Last Admin: 07/28/19 18:07 Dose: 3 mg Documented by:
[2019-07-29] MEDS ORDERED: FUROSEMIDE 40 MG in SYRINGE 0 ML IV ONE (15:30)
[2019-07-29] MEDS: WARFARIN SOD 3 MG TAB PO SCH ×2 (15:51→16:43)
--- NOTE | 2019-07-29 18:28 | Nephrology Consultation ---
Date of Consultation July 29, 2019 Assessment & Plan (1) CKD (chronic kidney disease) stage 5, GFR less than 15 ml/min: Not floridly uremic though recurrent issues with volume status are conc erning. No emergent indication for dialysis--chemistries acceptable though metabolic acidosis notable. Cannot rule out the need this admission. Daily BMP Dialysis diet to continue Continue current Lasix dosing -continue current sodium bicarbonate -low threshold for ABG Present on Admission?: Yes (2) Acute and chronic respiratory failure with hypoxia: We are diuresing him though he still has a significant oxygen requirement. Recommend asking pulmonary to evaluate patient and recommend any further inpatient testing or medications that may help him get through to establish with patient provider later this month Present on Admission?: Yes (3) Immunocompromised patient: -will get tacrolimus trough with a.m. labs on July 30 due to workflow issues in the lab/sendout status of this test -continue mycophenolate current dose; continue tacrolimus current dose Present on Admission?: Yes (4) Diastolic CHF, acute on chronic: -diuresis as above -continue daily STANDING wt -continue strict I/O, 1.8L FR Present on Admission?: Yes History of Present Illness Reason for Consultation: SHELBY on advanced CKD Requesting Physician: Dr Dacosta Attending Physician: Dao Dacosta MD History of Present Illness 69-year-old male whom I am asked to see for recurrent acute on chronic renal failure after he was admitted yesterday with recurrent acute hypoxic respiratory failure. Medical history includes liver transplant for HERNANDEZ and hepatocellular carcinoma in 2012, 2 g daily proteinuric CKD 4/5 from diabetes and calcineurin inhibitor toxicity, hypertension, peripheral arterial disease, chronic diastolic heart failure, and recently diagnosed in the past 6 weeks with both bilateral l ower extremity DVT and presumptive interstitial lung disease. Also status post July 05, 2019 creation of left AV fistula. He follows with me in CKD clinic in [place]. He is admitted here from July 10 through July 16 after I sent him from CKD clinic for aggressive exertional dyspnea: Found at that time to have both DVT and new onset lung disease. [facility] medicine evaluated the patient during that admission here: They prescribed antibiotics and test to evaluate interstitial lung disease. He is were pending at discharge. Plan had been to establish care with [facility] pulmonary rather than [facility] after discharge, since patient has all of his other care including liver and now potentially renal transplant care through [facility]. He has an appointment August 13 to establish care with CARL[facility] Flore[facility]. He was discharged on 40 mg twice daily Lasix after diuresis on that recent presentation. When I evaluated him this afternoon at approximately 1500, he told me that most recently his exertional dyspnea worsened on July 25 and he actually canceled to July 26 m edical appointment due to the symptoms. Then they improved somewhat. When they worsened again on July 27, he came to the ER. His presenting weight yesterday afternoon was 102.4 kg on standing scale; today it is improved to 101.5 kg as of this morning. He had 80 mg IV Lasix x1 in the ER last evening and then received 40 milligrams IV Lasix this afternoon. After discussion with hospital attend ing, we started him on Lasix 40 mg IV twice daily 17. The patient denies any missed medications particularly immunosuppression for his transplant. He denies anorexia, nausea vomiting, other GI symptoms. Denies concerns about urine output. He is not particularly dyspneic at rest but quickly become so if he attempts to walk. His discharge creatinine earlier this month was 5: Improved to 4.4 by presentation yesterday.'s morning creatinine back up to 4.8 with diuresis. He was discharged on sodium bicarbonate tablets but his bicarbonate has again dropped, though it was normal at hospital discharge early this month. Allergies Allergy/AdvReac Type Severity Reaction Status Date / Time adhesive tape AdvReac Severe skin tears Unverified 07/28/19 14:24 Pdaobvi-Bev-Jil Reductase AdvReac Severe muscle and Unverified 07/28/19 14:24 Inhibitor joint aches lisinopril AdvReac Unknown Unknown Unverified 07/28/19 14:24 aspirin AdvReac told Verified 07/28/19 14:24 him to not take any aspirin Home Medications Home Medications Medication Instructions Recorded Confirmed Type amlodipine 5 mg PO BID 07/10/19 07/28/19 History cholecalciferol (vitamin D3) 2,000 unit PO QAM 07/10/19 07/28/19 History [Vitamin D3] entecavir 0.5 mg PO QAM 07/10/19 07/28/19 History ezetimibe [Zetia] 10 mg PO QAM 07/10/19 07/28/19 History hydralazine 75 mg PO BID 07/10/19 07/28/19 History hydroxyzine HCl 25 mg PO Q6 PRN 07/10/19 07/28/19 History insulin aspart U-100 10 - 16 unit SUBCUT TIDM 07/10/19 07/28/19 History levothyroxine 75 mcg PO QAM 07/10/19 07/28/19 History metoprolol succinate 100 mg PO QAM 07/10/19 07/28/19 History mycophenolate mofetil 250 mg PO BID 07/10/19 07/28/19 History omeprazole 20 mg PO BID 07/10/19 07/28/19 History sodium bicarbonate 1,300 mg PO BID 07/10/19 07/28/19 History tacrolimus 1 mg PO Q12H 07/10/19 07/28/19 History furosemide 40 mg PO BID17 30 Days #30 tab 07/17/19 07/28/19 Rx warfarin [Coumadin] 0 mg PO DAILY@1700 07/28/19 07/28/19 History Patient History Medical History Abnormal CT scan, chest ACEI/ARB contraindicated Acute hypoxemic respiratory failure Anemia CKD (chronic kidney disease) stage 5, GFR less than 15 ml/min Diabetes mellitus type 2 with complications Diastolic CHF, acute on chronic DVT (deep venous thrombosis) Esophageal varices History of hepatocellular carcinoma associated with HERNANDEZ cirrhosis; s/p liver transplant Hypertension Hypothyroidism Idiopathic interstitial pneumonia Immunocompromised patient Liver transplant recipient HERNANDEZ (nonalcoholic steatohepatitis) Peripheral vascular disease in diabetes mellitus Sleep apnea Surgical History Status post liver transplant Family History Mother Colorectal cancer Diabetes Father Non-Hodgkin lymphoma Sister Renal cancer Sister Diabetes Brother Diabetes Social History Preferred Language: Libyan Communication Ability: Effective Professor/Nurse Anesthetist Required: No Beliefs That Will Affect Care: None Current Living Situation: Spouse Current Living Situation Comment: lives with Other Information That Helps Us Care for You: No Feels Safe at Home: Yes Safety Concerns: Feels Safe At This Time Smoking Status: Former smoker Hx Alcohol Use: No Hx Substance Use: No Review of Systems Review of Systems: All systems reviewed & are unremarkable except as noted in HPI & below Physical Exam Constitutional: well developed, well nourished and cooperative; no acute distress Eyes: EOM intact bilaterally ENMT: Ears: no external ear abnormality Nose: no external nose abnormality Mouth: + dry oral mucous membranes Neck: no nuchal rigidity Respiratory: normal respiratory effort, + cough (Occasional dry) and able to speak in complete sentences; no respiratory distress Auscultation: + diminished lung sounds (Minimal air movement bilaterally. No crackles or wheezes or diminished breath sounds particularly localized to 1 field) Cardiovascular: RRR, no murmur, no edema Extremities: + AV fistula (Left brachiocephalic fistula maturing nicely with positive thrill and bruit) Gastrointestinal (Abdomen): Inspection/Auscultation: normal bowel sounds Percussion/Palpation: abdomen soft; abdomen nontender Musculoskeletal: Extremities: strength 5/5 throughout Skin: no rashes, warm and dry Neurologic: sam, fluent speech; ? Question very fine resting tremor Psychiatric: A+Ox3, euthymic affect Genitourinary: No Srivastava Results & Data Vital Signs (Past 12 Hours) Vital Signs Temp Pulse Pulse Resp BP BP Pulse Ox 07/29/19 17:23 70 07/29/19 15:24 36.4 C L 74 20 153/70 H 91 07/29/19 11:17 36.7 C 68 18 149/73 H 92 07/29/19 08:00 69 07/29/19 07:19 36.7 C 70 18 146/67 H 92 Laboratory Results 07/29/19 06:19 07/29/19 06:19 INR 2.9 Venous blood gas yesterday afternoon: 7.28, 37, 32, 17 Diagnostic Findings Chest x-ray on admission: IMPRESSION: Developing congestive heart failure superimposed upon slightly progressive interstitial change. TTE June 2019 Normal LV function with moderate concentric LVH; EF 55%. No wall motion abnormalities in the left ventricle. Significant valvular pathology. Grade 2 diastolic dysfunction.
[2019-07-29] MEDS: ALBUT/IPRATROP 3MG/0.5MG NEB 3 ML VIAL NEB SCH (18:50)
[2019-07-30] MEDS: ENTECAVIR PO SCH (05:35)
[2019-07-30] MEDS: LEVOTHYROXINE SODIUM 75 MCG TABLET PO SCH (05:35)
[2019-07-30 06:50] LABS: Hematocrit (blood only) 31.8 % (42-52); Hemoglobin 10.3 g/dL (14.0-18.0); Mean Corpuscular Hemoglobin 24.6 pg (25-34); Mean Corpuscular Hgb Conc 32.4 g/dL (32-36); Mean Corpuscular Volume 76.1 fL (80-100); Mean Platelet Volume 9.2 fL (7.4-10.4); Platelet Count 238 K/uL (130-400); RDW Coefficient of Variation 14.1 % (11.5-14.5); Red Blood Count 4.18 M/uL (4.7-6.1)
[2019-07-30 07:03] LABS: INR 2.1 (0.9-1.1); Prothrombin Time 21.6 Seconds (9.0-12.0)
[2019-07-30] MEDS: ALBUT/IPRATROP 3MG/0.5MG NEB 3 ML VIAL NEB SCH ×4 (07:05→19:26)
[2019-07-30 07:24] LABS: Calcium 8.7 mg/dl (8.5-10.1); Creatinine Clr Calc Pharmacy 16.4 ml/min; Est GFR (African American) 12.5; Est GFR (Non-African American) 10.8; Magnesium 1.9 mg/dl (1.8-2.4); Phosphorus 6.6 mg/dl (2.5-4.9); Potassium 4.1 mmol/L (3.5-5.1)
--- NOTE | 2019-07-30 07:36 | XRay Report ---
XR chest 1V portable CLINICAL HISTORY: follow up after diuresis COMPARISON STUDY: 12/28/2019 FINDINGS: The cardiac and mediastinal contours remain stable. There are postsurgical changes of a mid line sternotomy. There are persistent but improving asymmetric bilateral pulmonary airspace opacities .[Trace pleural effusions cannot be excluded. IMPRESSION: Persistent but improving bilateral pulmonary airspace opacities ACT 112: Negative or not required by law. Electronically signed by: Timur Dyson M.D. 07/30/2019 7:34 AM
[2019-07-30] MEDS: SODIUM BICARBONATE 650 MG TAB PO SCH ×2 (08:35→19:27)
[2019-07-30] MEDS: METOPROLOL SUCC 50MG EXT REL TAB PO SCH (08:35)
[2019-07-30] MEDS: AMLODIPINE BESYLATE 5 MG TAB PO SCH ×2 (08:36→19:26)
[2019-07-30] MEDS: PANTOprazole 40 MG TAB PO SCH ×2 (08:36→19:26)
[2019-07-30] MEDS: CHOLECALCIFEROL 1,000 UNITS 25 MCG TAB PO SCH (08:36)
[2019-07-30] MEDS: EZETIMIBE 10 MG TABLET PO SCH (08:37)
[2019-07-30] MEDS: MYCOPHENOLATE MOFETIL 250 MG CAP PO SCH ×2 (08:37→19:27)
[2019-07-30] MEDS: INSULIN ASPART 100 UNITS/ML 3 ML PEN SC SCH ×4 (08:37→20:42)
[2019-07-30] MEDS: TACROLIMUS 1 MG CAP PO SCH ×2 (08:37→19:28)
[2019-07-30] MEDS ORDERED: FUROSEMIDE 40 MG in SYRINGE 0 ML IV SCH (09:00)
--- NOTE | 2019-07-30 11:00 | Pulmonary Consultation ---
Date of Consultation July 30, 2019 Assessment & Plan (1) Acute hypoxemic respiratory failure: Patient with evidence of acute diastolic heart failure exacerbation on admission. He is responding well to diuresis. He still has a lingering cough and shortness of breath. On his most recent hospitalization he had a very elevated mycoplasma IgM. I am going to check mycoplasma titers again to see if they have decreased at all. I will start him on azithromycin 500 mg today and 250 mg for the next 4 days for the possibility of poorly treated tracheobronchitis/pneumonia related to mycoplasma. I will also obtain a high- resolution CT scan of his chest. It does appear there was lung findings are likely chronic and perhaps related to an ill-defined interstitial lung disease. He had serological testing on his last hospital admission which was largely negative aside for elevated rheumatoid factor which is very nonspecific. His CCP was negative. He does not have any obvious rheumatism. Agree with continued treatment for heart failure. Possibility for opportunistic infections in this immunocompromised host is still possible, but less likely given that he appears very stable. He is still anticoagulated and I am uncertain whether a bronchoscopy would yield us any more information. I would avoid steroids at this present time unless there is no significant clinical improvement or the CT chest demonstrates findings that would be amenable to steroids. We will continue to follow along with you. (2) Abnormal CT scan, chest: (3) Immunocompromised patient: (4) Acute on chronic diastolic heart failure: (5) Idiopathic interstitial pneumonia: History of Present Illness Reason for Consultation: Possible interstitial lung disease Requesting Physician: Hospitalist Attending Physician: Dereck Smiley MD History of Present Illness 69-year-old male with a history of CKD stage V not currently on hemodialysis, Hernandez cirrhosis and hepatocellular carcinoma status post liver transplant, diabetes mellitus who presented to the hospital on 07/28/2019 due to increasing shortness of breath. He was recently discharged from the hospital as well on 07/17/2019 for hypoxemic respiratory failure. At that time he was found to have a mycoplasma IgM antibody that was very elevated. Patient notes that he has had increasing shortness of breath over the last couple days with increasing coughing. Coughing is nonproductive. Denies any hemoptysis. Denies any fevers or chills. No chest pain. He was discharged on oxygen. He notes that over the last year he is noticed a decline in his ability to ambulate and his shortness of breath. He notes that 1 year ago he was able to walk several miles with minimal dyspnea and over the last 6 months he is only been able to walk about 6/10 of a mile due to cramping in his legs. He is unaware of any history of interstitial lung disease and does not recall the conversation that I had with him previously during her last hospitalization. He also has a history of a recent DVT for which she is being anticoagulated for. Nephrology has been consulted and he has been diuresed. Echo on 07/11/2019 demonstrated grade 2 diastolic dysfunction and a normal EF. CT chest on 07/11/2019 demonstrated groundglass densities throughout the majority of the left lung and mild subpleural thickening and areas of honeycombing. Allergies Allergy/AdvReac Type Severity Reaction Status Date / Time adhesive tape AdvReac Severe skin tears Unverified 07/28/19 14:24 Tqzxjaw-Vzc-Ddr Reductase AdvReac Severe muscle and Unverified 07/28/19 14:24 Inhibitor joint aches lisinopril AdvReac Unknown Unknown Unverified 07/28/19 14:24 aspirin AdvReac told Verified 07/28/19 14:24 him to not take any aspirin Home Medications Home Medications Medication Instructions Recorded Confirmed Type amlodipine 5 mg PO BID 07/10/19 07/28/19 History cholecalciferol (vitamin D3) 2,000 unit PO QAM 07/10/19 07/28/19 History [Vitamin D3] entecavir 0.5 mg PO QAM 07/10/19 07/28/19 History ezetimibe [Zetia] 10 mg PO QAM 07/10/19 07/28/19 History hydralazine 75 mg PO BID 07/10/19 07/28/19 History hydroxyzine HCl 25 mg PO Q6 PRN 07/10/19 07/28/19 History insulin aspart U-100 10 - 16 unit SUBCUT TIDM 07/10/19 07/28/19 History levothyroxine 75 mcg PO QAM 07/10/19 07/28/19 History metoprolol succinate 100 mg PO QAM 07/10/19 07/28/19 History mycophenolate mofetil 250 mg PO BID 07/10/19 07/28/19 History omeprazole 20 mg PO BID 07/10/19 07/28/19 History sodium bicarbonate 1,300 mg PO BID 07/10/19 07/28/19 History tacrolimus 1 mg PO Q12H 07/10/19 07/28/19 History furosemide 40 mg PO BID17 30 Days #30 tab 07/17/19 07/28/19 Rx warfarin [Coumadin] 0 mg PO DAILY@1700 07/28/19 07/28/19 History Patient History Medical History Abnormal CT scan, chest ACEI/ARB contraindicated Acute hypoxemic respiratory failure Anemia CKD (chronic kidney disease) stage 5, GFR less than 15 ml/min Diabetes mellitus type 2 with complications Diastolic CHF, acute on chronic DVT (deep venous thrombosis) Esophageal varices History of hepatocellular carcinoma associated with HERNANDEZ cirrhosis; s/p liver transplant Hypertension Hypothyroidism Idiopathic interstitial pneumonia Immunocompromised patient Liver transplant recipient HERNANDEZ (nonalcoholic steatohepatitis) Peripheral vascular disease in diabetes mellitus Sleep apnea Surgical History Status post liver transplant Family History Mother Colorectal cancer Diabetes Father Non-Hodgkin lymphoma Sister Renal cancer Sister Diabetes Brother Diabetes Social History Preferred Language: Yemeni Communication Ability: Effective Sap Business Analyst Required: No Beliefs That Will Affect Care: None Current Living Situation: Spouse Current Living Situation Comment: lives with Other Information That Helps Us Care for You: No Feels Safe at Home: Yes Safety Concerns: Feels Safe At This Time Smoking Status: Former smoker Hx Alcohol Use: No Hx Substance Use: No Review of Systems Review of Systems: All systems reviewed & are unremarkable except as noted in HPI & below Physical Exam Constitutional: Patient laying in bed with a nasal cannula in place. No apparent distress. Eyes: PERRL, conjunctivae normal, anicteric sclerae ENMT: external ear and nose normal, oropharynx normal Neck: trachea midline, no thyromegaly Respiratory: Fine Velcro crackles at the bases. Cardiovascular: RRR, no murmur, no edema Gastrointestinal (Abdomen): normal bowel sounds, soft, nontender, no hepatosplenomegaly Musculoskeletal: no cyanosis or clubbing, extremities motor strength 5/5 Skin: no rashes, warm and dry Neurologic: PERRL, EOMI, accommodation nl, no face palsy, no dysarthria Psychiatric: A+Ox3, euthymic affect Results & Data ([facility]) Vital Signs (Past 12 Hours) Vital Signs Temp Pulse Pulse Resp BP BP Pulse Ox 07/30/19 07:45 97.7 F 87 22 156/79 H 92 07/30/19 07:07 82 18 93 07/30/19 03:34 98.2 F 77 18 136/74 94 07/29/19 23:19 98.1 F 82 22 141/82 H 94 07/29/19 23:00 75 I personally reviewed his prior chest imaging, labs and echo PG Care Time/CCT Total # of Minutes Spent Total Time Spent with Patient: Total time spent is greater than 50% in coordination of care (as documented) at patient's floor/unit and/or counseling patient: Coding Level of Care Code 43454 Initial Inpt Care Lvl 3 Diagnoses Acute hypoxemic respiratory failure J96.[address] scan, chest R93.89 Immunocompromised patient D89.9 Acute on chronic diastolic heart failure I50.33 Idiopathic interstitial pneumonia J84.111
[2019-07-30] MEDS ORDERED: AZITHROMYCIN 500 MG in DEXTROSE 5% 250 ML IV ONE (11:15)
--- NOTE | 2019-07-30 11:55 | CT Scan Report ---
CT chest High Resolution wo con CLINICAL HISTORY: ILD, eval for acute exacerbation COMPARISON STUDY: April 10, 2020 FINDINGS: Supine imaging was performed in inspiration and expiration. A low-dose protocol was utilize d according to the principles of ALARA. The thyroid gland is unremarkable in appearance. There is no evidence of thoracic aortic aneurysm. There are coronary artery calcifications present. There are mildly enlarged mediastinal and hilar lymph nodes, similar to the preceding study. There are small to moderate bilateral pleural effusions. There are progressive multifocal bilateral groundglass pulmonary opacities. There is mild subpleural reticulation. There is upper lobe predominant subpleural honeycombing. IMPRESSION: 1. Persistent [id number] bilateral pleural effusions. 2. Underlying interstitial lung disease with subpleural reticulation and upper lung zone predominant subpleural honeycombing 3. Progressive multifocal bilateral groundglass pulmonary opacities with upper lung zone predominance . Diagnostic considerations include an atypical or viral pneumonia, or progressive interstitial lung disease with an acute component. 4. Mild mediastinal and hilar lymphadenopathy ACT 112: Negative or not required by law. Electronically signed by: Timur Dyson M.D. 07/30/2019 11:54 AM
--- NOTE | 2019-07-30 12:02 | Pharmacy Report ---
Pharmacy Glycemic Short Note 2 - Date of Service July 30, 2019 - Glycemic Short BSG Results (Last 24 hours): 07/29/19 07/29/19 07/30/19 16:11 19:56 06:10 Glucose 133 H POC Glucose 96 149 H 07/30/19 07/30/19 07:22 11:05 Glucose POC Glucose 147 H 216 H OUTPATIENT ANTIDIABETIC REGIMEN: * Novolog 10-16 units TIDM ASSESSMENT: 07/29: * Patient received total of 18 units of insulin yesterday, no basal insulin * Fasting BSG 133 mg/dl - will hold basal insulin; BSGs well controlled w/in last 24 hrs * BSGs trending up at lunch to 216 mg/dL - unclear for reasoning/no steroids. Possible infection/pneumonia started on azithromycin / tighten CR with dinner slightly PLAN FOR INPATIENT GLYCEMIC CONTROL: * Basal insulin - not indicated * Bolus insulin * NovoLog per scale ACHS or Q6hrs while NPO * Goal Range: Low 110 mg/dL - High 140 mg/dL * Correction Factor: 25 mg/dL/unit * Nutritional / Prandial insulin per carb ratio of 1 unit per 7 grams CHO consumed PLAN FOR DISCHARGE: * To be evaluated once insulin needs have been assessed.
--- NOTE | 2019-07-30 14:33 | Nephrology Progress Note ---
Date of Service July 30, 2019 Assessment & Plan (1) CKD (chronic kidney disease) stage 5, GFR less than 15 ml/min: Not floridly uremic though recurrent issues with volume status are concerning. No emergent indication for dialysis--chemistries acceptable though metabolic acidosis notable. Cannot rule out the need this admission and believe we could cannulate his avf if we had to Daily BMP Dialysis diet to continue will lower lasix dose to 20 mg IV bid >> prefer IV dosing over po for now/better absorption -continue current sodium bicarbonate -low threshold for ABG (2) Acute and chronic respiratory failure with hypoxia: We are diuresing him though he still has a significant oxygen requirement. volume status acceptable currently -appreciate pulmonary input/eval (3) Immunocompromised patient: -will get tacrolimus trough with a.m. labs on July 30 due to workflow issues in the lab/send out status of this test - orders in -continue mycophenolate current dose; continue tacrolimus current dose (4) Diastolic CHF, acute on chronic: -diuresis as above -continue daily STANDING wt -continue strict I/O, 1.8L FR Admission and Anticipated Discharge Date Admission Date: July 28, 2019 Subjective no new concerns. still markedly dyspneic w/ ambulation/standing up. no n/v, no decreased po, no edema. denies voiding concerns. no confusion Review of Systems Review of Systems: All systems reviewed & are unremarkable except as noted in HPI & below Physical Exam Constitutional: well developed, well nourished and cooperative; no acute distress wt at 102.4 kg this am (100 on 07/27) Eyes: EOM intact bilaterally ENMT: Ears: no external ear abnormality Nose: no external nose abnormality Mouth: + dry oral mucous membranes Neck: no nuchal rigidity Respiratory: normal respiratory effort, + cough (Occasional dry) and able to speak in complete sentences (but very slightly dypsneic w/ doing this); no respiratory distress Auscultation: + diminished lung sounds (Minimal air movement bilaterally. No crackles or wheezes or diminished breath sounds particularly localized to 1 field) Cardiovascular: RRR, no murmur, no edema Extremities: + AV fistula (+ t/b) Gastrointestinal (Abdomen): Inspection/Auscultation: normal bowel sounds Percussion/Palpation: abdomen soft; abdomen nontender Musculoskeletal: Extremities: strength 5/5 throughout Skin: no rashes, warm and dry Neurologic: sam, fluent speech, no tremor Psychiatric: A+Ox3, euthymic affect Results & Data ([facility]) Vital Signs (Past 12 Hours) Vital Signs Temp Pulse Pulse Resp BP BP Pulse Ox 07/30/19 11:24 36.5 C 75 22 128/62 92 07/30/19 08:00 77 07/30/19 07:45 36.5 C 87 22 156/79 H 92 07/30/19 07:07 82 18 93 07/30/19 03:34 36.8 C 77 18 136/74 94 Laboratory Results 07/30/19 06:10 07/30/19 06:10
[2019-07-30 16:48] LABS: Adenovirus PCR Not Detected (NotDetected); Bordetella parapertussis PCR Not Detected (NotDetected); Bordetella pertussis PCR Not Detected (NotDetected); Chlamydia pneumoniae PCR Not Detected (NotDetected); Coronavirus 229E PCR Not Detected (NotDetected); Coronavirus HKU1 PCR Not Detected (NotDetected); Coronavirus NL63 PCR Not Detected (NotDetected); Coronavirus OC43PCR Not Detected (NotDetected); Human Metapneumovirus PCR Not Detected (NotDetected); Influenza A PCR Not Detected (NotDetected); Influenza B PCR Not Detected (NotDetected); Mycoplasma pneumoniae PCR Not Detected (NotDetected); Parainfluenza Virus 1 PCR Not Detected (NotDetected); Parainfluenza Virus 2 PCR Not Detected (NotDetected); Parainfluenza Virus 3 PCR Not Detected (NotDetected); Parainfluenza Virus 4 PCR Not Detected (NotDetected); Respiratory Syncytial VirusPCR Not Detected (NotDetected); Rhinovirus/Enterovirus PCR Not Detected (NotDetected)
[2019-07-30] MEDS: WARFARIN SOD 3 MG TAB PO SCH (17:30)
[2019-07-30] MEDS: FUROSEMIDE 20 MG in SYRINGE 0 ML IV SCH (17:30)
--- NOTE | 2019-07-30 19:14 | Hospitalist Progress Note ---
Date of Service July 30, 2019 Assessment & Plan (1) Acute and chronic respiratory failure with hypoxia: Presented with worsening respiratory status. Oxygen saturation was 89% on 4 L nasal cannula in ED. Titrate supplemental oxygen as necessary. Specific cardiopulmonary issues are discussed below. (2) Acute on chronic diastolic heart failure: Admission chest x-ray showed findings suggesting worsening CHF. Previous echocardiogram 07/11/2019 demonstrated normal LVEF of 55-60%. Probable acute on chronic left ventricular diastolic heart failure. Fluid/diuretic management per Nephrology. (3) Abnormal CT scan, chest: High-resolution CT of chest as noted above. Consider fluid overload, infection, inflammatory processes. Pulmonary Medicine consulted. Fluid/diuretic management per Nephrology. Recent mycoplasma IgM elevated- started on azithromycin. Further evaluation/management per Pulmonary Medicine. (4) Hypertension: Continue metoprolol, amlodipine, and hydralazine. (5) Status post liver transplant: History of cirrhosis attributed to HERNANDEZ. [place] [facility] [place] Continue mycophenolate mofetil and tacrolimus. (6) CKD (chronic kidney disease) stage 5, GFR less than 15 ml/min: CKD V with creatinine 4.4 day of admission. Recent AV fistula LUE. Nephrology consulted to assist with management. Creatinine today = 5.05. Follow. (7) DM type 2 (diabetes mellitus, type 2): DM type 2, managed with insulin aspartate as outpatient. Hgb A1c was 6.5 on 07/11/19. Receiving basal / bolus insulin with Lantus / NovoLog. FBS today = 147. (8) Anemia: Probable anemia of CKD. Hgb today = 10.3. Follow. (9) DVT (deep venous thrombosis): Recently diagnoses DVT of right calf. Continue warfarin. (10) DVT prophylaxis: As noted above. (11) Discharge planning issues: Anticipated discharge to home. Family Medicine follow-up with Dr. Maldonado. Nephrology follow-up with Dr. Kamara. Admission and Anticipated Discharge Date Admission Date: July 28, 2019 Subjective Recheck for multiple problems. Patient seen in their room around 1830. Cough and dyspnea a little better. No fever. No chest pain. Wt down with diuresis. Review of Systems: Constitutional- as noted above. Cardiac- as noted above. Pulmonary- as noted above. GI- no nausea, vomiting, diarrhea, melena, hematochezia. - no urinary symptoms. Otherwise, as noted above. Physical Exam Constitutional: no acute distress Respiratory: no respiratory distress Auscultation: lungs clear to auscultation bilaterally and + rales (bibasilar) Cardiovascular: Rate/Rhythm: regular rate and regular rhythm Heart Sounds: no gallop and no cardiac rub Vessels: no JVD Extremities: no calf tenderness and no edema Gastrointestinal (Abdomen): normal bowel sounds, soft, nontender, no hepatosplenomegaly Skin: no rashes, warm and dry Psychiatric: Orientation: alert and oriented x 3 Results & Data ([facility]) Vital Signs (Past 12 Hours) Vital Signs Temp Pulse Pulse Resp BP BP Pulse Ox 07/30/19 15:16 73 20 93 07/30/19 14:59 75 07/30/19 11:24 36.5 C 75 22 128/62 92 07/30/19 08:00 77 07/30/19 07:45 36.5 C 87 22 156/79 H 92 Laboratory Results 07/30/19 06:10 07/30/19 06:10 Diagnostic Findings CHEST X-RAY, PORTABLE FINDINGS: The cardiac and mediastinal contours remain stable. There are postsurgical changes of a midline sternotomy. There are persistent but improving asymmetric bilateral pulmonary airspace opacities. Trace pleural effusions cannot be excluded. IMPRESSION: Persistent but improving bilateral pulmonary airspace opacities ACT 112: Negative or not required by law. Electronically signed by: Timur Dyson M.D. 07/30/2019 7:[address] CHEST, HIGH RESOLUTION FINDINGS: Supine imaging was performed in inspiration and expiration. A low-dose protocol was utilized according to the principles of ALARA. The thyroid gland is unremarkable in appearance. There is no evidence of thoracic aortic aneurysm. There are coronary artery calcifications present. There are mildly enlarged mediastinal and hilar lymph nodes, similar to the preceding study. There are small to moderate bilateral pleural effusions. There are progressive multifocal bilateral groundglass pulmonary opacities. There is mild subpleural reticulation. There is upper lobe predominant subpleural honeycombing. IMPRESSION: 1. Persistent erhdi-ur-jomtcpfv bilateral pleural effusions. 2. Underlying interstitial lung disease with subpleural reticulation and upper lung zone predominant subpleural honeycombing 3. Progressive multifocal bilateral groundglass pulmonary opacities with upper lung zone predominance. Diagnostic considerations include an atypical or viral pneumonia, or progressive interstitial lung disease with an acute component. 4. Mild mediastinal and hilar lymphadenopathy ACT 112: Negative or not required by law. Electronically signed by: Timur Dyson M.D.
[2019-07-30] MEDS ORDERED: LANTUS PER UNIT CHARGE SQ SCH (21:00)
[2019-07-31] MEDS: LEVOTHYROXINE SODIUM 75 MCG TABLET PO SCH (05:49)
[2019-07-31] MEDS: ENTECAVIR PO SCH (05:49)
[2019-07-31] MEDS: ALBUT/IPRATROP 3MG/0.5MG NEB 3 ML VIAL NEB SCH ×4 (07:13→19:27)
[2019-07-31 07:32] LABS: Prothrombin Time 20.3 Seconds (9.0-12.0)
[2019-07-31 08:10] LABS: BUN Creatinine Ratio 18.2 (10-20); Calcium 9.4 mg/dl (8.5-10.1); Creatinine Clr Calc Pharmacy 15.9 ml/min; Est GFR (African American) 12.1; Est GFR (Non-African American) 10.4; Potassium 3.9 mmol/L (3.5-5.1)
[2019-07-31] MEDS: AMLODIPINE BESYLATE 5 MG TAB PO SCH ×2 (08:19→21:11)
[2019-07-31] MEDS: FUROSEMIDE 20 MG in SYRINGE 0 ML IV SCH ×2 (08:19→16:44)
[2019-07-31] MEDS: SODIUM BICARBONATE 650 MG TAB PO SCH ×2 (08:20→21:11)
[2019-07-31] MEDS: PANTOprazole 40 MG TAB PO SCH ×2 (08:20→21:10)
[2019-07-31] MEDS: TACROLIMUS 1 MG CAP PO SCH ×2 (08:20→21:11)
[2019-07-31] MEDS: MYCOPHENOLATE MOFETIL 250 MG CAP PO SCH ×2 (08:20→21:11)
[2019-07-31] MEDS: EZETIMIBE 10 MG TABLET PO SCH (08:20)
[2019-07-31] MEDS: METOPROLOL SUCC 50MG EXT REL TAB PO SCH (08:20)
[2019-07-31] MEDS: INSULIN ASPART 100 UNITS/ML 3 ML PEN SC SCH ×4 (08:21→21:13)
[2019-07-31] MEDS: CHOLECALCIFEROL 1,000 UNITS 25 MCG TAB PO SCH (08:21)
--- NOTE | 2019-07-31 08:52 | Nephrology Progress Note ---
Date of Service July 31, 2019 Assessment & Plan (1) CKD (chronic kidney disease) stage 5, GFR less than 15 ml/min: Not floridly uremic though recurrent issues with volume status are concerning. No emergent indication for dialysis--chemistries acceptable though metabolic acidosis notable. Cannot rule out the need this admission and believe we could cannulate his avf if we had to Daily BMP Dialysis diet to continue cont lower lasix dose to 20 mg IV bid >> prefer IV dosing over po for now/better absorption -continue current sodium bicarbonate -low threshold for ABG (2) Acute and chronic respiratory failure with hypoxia: We are diuresing him though he still has a significant oxygen requirement. volume status acceptable currently -appreciate pulmonary input/eval-- may be improving w/ abtx (3) Immunocompromised patient: -f/u pending tacrolimus trough with a.m. labs on July 30 due to workflow issues in the lab/send out status of this test -continue mycophenolate current dose; continue tacrolimus current dose (4) Diastolic CHF, acute on chronic: -diuresis as above -continue daily STANDING wt -- improving -continue strict I/O, 1.8L FR Admission and Anticipated Discharge Date Admission Date: July 28, 2019 Subjective no overnight events. feels a bit better w/ abtx on board breathingwise. no voiding c/o, no n/v, no worse sob or cough Review of Systems Review of Systems: All systems reviewed & are unremarkable except as noted in HPI & below Physical Exam Constitutional: well developed, well nourished and cooperative; no acute distress on 4L in bed, Eyes: EOM intact bilaterally ENMT: Ears: no external ear abnormality Nose: no external nose abnormality Mouth: + dry oral mucous membranes Neck: no nuchal rigidity Respiratory: normal respiratory effort, + cough (Occasional dry) and able to speak in complete sentences; no respiratory distress Auscultation: + diminished lung sounds (Minimal air movement bilaterally. No crackles or wheezes; BL bases.) Cardiovascular: RRR, no murmur, no edema Extremities: + AV fistula (+ t/b) Gastrointestinal (Abdomen): Inspection/Auscultation: normal bowel sounds Percussion/Palpation: abdomen soft; abdomen nontender Musculoskeletal: Extremities: strength 5/5 throughout Skin: no rashes, warm and dry Neurologic: no tremor, sam, fluent speech Psychiatric: A+Ox3, euthymic affect Results & Data ([facility]) Vital Signs (Past 12 Hours) Vital Signs Temp Pulse Pulse Pulse Resp BP BP 07/31/19 07:14 77 18 07/31/19 07:11 36.6 C 77 20 142/68 H 07/31/19 03:14 36.8 C 78 20 132/66 07/30/19 23:23 36.7 C 81 18 134/72 07/30/19 23:00 85 Pulse Ox 07/31/19 07:14 96 07/31/19 07:11 94 07/31/19 03:14 95 07/30/19 23:23 93 07/30/19 23:00 Laboratory Results 07/30/19 06:10 07/31/19 07:09
--- NOTE | 2019-07-31 10:37 | Pulmonology Progress Note ---
Date of Service July 31, 2019 Assessment & Plan (1) Acute hypoxemic respiratory failure: Impression: 69-year-old male status post liver transplant for nonalcoholic steatohepatitis and hepatocellular carcinoma in 2012 with history of chronic kidney disease stage IV/V with 2 g proteinuria daily. He was initially admitted last month with exertional dyspnea and hypoxemic respiratory failure. Evaluation at that point time was significant for mycoplasma pneumonia. He was discharged but represented to the hospital on the . CT scan performed in the interval has demonstrated progression of the bilateral infiltrates with enlarging bilateral effusions. Recommendations: 1. Hypoxemic respiratory failure: The patient is slightly improved today. Continue supplemental oxygen titrated to keep saturations at or above 88%. Review of his CT scan demonstrates increasing bilateral pleural effusions with some groundglass opacity and I suspect the acute worsening may be progressive diastolic heart failure. Recommend aggressive treatment for his diastolic dysfunction with target blood pressure less than 125/75 and continue diuresis as tolerated. If unable to achieve goals with IV loop diuretics, dialysis and ultrafiltration may be required. Procalcitonin has been negative on prior admission and this admission. 2. Interstitial lung disease: The patient has clear evidence of subpleural upper lobe predominant fibrotic changes. His serologies were positive for elevated kappa and lambda chains as well as an elevated rheumatoid factor which is nonspecific. The patient is already immunosuppressed on mycophenolate and tacrolimus. He had a bio fire panel performed during this admission which was negative. Organizing pneumonia would be a possibility in the setting of his clau or acute mycoplasma infection. The patient is already immunosuppressed. I would defer higher dose prednisone unless the patient should clinically worsen and ideally would like bronchoscopy with BAL to exclude infection prior to consideration of that. The patient feels he is improving for now and will hold off on invasive procedures. Ideally may consider surgical lung biopsy however given the patient's complicated medical history, this may not be feasible and empiric therapy may be required. 3. Diastolic heart failure: Management per primary provider. Again blood pressure and diuretic goals as noted. The patient has been negative about 1.2 L since admission. Defer additional diuretics to nephrology. 4. Abnormal CT scan: Cannot rule out opportunistic infection in this patient however he appears clinically better. Again advised him that if anything were to progress, consideration for bronchoscopy with BAL would be appropriate. We will check LDH as a very poor screening tool for P EVON and galactomannan (if lab can perform). We will follow with you. (2) Abnormal CT scan, chest: (3) Immunocompromised patient: (4) Acute on chronic diastolic heart failure: (5) Idiopathic interstitial pneumonia: Subjective Patient seen and examined. EMR reviewed. Discussed with Triny. Patient states that he feels he is slightly better. He was able to wash his hair and walk to the bathroom this morning without becoming winded or short of breath. He is not coughing or expectorating phlegm. He has not noted any significant lower extremity edema. No fevers chills or night sweats. He is tolerating a regular diet. He is not had any hemoptysis. Review of Systems Review of Systems: Complete review of systems negative except as noted in HPI. Results & Data ([facility]) Vital Signs (Past 12 Hours) Vital Signs Temp Pulse Pulse Pulse Resp BP BP 07/31/19 07:14 77 18 07/31/19 07:11 36.6 C 77 20 142/68 H 07/31/19 03:14 36.8 C 78 20 132/66 07/30/19 23:23 36.7 C 81 18 134/72 07/30/19 23:00 85 Pulse Ox 07/31/19 07:14 96 07/31/19 07:11 94 07/31/19 03:14 95 07/30/19 23:23 93 07/30/19 23:00 Laboratory Results 07/30/19 06:10 07/31/19 07:09 Evaluation from the patient's prior admission demonstrated a rheumatoid factor of 55. Anti-CCP was negative. KHADRA screen negative and ANCA negative. Reflex serologies all negative Free kappa light chains and free lambda light chains markedly elevated at 106 and 109 respectively however ratio was normal at 0.97. Total protein from July 27 was normal at 7.4 and was 8.0 on July 10, 2019. Diagnostic Findings Imaging was independently reviewed. CT scan demonstrates bilateral pleural effusions with patchy groundglass opacities right greater than left. He does have increased subpleural markings in the bilateral apices. This has progressed compared to prior film from July 11, 2019. There is some small nonpathologic mediastinal lymph nodes noted. Echocardiogram from 07/11/2019 showed an EF of 50 to 60% with grade 2 diastolic dysfunction and no significant valvular pathology with mild left atrial enlargement. Concentric LVH was also noted. PG Care Time/CCT Total # of Minutes Spent Total Time Spent with Patient: Total time spent is greater than 50% in coordination of care (as documented) at patient's floor/unit and/or counseling patient: Coding Level of Care Code 53170 Subseq Hosp Care Lvl 3 Diagnoses Acute hypoxemic respiratory failure J96.[address] scan, chest R93.89 Immunocompromised patient D89.9 Acute on chronic diastolic heart failure I50.33 Idiopathic interstitial pneumonia J84.111 Time Spent (min) 40
[2019-07-31] MEDS: WARFARIN SOD 3 MG TAB PO SCH (17:01)
[2019-07-31] MEDS ORDERED: FUROSEMIDE 20 MG in SYRINGE 0 ML IV ONE (18:48)
--- NOTE | 2019-07-31 21:03 | Hospitalist Progress Note ---
Date of Service July 31, 2019 Assessment & Plan (1) Acute and chronic respiratory failure with hypoxia: Presented with worsening respiratory status. Oxygen saturation was 89% on 4 L nasal cannula in ED. Titrate supplemental oxygen as necessary. Specific cardiopulmonary issues are discussed below. (2) Acute on chronic diastolic heart failure: Admission chest x-ray showed findings suggesting worsening CHF. Previous echocardiogram 07/11/2019 demonstrated normal LVEF of 55-60%. Probable acute on chronic left ventricular diastolic heart failure. Wt 102.8 --> 99.5 kg. Fluid/diuretic management per Nephrology. (3) Abnormal CT scan, chest: High-resolution CT of chest as noted above. Consider fluid overload, infection, inflammatory processes. Pulmonary Medicine consulted. Fluid/diuretic management per Nephrology. Recent mycoplasma IgM elevated- started on azithromycin. Further evaluation/management per Pulmonary Medicine. (4) Hypertension: Continue metoprolol, amlodipine, and hydralazine. (5) Status post liver transplant: History of cirrhosis attributed to HERNANDEZ. S/P liver transplant at [facility] [place]. Continue mycophenolate mofetil and tacrolimus. (6) CKD (chronic kidney disease) stage 5, GFR less than 15 ml/min: CKD V with creatinine 4.4 day of admission. Recent AV fistula LUE. Nephrology consulted to assist with management. Creatinine today = 5.19. Follow. (7) DM type 2 (diabetes mellitus, type 2): DM type 2, managed with insulin aspartate as outpatient. Hgb A1c was 6.5 on 07/11/19. Receiving basal / bolus insulin with Lantus / NovoLog. FBS today = 143. (8) Anemia: Probable anemia of CKD. Hgb 07/29 was 10.3. Follow. (9) DVT (deep venous thrombosis): Recently diagnoses DVT of right calf. Continue warfarin. (10) DVT prophylaxis: As noted above. (11) Discharge planning issues: Anticipated discharge to home. Family Medicine follow-up with Dr. Maldonado. Nephrology follow-up with Dr. Kamara. Admission and Anticipated Discharge Date Admission Date: July 28, 2019 Subjective Recheck for multiple problems. Patient seen in their room around 1350. Cough and dyspnea improved. No fever. No chest pain. Review of Systems: Constitutional- as noted above. Cardiac- as noted above. Pulmonary- as noted above. GI- no nausea, vomiting, diarrhea, melena, hematochezia. - no urinary symptoms. Otherwise, as noted above. Physical Exam Constitutional: no acute distress Respiratory: no respiratory distress Auscultation: lungs clear to auscultation bilaterally and + rales (bibasilar) Cardiovascular: Rate/Rhythm: regular rate and regular rhythm Heart Sounds: no gallop and no cardiac rub Vessels: no JVD Extremities: no calf tenderness and no edema Gastrointestinal (Abdomen): normal bowel sounds, soft, nontender, no hepato splenomegaly Skin: no rashes, warm and dry Psychiatric: Orientation: alert and oriented x 3 Results & Data ([facility]) Vital Signs (Past 12 Hours) Vital Signs Temp Pulse Pulse Resp BP BP Pulse Ox 07/31/19 19:28 62 16 93 07/31/19 19:20 36.7 C 84 18 123/76 92 07/31/19 15:39 36.4 C L 80 19 134/64 92 07/31/19 15:00 75 07/31/19 14:45 75 16 91 07/31/19 11:10 73 16 95 07/31/19 10:39 36.5 C 72 20 147/65 H 94 Laboratory Results Laboratory Results - last 24 hr 07/31/19 07/31/19 07/31/19 06:01 07:09 07:09 PT 20.3 H INR 2.0 H Sodium 136 Potassium 3.9 Chloride 105 Carbon Dioxide 20 L Anion Gap 11.0 BUN 94 H Creatinine 5.19 H* Est Cr Clr Drug Dosing 15.9 Est GFR ( Amer) 12.1 Est GFR (Non-Af Amer) 10.4 BUN/Creatinine Ratio 18.2 Glucose 138 H POC Glucose Calcium 9.4 Lactate Dehydrogenase Tacrolimus Pending Beta-(1,3)-D-Glucan B-(1,3)-D-Glucan Intrp 07/31/19 07/31/19 07/31/19 07:10 11:05 11:05 PT INR Sodium Potassium Chloride Carbon Dioxide Anion Gap BUN Creatinine Est Cr Clr Drug Dosing Est GFR ( Amer) Est GFR (Non-Af Amer) BUN/Creatinine Ratio Glucose POC Glucose 143 H Calcium Lactate Dehydrogenase 169 Tacrolimus Beta-(1,3)-D-Glucan Pending B-(1,3)-D-Glucan Intrp Pending 07/31/19 07/31/19 07/31/19 11:14 16:31 20:11 PT INR Sodium Potassium Chloride Carbon Dioxide Anion Gap BUN Creatinine Est Cr Clr Drug Dosing Est GFR ( Amer) Est GFR (Non-Af Amer) BUN/Creatinine Ratio Glucose POC Glucose 127 H 132 H 158 H Calcium Lactate Dehydrogenase Tacrolimus Beta-(1,3)-D-Glucan B-(1,3)-D-Glucan Intrp
[2019-08-01 06:33] LABS: Hematocrit (blood only) 31.2 % (42-52); Hemoglobin 10.1 g/dL (14.0-18.0); Mean Corpuscular Hemoglobin 24.3 pg (25-34); Mean Corpuscular Hgb Conc 32.4 g/dL (32-36); Mean Corpuscular Volume 75.2 fL (80-100); Mean Platelet Volume 9.1 fL (7.4-10.4); Platelet Count 222 K/uL (130-400); RDW Standard Deviation 38.2 fL (36.4-46.3); Red Blood Count 4.15 M/uL (4.7-6.1); White Blood Count 7.14 K/uL (4.8-10.8)
[2019-08-01] MEDS: ENTECAVIR PO SCH (06:36)
[2019-08-01] MEDS: LEVOTHYROXINE SODIUM 75 MCG TABLET PO SCH (06:36)
[2019-08-01] MEDS: ALBUT/IPRATROP 3MG/0.5MG NEB 3 ML VIAL NEB SCH ×4 (07:12→19:23)
[2019-08-01 07:26] LABS: BUN Creatinine Ratio 18.9 (10-20); Calcium 8.9 mg/dl (8.5-10.1); Creatinine Clr Calc Pharmacy 15.9 ml/min; Est GFR (African American) 12.1; Est GFR (Non-African American) 10.4; Potassium 3.8 mmol/L (3.5-5.1)
[2019-08-01] MEDS: CHOLECALCIFEROL 1,000 UNITS 25 MCG TAB PO SCH (07:53)
[2019-08-01] MEDS: INSULIN ASPART 100 UNITS/ML 3 ML PEN SC SCH ×4 (07:53→20:51)
[2019-08-01] MEDS: TACROLIMUS 1 MG CAP PO SCH (07:54)
[2019-08-01] MEDS: METOPROLOL SUCC 50MG EXT REL TAB PO SCH (07:54)
[2019-08-01] MEDS: AMLODIPINE BESYLATE 5 MG TAB PO SCH ×2 (07:54→19:40)
[2019-08-01] MEDS: MYCOPHENOLATE MOFETIL 250 MG CAP PO SCH ×2 (07:54→19:40)
[2019-08-01] MEDS: SODIUM BICARBONATE 650 MG TAB PO SCH ×2 (07:55→19:40)
[2019-08-01] MEDS: EZETIMIBE 10 MG TABLET PO SCH (07:55)
[2019-08-01] MEDS: PANTOprazole 40 MG TAB PO SCH ×2 (07:55→19:39)
[2019-08-01] MEDS: AZITHROMYCIN 250 MG TAB PO SCH (09:08)
[2019-08-01] MEDS: FUROSEMIDE 40 MG in SYRINGE 0 ML IV SCH ×2 (09:08→17:30)
--- NOTE | 2019-08-01 10:49 | Hospitalist Progress Note ---
Date of Service August 01, 2019 Assessment & Plan (1) Acute and chronic respiratory failure with hypoxia: Presented with worsening respiratory status. Oxygen saturation was 89% on 4 L nasal cannula in ED. Possible due to combination of acute on chronic CHF with diastolic heart failure/HFp EF On admission chest x-ray shows progression of pulmonary congestion Echocardiogram from 07/11/2019 showed an EF of 50 to 60% with grade 2 diastolic dysfunction and no significant valvular pathology with mild left atrial enlargement. Concentric LVH was also noted. Patient started with IV Lasix for diuresis, Patient reports of minimal urine output, Underlying advanced CKD stage v -worsening of renal failure possibly both causing decompensated CHF Appreciate input from nephrology Plan for dialysis using a left arm AV fistula (2) Acute on chronic diastolic heart failure: Management as outlined above Continue fluid restriction 1500 mL/day Monitor daily weight intake output (3) Abnormal CT scan, chest: High-resolution CT of chest as noted above. Pulmonology consulted, appreciate input Recent mycoplasma IgM elevated- started on azithromycin. Plan for dialysis by nephrology to manage volume overload/pulmonary edema (4) Hypertension: Continue metoprolol, amlodipine, and hydralazine. (5) Status post liver transplant: History of cirrhosis attributed to HERNANDEZ. S/P liver transplant at [facility] [place]. Continue mycophenolate mofetil and tacrolimus. (6) CKD (chronic kidney disease) stage 5, GFR less than 15 ml/min: CKD V . Recent AV fistula LUE-placed by vascular surgery at [facility] Appreciate input from nephrology, Creatinine continues to worsen with diuresis, with minimum urine output, no improvement of volume overload/pulmonary congestion Plan for dialysis today [facility] [place] [facility] [place] [facility] [place] (7) DM type 2 (diabetes mellitus, type 2): DM type 2, managed with insulin aspartate as outpatient. Hgb A1c was 6.5 on 07/11/19. Continue with Lantus / NovoLog. While inpatient (8) Anemia: Probable anemia of chronic disease secondary to advanced CKD. Hemoglobin remained stable at 10 (9) DVT (deep venous thrombosis): Recently diagnoses DVT of right calf. Continue warfarin. INR therapeutic (10) DVT prophylaxis: Coumadin (11) Discharge planning issues: Anticipated discharge to home. Family Medicine follow-up with Dr. Maldonado. Nephrology follow-up with Dr. Kamara. Patient will need set up for outpatient dialysis prior to discharge Admission and Anticipated Discharge Date Admission Date: July 28, 2019 Subjective Patient continues to complain of significant orthopnea, shortness of breath with minimum exertion, Has ongoing nonproductive cough No fever or chills Denies of any dizzy spell or lightheadedness Review of Systems Review of Systems: All systems reviewed & are unremarkable except as noted in HPI & below Respiratory: + cough, + dyspnea and + dyspnea on exertion; no wheezing Cardiovascular: + dyspnea at rest, + orthopnea and + edema Gastrointestinal: no abdominal pain, no nausea and no vomiting Physical Exam Constitutional: WD/WN, vitals as above + ill appearing; no acute distress Eyes: PERRL, conjunctivae normal, anicteric sclerae ENMT: external ear and nose normal, oropharynx normal Neck: trachea midline, no thyromegaly Respiratory: + cough; no respiratory distress Auscultation: + crackles and + rales (Coarse Rales at bilateral lung base); no rhonchi and no wheezes Cardiovascular: Rate/Rhythm: regular rate and regular rhythm Extremities: + pedal edema (+12) Gastrointestinal (Abdomen): Inspection/Auscultation: normal bowel sounds Percussion/Palpation: abdomen soft; abdomen nontender Musculoskeletal: no cyanosis or clubbing, extremities motor strength 5/5 Left upper arm AV fistula present, positive thrill noted Skin: no rashes, warm and dry Neurologic: PERRL, EOMI, accommodation nl, no face palsy, no dysarthria Psychiatric: A+Ox3, euthymic affect Results & Data ([facility]) Vital Signs (Past 12 Hours) Vital Signs Temp Pulse Pulse Pulse Resp BP Pulse Ox 08/01/19 08:00 77 08/01/19 07:12 69 16 94 08/01/19 07:06 36.4 C L 76 20 L 115/68 90 08/01/19 04:09 36.8 C 79 18 143/66 H 95 07/31/19 23:04 36.7 C 72 20 135/63 94 Diagnostic Findings Imaging was independently reviewed. CT scan demonstrates bilateral pleural effusions with patchy groundglass opacities right greater than left. He does have increased subpleural markings in the bilateral apices. This has progressed compared to prior film from July 11, 2019. There is some small nonpathologic mediastinal lymph nodes noted. Echocardiogram from 07/11/2019 showed an EF of 50 to 60% with grade 2 diastolic dysfunction and no significant valvular pathology with mild left atrial enlargement. Concentric LVH was also noted.
[2019-08-01] MEDS ORDERED: SODIUM CHLORIDE 0.9% 1000ML 1,000 ML IV PRN (10:58)
[2019-08-01] MEDS ORDERED: HEPARIN SOD (PORCINE) 1000 UNIT/ML 10 ML VIAL IV ONE (10:58)
[2019-08-01 11:49] LABS: Hepatitis B Surface Ab Quant 29.99 mIU/mL (>or=10mIU/mL Immune); Hepatitis B Surface Antibody Immune
[2019-08-01 11:59] LABS: Hepatitis B Surface Antigen Neg (Neg)
[2019-08-01] MEDS: HEPARIN SOD (PORCINE) 1000 UNIT/ML 10 ML VIAL IV SCH ×2 (13:56→13:57)
[2019-08-01] MEDS ORDERED: SODIUM CHLORIDE 0.65% NA SOLN 45 ML (OCEAN) PRN (15:22)
--- NOTE | 2019-08-01 15:23 | Pulmonology Progress Note ---
Date of Service August 01, 2019 Assessment & Plan (1) Acute and chronic respiratory failure with hypoxia: Multifactorial to interstitial lung disease, CHF, recent mycoplasma pneumonia. No eosinophilia on differential on admission Patient does have history of positive rheumatoid LDH within normal limits at 169 Galactomannan is pending Patient states that he is continues to have slow progress but does feel better today No supplemental O2 required today at rest but needed for ambulation Currently being treated for CHF with diuresis * Cumulative balance is -1580 Continue titrate O2 for saturation greater than 88% Continue increase activity and ambulation Out of bed to chair (2) Interstitial lung disease: Subpleural upper lobe predominant fibrotic changes. His serologies were positive for elevated kappa and lambda chains as well as an elevated rheumatoid factor which is nonspecific LDH was within normal limits Immunosuppressed for history of liver transplant * Tacrolimus and mycophenolate Patient slowly improving. If he worsens, may require lung biopsy vs bronchoscopy At this time, will defer on invasive testing and continue diuresis and supplemental O2 titration (3) Acute exacerbation of CHF (congestive heart failure): Target BP 125/75 Cumulative I&Os -1580 Fluid being managed by nephrology Heart failure type: unspecified Qualified Code(s): I50.9 - Heart failure, unspecified (4) Abnormal CT scan, chest: Fibrotic changes secondary to ILD LDH WNL; galactomannan is pending Continue Azithromycin Most recent imaging was 07/30/2019 Check repeat CXR in the morning (5) Bilateral pleural effusion: Most likely transudative Repeat CXR in the morning Pulmonary status slowly improving Effusions seen on CT chest 07/30/2019 Thank you for including us in the care of this patient. We will continue to follow along with you. Please refer to Dr. Lara's addendum for further recommendations. Subjective Attending: Dr. Lara Patient seen and examined at bedside. He states he is feeling better but still has shortness of breath. Patient has been doing better at rest without oxygen. With regular discussion he is not desaturating. However with ambulation he does desaturate into the 80s. Patient denies any chest pain or tightness. He has minimal sputum production. Regarding ADLs, he can do 1-2 tasks but then needs to rest secondary to shortness of breath and fatigue. He has no fever or chills. No diaphoresis. He does not have diarrhea. Review of Systems Review of Systems: All systems reviewed & are unremarkable except as noted in HPI & below Physical Exam Physical Exam: GENERAL : No acute distress. Able to talk in full sentences without distress EYES: No icterus, gaze conjugate NOSE: No evidence of epistaxis. No nasal cannula in place at the time of my discussion. MOUTH: Positive for candidiasis of the posterior oropharynx NECK: Supple LUNGS: Fine crackles at the bases. No rhonchi. No stridor. HEART: Regular, rate controlled ABDOMEN: Soft, NT, ND, BS Present EXTREMITIES: No LE edema, pedal pulses intact and equal bilaterally NEURO: A&OX3 Results & Data ([facility]) Vital Signs (Past 12 Hours) Vital Signs Temp Pulse Pulse Pulse Pulse Resp BP 08/01/19 12:40 81 117/65 08/01/19 12:20 78 134/64 08/01/19 11:51 36.5 C 79 08/01/19 11:19 69 18 08/01/19 11:01 36.6 C 78 18 08/01/19 08:00 77 08/01/19 07:12 69 16 08/01/19 07:06 36.4 C L 76 20 L 08/01/19 04:09 36.8 C 79 18 BP Pulse Ox 08/01/19 12:40 08/01/19 12:20 08/01/19 11:51 08/01/19 11:19 91 08/01/19 11:01 138/71 90 08/01/19 08:00 08/01/19 07:12 94 08/01/19 07:06 115/68 90 08/01/19 04:09 143/66 H 95 Laboratory Results 08/01/19 06:12 08/01/19 06:12 Evaluation from the patient's prior admission demonstrated a rheumatoid factor of 55. Anti-CCP was negative. KHADRA screen negative and ANCA negative. Reflex serologies all negative Free kappa light chains and free lambda light chains markedly elevated at 106 and 109 respectively however ratio was normal at 0.97. LDH 169 Galactomannan pending Total protein from July 27 was normal at 7.4 and was 8.0 on July 10, 2019. Diagnostic Findings CT chest High Resolution wo con 07/30/2019 CLINICAL HISTORY: ILD, eval for acute exacerbation COMPARISON STUDY: April 10, 2020 FINDINGS: Supine imaging was performed in inspiration and expiration. A low-dose protocol was utilized according to the principles of ALARA. The thyroid gland is unremarkable in appearance. There is no evidence of thoracic aortic aneurysm. There are coronary artery calcifications present. There are mildly enlarged mediastinal and hilar lymph nodes, similar to the preceding study. There are small to moderate bilateral pleural effusions. There are progressive multifocal bilateral groundglass pulmonary opacities. There is mild subpleural reticulation. There is upper lobe predominant subpleural honeycombing. IMPRESSION: 1. Persistent [id number] bilateral pleural effusions. 2. Underlying interstitial lung disease with subpleural reticulation and upper lung zone predominant subpleural honeycombing 3. Progressive multifocal bilateral groundglass pulmonary opacities with upper lung zone predominance. Diagnostic considerations include an atypical or viral pneumonia, or progressive interstitial lung disease with an acute component. 4. Mild mediastinal and hilar lymphadenopathy Electronically signed by: Timur Dyson M.D. 07/30/2019 11:54 AM PG Care Time/CCT Total # of Minutes Spent Total Time Spent with Patient: Total time spent is greater than 50% in coordination of care (as documented) at patient's floor/unit and/or counseling patient:30 minutes Coding Level of Care Code 96950 Subseq Hosp Care Lvl 3 Diagnoses Acute and chronic respiratory failure with hypoxia J96.21 Interstitial lung disease J84.9 Acute exacerbation of CHF (congestive heart failure) I50.9 Heart failure type: unspecified Abnormal CT scan, chest R93.89 Bilateral pleural effusion J90
--- NOTE | 2019-08-01 16:55 | Dialysis Progress Note ---
Date of Service August 01, 2019 Assessment & Plan (1) ESRD (end stage renal disease) on dialysis: Given fluid overload concerns, second admission for complications of vol OL in less than a month, will start dialysis for ESRD -cont lasix 40 mg bid IV -first HD today, second one tomorrow >> depending on schedule, starting or Wednesday (Not WEDNESDAY-dialysis does not accept new pts on weekend) or early next week he could start as OP at [facility]; case mgt aware -daily bmp -cont FR 1.8L -cont dialysis diet -cont daily standing wt in house Present on Admission?: Yes (2) Immunocompromised patient: -target FK is 3-5 per May 2019 txplt note -cont current MMF dose for now -will lower FK dose to 0.5 mg bid and recheck level as OP in one week -will likely need f/u telehealth appt w/ liver txplt after Present on Admission?: Yes (3) Acute and chronic respiratory failure with hypoxia: pulmonary recs appreciated; volume mitigation strategies as above -very important to keep 3/30 appt if possible w/ Dr Espinoza; may be a telehealth visit Present on Admission?: Yes Subjective seen on dialysis at about 1405; tolerating procedure well; no n/v, still orthopneic and very sob w/ exertion; worries about less uop (but still 2.1L docu mented so far today); eating well Review of Systems Review of Systems: All systems reviewed & are unremarkable except as noted in HPI & below Physical Exam Constitutional: well developed and well nourished sitting in bed on 02nc, nad Eyes: EOM intact bilaterally ENMT: Ears: no external ear abnormality Nose: no external nose abnormality Mouth: + dry oral mucous membranes Neck: no nuchal rigidity Respiratory: normal respiratory effort and able to speak in complete sentences; no respiratory distress and no labored breathing Auscultation: + diminished lung sounds and + crackles (L base) Cardiovascular: Rate/Rhythm: regular rate and regular rhythm Extremities: + AV fistula (+ t/b); no edema Gastrointestinal (Abdomen): Inspection/Auscultation: normal bowel sounds Percussion/Palpation: abdomen soft; abdomen nontender Musculoskeletal: Extremities: strength 5/5 throughout Skin: no rashes, warm and dry Neurologic: sam, fluent speech, no tremor Psychiatric: A+Ox3, euthymic affect Results & Data Vital Signs (Past 12 Hours) Vital Signs Temp Pulse Pulse Pulse Pulse Resp BP 08/01/19 15:51 36.6 C 86 18 08/01/19 15:31 81 18 08/01/19 14:59 81 08/01/19 14:40 36.5 C 78 08/01/19 14:00 79 132/82 08/01/19 13:40 81 121/66 08/01/19 13:20 79 124/68 08/01/19 13:00 81 127/64 08/01/19 12:40 81 117/65 08/01/19 12:20 78 134/64 08/01/19 11:51 36.5 C 79 08/01/19 11:19 69 18 08/01/19 11:01 36.6 C 78 18 08/01/19 08:00 77 08/01/19 07:12 69 16 08/01/19 07:06 36.4 C L 76 20 L BP Pulse Ox 08/01/19 15:51 127/59 L 90 08/01/19 15:31 91 08/01/19 14:59 08/01/19 14:40 136/70 08/01/19 14:00 08/01/19 13:40 08/01/19 13:20 08/01/19 13:00 08/01/19 12:40 08/01/19 12:20 08/01/19 11:51 08/01/19 11:19 91 08/01/19 11:01 138/71 90 08/01/19 08:00 08/01/19 07:12 94 08/01/19 07:06 115/68 90 Laboratory Results 08/01/19 06:12 08/01/19 06:12 FK 07/30 = 5.6
[2019-08-01] MEDS: NYSTATIN SUSP 500,000 U/5 ML UDC PO SCH ×2 (17:29→19:38)
[2019-08-01] MEDS: WARFARIN SOD 3 MG TAB PO SCH (17:30)
[2019-08-01] MEDS: TACROLIMUS 0.5 MG CAP PO SCH (19:38)
[2019-08-02] MEDS: LEVOTHYROXINE SODIUM 75 MCG TABLET PO SCH (05:43)
[2019-08-02] MEDS: ENTECAVIR PO SCH (05:43)
[2019-08-02] MEDS ORDERED: SODIUM CHLORIDE 0.9% 1000ML 1,000 ML IV PRN (06:45)
[2019-08-02] MEDS ORDERED: HEPARIN SOD (PORCINE) 1000 UNIT/ML 10 ML VIAL IV ONE (06:45)
--- NOTE | 2019-08-02 07:00 | XRay Report ---
XR chest 1V portable CLINICAL HISTORY: Hypoxic respiratory failure COMPARISON STUDY: Chest CT and chest radiograph July 30, 2019. FINDINGS: Mild cardiomegaly is noted. There are median sternotomy wires. Small bilateral pleural effu sions are noted. There is no pneumothorax. Mild paraseptal emphysema is noted. Asymmetric interstitia l thickening and airspace opacity within the left lung has slightly decreased since exam of July 30, 2019. IMPRESSION: 1. Slight decrease in asymmetric interstitial thickening and airspace opacity within the left lung si nce chest radiograph and chest CT of July 30, 2019. 2. No change in small bilateral pleural effusions. ACT 112: Negative or not required by law. Electronically signed by: Gio Johnson M.D. 08/02/2019 6:59 AM
[2019-08-02] MEDS: ALBUT/IPRATROP 3MG/0.5MG NEB 3 ML VIAL NEB SCH ×5 (07:08→19:30)
[2019-08-02 07:22] LABS: Hematocrit (blood only) 31.9 % (42-52); Hemoglobin 10.1 g/dL (14.0-18.0); Mean Corpuscular Hemoglobin 24.2 pg (25-34); Mean Corpuscular Hgb Conc 31.7 g/dL (32-36); Mean Corpuscular Volume 76.5 fL (80-100); Platelet Count 238 K/uL (130-400); RDW Coefficient of Variation 14.1 % (11.5-14.5); RDW Standard Deviation 39.7 fL (36.4-46.3); Red Blood Count 4.17 M/uL (4.7-6.1); White Blood Count 6.43 K/uL (4.8-10.8)
[2019-08-02 08:06] LABS: BUN Creatinine Ratio 16.5 (10-20); Calcium 8.6 mg/dl (8.5-10.1); Creatinine Clr Calc Pharmacy 17.6 ml/min; Est GFR (African American) 13.7; Est GFR (Non-African American) 11.8; Potassium 3.7 mmol/L (3.5-5.1)
[2019-08-02] MEDS: TACROLIMUS 0.5 MG CAP PO SCH ×2 (08:42→21:02)
[2019-08-02] MEDS: MYCOPHENOLATE MOFETIL 250 MG CAP PO SCH ×2 (08:43→21:02)
[2019-08-02] MEDS: FUROSEMIDE 40 MG in SYRINGE 0 ML IV SCH ×2 (08:43→18:28)
[2019-08-02] MEDS: AMLODIPINE BESYLATE 5 MG TAB PO SCH ×2 (08:43→21:02)
[2019-08-02] MEDS: NYSTATIN SUSP 500,000 U/5 ML UDC PO SCH ×4 (08:43→21:01)
[2019-08-02] MEDS: EZETIMIBE 10 MG TABLET PO SCH (08:44)
[2019-08-02] MEDS: SODIUM BICARBONATE 650 MG TAB PO SCH ×2 (08:44→21:02)
[2019-08-02] MEDS: METOPROLOL SUCC 50MG EXT REL TAB PO SCH (08:44)
[2019-08-02] MEDS: PANTOprazole 40 MG TAB PO SCH ×2 (08:44→21:01)
[2019-08-02] MEDS: CHOLECALCIFEROL 1,000 UNITS 25 MCG TAB PO SCH (08:44)
[2019-08-02] MEDS: INSULIN ASPART 100 UNITS/ML 3 ML PEN SC SCH ×4 (08:45→21:01)
[2019-08-02] MEDS: AZITHROMYCIN 250 MG TAB PO SCH (08:45)
--- NOTE | 2019-08-02 09:53 | Pulmonology Progress Note ---
Date of Service August 02, 2019 Assessment & Plan (1) Acute hypoxemic respiratory failure: Impression: 69-year-old male status post liver transplant for nonalcoholic steatohepatitis and hepatocellular carcinoma in 2012 with history of chronic kidney disease stage IV/V with 2 g proteinuria daily. He was initially admitted last month with exertional dyspnea and hypoxemic respiratory failure. Evaluation at that point time was significant for mycoplasma pneumonia. He was discharged but represented to the hospital on the . CT scan performed in the interval has demonstrated progression of the bilateral infiltrates with enlarging bilateral effusions. Recommendations: 1. Hypoxemic respiratory failure: Continue management for potential atypical heart failure given groundglass opacities and development of bilateral pleural effusions. Dialysis has been initiated and the patient continues to receive loop diuretics as well as fluid and sodium restriction. The bilateral effusions present are relatively small, left greater than right. Would hold on thoracentesis for now but that certainly could be considered in the future. Patient is currently day #4 of 5 azithromycin. Should his condition fail to improve, consideration for bronchoscopy with BAL would be appropriate however again given his clinical improvement he wishes to avoid any invasive procedures currently which I think is reasonable. 2. Interstitial lung disease: The patient has clear evidence of subpleural u pper lobe predominant fibrotic changes. His serologies were positive for elevated kappa and lambda chains as well as an elevated rheumatoid factor which is nonspecific. The patient is already immunosuppressed on mycophenolate and tacrolimus. He had a bio fire panel performed during this admission which was negative. Organizing pneumonia would be a possibility in the setting of his prior acute mycoplasma infection. The patient is already immunosuppressed. I would defer higher dose prednisone unless the patient should clinically worsen and ideally would like bronchoscopy with BAL to exclude infection prior to consideration of that. The patient feels he is improving for now and will hold off on invasive procedures. Ideally may consider surgical lung biopsy however given the patient's complicated medical history, this may not be feasible and empiric therapy may be required. He has follow-up scheduled with pulmonary at [facility] which I recommended that he keep. 3. Diastolic heart failure: Management per primary provider. Defer any additional diuretics to nephrology. 4. Abnormal CT scan: Cannot rule out opportunistic infection in this patient however he appears clinically better. LDH was negative and galactomannan is pending. This would argue against opportunistic fungal infections including pneumocystis We will follow with you. (2) Abnormal CT scan, chest: (3) Immunocompromised patient: (4) Acute on chronic diastolic heart failure: (5) Idiopathic interstitial pneumonia: Subjective Patient seen and examined. EMR reviewed. He thinks he is doing slightly better. He underwent dialysis yesterday. Fluid was not removed. He is coughing less. He is ambulating. His oxygen requirement has decreased signifi cantly. Review of Systems Review of Systems: Unchanged from prior Results & Data ([facility]) Vital Signs (Past 12 Hours) Vital Signs Temp Pulse Pulse Resp BP BP Pulse Ox 08/02/19 07:10 75 18 96 08/02/19 03:52 36.7 C 79 18 120/69 94 08/01/19 23:04 36.6 C 70 16 114/64 92 Laboratory Results 08/02/19 07:05 08/02/19 07:05 Diagnostic Findings Chest x-ray today was independently reviewed. There is slight clearing of the patchy interstitial infiltrates more prominent on the left than the right. Effusions remain essentially unchanged. PG Care Time/CCT Total # of Minutes Spent Total Time Spent with Patient: Total time spent is greater than 50% in coordination of care (as documented) at patient's floor/unit and/or counseling patient: Coding Level of Care Code 51477 Subseq Hosp Care Lvl 3 Diagnoses Acute hypoxemic respiratory failure J96.[address] scan, chest R93.89 Immunocompromised patient D89.9 Acute on chronic diastolic heart failure I50.33 Idiopathic interstitial pneumonia J84.111 Time Spent (min) 25
--- NOTE | 2019-08-02 10:34 | Progress Notes ---
DATE: 08/02/2019 Overnight, no new issues. He had dialysis yesterday without any major problem. He is scheduled to have another dialysis later today. He feels fine. OBJECTIVE: VITAL SIGNS: Blood pressure is 134/66, pulse rate 74, temperature afebrile, 96% on 4 liter nasal cannula. HEENT: Mucous membrane moist. NECK: Supple. CHEST: Bilateral clear to auscultation. CARDIOVASCULAR: S1, S2 regular. ABDOMEN: Soft, nontender. EXTREMITIES: Shows no edema. LABORATORY TESTS: From this morning was reviewed in detail. Hemoglobin is 10.1, BUN 77, creatinine 4.68. Sodium 136, potassium 3.7. ASSESSMENT AND PLAN: 1. A 69-year-old male who has been newly started on chronic maintenance hemodialysis. He had first dialysis yesterday. He is scheduled to have another one today. He is to continue outpatient dialysis at the [place] unit. 2. He is an immunocompromised patient as he is a liver transplant patient. The dose of the Prograf was lowered to 0.5 mg twice daily. The dose of Prograf was decreased because of the recent infection, but this needs to be carefully monitored after the hospital discharge. MTDD
[2019-08-02] MEDS: HEPARIN SOD (PORCINE) 1000 UNIT/ML 10 ML VIAL IV SCH (14:50)
--- NOTE | 2019-08-02 17:17 | Hospitalist Progress Note ---
Date of Service August 02, 2019 Assessment & Plan (1) Acute and chronic respiratory failure with hypoxia: His respiratory status improved after dialysis, with removal of fluids Now in room air with no respiratory distress no cough or wheeze Presented with acute respiratory failure Oxygen saturation was 89% on 4 L nasal cannula in ED. Possible due to combination of acute on chronic CHF with diastolic heart failure/HFp EF Underlying advanced CKD stage v -worsening of renal failure possibly both causing decompensated CHF On admission chest x-ray shows progression of pulmonary congestion Echocardiogram from 07/11/2019 showed an EF of 50 to 60% with grade 2 diastolic dysfunction and no significant valvular pathology with mild left atrial enlargement. Concentric LVH was also noted. Patient started with IV Lasix for diuresis, Patient reports of minimal urine output, Appreciate input from nephrology Patient started dialysis using left arm AV fistula Second dialysis treatment today (2) Acute on chronic diastolic heart failure: Patient symptomatically continues to improve after dialysis Continue fluid restriction 1500 mL/day Monitor daily weight intake output (3) Abnormal CT scan, chest: High-resolution CT of chest as noted above. Pulmonology consulted, appreciate input Recent mycoplasma IgM elevated- started on azithromycin. Continue dialysis by nephrology to manage volume overload/pulmonary edema (4) Hypertension: Continue metoprolol, amlodipine, and hydralazine. (5) Status post liver transplant: History of cirrhosis attributed to HERNANDEZ. S/P liver transplant at [facility] [place]. Continue mycophenolate mofetil and tacrolimus. (6) CKD (chronic kidney disease) stage 5, GFR less than 15 ml/min: CKD V . Recent AV fistula LUE-placed by vascular surgery at [facility] Appreciate input from nephrology, Patient getting dialysis with improvement of volume status Will need set up for outpatient chronic dialysis prior to discharge (7) DM type 2 (diabetes mellitus, type 2): DM type 2, managed with insulin aspartate as outpatient. Hgb A1c was 6.5 on 07/11/19. Continue with Lantus / NovoLog. While inpatient (8) Anemia: Probable anemia of chronic disease secondary to advanced CKD. Hemoglobin remained stable at 10 (9) DVT (deep venous thrombosis): Recently diagnoses DVT of right calf. Continue warfarin. INR therapeutic (10) DVT prophylaxis: Coumadin (11) Discharge planning issues: Anticipated discharge to home. Family Medicine follow-up with Dr. Maldonado. Nephrology follow-up with Dr. Kamara. Patient will need set up for outpatient dialysis prior to discharge Admission and Anticipated Discharge Date Admission Date: July 28, 2019 Subjective Had dialysis today, feels very tired Improvement of shortness of breath and orthopnea, No cough no wheeze no fever Review of Systems Review of Systems: All systems reviewed & are unremarkable except as noted in HPI & below Cardiovascular: + orthopnea (Improved); no chest pain and no edema Physical Exam Constitutional: WD/WN, vitals as above + ill appearing; no acute distress Eyes: PERRL, conjunctivae normal, anicteric sclerae ENMT: external ear and nose normal, oropharynx normal Neck: trachea midline, no thyromegaly Respiratory: no respiratory distress Auscultation: + rales (Minimum Rales at base); no wheezes Cardiovascular: Rate/Rhythm: regular rate and regular rhythm Gastrointestinal (Abdomen): Inspection/Auscultation: normal bowel sounds Percussion/Palpation: abdomen soft; abdomen nontender Musculoskeletal: no cyanosis or clubbing, extremities motor strength 5/5 Skin: no rashes, warm and dry Neurologic: PERRL, EOMI, accommodation nl, no face palsy, no dysarthria Psychiatric: A+Ox3, euthymic affect Results & Data ([facility]) Vital Signs (Past 12 Hours) Vital Signs Temp Pulse Pulse Pulse Resp BP BP 08/02/19 16:26 71 16 08/02/19 15:53 36.5 C 78 18 135/62 08/02/19 14:40 36.3 C L 72 126/71 08/02/19 14:24 72 130/71 08/02/19 14:00 73 139/75 08/02/19 13:40 71 131/73 08/02/19 13:20 70 142/70 H 08/02/19 13:00 61 119/70 08/02/19 12:40 70 134/66 08/02/19 12:20 69 124/61 08/02/19 12:00 72 129/69 08/02/19 11:40 71 131/69 08/02/19 11:23 73 127/68 08/02/19 11:10 36.6 C 79 08/02/19 11:07 36.5 C 75 20 134/67 08/02/19 08:00 74 08/02/19 07:10 75 18 08/02/19 07:01 36.4 C L 77 18 134/66 Pulse Ox 08/02/19 16:26 94 08/02/19 15:53 93 08/02/19 14:40 08/02/19 14:24 08/02/19 14:00 08/02/19 13:40 08/02/19 13:20 08/02/19 13:00 08/02/19 12:40 08/02/19 12:20 08/02/19 12:00 08/02/19 11:40 08/02/19 11:23 08/02/19 11:10 08/02/19 11:07 95 08/02/19 08:00 08/02/19 07:10 96 08/02/19 07:01 95
[2019-08-02] MEDS: WARFARIN SOD 3 MG TAB PO SCH (18:28)
[2019-08-02 21:19] LABS: Mycoplasma pneumoniae Ab, IgG 2.29 (<=0.90)
[2019-08-03] MEDS: LEVOTHYROXINE SODIUM 75 MCG TABLET PO SCH (05:25)
[2019-08-03] MEDS: ENTECAVIR PO SCH (05:25)
[2019-08-03] MEDS: ALBUT/IPRATROP 3MG/0.5MG NEB 3 ML VIAL NEB SCH (07:12)
[2019-08-03] MEDS ORDERED: SODIUM CHLORIDE 0.9% 1000ML 1,000 ML IV PRN (07:45)
[2019-08-03] MEDS ORDERED: HEPARIN SOD (PORCINE) 1000 UNIT/ML 10 ML VIAL IV ONE (07:45)
[2019-08-03] MEDS: INSULIN ASPART 100 UNITS/ML 3 ML PEN SC SCH ×4 (07:48→20:10)
[2019-08-03] MEDS: FUROSEMIDE 40 MG in SYRINGE 0 ML IV SCH ×2 (07:49→17:20)
[2019-08-03] MEDS: SODIUM BICARBONATE 650 MG TAB PO SCH ×2 (07:49→19:58)
[2019-08-03] MEDS: TACROLIMUS 0.5 MG CAP PO SCH ×2 (07:50→19:58)
[2019-08-03] MEDS: METOPROLOL SUCC 50MG EXT REL TAB PO SCH (07:50)
[2019-08-03] MEDS: PANTOprazole 40 MG TAB PO SCH ×2 (07:50→19:57)
[2019-08-03] MEDS: EZETIMIBE 10 MG TABLET PO SCH (07:50)
[2019-08-03] MEDS: MYCOPHENOLATE MOFETIL 250 MG CAP PO SCH ×2 (07:50→19:59)
[2019-08-03] MEDS: CHOLECALCIFEROL 1,000 UNITS 25 MCG TAB PO SCH (07:50)
[2019-08-03] MEDS: AZITHROMYCIN 250 MG TAB PO SCH (07:50)
[2019-08-03] MEDS: AMLODIPINE BESYLATE 5 MG TAB PO SCH ×2 (07:51→19:56)
[2019-08-03] MEDS: NYSTATIN SUSP 500,000 U/5 ML UDC PO SCH ×4 (07:51→19:56)
[2019-08-03] MEDS ORDERED: ALBUT/IPRATROP 3MG/0.5MG NEB 3 ML VIAL NEB PRN (09:09)
--- NOTE | 2019-08-03 09:39 | Pulmonology Progress Note ---
Date of Service August 03, 2019 Assessment & Plan (1) Acute hypoxemic respiratory failure: Impression: 69-year-old male status post liver transplant for nonalcoholic steatohepatitis and hepatocellular carcinoma in 2012 with history of chronic kidney disease stage IV/V with 2 g proteinuria daily. He was initially admitted last month with exertional dyspnea and hypoxemic respiratory failure. Evaluation at that point time was significant for mycoplasma pneumonia. He was discharged but represented to the hospital on the . CT scan performed in the interval has demonstrated progression of the bilateral infiltrates with enlarging bilateral effusions. --Acute on chronic hypoxic respiratory failure Multifactorial patient has CKD with underlying diastolic CHF --> started on hemodialysis now Patient had mycobacterial infection on last admission at the end of June 2019 --> continue with antibiotics. Influenza, and bio fire was negative on this admission. Patient does have underlying NSIP-like pattern with involvement of upper lobe as well reticulation. Etiology for this is unclear. LDH was within normal limit. Beta D glucan is pending (given that the patient has oral thrush it will likely be positive and the significance of it is now irrelevant) Although the patient is on immunosuppressant it is mycophenolate mofetil which are of all the immunosuppression has a protective effect against getting PJP. So clinically thinking of PJP is very low on this patient. Given there is clinical improvement. Continue with antibiotics and O2 supplementation to keep saturation between 88 to 92%. --NSIP-like pattern bilaterally Diffuse groundglass appreciated more on the left side could be atypical infection, diffuse alveolar hemorrhage can present this way to but the patient's hemoglobin has been stable and he has no hemoptysis, patient is on immunosuppressive therapy for his liver transplant pneumonitis from this is also possibility. Ordering work-up on 07/11/2019 was only positive for rheumatoid facto: 55, anti- CCP was negative, KHADRA was negative There is clinical improvement in his respiratory status which proves that there was a big component of fluid overload on top of this. Given that there is improvement in his respiratory status and wanting any invasive procedure is required at this moment. Surgical biopsy in future to have diagnosis of his interstitial lung disease/NSIP pattern should be considered. Patient follows up with pulmonary at [facility] I would recommend him to follow-up as an outpatient with them to decide on further management of this. --History of liver transplant On immunosuppressive medications mycophenolate, tacrolimus Recommend making the patient walk on 2 L nasal cannula to see if there is significant desaturation. (2) Abnormal CT scan, chest: (3) Immunocompromised patient: (4) Acute on chronic diastolic heart failure: (5) Idiopathic interstitial pneumonia: Subjective Patient seen and examined at bedside. No acute distress, no adverse events overnight. Shortness of breath is improved. Denies any chest pain, has occasional cough nonproductive. No headache, no blurry vision, no nausea or vomiting. At the time of examination patient was saturating 92% on room air with heart rate of 83 at rest. Review of Systems Review of Systems: All systems reviewed & are unremarkable except as noted in HPI & below Physical Exam Physical Exam: Constitutional: No acute distress HEENT: EOMI, PERRLA Respiratory system: Decreased air entry bilaterally, mild crackles bilateral lower lobes more on the left side, no wheeze, no rhonchi CVS: S1-S2 positive, no murmurs or gallops Abdomen: Soft, nontender, nondistended, positive bowel sounds x4 Extremities: +2 pulses bilaterally radialis/ dorsalis pedis, no cyanosis, no edema, no clubbing Neuro: Awake alert oriented x3 Psych: Normal mood and affect G/U: No Srivastava Skin: no rashes, warm and dry Lymphatic: no cervical or axillary lymphadenopathy Results & Data ([facility]) Vital Signs (Past 12 Hours) Vital Signs Temp Pulse Pulse Pulse Resp BP Pulse Ox 08/03/19 07:34 36.8 C 88 22 147/73 H 94 08/03/19 07:12 80 18 91 08/03/19 04:00 36.8 C 72 20 132/72 95 08/03/19 00:02 88 08/02/19 23:41 36.8 C 80 20 103/40 L 91 07/28/19 13:33 VBG pH 7.28 L VBG pCO2 37 L VBG pO2 32 VBG HCO3 17 VBG O2 Saturation < 60.0 VBG Base Excess -9.4 X-ray from 08/02/2019 personally reviewed: There is improvement in the interstitial marking compared to the one x-ray done on 07/29. High-resolution CT done 07/30/2019 personally reviewed and compared to the CAT scan which was done on 07/11/2019. PG Care Time/CCT Total # of Minutes Spent Total Time Spent with Patient: Total time spent is greater than 50% in coordination of care (as documented) at patient's floor/unit and/or counseling patient: Coding Level of Care Code 86597 Subseq Hosp Care Lvl 3 Diagnoses Acute hypoxemic respiratory failure J96.[address] scan, chest R93.89 Immunocompromised patient D89.9 Acute on chronic diastolic heart failure I50.33 Idiopathic interstitial pneumonia J84.111
[2019-08-03] MEDS: HEPARIN SOD (PORCINE) 1000 UNIT/ML 10 ML VIAL IV SCH ×2 (11:26→11:27)
[2019-08-03 12:06] LABS: INR 1.5 (0.9-1.1); Prothrombin Time 15.6 Seconds (9.0-12.0)
[2019-08-03 12:22] LABS: BUN Creatinine Ratio 12.7 (10-20); Creatinine Clr Calc Pharmacy 20.2 ml/min; Est GFR (African American) 16.2; Potassium 3.6 mmol/L (3.5-5.1)
[2019-08-03] MEDS: WARFARIN SOD 5 MG TAB PO SCH (17:36)
--- NOTE | 2019-08-03 17:58 | Hospitalist Progress Note ---
Date of Service August 03, 2019 Assessment & Plan (1) Acute and chronic respiratory failure with hypoxia: Status improved after dialysis His respiratory status improved after dialysis, with removal of fluids Now in room air with no respiratory distress no cough or wheeze Presented with acute respiratory failure Oxygen saturation was 89% on 4 L nasal cannula in ED. Possible due to combination of acute on chronic CHF with diastolic heart failure/HFp EF Underlying advanced CKD stage v -worsening of renal failure possibly both causing decompensated CHF On admission chest x-ray shows progression of pulmonary congestion Echocardiogram from 07/11/2019 showed an EF of 50 to 60% with grade 2 diastolic dysfunction and no significant valvular pathology with mild left atrial enlargement. Concentric LVH was also noted. On Lasix 40 mg IV twice daily (2) Acute on chronic diastolic heart failure: Patient symptomatically continues to improve after dialysis Continue fluid restriction 1500 mL/day Monitor daily weight intake output (3) Abnormal CT scan, chest: High-resolution CT of chest as noted above. Pulmonology consulted, appreciate input Recent mycoplasma IgM elevated- started on azithromycin. Continue dialysis by nephrology to manage volume overload/pulmonary edema (4) Hypertension: Continue metoprolol, amlodipine, and hydralazine. (5) Status post liver transplant: History of cirrhosis attributed to HERNANDEZ. S/P liver transplant at [facility] 2012. Continue mycophenolate mofetil and tacrolimus. (6) CKD (chronic kidney disease) stage 5, GFR less than 15 ml/min: CKD V . Recent AV fistula LUE-placed by vascular surgery at [facility] Appreciate input from nephrology, Started dialysis using the left AV fistula on left arm, Unable to have dialysis today as fistula got infiltrated and hematoma developed Next dialysis is planned for tomorrow versus Wednesday depending on nephrology/any improvement of hematoma on AV fistula site Patient dialysis set up for Wednesday (7) DM type 2 (diabetes mellitus, type 2): DM type 2, managed with insulin aspartate as outpatient. Hgb A1c was 6.5 on 07/11/19. Continue with Lantus / NovoLog. While inpatient (8) Anemia: Probable anemia of chronic disease secondary to advanced CKD. Hemoglobin remained stable at 10 (9) DVT (deep venous thrombosis): Recently diagnoses DVT of right calf. Continue warfarin. (10) DVT prophylaxis: Coumadin (11) Discharge planning issues: Anticipated discharge to home. Family Medicine follow-up with Dr. Maldonado. Nephrology follow-up with Dr. Kamara. set up done for outpatient dialysis at [facility] with Wednesday schedule Admission and Anticipated Discharge Date Admission Date: July 28, 2019 Subjective Shortness of breath cough and orthopnea has improved markedly Unable to have dialysis today, able to cannulate fistula site infiltr ated/hematoma No cough, no fever or chills Denies of any discomfort Review of Systems Review of Systems: All systems reviewed & are unremarkable except as noted in HPI & below Constitutional: no fever, no chills and no fatigue Musculoskeletal: Left arm/swelling at the fistula site, hematoma noted Physical Exam Constitutional: WD/WN, vitals as above no acute distress Eyes: PERRL, conjunctivae normal, anicteric sclerae ENMT: external ear and nose normal, oropharynx normal Neck: trachea midline, no thyromegaly Respiratory: no respiratory distress Cardiovascular: Rate/Rhythm: regular rate and regular rhythm Gastrointestinal (Abdomen): Inspection/Auscultation: normal bowel sounds Percussion/Palpation: abdomen soft; abdomen nontender Musculoskeletal: no cyanosis or clubbing, extremities motor strength 5/5 Extremities: + upper extremity abnormal to inspection (Hematoma/swelling noted on left upper arm AV fistula,) Left Skin: no rashes, warm and dry Neurologic: PERRL, EOMI, accommodation nl, no face palsy, no dysarthria Psychiatric: A+Ox3, euthymic affect Results & Data ([place]) Vital Signs (Past 12 Hours) Vital Signs Temp Pulse Pulse Pulse Resp BP Pulse Ox 08/03/19 15:35 36.8 C 77 18 138/71 90 08/03/19 15:30 76 08/03/19 11:33 36.6 C 76 16 144/66 H 92 08/03/19 10:30 36.8 C 08/03/19 07:34 36.8 C 88 22 147/73 H 94 08/03/19 07:12 80 18 91
--- NOTE | 2019-08-03 20:33 | Nephrology Progress Note ---
Date of Service August 03, 2019 Assessment & Plan (1) ESRD (end stage renal disease) on dialysis: Given fluid overload concerns, second admission for complications of vol OL in less than a month, he started dialysis for ESRD -cont lasix 40 mg bid IV -for 3rd HD tx today >> he infiltrated today unfortunately. he is to start HD as OP on 08/07, so could not be d/c before completing HD on 08/04. hope we can get his AVF to run before then and may need to stay through 08/05 to ensure this >>will reassess in AM; may need to rest tomorrow and plan to run him Wednesday at very gentle rx and start slowly as oP >> his AVF is only one month old and may not tolerate upratcheting like a more mature avf -daily bmp -cont FR 1.8L -cont dialysis diet -cont daily standing wt in house (2) Immunocompromised patient: -target FK is 3-5 per May 2019 txplt note -cont current MMF dose for now -will lower FK dose to 0.5 mg bid and recheck level as OP in one week; may need to consider envarsus -will likely need f/u telehealth appt w/ liver txplt after (3) Acute and chronic respiratory failure with hypoxia: pulmonary recs appreciated; volume mitigation strategies as above -very important to keep 08/13 appt if possible w/ Dr Alexis PRIDEG pulm; may be a telehealth visit Admission and Anticipated Discharge Date Admission Date: July 28, 2019 Subjective pt seen and evaluated on am rounds; no complaints; ongoing exertional dyspnea but on RA when I see him. no n/v. no edema. questions about his lowered FK dose. to start OP HD on 08/07 Review of Systems Review of Systems: All systems reviewed & are unremarkable except as noted in HPI & below Physical Exam Constitutional: well developed, well nourished and cooperative; no acute distress sitting up in chair on RA Eyes: EOM intact bilaterally ENMT: Ears: no external ear abnormality Nose: no external nose abnormality Mouth: + dry oral mucous membranes Neck: no nuchal rigidity Respiratory: normal respiratory effort and able to speak in complete sentences; no respiratory distress, no labored breathing and no cough Auscultation: + diminished lung sounds and + crackles (L base) Cardiovascular: RRR, no murmur, no edema Rate/Rhythm: regular rate and regular rhythm Extremities: + AV fistula (+ t/b); no edema Gastrointestinal (Abdomen): Inspection/Auscultation: normal bowel sounds Percussion/Palpation: abdomen soft; abdomen nontender Musculoskeletal: Extremities: strength 5/5 throughout Skin: no rashes, warm and dry Neurologic: sam fluent speech no tremor Psychiatric: A+Ox3, euthymic affect Results & Data ([facility]) Vital Signs (Past 12 Hours) Vital Signs Temp Pulse Pulse Pulse Resp BP BP 08/03/19 19:19 36.6 C 78 18 152/75 H 08/03/19 15:35 36.8 C 77 18 138/71 08/03/19 15:30 76 08/03/19 11:33 36.6 C 76 16 144/66 H 08/03/19 10:30 36.8 C Pulse Ox 08/03/19 19:19 92 08/03/19 15:35 90 08/03/19 15:30 08/03/19 11:33 92 08/03/19 10:30 Laboratory Results 08/02/19 07:05 08/03/19 11:50
[2019-08-03 23:10] LABS: Fungitell (1-3)-B-D-Glucan <31
[2019-08-04 05:35] LABS: Hematocrit (blood only) 31.4 % (42-52); Hemoglobin 9.9 g/dL (14.0-18.0); Mean Corpuscular Hemoglobin 24.2 pg (25-34); Mean Corpuscular Hgb Conc 31.5 g/dL (32-36); Mean Corpuscular Volume 76.8 fL (80-100); Mean Platelet Volume 9.4 fL (7.4-10.4); Platelet Count 198 K/uL (130-400); RDW Coefficient of Variation 13.8 % (11.5-14.5); RDW Standard Deviation 39.1 fL (36.4-46.3); Red Blood Count 4.09 M/uL (4.7-6.1); White Blood Count 5.61 K/uL (4.8-10.8)
[2019-08-04 05:44] LABS: INR 1.5 (0.9-1.1); Prothrombin Time 15.8 Seconds (9.0-12.0)
[2019-08-04] MEDS: ENTECAVIR PO SCH (05:44)
[2019-08-04] MEDS: LEVOTHYROXINE SODIUM 75 MCG TABLET PO SCH (05:45)
[2019-08-04 06:24] LABS: BUN Creatinine Ratio 12.4 (10-20); Calcium 8.8 mg/dl (8.5-10.1); Est GFR (African American) 14.1; Est GFR (Non-African American) 12.2; Potassium 3.6 mmol/L (3.5-5.1)
[2019-08-04] MEDS: AMLODIPINE BESYLATE 5 MG TAB PO SCH ×2 (07:29→20:07)
[2019-08-04] MEDS: FUROSEMIDE 40 MG in SYRINGE 0 ML IV SCH ×2 (07:29→16:55)
[2019-08-04] MEDS: PANTOprazole 40 MG TAB PO SCH ×2 (07:29→20:08)
[2019-08-04] MEDS: SODIUM BICARBONATE 650 MG TAB PO SCH ×2 (07:30→20:06)
[2019-08-04] MEDS: NYSTATIN SUSP 500,000 U/5 ML UDC PO SCH ×4 (07:30→20:05)
[2019-08-04] MEDS: EZETIMIBE 10 MG TABLET PO SCH (07:30)
[2019-08-04] MEDS: TACROLIMUS 0.5 MG CAP PO SCH ×2 (07:30→20:06)
[2019-08-04] MEDS: AZITHROMYCIN 250 MG TAB PO SCH (07:30)
[2019-08-04] MEDS: CHOLECALCIFEROL 1,000 UNITS 25 MCG TAB PO SCH (07:30)
[2019-08-04] MEDS: MYCOPHENOLATE MOFETIL 250 MG CAP PO SCH ×2 (07:31→20:07)
[2019-08-04] MEDS: METOPROLOL SUCC 50MG EXT REL TAB PO SCH (07:31)
[2019-08-04] MEDS: INSULIN ASPART 100 UNITS/ML 3 ML PEN SC SCH ×4 (07:39→20:08)
--- NOTE | 2019-08-04 08:07 | Pulmonology Progress Note ---
Date of Service August 04, 2019 Assessment & Plan (1) Acute hypoxemic respiratory failure: Impression: 69-year-old male status post liver transplant for nonalcoholic steatohepatitis and hepatocellular carcinoma in 2012 with history of chronic kidney disease stage IV/V with 2 g proteinuria daily. He was initially admitted last month with exertional dyspnea and hypoxemic respiratory failure. Evaluation at that point time was significant for mycoplasma pneumonia. He was discharged but represented to the hospital on the . CT scan performed in the interval has demonstrated progression of the bilateral infiltrates with enlarging bilateral effusions. --Acute on chronic hypoxic respiratory failure Multifactorial patient has CKD with underlying diastolic CHF --> started on hemodialysis now Patient had mycobacterial infection on last admission at the end of June 2019 --> continue with antibiotics for total of 7 days. Influenza, and bio fire was negative on this admission. Patient does have underlying NSIP-like pattern with involvement of upper lobe as well reticulation. Etiology for this is unclear. LDH was within normal limit. Beta D glucan : negative Although the patient is on immunosuppressant it is mycophenolate mofetil which of all the immunosuppressive medications has a protective effect against getting PJP. So clinically thinking of PJP is very low on this patient. Given there is clinical improvement. Continue with antibiotics and O2 supplementation to keep saturation between 88 to 92%. --NSIP-like pattern bilaterally Diffuse groundglass appreciated more on the left side could be atypical infection, diffuse alveolar hemorrhage can present this way to but the patient's hemoglobin has been stable and he has no hemoptysis, patient is on immunosuppressive therapy for his liver transplant pneumonitis from this is also possibility. Ordering work-up on 07/11/2019 was only positive for rheumatoid facto: 55, anti- CCP was negative, KHADRA was negative There is clinical improvement in his respiratory status which proves that there was a big component of fluid overload on top of this. Given that there is improvement in his respiratory status and wanting any invasive procedure is required at this moment. Surgical biopsy in future to have diagnosis of his interstitial lung disease/NSIP pattern should be considered. Patient follows up with pulmonary at [facility] I would recommend him to follow-up as an outpatient with them to decide on further management of this. --History of liver transplant On immunosuppressive medications mycophenolate, tacrolimus From pulmonary perspective it seems patient is back to his baseline. Recommend ambulating patient on 2 L nasal cannula to see if he desaturates below 88% if that is the case he might need more oxygen to be sent on at home. No further recommendation from pulmonary perspective. We will sign off recall if needed. Recommend making the patient walk on 2 L nasal cannula to see if there is significant desaturation. (2) Abnormal CT scan, chest: (3) Immunocompromised patient: (4) Acute on chronic diastolic heart failure: (5) Idiopathic interstitial pneumonia: Subjective Patient seen and examined at bedside. No acute distress, no adverse events overnight. Patient states the breathing has improved. Denies any chest pain, no hemoptysis. Patient has been walking around in his room. No headache, no dizziness, no blurry vision Good appetite. Patient was saturating 96% on 2 L nasal cannula with heart rate of 64 at rest. Review of Systems Review of Systems: All systems reviewed & are unremarkable except as noted in HPI & below Physical Exam Physical Exam: Constitutional: No acute distress HEENT: EOMI, PERRLA Respiratory system: Decreased air entry bilaterally, mild crackles bilateral lower lobes more on the left side, no wheeze, no rhonchi CVS: S1-S2 positive, no murmurs or gallops Abdomen: Soft, nontender, nondistended, positive bowel sounds x4 Extremities: +2 pulses bilaterally radialis/ dorsalis pedis, no cyanosis, no edema, no clubbing Neuro: Awake alert oriented x3 Psych: Normal mood and affect G/U: No Srivastava Skin: no rashes, warm and dry Lymphatic: no cervical or axillary lymphadenopathy Results & Data ([facility]) Vital Signs (Past 12 Hours) Vital Signs Temp Pulse Pulse Pulse Resp BP Pulse Ox 08/04/19 07:18 36.3 C L 74 20 131/68 96 08/04/19 04:00 36.9 C 76 16 127/69 94 08/04/19 01:37 77 08/03/19 23:21 36.8 C 88 18 124/67 90 08/04/19 05:03 08/04/19 05:03 PG Care Time/CCT Total # of Minutes Spent Total Time Spent with Patient: Total time spent is greater than 50% in coordination of care (as documented) at patient's floor/unit and/or counseling patient: Coding Level of Care Code 69002 Subseq Hosp Care Lvl 3 Diagnoses Acute hypoxemic respiratory failure J96.[address] scan, chest R93.89 Immunocompromised patient D89.9 Acute on chronic diastolic heart failure I50.33 Idiopathic interstitial pneumonia J84.111
--- NOTE | 2019-08-04 13:45 | Pharmacy Report ---
Pharmacy Glycemic Sign Off Nt - Date of Service August 04, 2019 - Assessment & Plan ASSESSMENT: * No changes to regimen x48 hours (Novolog only, same parameters) * BSG's ranging 98-153 mg/dL x48 hours * No changes to stressors anticipated * Dr. Sukhdev NAIK with pharmacy signing off PLAN FOR INPATIENT GLYCEMIC CONTROL: * Continue NovoLog per scale ACHS * Goal range = 110-140 mg/dl * CF = 25 mg/dl/unit * CR = 1 unit for ever 7 g CHO consumed * Pharmacy is signing off of glycemic consult and will no longer be making adjustments to inpatient regimen. Please feel free to re-consult if needed. Thank you. DISCHARGE RECOMMENDATIONS: * Continue outpatient Novolog at current parameters unless patient reports s/sx of hypoglycemia as outpatient. If so, then reduce prandial Novolog doses.
--- NOTE | 2019-08-04 15:08 | Hospitalist Progress Note ---
Date of Service August 04, 2019 Assessment & Plan (1) Acute and chronic respiratory failure with hypoxia: Respiratory status improved after dialysis Denies of any orthopnea, no hypoxia at rest, minimum dyspnea on exertion, Presented with acute respiratory failure/with volume overload bilateral pulmonary congestion Oxygen saturation was 89% on 4 L nasal cannula in ED. due to combination of acute on chronic CHF with diastolic heart failure/HFp EF Worsening of underlying advanced CKD stage v -causing fluid retention On admission chest x-ray shows progression of pulmonary congestion Echocardiogram from 07/11/2019 showed an EF of 50 to 60% with grade 2 diastolic dysfunction and no significant valvular pathology with mild left atrial enlargement. Concentric LVH was also noted. Started on dialysis, Volume status continues to improve Resolution of orthopnea hypoxia shortness of breath after dialysis treatment (2) Acute on chronic diastolic heart failure: Volume status improved after dialysis Patient is scheduled for outpatient dialysis on Wednesday and Wednesday schedule at [facility] Continue fluid restriction 1500 mL/day Monitor daily weight intake output (3) Abnormal CT scan, chest: High-resolution CT of chest as noted above. Pulmonology consulted, appreciate input Recent mycoplasma IgM elevated- started on azithromycin. Complete total 7 days of course Continue dialysis by nephrology to manage volume overload/pulmonary edema (4) Hypertension: Continue metoprolol, amlodipine, and hydralazine. (5) Status post liver transplant: History of cirrhosis attributed to HERNANDEZ. S/P liver transplant at [facility] 2012. Continue mycophenolate mofetil and tacrolimus. (6) CKD (chronic kidney disease) stage 5, GFR less than 15 ml/min: END stage renal disease on dialysis. Recent AV fistula LUE-placed by vascular surgery at [facility] Appreciate input from nephrology, Started dialysis using the left AV fistula on left arm, AV fistula was infiltrated yesterday 08/03/2019 unable to complete dialysis, Marked area of hematoma, ecchymosis noted above fistula site Positive thrill at the fistula No dialysis today, plan for dialysis tomorrow 08/05/2019 Patient will need to stay overnight through Wednesday to assess normal functioning of AV fistula Outpatient dialysis set up first day of treatment at [facility] on 08/08/2019 (7) DM type 2 (diabetes mellitus, type 2): DM type 2, managed with insulin aspartate as outpatient. Hgb A1c was 6.5 on 07/11/19. Continue with Lantus / NovoLog. While inpatient (8) Anemia: Probable anemia of chronic disease secondary to advanced CKD. Hemoglobin remained stable at 10 (9) DVT (deep venous thrombosis): Recently diagnoses DVT of right calf. Continue warfarin. (10) DVT prophylaxis: Coumadin (11) Discharge planning issues: Anticipated discharge to home. Possible on 08/06/2019 Family Medicine follow-up with Dr. Maldonado. Nephrology follow-up with Dr. Kamara. set up done for outpatient dialysis at [facility] [place] with Wednesday schedule Admission and Anticipated Discharge Date Admission Date: July 28, 2019 Subjective Sitting up on edge of the bed, no complaint of shortness of breath or orthopnea, mention he was able to walk on the hallway, Left upper arm ecchymosis /swelling at the site of AV fistula hematoma Pain/tenderness improved No fever or chills No cough, no dyspnea on exertion, no orthopnea Review of Systems Review of Systems: All systems reviewed & are unremarkable except as noted in HPI & below Constitutional: no fever and no chills Respiratory: no cough and no dyspnea Cardiovascular: no dyspnea, no orthopnea, no lightheadedness, no syncope and no edema Physical Exam Constitutional: WD/WN, vitals as above no acute distress Eyes: PERRL, conjunctivae normal, anicteric sclerae ENMT: external ear and nose normal, oropharynx normal Neck: trachea midline, no thyromegaly Respiratory: no respiratory distress Cardiovascular: Rate/Rhythm: regular rate and regular rhythm Gastrointestinal (Abdomen): Inspection/Auscultation: normal bowel sounds Percussion/Palpation: abdomen soft; abdomen nontender Musculoskeletal: no cyanosis or clubbing, extremities motor strength 5/5 Extremities: + upper extremity abnormal to inspection (Hematoma/swelling noted on left upper arm AV fistula,) Left Skin: + ecchymosis (Left upper arm above AV fistula hematoma) Neurologic: PERRL, EOMI, accommodation nl, no face palsy, no dysarthria Psychiatric: A+Ox3, euthymic affect Results & Data ([facility]) Vital Signs (Past 12 Hours) Vital Signs Temp Pulse Pulse Pulse Resp BP Pulse Ox 08/04/19 11:10 36.6 C 74 20 127/66 93 08/04/19 08:00 76 08/04/19 07:18 36.3 C L 74 20 131/68 96 08/04/19 04:00 36.9 C 76 16 127/69 94
[2019-08-04] MEDS: WARFARIN SOD 5 MG TAB PO SCH (16:53)
--- NOTE | 2019-08-04 20:57 | Nephrology Progress Note ---
Date of Service August 04, 2019 Assessment & Plan (1) ESRD (end stage renal disease) on dialysis: Given fluid overload concerns, second admission for complications of vol OL in less than a month, he started dialysis for ESRD -cont lasix 40 mg bid IV -avf infiltrated shortly into 3rd tx. cont to ice arm today and rest it. >>he is to start HD as OP on 08/07. may need to stay through 08/05 to ensure avf runs well >>plan to run him Wednesday at very gentle rx and start slowly as oP >> his AVF is only one month old and may not tolerate upratcheting like a more mature avf -daily bmp -cont FR 1.8L -cont dialysis diet -cont daily standing wt in house (2) Immunocompromised patient: -target FK is 3-5 per May 2019 txplt note; his level was a bit over target earlier this admission adn I had lowered FK dose; however in national health crisis worry about getting labs for this patient and will therefore resume prior FK dose; defer to OP txplt team to manage his immunosuppression after health crisis settles -cont current MMF dose for now -as above FK back up to 1 mg bid (3) Acute and chronic respiratory failure with hypoxia: pulmonary recs appreciated; volume mitigation strategies as above -very important to keep 3/ appt if possible w/ Dr Espinoza [facility] pulm; may be a telehealth visit Admission and Anticipated Discharge Date Admission Date: July 28, 2019 Subjective seen on rounds this am at 0640. on RA feels ok; avf infiltrated yesterday after a few min of txs > he is still sore today on arm and swollen on arm but + t/b; no n/v; no voiding concerns; no n/v Review of Systems Review of Systems: All systems reviewed & are unremarkable except as noted in HPI & below Physical Exam Constitutional: well developed, well nourished and cooperative; no acute distress on RA Eyes: EOM intact bilaterally ENMT: Ears: no external ear abnormality Nose: no external nose abnormality Mouth: + dry oral mucous membranes Neck: no nuchal rigidity Respiratory: normal respiratory effort, + cough (today dry cough back) and able to speak in complete sentences; no respiratory distress and no labored breathing Auscultation: + diminished lung sounds and + crackles (L base) Cardiovascular: RRR, no murmur, no edema Rate/Rhythm: regular rate and regular rhythm Extremities: + AV fistula (+ t/b; has bruising/induration over avf); no edema Gastrointestinal (Abdomen): Inspection/Auscultation: normal bowel sounds P ercussion/Palpation: abdomen soft; abdomen nontender Musculoskeletal: Extremities: strength 5/5 throughout Skin: no rashes, warm and dry Neurologic: sam, fluent speech, no tremor Psychiatric: A+Ox3, euthymic affect Results & Data ([facility]) Vital Signs (Past 12 Hours) Vital Signs Temp Pulse Pulse Resp BP Pulse Ox 08/04/19 19:07 36.6 C 77 14 137/64 94 08/04/19 16:00 76 08/04/19 15:21 36.6 C 75 20 114/64 92 08/04/19 11:10 36.6 C 74 20 127/66 93 Laboratory Results 08/04/19 05:03 08/04/19 05:03
[2019-08-05] MEDS: ENTECAVIR PO SCH (05:05)
[2019-08-05] MEDS: LEVOTHYROXINE SODIUM 75 MCG TABLET PO SCH (05:06)
[2019-08-05] MEDS: INSULIN ASPART 100 UNITS/ML 3 ML PEN SC SCH ×4 (07:53→20:19)
[2019-08-05] MEDS: PANTOprazole 40 MG TAB PO SCH ×2 (07:54→20:08)
[2019-08-05] MEDS: NYSTATIN SUSP 500,000 U/5 ML UDC PO SCH ×4 (07:55→20:09)
[2019-08-05] MEDS: AMLODIPINE BESYLATE 5 MG TAB PO SCH ×2 (07:55→20:09)
[2019-08-05] MEDS: FUROSEMIDE 40 MG in SYRINGE 0 ML IV SCH ×2 (07:55→16:47)
[2019-08-05] MEDS: METOPROLOL SUCC 50MG EXT REL TAB PO SCH (07:55)
[2019-08-05] MEDS ORDERED: SODIUM CHLORIDE 0.9% 1000ML 1,000 ML IV PRN (07:55)
[2019-08-05] MEDS: MYCOPHENOLATE MOFETIL 250 MG CAP PO SCH ×2 (07:55→20:08)
[2019-08-05] MEDS ORDERED: HEPARIN SOD (PORCINE) 1000 UNIT/ML 10 ML VIAL IV ONE (07:55)
[2019-08-05] MEDS ORDERED: EPOETIN ALFA 20,000 UNITS in SYRINGE 0 ML IV ONE (07:56)
[2019-08-05] MEDS: AZITHROMYCIN 250 MG TAB PO SCH (07:56)
[2019-08-05] MEDS: EZETIMIBE 10 MG TABLET PO SCH (07:56)
[2019-08-05] MEDS: TACROLIMUS 1 MG CAP PO SCH ×2 (07:56→20:10)
[2019-08-05] MEDS: CHOLECALCIFEROL 1,000 UNITS 25 MCG TAB PO SCH (07:57)
[2019-08-05] MEDS: SODIUM BICARBONATE 650 MG TAB PO SCH ×2 (07:57→20:07)
[2019-08-05] MEDS ORDERED: EPOETIN ALFA 20,000 UNITS/ML VIAL IV SCH (09:00)
[2019-08-05] MEDS ORDERED: IRON SUCROSE 100 MG in SYRINGE 0 ML IV SCH (09:00)
[2019-08-05 11:30] LABS: INR 1.6 (0.9-1.1); Prothrombin Time 16.6 Seconds (9.0-12.0)
[2019-08-05] MEDS: HEPARIN SOD (PORCINE) 1000 UNIT/ML 10 ML VIAL IV SCH ×2 (12:22→12:23)
--- NOTE | 2019-08-05 14:17 | Hospitalist Progress Note ---
Date of Service August 05, 2019 Assessment & Plan (1) Acute and chronic respiratory failure with hypoxia: Symptom has resolved, no shortness of breath no orthopnea no dyspnea on exertion Respiratory status improved after dialysis Presented with acute respiratory failure/with volume overload bilateral pulmonary congestion Oxygen saturation was 89% on 4 L nasal cannula in ED. Acute respiratory failure due to combination of acute on chronic CHF with diastolic heart failure/HFp EF Worsening of underlying advanced CKD stage v -causing fluid retention On admission chest x-ray shows progression of pulmonary congestion Echocardiogram from 07/11/2019 showed an EF of 50 to 60% with grade 2 diastolic dysfunction and no significant valvular pathology with mild left atrial enlargement. Concentric LVH was also noted. Continued with IV Lasix 40 twice daily Patient has left upper arm AV fistula Appreciate input from nephrology Patient had 2 dialysis treatment during this hospital stay, AV fistula got infiltrated during #third dialysis treatment Patient's volume status is markedly improved after 2 dialysis treatment Shortness of breath no cough no dyspnea on exertion, patient is able to ambulate comfortably Scheduled to have outpatient dialysis Wednesday (2) Acute on chronic diastolic heart failure: Due to worsening of renal failure Volume status improved after dialysis Patient is scheduled for outpatient dialysis on Wednesday and Wednesday schedule at [facility] Continue fluid restriction 1500 mL/day AV fistula infiltrated, unable to use it for further dialysis treatment Vascular surgery consulted for permacath placement on Wednesday (3) Abnormal CT scan, chest: High-resolution CT of chest as noted above. Pulmonology consulted, appreciate input Recent mycoplasma IgM elevated- started on azithromycin. Complete total 7 days of course Patient will need continued dialysis for volume management Scheduled for permacath placement on Wednesday, as left arm AV fistula-is infiltrated (4) Hypertension: Continue metoprolol, amlodipine, and hydralazine. (5) Status post liver transplant: History of cirrhosis attributed to HERNANDEZ. S/P liver transplant at [facility] 2012. Continue mycophenolate mofetil and tacrolimus. (6) CKD (chronic kidney disease) stage 5, GFR less than 15 ml/min: END stage renal disease on dialysis. Recent AV fistula LUE-placed by vascular surgery at [facility] Appreciate input from nephrology, Started dialysis using the left AV fistula on left arm, AV fistula was infiltrated 08/03/2019 unable to complete dialysis, Marked area of hematoma, ecchymosis noted unable to any further dialysis treatment Vascular surgery consulted for permacath placement on 08/07/2019 Outpatient dialysis set up first day of treatment at [facility] [place] on 08/08/2019 (7) DM type 2 (diabetes mellitus, type 2): DM type 2, managed with insulin aspartate as outpatient. Hgb A1c was 6.5 on 07/11/19. Continue with Lantus / NovoLog. While inpatient (8) Anemia: Probable anemia of chronic disease secondary to advanced CKD. Hemoglobin remained stable at 10 (9) DVT (deep venous thrombosis): Recently diagnoses DVT of right calf. INR 1.8 today Coumadin kept on hold for planned permacath placement on Wednesday (10) DVT prophylaxis: , As Coumadin will be kept on hold for procedure on Wednesday (11) Discharge planning issues: Discharge home on 08/07/2019 after PermCath placement followed by dialysis Update given to patient's over the phone Family Medicine follow-up with Dr. Maldonado. Nephrology follow-up with Dr. Kamara. set up done for outpatient dialysis at [facility] with Wednesday schedule Admission and Anticipated Discharge Date Admission Date: July 28, 2019 Subjective Unable to have dialysis today secondary to AV fistula. Infiltration again Does not have any cough, no fever or chills no orthopnea no dyspnea on exertion Patient reports of feeling fine Plan for PermCath placement by vascular surgery on Wednesday followed by dialysis Review of Systems Review of Systems: All systems reviewed & are unremarkable except as noted in HPI & below Constitutional: no fever, no chills and no weakness Respiratory: no cough, no dyspnea, no dyspnea on exertion and no wheezing Cardiovascular: no chest pain, no dyspnea, no dyspnea at rest, no dyspnea on exertion, no orthopnea, no palpitations, no lightheadedness, no syncope and no edema Physical Exam Constitutional: WD/WN, vitals as above no acute distress Eyes: PERRL, conjunctivae normal, anicteric sclerae ENMT: external ear and nose normal, oropharynx normal Neck: trachea midline, no thyromegaly Respiratory: normal respiratory effort, lungs clear to auscultation no respiratory distress Auscultation: no wheezes Cardiovascular: Rate/Rhythm: regular rate and regular rhythm Gastrointestinal (Abdomen): Inspection/Auscultation: normal bowel sounds Percussion/Palpation: abdomen soft; abdomen nontender Musculoskeletal: no cyanosis or clubbing, extremities motor strength 5/5 Extremities: + upper extremity abnormal to inspection (Hematoma/swelling noted on left upper arm AV fistula,) Left Skin: no rashes, warm and dry + ecchymosis (Left upper arm above AV fistula hematoma) Neurologic: PERRL, EOMI, accommodation nl, no face palsy, no dysarthria Psychiatric: A+Ox3, euthymic affect Results & Data ([facility]) Vital Signs (Past 12 Hours) Vital Signs Temp Pulse Pulse Pulse Resp BP Pulse Ox 08/05/19 10:51 36.7 C 72 20 112/61 96 08/05/19 08:00 77 08/05/19 07:17 36.6 C 75 20 139/67 96 08/05/19 03:20 36.7 C 73 16 138/72 97
--- NOTE | 2019-08-05 17:18 | Nephrology Progress Note ---
Date of Service August 05, 2019 Assessment & Plan (1) ESRD (end stage renal disease) on dialysis: Given fluid overload concerns, second admission for complications of vol OL in less than a month, he started dialysis for ESRD -cont lasix 40 mg bid IV -avf infiltrated shortly into 3rd tx. cont to ice arm today and rest it. we attempted to cannulate today but did not go well -vascular consulted for TDC on 08/06; plan short tx that day and d/c >>he is to start HD as OP on 08/07. >>his AVF is only one month old and may not tolerate upratcheting like a more mature avf -daily bmp -cont FR 1.8L -cont dialysis diet -cont daily standing wt in house (2) Immunocompromised patient: -target FK is 3-5 per May 2019 txplt note; his level was a bit over target earlier this admission adn I had lowered FK dose; however in national health crisis worry about getting labs for this patient and will therefore resume prior FK dose; defer to OP txplt team to manage his immunosuppression after health crisis settles -cont current MMF dose for now -as above FK back up to 1 mg bid (3) Acute and chronic respiratory failure with hypoxia: pulmonary recs appreciated; volume mitigation strategies as above -very important to keep 3/30 appt if possible w/ Dr Espinoza [facility] pulm; may be a telehealth visit Admission and Anticipated Discharge Date Admission Date: July 28, 2019 Subjective seen on rounds this evening; failed cannulation attempt today. breathing ok; not worsening; voiding a lot on lasix; still w/ cough; no n/v though did not like supper; no edema Review of Systems Review of Systems: All systems reviewed & are unremarkable except as noted in HPI & below Physical Exam Constitutional: well developed, well nourished and cooperative; no acute distress Eyes: EOM intact bilaterally ENMT: Ears: no external ear abnormality Nose: no external nose abnormality Mouth: + dry oral mucous membranes Neck: no nuchal rigidity Respiratory: normal respiratory effort, + cough (today dry cough back) and able to speak in complete sentences; no respiratory distress and no labored breathing Auscultation: + diminished lung sounds and + crackles (L base) Cardiovascular: RRR, no murmur, no edema Rate/Rhythm: regular rate and regular rhythm Extremities: + AV fistula (+ t/b; has bruising/induration over avf); no edema Gastrointestinal (Abdomen): Inspection/Auscultation: normal bowel sounds Percussion/Palpation: abdomen soft; abdomen nontender Musculoskeletal: Extremities: strength 5/5 throughout Skin: no rashes, warm and dry Neurologic: sam, no tremor Psychiatric: A+Ox3, euthymic affect Results & Data ([facility]) Vital Signs (Past 12 Hours) Vital Signs Temp Pulse Pulse Pulse Resp BP Pulse Ox 08/05/19 16:00 77 08/05/19 15:23 36.6 C 73 18 130/68 93 08/05/19 10:51 36.7 C 72 20 112/61 96 08/05/19 08:00 77 08/05/19 07:17 36.6 C 75 20 139/67 96 Laboratory Results 08/04/19 05:03 08/04/19 05:03
[2019-08-05] MEDS: HEPARIN SOD 5,000 UNIT/0.5 ML VIAL SQ SCH (20:13)
[2019-08-06 06:18] LABS: INR 1.5 (0.9-1.1); Prothrombin Time 15.8 Seconds (9.0-12.0)
[2019-08-06] MEDS: ENTECAVIR PO SCH (06:23)
[2019-08-06] MEDS: LEVOTHYROXINE SODIUM 75 MCG TABLET PO SCH (06:24)
[2019-08-06 06:55] LABS: BUN Creatinine Ratio 13.1 (10-20); Calcium 8.7 mg/dl (8.5-10.1); Creatinine Clr Calc Pharmacy 14.9 ml/min; Est GFR (African American) 11.3; Est GFR (Non-African American) 9.8; Potassium 3.5 mmol/L (3.5-5.1)
[2019-08-06] MEDS: TACROLIMUS 1 MG CAP PO SCH ×2 (08:34→20:01)
[2019-08-06] MEDS: AZITHROMYCIN 250 MG TAB PO SCH (08:34)
[2019-08-06] MEDS: FUROSEMIDE 40 MG in SYRINGE 0 ML IV SCH ×2 (08:34→17:06)
[2019-08-06] MEDS: AMLODIPINE BESYLATE 5 MG TAB PO SCH ×2 (08:35→19:59)
[2019-08-06] MEDS: EZETIMIBE 10 MG TABLET PO SCH (08:36)
[2019-08-06] MEDS: SODIUM BICARBONATE 650 MG TAB PO SCH ×2 (08:36→20:01)
[2019-08-06] MEDS: CHOLECALCIFEROL 1,000 UNITS 25 MCG TAB PO SCH (08:36)
[2019-08-06] MEDS: METOPROLOL SUCC 50MG EXT REL TAB PO SCH (08:36)
[2019-08-06] MEDS: PANTOprazole 40 MG TAB PO SCH ×2 (08:36→20:01)
[2019-08-06] MEDS: MYCOPHENOLATE MOFETIL 250 MG CAP PO SCH ×2 (08:36→20:01)
[2019-08-06] MEDS: HEPARIN SOD 5,000 UNIT/0.5 ML VIAL SQ SCH ×2 (08:37→20:00)
[2019-08-06] MEDS: NYSTATIN SUSP 500,000 U/5 ML UDC PO SCH ×4 (08:37→19:59)
[2019-08-06] MEDS: INSULIN ASPART 100 UNITS/ML 3 ML PEN SC SCH ×4 (08:38→20:07)
--- NOTE | 2019-08-06 11:03 | Ultrasound Report ---
BILATERAL LOWER EXTREMITY VENOUS DOPPLER HISTORY: Acute pain and swelling of the lower extremities hx of bilat DVT COMPARISON STUDY: Doppler study 07/10/2019 FINDINGS: There is normal compressibility, flow, and augmentation within the bilateral lower extremit y deep venous systems. IMPRESSION: No DVT within the right or left lower extremity. ACT 112: Negative or not required by law. Electronically signed by: Phillip Murcia M.D. 08/06/2019 11:02 AM
--- NOTE | 2019-08-06 17:57 | Hospitalist Progress Note ---
Date of Service August 06, 2019 Assessment & Plan (1) Acute and chronic respiratory failure with hypoxia: Respiratory status improved after dialysis no Complain of shortness of breath/orthopnea/dyspnea on exertion pt will need chronic dialysis Left arm AV fistula nonfunctioning secondary to infiltration/hematoma Plan for PermCath placed tomorrow 08/06/2020 2 for dialysis access Presented with acute respiratory failure/with volume overload bilateral pulmonary congestion Oxygen saturation was 89% on 4 L nasal cannula in ED. Symptom has resolved since post dialysis, remains in room air-not requiring supplemental oxygen Acute respiratory failure due to volume overload causing acute on chronic CHF with diastolic heart failure/HFp EF End-stage renal disease now requiring dialysis for volume management On admission chest x-ray shows progression of pulmonary congestion Echocardiogram from 07/11/2019 showed an EF of 50 to 60% with grade 2 diastolic dysfunction and no significant valvular pathology with mild left atrial enlargement. Concentric LVH was also noted. On Lasix 40 mg IV twice daily Appreciate input from nephrology, started dialysis treatment during this hospital stay Left arm AV fistula got infiltrated during #third dialysis treatment Will need permacath placement for dialysis access Scheduled to have outpatient dialysis Wednesday (2) Acute on chronic diastolic heart failure: Management as outlined above Patient is scheduled for outpatient dialysis on Wednesday and Wednesday schedule at [facility] Continue fluid restriction 1500 mL/day AV fistula infiltrated, PermCath placement on Wednesday (3) Abnormal CT scan, chest: High-resolution CT of chest as noted above. Pulmonology consulted, appreciate input Recent mycoplasma IgM elevated- started on azithromycin. Complete total 7 days of course (4) Hypertension: Continue metoprolol, amlodipine, and hydralazine. (5) Status post liver transplant: History of cirrhosis attributed to HERNANDEZ. S/P liver transplant at [facility] [place]. Continue mycophenolate mofetil and tacrolimus. (6) CKD (chronic kidney disease) stage 5, GFR less than 15 ml/min: END stage renal disease on dialysis. Recent AV fistula LUE-placed by vascular surgery at [facility] Appreciate input from nephrology, Started dialysis during this admission using the left AV fistula on left arm, AV fistula was infiltrated 08/03/2019 unable to complete dialysis, Marked area of hematoma, ecchymosis noted unable to any further dialysis treatment Vascular surgery consulted for permacath placement on 08/07/2019 Outpatient dialysis set up first day of treatment at [facility] on 08/08/2019 (7) DM type 2 (diabetes mellitus, type 2): DM type 2, managed with insulin aspartate as outpatient. Hgb A1c was 6.5 on 07/11/19. Continue with Lantus / NovoLog. While inpatient (8) Anemia: Probable anemia of chronic disease secondary to advanced CKD. Hemoglobin remained stable at 10 (9) DVT (deep venous thrombosis): Recently diagnoses DVT of right calf on ultrasound 07/11/2019:Deep venous thrombus within one of two paired right posterior tibial veins 3-6-month of anticoagulation commended Coumadin kept on hold for PermCath placement tomorrow Continue subcu heparin for DVT prophylaxis Per extremity Doppler today 08/06/2019 no DVT within right on left lower extremity Peripheral vascular disease:With type 2 diabetes Arterial ultrasound of lower extremity bilateral: 07/11/2019: 1. Occluded bilateral distal posterior tibial arteries.. 2. Monophasic waveforms within the bilateral dorsalis pedis arteries likely due to diffuse atherosclerotic disease. 3. Multifocal areas of stenosis as described above. Patient was seen by vascular surgery team on 07/12/2027 Per vascular surgery: Vascular procedure/surgical intervention was not planned as patient had only mild/moderate claudication (10) DVT prophylaxis: Subcu heparin , As Coumadin on hold for procedure on Wednesday (11) Discharge planning issues: Possible discharge home on 08/07/2019 after PermCath placement followed by dialysis Family Medicine follow-up with Dr. Maldonado. Nephrology follow-up with Dr. Kamara. set up done for outpatient dialysis at [facility] with Wednesday schedule Admission and Anticipated Discharge Date Admission Date: July 28, 2019 Subjective No complaint, no shortness of breath orthopnea, no hypoxia No fever or chills Scheduled for permacath placement tomorrow for dialysis access Review of Systems Review of Systems: All systems reviewed & are unremarkable except as noted in HPI & below Constitutional: no fever, no chills, no fatigue and no problem reported Respiratory: no cough, no dyspnea, no sputum production and no wheezing Cardiovascular: no dyspnea on exertion, no orthopnea, no palpitations, no lightheadedness, no syncope and no edema Musculoskeletal: Left arm/swelling at the fistula site, hematoma noted Physical Exam Constitutional: WD/WN, vitals as above no acute distress Eyes: PERRL, conjunctivae normal, anicteric sclerae ENMT: external ear and nose normal, oropharynx normal Neck: trachea midline, no thyromegaly Respiratory: normal respiratory effort, lungs clear to auscultation no respiratory distress Auscultation: no wheezes Cardiovascular: Rate/Rhythm: regular rate and regular rhythm Gastrointestinal (Abdomen): Inspection/Auscultation: normal bowel sounds Percussion/Palpation: abdomen soft; abdomen nontender Musculoskeletal: no cyanosis or clubbing, extremities motor strength 5/5 Extremities: + upper extremity abnormal to inspection (Hematoma/swelling noted on left upper arm AV fistula,) Left Skin: no rashes, warm and dry + ecchymosis (Left upper arm above AV fistula hematoma) Neurologic: PERRL, EOMI, accommodation nl, no face palsy, no dysarthria Psychiatric: A+Ox3, euthymic affect Results & Data ([facility]) Vital Signs (Past 12 Hours) Vital Signs Temp Pulse Pulse Pulse Resp BP BP 08/06/19 17:02 36.4 C L 72 18 130/69 08/06/19 16:00 71 08/06/19 11:19 36.6 C 68 20 118/62 08/06/19 08:00 76 08/06/19 07:16 36.4 C L 69 20 125/64 Pulse Ox 08/06/19 17:02 91 08/06/19 16:00 08/06/19 11:19 94 08/06/19 08:00 08/06/19 07:16 92
[2019-08-07] MEDS: LEVOTHYROXINE SODIUM 75 MCG TABLET PO SCH (05:30)
[2019-08-07] MEDS: ENTECAVIR PO SCH (05:31)
[2019-08-07] MEDS ORDERED: CEFAZOLIN 2000MG 2,000 MG/15 ML SYR IV SCH (06:00)
[2019-08-07 06:21] LABS: INR 1.4 (0.9-1.1); Prothrombin Time 14.6 Seconds (9.0-12.0)
[2019-08-07 06:58] LABS: BUN Creatinine Ratio 13.7 (10-20); Calcium 8.9 mg/dl (8.5-10.1); Creatinine Clr Calc Pharmacy 13.9 ml/min; Est GFR (African American) 10.4; Potassium 3.5 mmol/L (3.5-5.1)
[2019-08-07] MEDS: INSULIN ASPART 100 UNITS/ML 3 ML PEN SC SCH ×2 (07:47→12:05)
[2019-08-07] MEDS: HEPARIN SOD 5,000 UNIT/0.5 ML VIAL SQ SCH (07:48)
[2019-08-07] MEDS: TACROLIMUS 1 MG CAP PO SCH (07:53)
[2019-08-07] MEDS: PANTOprazole 40 MG TAB PO SCH (07:54)
[2019-08-07] MEDS: METOPROLOL SUCC 50MG EXT REL TAB PO SCH (07:54)
[2019-08-07] MEDS: AMLODIPINE BESYLATE 5 MG TAB PO SCH (07:54)
[2019-08-07] MEDS: EZETIMIBE 10 MG TABLET PO SCH (07:55)
[2019-08-07] MEDS: MYCOPHENOLATE MOFETIL 250 MG CAP PO SCH (07:55)
[2019-08-07] MEDS: SODIUM BICARBONATE 650 MG TAB PO SCH (07:55)
[2019-08-07] MEDS: FUROSEMIDE 40 MG in SYRINGE 0 ML IV SCH (08:00)
[2019-08-07] MEDS: CHOLECALCIFEROL 1,000 UNITS 25 MCG TAB PO SCH (08:00)
[2019-08-07] MEDS: NYSTATIN SUSP 500,000 U/5 ML UDC PO SCH ×2 (08:01→14:40)
--- NOTE | 2019-08-07 08:12 | Consultation ---
Date of Consultation August 07, 2019 Assessment & Plan (1) Dialysis AV fistula malfunction: This point we recommend PermCath insertion. This will be scheduled today. I have discussed the risks options and benefits of the procedure with the patient. The patient understands the risks options and benefits and agrees to the procedure. History of Present Illness Reason for Consultation: End-stage renal disease with inability to access fistula. Attending Physician: Tamara Santizo MD History of Present Illness This is a 69-year-old gentleman who recently had a fistula created. He had 2 attempts to access the fistula to try to undergo dialysis. Both attempts were unsuccessful. He is in need of a PermCath for dialysis purposes. Allergies Allergy/AdvReac Type Severity Reaction Status Date / Time adhesive tape AdvReac Severe skin tears Unverified 07/28/19 14:24 [id number] Reductase AdvReac Severe muscle and Unverified 07/28/19 14:24 Inhibitor joint aches lisinopril AdvReac Unknown Unknown Unverified 07/28/19 14:24 aspirin AdvReac told Verified 07/28/19 14:24 him to not take any aspirin Home Medications Home Medications Medication Instructions Recorded Confirmed Type amlodipine 5 mg PO BID 07/10/19 07/28/19 History cholecalciferol (vitamin D3) 2,000 unit PO QAM 07/10/19 07/28/19 History [Vitamin D3] entecavir 0.5 mg PO QAM 07/10/19 07/28/19 History ezetimibe [Zetia] 10 mg PO QAM 07/10/19 07/28/19 History hydralazine 75 mg PO BID 07/10/19 07/28/19 History hydroxyzine HCl 25 mg PO Q6 PRN 07/10/19 07/28/19 History insulin aspart U-100 10 - 16 unit SUBCUT TIDM 07/10/19 07/28/19 History levothyroxine 75 mcg PO QAM 07/10/19 07/28/19 History metoprolol succinate 100 mg PO QAM 07/10/19 07/28/19 History mycophenolate mofetil 250 mg PO BID 07/10/19 07/28/19 History omeprazole 20 mg PO BID 07/10/19 07/28/19 History sodium bicarbonate 1,300 mg PO BID 07/10/19 07/28/19 History tacrolimus 1 mg PO Q12H 07/10/19 07/28/19 History furosemide 40 mg PO BID17 30 Days #30 tab 07/17/19 07/28/19 Rx warfarin [Coumadin] 0 mg PO DAILY@1700 07/28/19 07/28/19 History Patient History Medical History Abnormal CT scan, chest ACEI/ARB contraindicated Acute hypoxemic respiratory failure Acute hypoxemic respiratory failure Acute on chronic diastolic heart failure Anemia CKD (chronic kidney disease) stage 5, GFR less than 15 ml/min Diabetes mellitus type 2 with complications Diastolic CHF, acute on chronic DVT (deep venous thrombosis) Esophageal varices History of hepatocellular carcinoma associated with HERNANDEZ cirrhosis; s/p liver transplant Hypertension Hypothyroidism 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 Immunocompromised patient Liver transplant recipient HERNANDEZ (nonalcoholic steatohepatitis) Peripheral vascular disease in diabetes mellitus Sleep apnea Surgical History Status post liver transplant Family History Mother Colorectal cancer Diabetes Father Non-Hodgkin lymphoma Sister Renal cancer Sister Diabetes Brother Diabetes Social History Preferred Language: Filipino Communication Ability: Effective Biology Intern Required: No Beliefs That Will Affect Care: None Current Living Situation: Spouse Current Living Situation Comment: lives with Other Information That Helps Us Care for You: No Feels Safe at Home: Yes Safety Concerns: Feels Safe At This Time Smoking Status: Former smoker Hx Alcohol Use: No Hx Substance Use: No Review of Systems Review of Systems: All systems reviewed & are unremarkable except as noted in HPI & below Physical Exam Constitutional: well developed and well nourished Respiratory: normal respiratory effort, lungs clear to auscultation Cardiovascular: RRR, no murmur, no edema Extremities: + AV fistula Gastrointestinal (Abdomen): normal bowel sounds, soft, nontender, no hepatosplenomegaly Musculoskeletal: ecchymotic left upper arm Psychiatric: A+Ox3, euthymic affect Results & Data Vital Signs (Past 12 Hours) Vital Signs Temp Pulse Pulse Resp BP Pulse Ox 08/07/19 07:20 36.3 C L 68 20 124/63 94 08/07/19 04:00 36.7 C 79 18 132/71 100 08/06/19 22:56 36.6 C 70 22 133/55 L 95
[2019-08-07] MEDS ORDERED: LIDOCAINE HCL 1% 20 ML VIAL ONE (09:45)
[2019-08-07] MEDS ORDERED: HEPARIN SOD (PORCINE) 5,000 UNITS/ML VIAL ONE (09:46)
[2019-08-07] MEDS ORDERED: fentaNYL citrate 100 MCG/2 ML VIAL ONE (09:46)
[2019-08-07] MEDS ORDERED: MIDAZOLAM HCL 1 MG/ML 2ML VIAL ONE (09:47)
[2019-08-07] MEDS ORDERED: SODIUM CHLORIDE 0.9% 1000ML 1,000 ML IV PRN (09:53)
[2019-08-07] MEDS ORDERED: HEPARIN SOD (PORCINE) 1000 UNIT/ML 10 ML VIAL IV ONE (09:53)
--- NOTE | 2019-08-07 10:06 | Pre Anesthesia Assessment ---
Date of Service August 07, 2019 Pre Sedation Assessment Vital Signs Temp Pulse Pulse Pulse Pulse Resp BP 08/07/19 09:49 36.6 C 68 20 08/07/19 07:20 36.3 C L 68 20 08/07/19 04:00 36.7 C 79 18 08/06/19 22:56 36.6 C 70 22 08/06/19 18:54 36.6 C 75 18 08/06/19 17:02 36.4 C L 72 18 130/69 08/06/19 16:00 71 08/06/19 11:19 36.6 C 68 20 BP Pulse Ox 08/07/19 09:49 124/63 94 08/07/19 07:20 124/63 94 08/07/19 04:00 132/71 100 08/06/19 22:56 133/55 L 95 08/06/19 18:54 139/68 91 08/06/19 17:02 91 08/06/19 16:00 08/06/19 11:19 118/62 94 Cardiovascular RRR, no murmur, no edema Respiratory normal respiratory effort, lungs clear to auscultation Pre-Sedation Airway Assessment Smoking Status: Former smoker Hx Sleep Apnea: Yes (Used a CPAP about 7 years ago but does not use now after liver transplant.) Short, Thick Neck: No Thyromental Distance: > or= 3.5 Finger Breadths Oral Cavity: + Capped Teeth Mallampati Class: II ASA: ASA3 NPO Status Date of Last Intake of Fluids: 08/07/19 Time of Last Intake of Fluids: 08:00 Date of Last Intake of Solid Food: 08/06/19 Time of Last Intake of Solid Foods: 16:30 Procedure Planning Contraindications for Sedation: none Current Medications Reviewed: Yes Notes The planned sedation has been discussed with the patient. Informed Consent was obtained. I have identified the patient, determined the appropriateness of sedation and have assessed the patient immediately prior to the procedure. All medicine(s) and interventions are by my order.
[2019-08-07] MEDS ORDERED: IRON SUCROSE 100 MG in SYRINGE 0 ML IV SCH (10:15)
[2019-08-07] MEDS ORDERED: SODIUM CHLORIDE 0.9% 1000ML 1,000 ML IV SCH (10:15)
[2019-08-07] MEDS ORDERED: EPOETIN ALFA 4,000 UNIT/ML VIAL IV ONE (10:15)
--- NOTE | 2019-08-07 10:25 | Nephrology Progress Note ---
Date of Service August 07, 2019 Assessment & Plan (1) ESRD (end stage renal disease) on dialysis: Given fluid overload concerns, second admission for complications of vol OL in less than a month, he started dialysis for ESRD -cont lasix 40 mg bid IV. Please change to Lasix 80 mg p.o. once daily on discharge. -avf infiltrated shortly into 3rd tx. cont to ice arm today and rest it. we attempted to cannulate today but did not go well -vascular planning for TDC on 08/06; -We will do HD for 2 hours on a 4K bath and target UF of 2 L. From renal standpoint patient can be discharged after dialysis today. Patient is also booked for dialysis tomorrow in [place]. (2) Immunocompromised patient: -target FK is 3-5 per May 2019 txplt note; his level was a bit over target earlier this admission adn I had lowered FK dose; however in national health crisis worry about getting labs for this patient and will therefore resume prior FK dose; defer to OP txplt team to manage his immunosuppression after health crisis settles -cont current MMF dose for now -as above FK back up to 1 mg bid (3) Acute and chronic respiratory failure with hypoxia: pulmonary recs appreciated; volume mitigation strategies as above -very important to keep 08/13 appt if possible w/ Dr Espinoza [facility] pulm; may be a telehealth visit Admission and Anticipated Discharge Date Admission Date: July 28, 2019 Subjective Patient feels better today. Breathing is better. No oxygen needed but has o xygen at home. He has bruising on the left upper arm at the site of AV fistula. Last dialysis was on . Review of Systems Review of Systems: All systems reviewed & are unremarkable except as noted in HPI & below Physical Exam Physical Exam: General exam: Appears comfortable, no acute distress HEENT: Pupils are equal and reactive to light Neck: No JVD, neck is supple trachea is midline Respiratory system: Clear breath sounds bilaterally. Gastrointestinal: Abdomen is soft, non distended, non tender, bowel sounds are present CVS: Regular rate and rhythm. No murmurs, rubs or gallops Musculoskeletal: No joint or muscle tenderness Extremities: Non tender, no edema, peripheral pulses are present Neuro: Oriented, no tremors, no focal neurological deficits Skin: No rashes Access: Left upper arm AV fistula with good bruit Results & Data ([facility]) Vital Signs (Past 12 Hours) Vital Signs Temp Pulse Pulse Pulse Pulse Resp BP 08/07/19 09:49 36.6 C 68 20 124/63 08/07/19 07:20 36.3 C L 63 68 20 124/63 08/07/19 04:00 36.7 C 79 18 132/71 08/06/19 22:56 36.6 C 70 22 133/55 L Pulse Ox 08/07/19 09:49 94 08/07/19 07:20 94 08/07/19 04:00 100 08/06/19 22:56 95 Laboratory Results 08/07/19 05:23
--- NOTE | 2019-08-07 10:44 | Operative Report ---
Post Operative Report Pre & Post Diagnosis Operation Date: 08/07/19 10:00 Pre-Op Diagnosis: malfunctioning fistula Post-Op Diagnosis: malfunctioning fistula I identified the patient and participated in the time-out.: Yes Procedure Operation Date: 08/07/19 10:00 Actual Procedures p Insertion Of Perm Catheter, Ultrasound Localization Of Right Internal Jugular Vein, Fluoroscopy For Positioning, Moderate Concious Sedation 1029 to 1043(Right) - Chris Siegel MD Surgeon Chris Siegel MD [employer] Assistant None Estimated Blood Loss 3 Findings Consistent with Post-Op Diagnosis Specimens None Anesthesia Type RN Sedation Complications none Disposition Accompanied Patient To Recovery: No Disposition: PCU Indications This is a 69-year-old gentleman left upper arm access. It infiltrated at dialysis. It is non-usable at this point due to the edema and infiltration. PermCath was recommended. I have discussed the risks options and benefits of the procedure with the patient. The patient understands the risks options and benefits and agrees to the procedure. Description of Procedure Patient was taken to the angio suite and placed in the supine position. The right side of the neck and chest wall were prepped and draped in a sterile manner. The patient was identified and a timeout performed. Local anesthesia was then administered to the appropriate areas of the neck and chest wall. Ultrasound was then used to locate the right internal jugular vein. The vein compressed easily, had no filing defects, and was patent. The vein was then punctured under direct ultrasound imaging. A guidewire was then passed centrally under fluoroscopic imaging. A stab wound was then made in the anterior chest wall and a 19 cm permcath was passed from the stab wound on the chest wall to the puncture site on the neck. The puncture site was then dilated till the 14Fr peel away sheath was inserted. The permcath was then inserted through the sheath to a central position in the distal superior vena cava. The peel away sheath was then removed. The catheter was then sutured in place using nylon sutures. The puncture was then closed using a 4-0 Vicryl subcuticular suture. Dermabond was used for a dressing on the puncture site. Both ports aspirated and flushed easily and were then packed with heparin. A sterile dressing was applied to the catheter. The patient left the operation room in satisfactory condition and tolerated the procedure well. All needle and sponge counts were correct at the end of the procedure. I attest to the content of the Intraoperative Record and any orders documented therein. Any exceptions are noted below.
--- NOTE | 2019-08-07 10:51 | Post Anesthesia Assessment ---
Date of Service August 07, 2019 Post Sedation Assessment Vital Signs Temp Pulse Pulse Pulse Pulse Resp BP 08/07/19 10:43 70 15 08/07/19 10:39 67 24 08/07/19 10:35 68 14 08/07/19 10:30 70 12 08/07/19 10:25 70 12 08/07/19 10:20 71 18 08/07/19 10:19 74 16 08/07/19 09:49 36.6 C 68 20 08/07/19 07:20 36.3 C L 63 68 20 08/07/19 04:00 36.7 C 79 18 08/06/19 22:56 36.6 C 70 22 08/06/19 18:54 36.6 C 75 18 08/06/19 17:02 36.4 C L 72 18 130/69 08/06/19 16:00 71 08/06/19 11:19 36.6 C 68 20 BP Pulse Ox 08/07/19 10:43 114/64 93 08/07/19 10:39 126/71 100 08/07/19 10:35 130/69 100 08/07/19 10:30 131/64 100 08/07/19 10:25 122/56 L 100 08/07/19 10:20 115/69 100 08/07/19 10:19 124/69 100 08/07/19 09:49 124/63 94 08/07/19 07:20 124/63 94 08/07/19 04:00 132/71 100 08/06/19 22:56 133/55 L 95 08/06/19 18:54 139/68 91 08/06/19 17:02 91 08/06/19 16:00 08/06/19 11:19 118/62 94 Recovery Score Activity: Moves 4 extremities Respiration: Deep Breath/Cough Circulation: +/-20% PreAnes Value Consciousness: Fully Awake Oxygen Saturation: > 92% On Room Air Post Anesthesia Score: 10 Discharge Sedation Level of Care: Fast Track Phase II Post Sedation Plan On clinical assessment, the patient appears to have tolerated the sedation without complications. Patient is recovering as anticipated. Patient will continue to be monitored by nursing and may be discharged when sedation discharge criteria are met per below protocol. Upon Completions of procedure up to 15 minutes continue every 5 minute vital signs and the P.A.R. score; then discharge to a Phase I or Fast Track to Phase II per the following guidelines: * Discharge Patient to appropriate Phase II area if PAR is 8 or greater or return to pre- procedure baseline. The post - procedure orders will be as directed. * If PAR score is less than 8 or not return to pre-procedure baseline then patient will follow Phase I monitoring till PAR is reached for Phase II. The Phase I may be done in procedure room or may call to secure a Phase I area. * If naloxone or flumazenil are used for reversal, hold in Phase I for continued monitoring from when last reversal dose was given for a minimum of 60 minutes or longer pending the nurse and/or physician discretion of patient condition before discharge to Phase II. Please call the Sedation Physician to re-evaluate and complete post-note for discharge to Phase II area. Do NOT discharge from procedure sedation or Phase 1 until post- sedation evaluation note is complete by procedure /sedation MD Sedation Discharge Instructions to be given to the patient at discharge to home.
--- NOTE | 2019-08-07 14:44 | Hospitalist Progress Note ---
Date of Service August 07, 2019 Assessment & Plan (1) Acute and chronic respiratory failure with hypoxia: Acute respiratory failure due to volume overload causing acute on chronic CHF with diastolic heart failure/HFp EF Appreciate input from nephrology, started dialysis treatment during this hospital stay Volume status improved after dialysis treatment No further complaint of shortness of breath, orthopnea and dyspnea on exertion has resolved Left arm AV fistula infiltrated/developed hematoma PermCath placement today, had to 2 hours dialysis, Patient is discharged home, next dialysis scheduled for tomorrow 08/08/2019 at [place] [facility] Presented with acute respiratory failure/with volume overload bilateral pulmonary congestion Oxygen saturation was 89% on 4 L nasal cannula in ED. Symptom has resolved post dialysis, remains in room air-not requiring supplemental oxygen Echocardiogram from 07/11/2019 showed an EF of 50 to 60% with grade 2 diastolic dysfunction and no significant valvular pathology with mild left atrial enlargement. Concentric LVH was also noted. Patient is discharged home today, Lasix dose adjusted to 80 mg p.o. daily Scheduled to have outpatient dialysis Wednesday (2) Acute on chronic diastolic heart failure: Management as outlined above Patient is scheduled for outpatient dialysis on Wednesday and Wednesday schedule at [place] [facility] Continue fluid restriction 1800 mL/day AV fistula infiltrated, status post permacath placement for dialysis access (3) Abnormal CT scan, chest: High-resolution CT of chest as noted above. Pulmonology consulted, appreciate input Recent mycoplasma IgM elevated- started on azithromycin. Complete total 7 days of course Patient is scheduled for a pulmonology follow-up at [facility] pulmonology clinic next 08/14/2019 (4) Hypertension: Continue metoprolol, amlodipine, and hydralazine. (5) Status post liver transplant: History of cirrhosis attributed to HERNANDEZ. S/P liver transplant at [facility] [place]. Continue mycophenolate mofetil and tacrolimus. (6) CKD (chronic kidney disease) stage 5, GFR less than 15 ml/min: END stage renal disease on dialysis. Recent AV fistula LUE-placed by vascular surgery at [facility] Appreciate input from nephrology, Started dialysis during this admission using the left AV fistula on left arm, AV fistula was infiltrated 08/03/2019 unable to complete dialysis, Vascular surgery consulted s/p permacath placement on 08/07/2019 (7) DM type 2 (diabetes mellitus, type 2): DM type 2, managed with insulin aspartate as outpatient. Hgb A1c was 6.5 on 07/11/19. Continue with Lantus / NovoLog. Patient diabetic meds resumed on discharge (8) Anemia: Probable anemia of chronic disease secondary to advanced CKD. Hemoglobin remained stable at 10 (9) DVT (deep venous thrombosis): Recently diagnoses DVT of right calf on ultrasound 07/11/2019:Deep venous thrombus within one of two paired right posterior tibial veins 3-6-month of anticoagulation commended Lower extremity Doppler 08/06/2019 no DVT within right on left lower extremity Peripheral vascular disease:With type 2 diabetes Arterial ultrasound of lower extremity bilateral: 07/11/2019: 1. Occluded bilateral distal posterior tibial arteries.. 2. Monophasic waveforms within the bilateral dorsalis pedis arteries likely due to diffuse atherosclerotic disease. 3. Multifocal areas of stenosis as described above. Patient was seen by vascular surgery team on 07/12/2027 Per vascular surgery: Vascular procedure/surgical intervention was not planned as patient had only mild/moderate claudication (10) DVT prophylaxis: Subcu heparin was subtherapeutic Coumadin resumed (11) Discharge planning issues: Stable to be discharged home today Family Medicine follow-up with Dr. Maldonado. Nephrology follow-up with Dr. Kamara. set up done for outpatient dialysis at [facility] with Wednesday schedule Admission and Anticipated Discharge Date Admission Date: July 28, 2019 Subjective Patient had PermCath placement today, Underwent 2 hours of dialysis after that Does not have any pain or discomfort at the permacath site, no shortness of breath, no orthopnea Stable to be discharged home today Next dialysis scheduled at [facility] tomorrow Wednesday at 11:45 AM Patient will continue on Wednesday and Wednesday dialysis schedule Review of Systems Review of Systems: All systems reviewed & are unremarkable except as noted in HPI & below Constitutional: no fever and no chills Respiratory: + cough; no dyspnea, no dyspnea on exertion and no wheezing Cardiovascular: no dyspnea, no orthopnea and no edema Physical Exam Constitutional: WD/WN, vitals as above no acute distress Eyes: PERRL, conjunctivae normal, anicteric sclerae ENMT: external ear and nose normal, oropharynx normal Neck: trachea midline, no thyromegaly Respiratory: normal respiratory effort, lungs clear to auscultation no respiratory distress Auscultation: no wheezes Cardiovascular: Rate/Rhythm: regular rate and regular rhythm Gastrointestinal (Abdomen): Inspection/Auscultation: normal bowel sounds Percussion/Palpation: abdomen soft; abdomen nontender Musculoskeletal: no cyanosis or clubbing, extremities motor strength 5/5 Extremities: + upper extremity abnormal to inspection (Hematoma/swelling noted on left upper arm AV fistula,) Left Skin: no rashes, warm and dry + ecchymosis (Left upper arm above AV fistula hematoma) Neurologic: PERRL, EOMI, accommodation nl, no face palsy, no dysarthria Psychiatric: A+Ox3, euthymic affect Results & Data ([facility]) Vital Signs (Past 12 Hours) Vital Signs Temp Pulse Pulse Pulse Resp BP BP 08/07/19 14:20 74 103/74 08/07/19 14:00 71 109/65 08/07/19 13:40 68 136/73 08/07/19 13:20 68 132/62 08/07/19 13:00 67 138/69 08/07/19 12:35 36.7 C 66 08/07/19 10:55 36.8 C 71 18 118/70 08/07/19 10:43 70 15 114/64 08/07/19 10:39 67 24 126/71 08/07/19 10:35 68 14 130/69 08/07/19 10:30 70 12 131/64 08/07/19 10:25 70 12 122/56 L 08/07/19 10:20 71 18 115/69 08/07/19 10:19 74 16 124/69 08/07/19 09:49 36.6 C 68 20 124/63 08/07/19 07:20 36.3 C L 63 68 20 124/63 08/07/19 04:00 36.7 C 79 18 132/71 Pulse Ox 08/07/19 14:20 08/07/19 14:00 08/07/19 13:40 08/07/19 13:20 08/07/19 13:00 08/07/19 12:35 08/07/19 10:55 08/07/19 10:43 93 08/07/19 10:39 100 08/07/19 10:35 100 08/07/19 10:30 100 08/07/19 10:25 100 08/07/19 10:20 100 08/07/19 10:19 100 08/07/19 09:49 94 08/07/19 07:20 94 08/07/19 04:00 100
--- NOTE | 2019-08-07 17:56 | Discharge Summary ---
Date of Service August 07, 2019 Admission HPI Per Admitting Provider 69 y/o male with hx of CKD stage 5 (not on HD but w/ AV fistula placed in June 2019), hx of HERNANDEZ cirrhosis s/p liver transplant, DM type 2, who was recently discharged from our hospital. At that time pt was found hypoxic and required to be discharged on home suppl. O2. He was diagnosed with DVT at that time and started on coumadin, PE was not ruled out. Interestingly though, pt's CT images were abnormal and pulmonary medicine was consulted for possible interstitial lung disease. He was also treated with Abx for poss. pneumonia. He was supposed to follow up with [facility] pulmonary medicine but did not have an appointment yet (he says he is scheduled though). He also follows w/ nephrology, but tells me that he was not able to obtain his bicarb, and so since last discharge did not take his bicarbonate. He was established with anticoagulation clinic and his INR is therapeutic. Pt says he felt well after discharge but 2 days ago started to feel short of breath w/ exertion. He tells me that he was previously walking around w/o his oxygen and was able to do so w/o much difficulty (says he was checking his pulse ox when he did it but can not remember numbers). However 2 days ago he had troubles when walking and was more short of breath. His pulse ox was in lower 80s even with his suppl. O2 on. He also now has occasional cough, with some clear sputum. CXR in ED significant for pulm. congestion. BNP elevated. Pt denies any chest pain. EKG - NSR, normal EKG, nonspecific T wave abnormality in inf. leads. Pt says he has been taking his lasix as prescribed. ED provider gave 40 IV lasix. Hospitalist team was called for further management. Reviewed pt's chart and noted messages between nephrology office and the pt. Pt reported not able to take bicarb. Gave 1,300 mg bicarb in the ED. (bicarb ~17 on current labs). On my evaluation pt is lying in bed, pt's at the bedside. pt is in NAD, he is using suppl. O2. Denies any fever, chills, travel, or sick contacts. Denies any sore throat, or sinus pressure. As above, denies any chest pain. He also denies any abd. pain, nausea, vomiting, diarrhea. Principal Diagnosis End-stage renal disease on dialysis, decompensated CHF with diastolic dysfunction Discharge Exam Constitutional WD/WN, vitals as above no acute distress Eyes PERRL, conjunctivae normal, anicteric sclerae ENMT external ear and nose normal, oropharynx normal Neck trachea midline, no thyromegaly Respiratory normal respiratory effort, lungs clear to auscultation no respiratory distress Auscultation: no wheezes Cardiovascular Rate/Rhythm: regular rate and regular rhythm Extremities: + pedal edema (+12) Gastrointestinal (Abdomen) Inspection/Auscultation: normal bowel sounds Percussion/Palpation: abdomen soft; abdomen nontender Musculoskeletal no cyanosis or clubbing, extremities motor strength 5/5 Extremities: + upper extremity abnormal to inspection (Hematoma/swelling noted on left upper arm AV fistula,) Left Skin no rashes, warm and dry + ecchymosis (Left upper arm above AV fistula hematoma) Neurologic PERRL, EOMI, accommodation nl, no face palsy, no dysarthria Psychiatric A+Ox3, euthymic affect Discharge Data Allergies Allergy/AdvReac Type Severity Reaction Status Date / Time adhesive tape AdvReac Severe skin tears Verified 08/07/19 09:49 Tolwmue-Cdw-Rmp Reductase AdvReac Severe muscle and Verified 08/07/19 09:49 Inhibitor joint aches lisinopril AdvReac Unknown Unknown Verified 08/07/19 09:[address] guzman Verified 08/07/19 09:49 him to not take any aspirin Consultations 07/28/19 15:16 ED Decision to Admit Stat 07/28/19 15:53 Consult Nephrology Routine 07/30/19 08:00 Consult Pulmonology Routine 08/05/19 09:40 Consult Vascular Surgery Routine Procedures Performed Operation Date: 08/07/19 10:00 Actual Procedures p Insertion Of Perm Catheter, Ultrasound Localization Of Right Internal Jugular Vein, Fluoroscopy For Positioning, Moderate Concious Sedation 1029 to 1043(Right) - Chris Siegel MD Ordered Studies 07/30/19 10:56 CT chest HighResolution wo con Urgent 08/06/19 10:19 US venous doppler LE BI Routine 08/07/19 09:47 EV cvc insrt tunnel wo prt/amalgamator Routine Hospital Course (1) Acute and chronic respiratory failure with hypoxia: Acute respiratory failure due to volume overload causing acute on chronic CHF with diastolic heart failure/HFp EF Appreciate input from nephrology, started dialysis treatment during this hospital stay Volume status improved after dialysis treatment No further complaint of shortness of breath, orthopnea and dyspnea on exertion has resolved Left arm AV fistula infiltrated/developed hematoma PermCath placement today, had to 2 hours dialysis, Patient is discharged home, next dialysis scheduled for tomorrow 08/08/2019 at [facility] Presented with acute respiratory failure/with volume overload bilateral pulmonary congestion Oxygen saturation was 89% on 4 L nasal cannula in ED. Symptom has resolved post dialysis, remains in room air-not requiring supplemental oxygen Echocardiogram from 07/11/2019 showed an EF of 50 to 60% with grade 2 diastolic dysfunction and no significant valvular pathology with mild left atrial enlargement. Concentric LVH was also noted. Patient is discharged home today, Lasix dose adjusted to 80 mg p.o. daily Scheduled to have outpatient dialysis Wednesday (2) Acute on chronic diastolic heart failure: Management as outlined above Patient is scheduled for outpatient dialysis on Wednesday and Wednesday schedule at [facility] Continue fluid restriction 1800 mL/day AV fistula infiltrated, status post permacath placement for dialysis access (3) Abnormal CT scan, chest: High-resolution CT of chest as noted above. Pulmonology consulted, appreciate input Recent mycoplasma IgM elevated- started on azithromycin. Complete total 7 days of course Patient is scheduled for a pulmonology follow-up at [facility] pulmonology clinic next 08/14/2019 (4) Hypertension: Continue metoprolol, amlodipine, and hydralazine. (5) Status post liver transplant: History of cirrhosis attributed to HERNANDEZ. S/P liver transplant at [facility] [place]. Continue mycophenolate mofetil and tacrolimus. (6) CKD (chronic kidney disease) stage 5, GFR less than 15 ml/min: END stage renal disease on dialysis. Recent AV fistula LUE-placed by vascular surgery at [facility] Appreciate input from nephrology, Started dialysis during this admission using the left AV fistula on left arm, AV fistula was infiltrated 08/03/2019 unable to complete dialysis, Vascular surgery consulted s/p permacath placement on 08/07/2019 (7) DM type 2 (diabetes mellitus, type 2): DM type 2, managed with insulin aspartate as outpatient. Hgb A1c was 6.5 on 07/11/19. Continue with Lantus / NovoLog. Patient diabetic meds resumed on discharge (8) Anemia: Probable anemia of chronic disease secondary to advanced CKD. Hemoglobin remained stable at 10 (9) DVT (deep venous thrombosis): Recently diagnoses DVT of right calf on ultrasound 07/11/2019:Deep venous thrombus within one of two paired right posterior tibial veins 3-6-month of anticoagulation commended Lower extremity Doppler 08/06/2019 no DVT within right on left lower extremity Peripheral vascular disease:With type 2 diabetes Arterial ultrasound of lower extremity bilateral: 07/11/2019: 1. Occluded bilateral distal posterior tibial arteries.. 2. Monophasic waveforms within the bilateral dorsalis pedis arteries likely due to diffuse atherosclerotic disease. 3. Multifocal areas of stenosis as described above. Patient was seen by vascular surgery team on 07/12/2027 Per vascular surgery: Vascular procedure/surgical intervention was not planned as patient had only mild/moderate claudication (10) DVT prophylaxis: Subcu heparin was subtherapeutic Coumadin resumed (11) Discharge planning issues: Stable to be discharged home today Family Medicine follow-up with Dr. Maldonado. Nephrology follow-up with Dr. Kamara. set up done for outpatient dialysis at [facility] with Wednesday schedule Total Time Total Time Spent Total Time Spent (In Minutes): approx 40 mins Discharge Plan Discharge Items Patient Disposition: Home - Self-Care Reason For Visit: SHORTNESS OF BREATH Discharge Diagnosis: End-stage renal disease on dialysis, decompensated CHF with diastolic dysfunction Activity: Resume your previous activity Non-emergency contact: Primary Care Provider Call non-emergency contact if: you have any medication questions Follow-up/Referrals: Herberth Maldonado MD [Primary Care Provider] - Kaycee Sin MD [Physician] - Diet: Carb Consistent or DM2, Dialysis Renal and Heart Healthy Addtl Attending Provider Instructions: Continue scheduled dialysis as an outpatient on Wednesday schedule Plan follow-up with family physician in a week, please call to schedule an appointment FOLLOW UP WITH PULMONOLOGY MEDICINE Dr Angel Espinoza MD on 08/14/2019 @ 8:00 AM Pulmonary Medicine, [facility] Pending Studies at Discharge: No Stand-Alone Forms: My [facility], Smoking Cessation Medications and DC Order Prescriptions: New furosemide 40 mg Tablet 80 mg PO DAILY 30 Days Qty: 60 RF: 0 Continued warfarin [Coumadin] 7.5 mg tablet 0 mg PO DAILY@1700 RF: 0 mycophenolate mofetil 250 mg Capsule 250 mg PO BID RF: 0 metoprolol succinate 100 mg Tablet Extended Release 24 Hr 100 mg PO QAM RF: 0 amlodipine 5 mg Tablet 5 mg PO BID RF: 0 levothyroxine 75 mcg Tablet 75 mcg PO QAM RF: 0 sodium bicarbonate 650 mg Tablet 1,300 mg PO BID RF: 0 insulin aspart U-100 100 unit/mL Solution 10 - 16 unit SUBCUT TIDM RF: 0 omeprazole 20 mg Capsule,Delayed Release(Dr/Ec) 20 mg PO BID RF: 0 hydroxyzine HCl 25 mg Tablet 25 mg PO Q6 PRN (Reason: Itching) RF: 0 hydralazine 50 mg Tablet 75 mg PO BID RF: 0 tacrolimus 1 mg Capsule 1 mg PO Q12H RF: 0 ezetimibe [Zetia] 10 mg Tablet 10 mg PO QAM RF: 0 entecavir 0.5 mg Tablet 0.5 mg PO QAM RF: 0 cholecalciferol (vitamin D3) [Vitamin D3] 50 mcg (2,000 unit) Capsule 2,000 unit PO QAM RF: 0 Discharge Orders: Discharge Order (Routine); Ordered 08/07/19 Ordered By: Tamara Santizo Admission Data Admit Date/Time: 07/28/19 15:54 Attending Provider: Tamara Santizo Admit Provider: Dao Dacosta Primary Care Provider: Herberth Maldonado Other Providers: Dao Dacosta ; Kaycee Sin ; Vidal Abad ; Chris Siegel Other Interventions: Discharge Summary Assessment (RN) Last Done: 08/07/19 16:12 DC Date/Time DO NOT enter until pt leaves facility: 08/07/19 16:29
== END 2019-08-07 16:29 | disposition home or self-care (01) | DRG 291 ==
LOC: ED 12:31 → 2E 15:54 → SUATTDRO 15:54 → 2E 16:48 → 2S 07-30 19:51 → 2E 07-30 20:16

== ENCOUNTER 2022-10-10 06:00 | Inpatient (IN) ==
[2022-10-10 06:38] LABS: Basophils # (auto) 0.04 K/uL (0-0.2); Basophils % (auto) 0.4 %; Eosinophils % (auto) 1.8 %; Hematocrit (blood only) 26.5 % (42.0-52.0); Hemoglobin 8.5 g/dl (14.0-18.0); Immature Granulocytes # (auto) 0.14 K/uL (0.01-0.20); Immature Granulocytes % (auto) 1.3 %; Lymphocytes # (auto) 0.97 K/uL (1.2-3.4); Lymphocytes % (auto) 8.8 %; Mean Corpuscular Hemoglobin 27.1 pg (25.0-34.0); Mean Corpuscular Hgb Conc 32.1 g/dL (32.0-36.0); Mean Corpuscular Volume 84.4 fL (80.0-100.0); Mean Platelet Volume 9.6 fL (9.4-12.4); Monocytes # (auto) 1.01 K/uL (0.11-0.59); Monocytes % (auto) 9.1 %; Neutrophils # (auto) 8.72 K/uL (1.40-6.50); Neutrophils % (auto) 78.6 %; Platelet Count 276 K/uL (130-400); RDW Standard Deviation 39.2 fL (36.4-46.3); Red Blood Count 3.14 M/uL (4.70-6.10); White Blood Count 11.08 K/ul (4.8-10.8)
[2022-10-10 06:50] LABS: INR 1.1 (0.9-1.1); Partial Thromboplastin Ratio 1.1; Partial Thromboplastin Time 29.9 Seconds (21.0-31.0); Prothrombin Time 12.4 Seconds (9.0-12.0)
[2022-10-10] MEDS ORDERED: ALBUT/IPRATROP 3MG/0.5MG NEB 3 ML VIAL NEB STA (07:23)
[2022-10-10] MEDS ORDERED: methylPREDNISolone 125 MG/2 ML VIAL IV STA (07:23)
[2022-10-10 07:26] LABS: Albumin Globulin Ratio 0.9 (0.9-2); Albumin Level 3.5 gm/dl (3.4-5.0); BUN Creatinine Ratio 6.9 (10-20); Bilirubin,Total 0.4 mg/dl (0.2-1.0); Calcium 9.9 mg/dl (8.6-10.3); Creatinine Clr Calc Pharmacy 10.7 ml/min; Est GFR (African American) 8.1 ml/min; Globulin 3.7 gm/dl (2.5-4.0); Magnesium 1.8 mg/dl (1.7-2.4); Phosphorus 5.6 mg/dl (2.5-4.9); Potassium 3.9 mmol/L (3.5-5.1); Total Protein 7.2 gm/dl (6.0-8.3); Troponin I High Sensitivity 30.3 pg/ml (0-20)
[2022-10-10] MEDS ORDERED: guaiFENesin 600 MG TABCR PO STA (07:26)
[2022-10-10] MEDS ORDERED: CEFEPIME 2,000 MG/20 ML VIAL IV STA (07:26)
--- NOTE | 2022-10-10 07:32 | XRay Report ---
XR chest 1V portable HISTORY: Dyspnea COMPARISON: Chest 08/02/2019. FINDINGS: No pneumothorax. There is a small right pleural effusion and right mid to lower lung zone a irspace opacities. This is new from the prior study. There is diffuse interstitial thickening again n oted. This favors chronic interstitial change. The heart is mildly enlarged. There are poststernotomy changes. There are faint patchy airspace opacities within the left lung base. There are old, healed right-sided rib fractures. IMPRESSION: 1. Bilateral airspace opacities, right greater than left, with a small right pleural effusion. This l ikely represents a pneumonia and could be due to prior aspiration. 2. Chronic interstitial thickening persists and is likely chronic. A component of superimposed mild c ongestive change is not excluded. ACT 112: Negative or not required by law. Electronically signed by: Saurabh Nunez M.D. 10/10/2022 7:31 AM
--- NOTE | 2022-10-10 07:49 | Emergency Department Note ---
Impression & Plan Multifocal pneumonia, Acute and chronic respiratory failure with hypoxia, ESRD (end stage renal disease) on dialysis, COPD (chronic obstructive pulmonary disease) ED Provider Note NAME: THAO ALFONSO AGE: 72 SEX: M ARRIVES VIA: Ambulance INFORMANT: Patient ED PROVIDER(S): Michel Monet MD CHIEF COMPLAINT: SOB, hypoxia, referred. PLAN: Disposition: Admit MEDICAL DECISION MAKING: The patient is a pleasant 72-year-old gentleman with a past medical history of hypertension, interstitial lung disease/COPD, chronic respiratory failure with hypoxia, hyperlipidemia, peripheral vascular disease, chronic diastolic heart failure, CAD, history of liver transplant, end-stage renal disease on hemodialysis who presents to the emergency department via EMS referred from his dialysis center for hypoxia at this [place] mid 70s on his recent home 6 L nasal cannula. The patient reports he has been instructed to increase his oxygen over the past week. He reports he was admitted to [facility] for several days for symptoms but understands they thought he may be developing pneumonia but to his knowledge was not treated with antibiotics and was given Tessalon Perles. He reports that he also understands they told him it was not related to his history of coronary disease. Patient reports he did miss a session of dialysis last week prior to his admission but did not understand that they thought his symptoms were due to overload. He denies any fevers, vomiting, diarrhea. He still urinates a small amount every day but not much. On arrival the patient is chronically ill-appearing but no acute distress, afebrile with heart in the 110s and vital signs otherwise stable O2 saturation did improve to the low-mid 90s on oxy mask. EKG without overt acute ischemia. CXR c/w PNA. WBC 11K. H/H approximate to prior. Platelets wnl. Chemistry without acidosis. Cr. 7 c/w esrd on hd. Potassium wnl. HS troponin 30 and BNP 500, nonspecific in setting of ESRD. Procalcitonin elevated at 1.05. Covid-19 RNA, NAAT negative. Patient was treated with Solu-medrol, duoneb, and Empiric Cefepime. Patient agrees with plan for further management. Case was discussed with Dr. Bautista, [facility] hospitalist, who will evaluate the patient for admission. Triage Nursing notes reviewed and agree them. Prior/outside medical records reviewed Vital Signs: reviewed Differential diagnosis: Reactive airway disease, pneumonia, pneumothorax, COPD, CHF, infections, cardiac ischemia, pulmonary embolism, musculoskeletal, gastrointestinal, as well as other pathologies. ER treatment provided: See below. Diagnostics interpreted by me: ECG: Sinus tachycardia with occasional PVCs, 110 bpm, T wave inversion anteriorly, no overt ST elevation or depression, QTc 452, QRS 93. Last EKG for comparison June 24, 2020 Cardiac Monitoring: An order for continuous cardiac monitoring was placed and demonstrated Laboratory studies: See below Imaging studies: See below Consultation(s): Dr. Bautista, [facility] hospitalist HPI: The patient is a pleasant 72-year-old gentleman with a past medical history of hypertension, interstitial lung disease/COPD, chronic respiratory failure with hypoxia, hyperlipidemia, peripheral vascular disease, chronic diastolic heart failure, CAD, history of liver transplant, end-stage renal disease on hemodialysis who presents to the emergency department via EMS referred from his dialysis center for hypoxia at this [facility] mid 70s on his recent home 6 L nasal cannula. The patient reports he has been instructed to increase his oxygen over the past week. He reports he was admitted to [facility] for several days for symptoms but understands they thought he may be developing pneumonia but to his knowledge was not treated with antibiotics and was given Tessalon Perles. He re ports that he also understands they told him it was not related to his history of coronary disease. Patient reports he did miss a session of dialysis last week prior to his admission but did not understand that they thought his symptoms were due to overload. He denies any fevers, vomiting, diarrhea. He still urinates a small amount every day but not much. ROS: See above HPI for pertinent positives & negatives. A total of 10 systems reviewed and were otherwise negative. VITALS:See Below PHYSICAL EXAMINATION: GENERAL: Awake, alert, fatigued-appearing, in no distress HENT: Normocephalic, atraumatic. Oropharynx with dry mucous membranes and otherwise unremarkable. EYES: Normal conjunctiva. Sclera non-icteric. NECK: Supple. No nuchal rigidity. FROM. No JVD. RESPIRATORY: Scant wheeze and rhonchi bilateral lower lung gallardo. Mildly dyspneic without significant increased work of breathing. CARDIAC: Regular rate, normal rhythm. Extremities warm and well perfused. Pulses equal. Left upper extremity AV fistula with palpable thrill. ABDOMEN: Soft, non-distended. No tenderness to palpation. No rebound or guardi ng. No masses. RECTAL: Deferred. MUSCULOSKELETAL: Chest examination reveals no tenderness. The back is symmetrical on inspection without obvious abnormality. There is no CVA tenderness to palpation. No joint edema. LOWER EXTREMITIES: Calves are equal size bilaterally and non-tender. No edema. No discoloration. NEURO: Normal sensorium. No sensory or motor deficits noted. SKIN: No rash or jaundice noted. 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 Duodenal ulcer with hemorrhage DVT (deep venous thrombosis) Acute DVT in bilateral lower extremities 07/19/2019 Esophageal varices ESRD (end stage renal disease) on dialysis Dialysis tue/thur/sat at [facility] in [place] Hepatic encephalopathy History of hepatocellular carcinoma (~2010) associated with HERNANDEZ cirrhosis; s/p liver transplant--also had chemo Hypertension Hypothyroidism Immunocompromised patient 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 HERNANDEZ (nonalcoholic steatohepatitis) On home oxygen therapy 2L N/C hs/prn Peripheral vascular disease in diabetes mellitus Rotator cuff syndrome of right shoulder Sleep apnea O2 at 2L N/C at hs Spinal stenosis of lumbar region without neurogenic claudication Warthin's tumor Surgical History History of abdominal paracentesis (~2012) prior to liver transplant History of arthroscopy of right shoulder History of bilateral carpal tunnel release History of cholecystectomy at same time as liver transplant History of colonoscopy History of esophagogastroduodenoscopy (EGD) History of liver biopsy malignant History of open heart surgery (~1992) in [facility]--had an accident where a nail went into his right ventricle and had to be removed History of open reduction and internal fixation (ORIF) procedure right hip--hardware in place History of tooth extraction S/P arteriovenous (AV) fistula creation left arm Status post liver transplant (~2012) @ [facility] [place] Family History Mother Diabetes Colorectal cancer Father Non-Hodgkin lymphoma Sister Renal cancer Sister Diabetes Brother Diabetes Other No family history of adverse response to anesthesia Social History Smoking Status: Former smoker Tobacco Type: Cigarettes Age Quit Using Tobacco: 40; Second Hand Exposure: No; Do You Dip or Chew Tobacco: No; Tobacco Cessation Education Requested by Patient: No Hx Alcohol Use: Yes Alcohol type: beer Alcohol Intake Frequency: 2-4 x/Month Hx Substance Use: No Preferred Language: Irish Communication Ability: Effective Floor Care Specialist Required: No Beliefs That Will Affect Care: None Current Living Situation: Spouse Current Living Situation Comment: Other Information That Helps Us Care for You: No Feels Safe at Home: Yes Safety Concerns: Feels Safe At This Time Assistive Devices: Glasses Allergies Allergies Allergy/AdvReac Type Severity Reaction Status Date / Time adhesive tape AdvReac Severe skin tears Verified 06/12/22 06:52 [id number] Reductase AdvReac Severe muscle and Verified 06/12/22 06:52 Inhibitor joint aches [Hjxwpzs-Eiw-Fdc Reductase Inhibitor] lisinopril AdvReac Unknown Unknown Verified 06/12/22 06:52 Home Meds Home Medications Medication Instructions Recorded Confirmed cholecalciferol (vitamin D3) 50 2,000 unit PO QAM 07/10/19 10/10/22 mcg (2,000 unit) capsule (Vitamin D3) entecavir 0.5 mg tablet 0.5 mg PO QAM 07/10/19 10/10/22 ezetimibe 10 mg tablet (Zetia) 10 mg PO QAM 07/10/19 10/10/22 hydroxyzine HCl 25 mg tablet 25 mg PO Q6 PRN Itching 07/10/19 10/10/22 levothyroxine 75 mcg tablet 75 mcg PO QAM 07/10/19 10/10/22 mycophenolate mofetil 250 mg 250 mg PO BID 07/10/19 10/10/22 capsule tacrolimus 1 mg capsule, 1 mg PO Q12H 07/10/19 10/10/22 immediate-release albuterol sulfate 5 mg/mL(0.5 %) 2.5 mg inhalation UD PRN Shortness 06/21/20 10/10/22 solution for nebulization Of Breath aspirin 81 mg tablet,delayed 81 mg PO QPM 10/10/22 10/10/22 release clopidogrel 75 mg tablet 75 mg PO QAM 10/10/22 10/10/22 fluticasone 250 mcg-salmeterol 50 1 inh inhalation BID 10/10/22 10/10/22 mcg/dose blistr powdr for inhalation (Wixela Inhub) linagliptin 5 mg tablet 5 mg PO DAILY 10/10/22 10/10/22 metoprolol succinate 25 mg 25 mg PO QAM 10/10/22 10/10/22 tablet,extended release 24 hr tiotropium bromide 2.5 1 puff inhalation BID 10/10/22 10/10/22 mcg/actuation mist for inhalation (Spiriva Respimat) Results & Data (ED) Vital Signs Vital Signs - 24 hr 10/10/22 06:06 10/10/22 06:18 10/10/22 06:06 Temperature 36.9 C Temperature Source Oral Pulse Rate 111 H 112 H Pulse Rate [Apical] Pulse Rhythm [Apical] Respiratory Rate 24 Respiratory Effort / Characteristics Non-Labored Respiratory Depth Normal Respiratory Pattern Blood Pressure 131/80 Blood Pressure [Right Arm] Blood Pressure Mean 97 Blood Pressure Mean [Right Arm] Pulse Oximetry 92 79 L Oxygen Delivery Method Oxymask Nasal Cannula Oxymask Oxygen Flow Rate 10 6 Sepsis Recent Fever Within 48 Hours No Sepsis New/Unexplained Change in Mental Status No Sepsis Action Taken by Nursing Physician Notified Oxygen Flow Rate - Titration 10 Pulse Oximetry Post Tiitration 92 10/10/22 06:06 10/10/22 06:34 10/10/22 08:00 Temperature Temperature Source Pulse Rate Pulse Rate [Apical] 98 H Pulse Rhythm [Apical] Regular Respiratory Rate 21 Respiratory Effort / Characteristics Non-Labored Spontaneous Respiratory Depth Normal Respiratory Pattern Regular Blood Pressure Blood Pressure [Right Arm] 132/70 Blood Pressure Mean Blood Pressure Mean [Right Arm] 90 Pulse Oximetry 95 98 Oxygen Delivery Method Oxymask Oxymask Oxymask Oxygen Flow Rate 6 6 Sepsis Recent Fever Within 48 Hours Sepsis New/Unexplained Change in Mental Status Sepsis Action Taken by Nursing Oxygen Flow Rate - Titration Pulse Oximetry Post Tiitration Laboratory Data Attestation: I reviewed the patient's lab results. 10/10/22 06:20 05/27/23 06:20 Lab Results 10/10/22 10/10/22 10/10/22 Range/Units 06:20 06:20 06:20 WBC 11.08 H (4.8-10.8) K/ul RBC 3.14 L (4.70-6.10) M/uL Hgb 8.5 L (14.0-18.0) g/dl Hct 26.5 L (42.0-52.0) % MCV 84.4 (80.0-100.0) fL MCH 27.1 (25.0-34.0) pg MCHC 32.1 (32.0-36.0) g/dL RDW Std Deviation 39.2 (36.4-46.3) fL RDW Coeff of Ana María 13.0 (11.5-14.5) % Plt Count 276 (130-400) K/uL MPV 9.6 (9.4-12.4) fL Immature Gran % (Auto) 1.3 % Neut % (Auto) 78.6 % Lymph % (Auto) 8.8 % Gray % (Auto) 9.1 % Eos % (Auto) 1.8 % Baso % (Auto) 0.4 % Neut # (Auto) 8.72 H (1.40-6.50) K/uL Lymph # (Auto) 0.97 L (1.2-3.4) K/uL Gray # (Auto) 1.01 H (0.11-0.59) K/uL Eos # (Auto) 0.20 (0-0.50) K/uL Baso # (Auto) 0.04 (0-0.2) K/uL Immature Gran # (Auto) 0.14 (0.01-0.20) K/uL PT 12.4 H (9.0-12.0) Seconds INR 1.1 (0.9-1.1) APTT 29.9 (21.0-31.0) Seconds PTT Ratio 1.1 Sodium 135 L (136-145) mmol/L Potassium 3.9 (3.5-5.1) mmol/L Chloride 93 L (98-107) mmol/L Carbon Dioxide 27 (21-32) mmol/L Anion Gap 15 H (3-11) BUN 49 H (6-23) mg/dl Creatinine 7.12 H* (0.6-1.4) mg/dl Est Cr Clr Drug Dosing 10.7 ml/min Est GFR ( Amer) 8.1 ml/min Est GFR (Non-Af Amer) 7.0 ml/min BUN/Creatinine Ratio 6.9 L (10-20) Glucose 173 H (70-99(Fasting)) mg/dl Calcium 9.9 (8.6-10.3) mg/dl Phosphorus 5.6 H (2.5-4.9) mg/dl Magnesium 1.8 (1.7-2.4) mg/dl Total Bilirubin 0.4 (0.2-1.0) mg/dl AST 13 (13-39) U/L ALT 11 (7-52) U/L Alkaline Phosphatase 46 (34-104) U/L Troponin I High Sens 30.3 H (0-20) pg/ml B-Natriuretic Peptide (0-100) pg/ml Total Protein 7.2 (6.0-8.3) gm/dl Albumin 3.5 (3.4-5.0) gm/dl Globulin 3.7 (2.5-4.0) gm/dl Albumin/Globulin Ratio 0.9 (0.9-2) Procalcitonin (0-0.5) ng/ml Nasal Screen MRSA (PCR) (Negative) SARS-CoV-2, RNA, NAAT (NEGATIVE) 10/10/22 10/10/22 10/10/22 Range/Units 06:20 06:24 07:37 WBC (4.8-10.8) K/ul RBC (4.70-6.10) M/uL Hgb (14.0-18.0) g/dl Hct (42.0-52.0) % MCV (80.0-100.0) fL MCH (25.0-34.0) pg MCHC (32.0-36.0) g/dL RDW Std Deviation (36.4-46.3) fL RDW Coeff of Ana María (11.5-14.5) % Plt Count (130-400) K/uL MPV (9.4-12.4) fL Immature Gran % (Auto) % Neut % (Auto) % Lymph % (Auto) % Gray % (Auto) % Eos % (Auto) % Baso % (Auto) % Neut # (Auto) (1.40-6.50) K/uL Lymph # (Auto) (1.2-3.4) K/uL Gray # (Auto) (0.11-0.59) K/uL Eos # (Auto) (0-0.50) K/uL Baso # (Auto) (0-0.2) K/uL Immature Gran # (Auto) (0.01-0.20) K/uL PT (9.0-12.0) Seconds INR (0.9-1.1) APTT (21.0-31.0) Seconds PTT Ratio Sodium (136-145) mmol/L Potassium (3.5-5.1) mmol/L Chloride (98-107) mmol/L Carbon Dioxide (21-32) mmol/L Anion Gap (3-11) BUN (6-23) mg/dl Creatinine (0.6-1.4) mg/dl Est Cr Clr Drug Dosing ml/min Est GFR ( Amer) ml/min Est GFR (Non-Af Amer) ml/min BUN/Creatinine Ratio (10-20) Glucose (70-99(Fasting)) mg/dl Calcium (8.6-10.3) mg/dl Phosphorus (2.5-4.9) mg/dl Magnesium (1.7-2.4) mg/dl Total Bilirubin (0.2-1.0) mg/dl AST (13-39) U/L ALT (7-52) U/L Alkaline Phosphatase (34-104) U/L Troponin I High Sens (0-20) pg/ml B-Natriuretic Peptide 501 H (0-100) pg/ml Total Protein (6.0-8.3) gm/dl Albumin (3.4-5.0) gm/dl Globulin (2.5-4.0) gm/dl Albumin/Globulin Ratio (0.9-2) Procalcitonin 1.05 H (0-0.5) ng/ml Nasal Screen MRSA (PCR) (Negative) SARS-CoV-2, RNA, NAAT NEGATIVE (NEGATIVE) 10/10/22 Range/Units 09:35 WBC (4.8-10.8) K/ul RBC (4.70-6.10) M/uL Hgb (14.0-18.0) g/dl Hct (42.0-52.0) % MCV (80.0-100.0) fL MCH (25.0-34.0) pg MCHC (32.0-36.0) g/dL RDW Std Deviation (36.4-46.3) fL RDW Coeff of Ana María (11.5-14.5) % Plt Count (130-400) K/uL MPV (9.4-12.4) fL Immature Gran % (Auto) % Neut % (Auto) % Lymph % (Auto) % Gray % (Auto) % Eos % (Auto) % Baso % (Auto) % Neut # (Auto) (1.40-6.50) K/uL Lymph # (Auto) (1.2-3.4) K/uL Gray # (Auto) (0.11-0.59) K/uL Eos # (Auto) (0-0.50) K/uL Baso # (Auto) (0-0.2) K/uL Immature Gran # (Auto) (0.01-0.20) K/uL PT (9.0-12.0) Seconds INR (0.9-1.1) APTT (21.0-31.0) Seconds PTT Ratio Sodium (136-145) mmol/L Potassium (3.5-5.1) mmol/L Chloride (98-107) mmol/L Carbon Dioxide (21-32) mmol/L Anion Gap (3-11) BUN (6-23) mg/dl Creatinine (0.6-1.4) mg/dl Est Cr Clr Drug Dosing ml/min Est GFR ( Amer) ml/min Est GFR (Non-Af Amer) ml/min BUN/Creatinine Ratio (10-20) Glucose (70-99(Fasting)) mg/dl Calcium (8.6-10.3) mg/dl Phosphorus (2.5-4.9) mg/dl Magnesium (1.7-2.4) mg/dl Total Bilirubin (0.2-1.0) mg/dl AST (13-39) U/L ALT (7-52) U/L Alkaline Phosphatase (34-104) U/L Troponin I High Sens (0-20) pg/ml B-Natriuretic Peptide (0-100) pg/ml Total Protein (6.0-8.3) gm/dl Albumin (3.4-5.0) gm/dl Globulin (2.5-4.0) gm/dl Albumin/Globulin Ratio (0.9-2) Procalcitonin (0-0.5) ng/ml Nasal Screen MRSA (PCR) Negative (Negative) SARS-CoV-2, RNA, NAAT (NEGATIVE) Administered Medications Aspirin (Aspirin 81 Mg Ectab) 81 mg PO QPM [facility] Stop: 11/09/22 20:59 Last Admin: 10/10/22 20:23 Dose: 81 mg Documented By: JAVID Ezetimibe (Ezetimibe 10 Mg Tablet) 10 mg PO QAM [facility] Stop: 11/09/22 11:14 Last Admin: 10/10/22 16:38 Dose: 10 mg Documented By: JACQUI Heparin Sodium (Porcine) (Heparin Sod 5,000 Unit/0.5 Ml Vial) 5,000 units SQ Q8 [facility] Stop: 11/09/22 13:59 Last Admin: 10/10/22 22:05 Dose: 5,000 units Documented By: Admin: 10/10/22 16:41 Dose: 5,000 units Documented By: JACQUI Insulin Aspart (Insulin Aspart Per Unit Charge) 0 units SC ACHS [facility] Stop: 11/09/22 11:29 Last Admin: 10/10/22 20:34 Dose: 6 units Documented By: JAVID Co-signed By: MTR Admin: 10/10/22 17:34 Dose: 1 units Documented By: JACQUI Co-signed By: CA Admin: 10/10/22 16:47 Dose: Not Given Documented By: JACQUI Metoprolol Succinate (Metoprolol Succ 25mg Ext Rel Tab) 25 mg PO QAM [facility] Stop: 11/09/22 11:14 Last Admin: 10/10/22 16:41 Dose: 25 mg Documented By: JACQUI Miscellaneous (Entecavir 0.5 Mg Tablet ~ Order Awaiting Action) 1 each N/A QS [facility] Stop: 11/09/22 15:59 Last Admin: 10/10/22 16:42 Dose: Not Given Documented By: JACQUI Tacrolimus (Tacrolimus 1 Mg Cap) 1 mg PO BID@0730,193 [facility] Stop: 11/09/22 19:29 Last Admin: 10/10/22 20:27 Dose: 1 mg Documented By: GG Discontinued Medications Albuterol (Albut/Ipratrop 3mg/0.5mg Neb 3 Ml Vial) 3 ml NEB NOW STA; Protocol Stop: 10/10/22 07:24 Last Admin: 10/10/22 07:48 Dose: 3 ml Documented By: Epoetin Dirk (Epoetin Dirk 10,000 Units/Ml Vial) 10,000 units IV ONE ONE Stop: 10/10/22 13:31 Last Admin: 10/10/22 15:22 Dose: 10,000 units Documented By: Guaifenesin (Guaifenesin 600 Mg Tabcr) 1,200 mg PO NOW STA Stop: 10/10/22 07:27 Last Admin: 10/10/22 07:50 Dose: 1,200 mg Documented By: Cefepime HCl (Maxipime) 2,000 mg in 20 mls @ 5 mls/min IV NOW STA; Protocol Stop: 10/10/22 07:29 Last Admin: 10/10/22 07:57 Dose: 5 mls/min Documented By: Methylprednisolone (Methylprednisolone 125 Mg/2 Ml Vial) 125 mg IV NOW STA Stop: 10/10/22 07:24 Last Admin: 10/10/22 07:51 Dose: 125 mg Documented By: Imaging Data Radiologist's Impression: Chest X-Ray 10/10/22 06:09 XR chest 1V portable HISTORY: Dyspnea COMPARISON: Chest 08/02/2019. FINDINGS: No pneumothorax. There is a small right pleural effusion and right mid to lower lung zone airspace opacities. This is new from the prior study. There is diffuse interstitial thickening again noted. This favors chronic interstitial change. The heart is mildly enlarged. There are poststernotomy changes. There are faint patchy airspace opacities within the left lung base. There are old, healed right-sided rib fractures. IMPRESSION: 1. Bilateral airspace opacities, right greater than left, with a small right pleural effusion. This likely represents a pneumonia and could be due to prior aspiration. 2. Chronic interstitial thickening persists and is likely chronic. A component of superimposed mild congestive change is not excluded. ACT 112: Negative or not required by law. Electronically signed by: Saurabh Nunez M.D. 10/10/2022 7:31 AM Discharge Plan Visit Data Chief Complaint: Shortness of Breath/Dyspnea Stated Complaint: SHORTNESS OF BREATH ED Provider: Michel Monet Discharge Problem: Multifocal pneumonia, Acute and chronic respiratory failure with hypoxia, ESRD (end stage renal disease) on dialysis, COPD (chronic obstructive pulmonary disease) Patient Disposition: Admitted As Inpatient Discharge Instructions Interventions: ED Discharge Assessment Last Done: 10/10/22 10:33
--- NOTE | 2022-10-10 09:50 | History & Physical Report ---
Date of Service October 10, 2022 Assessment & Plan (1) Acute and chronic respiratory failure with hypoxia: Plan: Recently hospitalized for shortness of breath with no acute cause seen and optimization of chronic medical problems. Patient reports developing a cough during the admission for which he was given benzonatate and sent home. Cough has improved, however, now hypoxic. Generally run down. Bilateral pneumonia seen on CXR today. Procalcitonin elevated in support of possible bacterial pneumonia. Aspiration seems to be less likely but is possible. Will add flagyl for now and ask speech to see him. (2) Multifocal pneumonia: Plan: Antibiotics, sputum culture, will cover anaerobes and pseudomonas for now with flagyl and cefepime, respectively. Nasal MRSA screen is negative so MRSA c overage with vancomycin not indicated. Consult pulm with h/o ILD and recent increasing oxygen needs since Jun 2022. He reports that baseline up to that time, he was using 2LPM with ambulation only. Now he is using approximately 6LPM at "baseline." Noted CT chest during recent admission to [facility] was negative for PE. (3) Diastolic CHF, acute on chronic: Plan: chronic, although he has an elevated BNP, he doesn't appear overtly overloaded today. He did not receive his HD session today and nephrology has been notified about this. (4) Abnormal CT scan, chest: Plan: h/o lower right lung nodule thought to be consistent with rounded atelectasis on most recent chest CT scan in July 2022. Cont outpatient workup for stability. (5) DM type 2 (diabetes mellitus, type 2): Plan: Chronic, controlled on linagliptin. Patient reports that his most recent A1C was around 6. A1C repeat is pending. He was given some steroids in the ER today, which we won't continue. This may cause hyperglycemia. Cont BSG checks regularly and correction factor ordered for now. (6) Interstitial lung disease: Plan: chronic, baseline oxygen needs are 2LPM with ambulation. [facility] no mention about ILD, but did state that he has COPD gold D, that is smoking related with no recent flares. He recently stopped Wixela and spiriva inhalers one week ago because they "made me feels worse." Most recent PFTs in July 2022 reveal restrictive pattern with a partial bronchodilator response only in the small airways. He has a chronic right pleural effusion secondary to ESRD and CHF noted, also. (7) ESRD (end stage renal disease) on dialysis: Plan: chronic, stable. Not overtly overloaded or acidotic and electrolytes are stable. He was unable to complete his HD session as scheduled today. (8) Immunocompromised patient: Plan: s/p liver transplant. Hold CellCept in infection without sepsis, cont tacrolimus. Restart Cellcept 4-6 weeks post infection or per transplant team guidance. Cont entecavir, which may need to be brought in from home. (9) Status post liver transplant: Plan: as above. (10) Sleep apnea: Plan: not on home CPAP (11) Hypothyroidism: Plan: chronic, stbale. TSH on 08/31/22 was 4.27. Cont current home dose Synthroid. (12) Anemia: Plan: chronic, but recent drop in H/H noted. CBC on 08/2022 shows H/H 12/38.7. Currently, after PCI, starting DAPT and recent hospitalization he is 8.5/26.5. No overt bleeding. Tachycardia likely related to hypoxia. Further labs in am to work this up. ESRD likely contributing. Repeat CBC in am. Full Code with status confirmed with him on admission DVT proph-heparin Dispo-to PCU, complex pt, PT/OT ordered. CM to assist with needs and transition back home when medically stable for discharge. Lives at home with his . I spent a total [id number] coordinating, documenting, and providing care for this patient excluding time spent in the performance of separately billed services Lola Bautista DO [facility] Hospitalist History of Present Illness Chief Complaint: hypoxia Primary Care Provider: Herberth Maldonado MD The patient is a 72-year-old man with multiple medical problems including ESRD on hemodialysis who was sent over for significant hypoxia noted during his session today. He has a history of chronic respiratory failure with int erstitial lung disease. He notes feeling well on 2LPM oxygen supplemnentation up until Jun 2022, when he started requiring more oxygen. In August 2022 he underwent a cardiac catheterization as part of upcoming kidney transplant workup. He had successful angioplasty and stenting with a STACY to an unprotected left main and proximal to mid LAD via right radial access. For one week he did feel better, but then became more short of breath. He was admitted to [facility] and ACS was ruled out. Per cardiology at that time, his elevated troponin was secondary to a nonischemic mechanism of myocardial injury in the setting of ESRD on hemodialysis and congestive heart failure. He has not felt well since he was discharged from the hospital approximately one week ago. He developed a cough at the end of admission and was given Benzonatate which he reports has helped. Denies fevers or chills. He incidentally had a focal area of concern noted in the right lower lobe which was not worked up with PET scan as previously recommended. However most recent CT scan of the chest without contrast in July 2022 reveals this to be consistent with rounded atelectasis with additional imaging in 3 to 4 months recommended. He has type 2 diabetes without use of insulin with A1C reflecting good control. He is status post liver transplant on CellCept and tacrolimus and awaiting kidney transplantation. Today, he presents via EMS from the dialysis center with complaints of hypoxia and shortness of breath. Staff there noticed he had increased work of breathing cough and SPO2 of 79% on 6 L/min supplemental oxygen via nasal cannula and called 911. Patient reported he had a chest x-ray several days ago that showed "beginning of pneumonia "and was not started on anything for it. He was given Solu-Medrol and DuoNebs x2 in route to [facility]. Blood glucose was 201. EMS vitals included blood pressure of 120/70 pulse of 120 and sinus tachycardia respiratory rate of 30 breaths/min and SPO2 of 90% on 6 L/min via nasal cannula when resting. Patient desaturated quickly into the high 70s with any movement. On arrival he was awake alert and oriented x4 and reported improvement in his breathing following medication administration. On arrival to the ER he was found to be 76% on his baseline 6LPM oxygen supplementation. This improved to 92% after titration up to 10LPM. Work-up today reveals evidence of multifocal pneumonia in the setting of chronic interstitial thickening with a known h/o ILD. He was given additional solumedrol 125mg IV, cefepime 2gm IV, guaifensin 1200mg and an additional albuterol 3mL NEB. Allergies Allergy/AdvReac Type Severity Reaction Status Date / Time adhesive tape AdvReac Severe skin tears Verified 06/12/22 06:52 Czszshx-XMP-ZkZ Reductase AdvReac Severe muscle and Verified 06/12/22 06:52 Inhibitor joint aches [Euedwmz-Sok-Gbu Reductase Inhibitor] lisinopril AdvReac Unknown Unknown Verified 06/12/22 06:52 Home Medications Medication Instructions Recorded Confirmed Type cholecalciferol (vitamin D3) 50 2,000 unit PO QAM 07/10/19 10/10/22 History mcg (2,000 unit) capsule (Vitamin D3) entecavir 0.5 mg tablet 0.5 mg PO QAM 07/10/19 10/10/22 History ezetimibe 10 mg tablet (Zetia) 10 mg PO QAM 07/10/19 10/10/22 History hydroxyzine HCl 25 mg tablet 25 mg PO Q6 PRN Itching 07/10/19 10/10/22 History levothyroxine 75 mcg tablet 75 mcg PO QAM 07/10/19 10/10/22 History mycophenolate mofetil 250 mg 250 mg PO BID 07/10/19 10/10/22 History capsule tacrolimus 1 mg capsule, 1 mg PO Q12H 07/10/19 10/10/22 History immediate-release albuterol sulfate 5 mg/mL(0.5 %) 2.5 mg inhalation UD PRN Shortness 06/21/20 10/10/22 History solution for nebulization Of Breath aspirin 81 mg tablet,delayed 81 mg PO QPM 10/10/22 10/10/22 History release clopidogrel 75 mg tablet 75 mg PO QAM 10/10/22 10/10/22 History fluticasone 250 mcg-salmeterol 50 1 inh inhalation BID 10/10/22 10/10/22 History mcg/dose blistr powdr for inhalation (Wixela Inhub) linagliptin 5 mg tablet 5 mg PO DAILY 10/10/22 10/10/22 History metoprolol succinate 25 mg 25 mg PO QAM 10/10/22 10/10/22 History tablet,extended release 24 hr tiotropium bromide 2.5 1 puff inhalation BID 10/10/22 10/10/22 History mcg/actuation mist for inhalation (Spiriva Respimat) Past Med/Surg History Medical History ACEI/ARB contraindicated 2/2 ESRD Anemia AV fistula left arm Carpal tunnel syndrome CKD (chronic kidney disease) stage 4, GFR 15-29 ml/min CKD (chronic kidney disease) stage 5, GFR less than 15 ml/min COPD (chronic obstructive pulmonary disease) Dental caries s/p multiple teeth extraction 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 Duodenal ulcer with hemorrhage DVT (deep venous thrombosis) Acute DVT in bilateral lower extremities 07/19/2019 Esophageal varices ESRD (end stage renal disease) on dialysis Dialysis tue/thur/sat at [facility] in [place] Hepatic encephalopathy History of hepatocellular carcinoma (~2010) associated with HERNANDEZ cirrhosis; s/p liver transplant--also had chemo Hypertension Hypothyroidism Immunocompromised patient 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 HERNANDEZ (nonalcoholic steatohepatitis) On home oxygen therapy 2L N/C hs/prn Peripheral vascular disease in diabetes mellitus Rotator cuff syndrome of right shoulder Sleep apnea O2 at 2L N/C at hs Spinal stenosis of lumbar region without neurogenic claudication Warthin's tumor Surgical History History of abdominal paracentesis (~2012) prior to liver transplant History of arthroscopy of right shoulder History of bilateral carpal tunnel release History of cholecystectomy at same time as liver transplant History of colonoscopy History of esophagogastroduodenoscopy (EGD) History of liver biopsy malignant History of open heart surgery (~1992) in [facility]--had an accident where a nail went into his right ventricle and had to be removed History of open reduction and internal fixation (ORIF) procedure right hip--hardware in place History of tooth extraction S/P arteriovenous (AV) fistula creation left arm Status post liver transplant (~2012) @ [facility] Family History Mother Diabetes Colorectal cancer Father Non-Hodgkin lymphoma Sister Renal cancer Sister Diabetes Brother Diabetes Other No family history of adverse response to anesthesia Social History Smoking Status: Former smoker Tobacco Type: Cigarettes Age Quit Using Tobacco: 40; Second Hand Exposure: No; Do You Dip or Chew Tobacco: No; Hx Alcohol Use: Yes Alcohol type: beer Alcohol Intake Frequency: 2-4 x/Month Hx Substance Use: No Preferred Language: Kazakh Communication Ability: Effective Personnel Clerks Supervisor Required: No Beliefs That Will Affect Care: None Current Living Situation: Spouse Current Living Situation Comment: Feels Safe at Home: Yes Assistive Devices: Glasses Review of Systems Review of Systems: All systems reviewed negative except as indicated above. Physical Exam Physical Exam: CONSTITUTIONAL: WNWD, vitals as above, generally well-appearing, NAD EYES: normal conjunctivae, no scleral icterus ENT: external ear and nose normal, oropharynx clear, NECK: trachea midline, no lymphadenopathy RESPIRATORY: fine crackles at left base, coarse rhonchi at left base, no rales or wheezes, normal respiratory effort CARDIOVASCULAR: regular rate and rhythm, S1 and 2 heard without murmurs, gallops or rubs, no JVD, no peripheral edema CHEST: inspection of chest was normal GASTROINTESTINAL: soft, nontender, ND, no guarding MUSCULOSKELETAL: strength 5/5 throughout, head is normocephalic and atraumatic, SKIN: warm and dry NEUROLOGIC: CN 2-12 grossly intact, no sensory deficit, normal cognition, normal speech, no tremor PSYCHIATRIC: alert cooperative and oriented to person, place and time. Euthymic mood, makes good eye contact, language grossly intact, recent and remote memory grossly intact. Results & Data Results & Data Vital Signs (Past 12 Hours) Vital Signs Temp Pulse Pulse Resp BP BP Pulse Ox 10/10/22 08:00 98 H 21 132/70 98 10/10/22 06:34 95 10/10/22 06:06 10/10/22 06:06 79 L 10/10/22 06:18 112 H 10/10/22 06:06 36.9 C 111 H 24 131/80 92 O2 Del Method O2 Flow Rate 10/10/22 08:00 Oxymask 6 10/10/22 06:34 Oxymask 6 10/10/22 06:06 Oxymask 10/10/22 06:06 Nasal Cannula, Oxymask 6 10/10/22 06:18 10/10/22 06:06 Oxymask 10 Laboratory Results Short CBC 10/10/22 Range/Units 06:20 WBC 11.08 H (4.8-10.8) K/ul Hgb 8.5 L (14.0-18.0) g/dl Hct 26.5 L (42.0-52.0) % Plt Count 276 (130-400) K/uL BMP 10/10/22 06:20 Sodium 135 L Potassium 3.9 Chloride 93 L Carbon Dioxide 27 BUN 49 H Creatinine 7.12 H* Glucose 173 H Calcium 9.9 Liver Function 10/10/22 Range/Units 06:20 Total Bilirubin 0.4 (0.2-1.0) mg/dl AST 13 (13-39) U/L ALT 11 (7-52) U/L Alkaline Phosphatase 46 (34-104) U/L Albumin 3.5 (3.4-5.0) gm/dl Diagnostic Findings Chest X-Ray 10/10/22 06:09 XR chest 1V portable HISTORY: Dyspnea COMPARISON: Chest 08/02/2019. FINDINGS: No pneumothorax. There is a small right pleural effusion and right mid to lower lung zone airspace opacities. This is new from the prior study. There is diffuse interstitial thickening again noted. This favors chronic interstitial change. The heart is mildly enlarged. There are poststernotomy changes. There are faint patchy airspace opacities within the left lung base. There are old, healed right-sided rib fractures. IMPRESSION: 1. Bilateral airspace opacities, right greater than left, with a small right pleural effusion. This likely represents a pneumonia and could be due to prior aspiration. 2. Chronic interstitial thickening persists and is likely chronic. A component of superimposed mild congestive change is not excluded. ACT 112: Negative or not required by law. Electronically signed by: Saurabh Nunez M.D. 10/10/2022 7:31 AM Code Status & VTE Plan VTE Prophylaxis Plan VTE Prophylaxis will be ordered: Yes
--- NOTE | 2022-10-10 10:46 | Electrocardiogram Report ---
Test Reason : Blood Pressure : / mmHG Vent. Rate : 110 BPM Atrial Rate : 110 BPM P-R Int : 204 ms QRS Dur : 090 ms QT Int : 334 ms P-R-T Axes : 048 -20 -19 degrees QTc Int : 452 ms Sinus tachycardia with occasional Premature ventricular complexes Septal infarct , age undetermined Nonspecific T wave abnormality Abnormal ECG When compared with ECG of 24-JUN-2020 14:21, T wave inversion now evident in Anterior leads Confirmed by Vipin Nichols ([id number]) on 10/10/2022 10:45:51 AM Referred By: Confirmed By:Vipin Nichols
[2022-10-10] MEDS ORDERED: hydrOXYzine HCl 25 MG TAB PO PRN (11:04)
[2022-10-10] MEDS ORDERED: POLYETHYLENE (MIRALAX) 17 GM PACK PO PRN (11:08)
[2022-10-10] MEDS ORDERED: GLUCAGON FOR INJ 1 MG VIAL SQ PRN (11:08)
[2022-10-10] MEDS ORDERED: CARBOHYDRATES FOR HYPOGLYCEMIA PO PRN (11:08)
[2022-10-10] MEDS ORDERED: ACETAMINOPHEN 325 MG TAB PO PRN (11:08)
[2022-10-10] MEDS ORDERED: DEXTROSE 50% 50 ML SYRINGE IV PRN (11:08)
[2022-10-10] MEDS ORDERED: GLUCOSE 40% GEL 15 GM TUBE PO PRN (11:08)
[2022-10-10] MEDS ORDERED: GLUCOSE 10 TAB/TUBE PO PRN (11:08)
--- NOTE | 2022-10-10 12:00 | Nephrology Consultation ---
Date of Consultation October 10, 2022 Assessment & Plan (1) ESRD (end stage renal disease) on dialysis: Patient with ESRD on dialysis Wednesday at the [facility]. He missed dialysis today due to worsening shortness of breath and was sent to the emergency room. He is tolerating dialysis well today for 3-1/2 hours with target UF of 3.5 L. he will get Epogen 70164 units for his anemia. Hemoglobin was 8.5. (2) Multifocal pneumonia: Patient admitted with the shortness of breath and chest x-ray showing bilateral opacities suggestive of multifocal pneumonia. Patient is on cefepime per primary team. Renally dose antibiotics for dialysis (3) Status post liver transplant: patient is status post liver transplant on Prograf and CellCept. Agree with holding CellCept in setting of multifocal pneumonia. Continue Prograf Home dose History of Present Illness Reason for Consultation: ESRD Requesting Physician: Lola Bautista DO Attending Physician: Lola Bautista DO History of Present Illness this 72-year-old male with history of HERNANDEZ cirrhosis status post liver transplant in 2012, type 2 diabetes, hypertension, hyperlipidemia and ESRD on dialysis Wednesday in [place] who was admitted today with shortness of breath. Patient went to his dialysis unit for regular dialysis but he could not be hooked up due to worsening shortness of breath and was sent with the emergency room. He has a left UA AVF. Patient was admitted at [facility] for cardiac stents last week. Chest x-ray in the emergency room shows the bilateral opacities suggestive of pneumonia. They can also not rule out mild pulmonary edema. Main complaint today is shortness of breath. Patient is on 10 L of oxygen. Patient was initially seen in consult. Patient was later seen and examined while on dialysis. Allergies Allergy/AdvReac Type Severity Reaction Status Date / Time adhesive tape AdvReac Severe skin tears Verified 06/12/22 06:52 Dojhcwe-HHU-KyC Reductase AdvReac Severe muscle and Verified 06/12/22 06:52 Inhibitor joint aches [Wqggyti-Wjb-Dzl Reductase Inhibitor] lisinopril AdvReac Unknown Unknown Verified 06/12/22 06:52 Home Medications Medication Instructions Recorded Confirmed Type cholecalciferol (vitamin D3) 50 2,000 unit PO QAM 07/10/19 10/10/22 History mcg (2,000 unit) capsule (Vitamin D3) entecavir 0.5 mg tablet 0.5 mg PO QAM 07/10/19 10/10/22 History ezetimibe 10 mg tablet (Zetia) 10 mg PO QAM 07/10/19 10/10/22 History hydroxyzine HCl 25 mg tablet 25 mg PO Q6 PRN Itching 07/10/19 10/10/22 History levothyroxine 75 mcg tablet 75 mcg PO QAM 07/10/19 10/10/22 History mycophenolate mofetil 250 mg 250 mg PO BID 07/10/19 10/10/22 History capsule tacrolimus 1 mg capsule, 1 mg PO Q12H 07/10/19 10/10/22 History immediate-release albuterol sulfate 5 mg/mL(0.5 %) 2.5 mg inhalation UD PRN Shortness 06/21/20 10/10/22 History solution for nebulization Of Breath aspirin 81 mg tablet,delayed 81 mg PO QPM 10/10/22 10/10/22 History release clopidogrel 75 mg tablet 75 mg PO QAM 10/10/22 10/10/22 History fluticasone 250 mcg-salmeterol 50 1 inh inhalation BID 10/10/22 10/10/22 History mcg/dose blistr powdr for inhalation (Wixela Inhub) linagliptin 5 mg tablet 5 mg PO DAILY 10/10/22 10/10/22 History metoprolol succinate 25 mg 25 mg PO QAM 10/10/22 10/10/22 History tablet,extended release 24 hr tiotropium bromide 2.5 1 puff inhalation BID 10/10/22 10/10/22 History mcg/actuation mist for inhalation (Spiriva Respimat) Patient History Medical History ACEI/ARB contraindicated 2/2 ESRD Anemia AV fistula left arm Carpal tunnel syndrome CKD (chronic kidney disease) stage 4, GFR 15-29 ml/min CKD (chronic kidney disease) stage 5, GFR less than 15 ml/min COPD (chronic obstructive pulmonary disease) Dental caries s/p multiple teeth extraction 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 Duodenal ulcer with hemorrhage DVT (deep venous thrombosis) Acute DVT in bilateral lower extremities 07/19/2019 Esophageal varices ESRD (end stage renal disease) on dialysis Dialysis tue/thur/sat at [facility] in [place] Hepatic encephalopathy History of hepatocellular carcinoma (~2010) associated with HERNANDEZ cirrhosis; s/p liver transplant--also had chemo Hypertension Hypothyroidism Immunocompromised patient 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 HERNANDEZ (nonalcoholic steatohepatitis) On home oxygen therapy 2L N/C hs/prn Peripheral vascular disease in diabetes mellitus Rotator cuff syndrome of right shoulder Sleep apnea O2 at 2L N/C at hs Spinal stenosis of lumbar region without neurogenic claudication Warthin's tumor Surgical History History of abdominal paracentesis (~2012) prior to liver transplant History of arthroscopy of right shoulder History of bilateral carpal tunnel release History of cholecystectomy at same time as liver transplant History of colonoscopy History of esophagogastroduodenoscopy (EGD) History of liver biopsy malignant History of open heart surgery (~1992) in [facility]--had an accident where a nail went into his right ventricle and had to be removed History of open reduction and internal fixation (ORIF) procedure right hip--hardware in place History of tooth extraction S/P arteriovenous (AV) fistula creation left arm Status post liver transplant (~2012) @ [facility] Family History Mother Diabetes Colorectal cancer Father Non-Hodgkin lymphoma Sister Renal cancer Sister Diabetes Brother Diabetes Other No family history of adverse response to anesthesia Social History Smoking Status: Former smoker Tobacco Type: Cigarettes Age Quit Using Tobacco: 40; Second Hand Exposure: No; Do You Dip or Chew Tobacco: No; Tobacco Cessation Education Requested by Patient: No Hx Alcohol Use: Yes Alcohol type: beer Alcohol Intake Frequency: 2-4 x/Month Hx Substance Use: No Preferred Language: Turkmen Communication Ability: Effective Joint Setter Required: No Beliefs That Will Affect Care: None Current Living Situation: Spouse Current Living Situation Comment: Other Information That Helps Us Care for You: No Feels Safe at Home: Yes Safety Concerns: Feels Safe At This Time Assistive Devices: Glasses Review of Systems Review of Systems: All other systems were reviewed and negative except as noted in HPI Physical Exam Physical Exam: General exam: Appears comfortable, mild resp distress HEENT: Pupils are equal and reactive to light Neck: No JVD, neck is supple trachea is midline Respiratory system: Clear breath sounds bilaterally. Gastrointestinal: Abdomen is soft, non distended, non tender, bowel sounds are present CVS: Regular rate and rhythm. No murmurs, rubs or gallops Musculoskeletal: No joint or muscle tenderness Extremities: Non tender, no edema, peripheral pulses are present Neuro: Oriented, no tremors, no focal neurological deficits Skin: No rashes Results & Data Vital Signs (Past 12 Hours) Vital Signs Temp Pulse Pulse Resp BP BP Pulse Ox 10/10/22 11:09 36.3 C L 105 H 24 138/65 90 10/10/22 10:00 97 H 19 135/73 98 10/10/22 08:00 98 H 21 132/70 98 10/10/22 06:34 95 10/10/22 06:06 10/10/22 06:06 79 L 10/10/22 06:18 112 H 10/10/22 06:06 36.9 C 111 H 24 131/80 92 O2 Del Method O2 Flow Rate 10/10/22 11:09 Oxymask 10 10/10/22 10:00 Oxymask 6 10/10/22 08:00 Oxymask 6 10/10/22 06:34 Oxymask 6 10/10/22 06:06 Oxymask 10/10/22 06:06 Nasal Cannula, Oxymask 6 10/10/22 06:18 10/10/22 06:06 Oxymask 10 Laboratory Results 10/10/22 06:20 10/10/22 10/10/22 06:20 06:20 WBC 11.08 H RBC 3.14 L MCV 84.4 MCH 27.1 MCHC 32.1 RDW Std Deviation 39.2 RDW Coeff of Ana María 13.0 Plt Count 276 MPV 9.6 Phosphorus 5.6 H Albumin 3.5
[2022-10-10] MEDS ORDERED: EPOETIN ALFA 10,000 UNITS in SYRINGE 0 ML IV SCH (12:30)
[2022-10-10] MEDS ORDERED: EPOETIN ALFA 10,000 UNITS/ML VIAL IV ONE (13:30)
[2022-10-10] MEDS: EZETIMIBE 10 MG TABLET PO SCH (16:38)
[2022-10-10] MEDS: METOPROLOL SUCC 25MG EXT REL TAB PO SCH (16:41)
[2022-10-10] MEDS: HEPARIN SOD 5,000 UNIT/0.5 ML VIAL SQ SCH ×2 (16:41→22:05)
[2022-10-10] MEDS: INSULIN ASPART PER UNIT CHARGE SC SCH ×3 (16:47→20:34)
[2022-10-10] MEDS: ASPIRIN 81 MG ECTAB PO SCH (20:23)
[2022-10-10] MEDS: TACROLIMUS 1 MG CAP PO SCH (20:27)
[2022-10-10] MEDS ORDERED: MYCOPHENOLATE MOFETIL 250 MG CAP PO SCH (21:00)
[2022-10-10] MEDS ORDERED: TACROLIMUS 1 MG CAP PO SCH (21:00)
[2022-10-11 05:55] LABS: BUN Creatinine Ratio 8.4 (10-20); Calcium 9.3 mg/dl (8.6-10.3); Creatinine Clr Calc Pharmacy 13.1 ml/min; Est GFR (African American) 11.7 ml/min; Est GFR (Non-African American) 10.1 ml/min; Potassium 4.4 mmol/L (3.5-5.1)
[2022-10-11 05:57] LABS: Hematocrit (blood only) 25.6 % (42.0-52.0); Hemoglobin 8.1 g/dl (14.0-18.0); Mean Corpuscular Hemoglobin 26.6 pg (25.0-34.0); Mean Corpuscular Hgb Conc 31.6 g/dL (32.0-36.0); Mean Corpuscular Volume 83.9 fL (80.0-100.0); Mean Platelet Volume 9.7 fL (9.4-12.4); Platelet Count 316 K/uL (130-400); RDW Standard Deviation 38.5 fL (36.4-46.3); Red Blood Count 3.05 M/uL (4.70-6.10); White Blood Count 9.63 K/ul (4.8-10.8)
[2022-10-11] MEDS: HEPARIN SOD 5,000 UNIT/0.5 ML VIAL SQ SCH ×3 (05:59→21:37)
[2022-10-11] MEDS ORDERED: CEFEPIME 1,000 MG in SYRINGE 0 ML IV SCH (06:00)
[2022-10-11] MEDS: LEVOTHYROXINE SODIUM 75 MCG TABLET PO SCH (07:11)
[2022-10-11] MEDS: TACROLIMUS 1 MG CAP PO SCH ×2 (07:26→19:26)
--- NOTE | 2022-10-11 07:26 | Hospitalist Progress Note ---
Date of Service October 11, 2022 Assessment & Plan (1) Acute and chronic respiratory failure with hypoxia: Plan: Recently hospitalized for shortness of breath with no acute cause seen and optimization of chronic medical problems. Patient reports developing a cough du ring the admission for which he was given benzonatate and sent home. Cough has improved, however, now hypoxic. Bilateral pneumonia seen on CXR on admision. Procalcitonin elevated in support of possible bacterial pneumonia. Aspiration seems to be less likely. (2) Multifocal pneumonia: Plan: Antibiotics, sputum culture, will cover pseudomonas w/ cefepime. Nasal MRSA screen is negative so MRSA coverage with vancomycin not indicated. Consult pulm with h/o ILD and recent increasing oxygen needs since Jun 2022. He reports that baseline up to that time, he was using 2LPM with ambulation only. Now he is using approximately 6LPM at "baseline." Noted CT chest during recent admission to [facility] was negative for PE. 10/11 - Discussed with pulm. medicine. CT chest images sent to Anna Etienne from [facility]. Medical records also requested from [facility], and [facility]. (3) Diastolic CHF, acute on chronic: Plan: chronic, although he has an elevated BNP, he doesn't appear overtly overloaded. He did not receive his HD session and nephrology has been notified about this on admission. Pt is now s/p HD (4) Abnormal CT scan, chest: Plan: h/o lower right lung nodule thought to be consistent with rounded atelectasis on most recent chest CT scan in July 2022. Cont outpatient workup for stability. (5) DM type 2 (diabetes mellitus, type 2): Plan: Chronic, controlled on linagliptin. Patient reports that his most recent A1C was around 6. A1C repeat is pending. He was given some steroids in the ER on admission, which we won't continue. This may cause hyperglycemia. Cont BSG checks regularly and correction factor ordered for now. (6) Interstitial lung disease: Plan: chronic, baseline oxygen needs are 2LPM with ambulation. Most recent pulmonary outpatient note from [facility] made no mention about ILD, but did state that he has COPD gold D, that is smoking related with no recent flares. He recently stopped Wixela and spiriva inhalers one week ago because they "made me feels worse." Most recent PFTs in July 2022 reveal restrictive pattern with a partial bronchodilator response only in the small airways. He has a chronic right pleural effusion secondary to ESRD and CHF noted, also. Pulmonary medicine consulted, [employer]. records from pt's pulmonary visit requested. (7) ESRD (end stage renal disease) on dialysis: Plan: chronic, stable. Not overtly overloaded or acidotic and electrolytes are stable. He was unable to complete his HD session as scheduled on day of admission. s/p HD now (8) Immunocompromised patient: Plan: s/p liver transplant. Hold CellCept in infection without sepsis, cont tacrolimus. Restart Cellcept 4-6 weeks post infection or per transplant team g uidance. Cont entecavir, which may need to be brought in from home. (9) Status post liver transplant: Plan: as above. (10) Sleep apnea: Plan: not on home CPAP (11) Hypothyroidism: Plan: chronic, stbale. TSH on 08/31/22 was 4.27. Cont current home dose Synthroid. (12) Anemia: Plan: chronic, but recent drop in H/H noted. CBC on 08/2022 shows H/H 12/38.7. Currently, after PCI, starting DAPT and recent hospitalization he is 8.5/26.5. No overt bleeding. Tachycardia likely related to hypoxia. Further labs in am to work this up. ESRD likely contributing. Repeat CBC in am. Full Code with status confirmed with him on admission DVT proph-heparin Dispo- PCU, complex pt, PT/OT ordered. CM to assist with needs and transition back home when medically stable for discharge. Lives at home with his . Admission and Anticipated Discharge Date Admission Date: October 10, 2022 Subjective Pt seen in follow up of acute on chronic resp. failure, ESRD on HD, recent pci w/ stent placement Currently sitting up in chair, in no acute distress, he is on 6 L Had dialysis yesterday Reports comfortable right now, however whenever he moves, he desaturates to 70s. Reports he has been on less oxygen, about 2 L recently. Denies fevers chills chest pain. He does have a dry cough. Patient's present at the bedside. Review of Systems 2 Review of Systems: All systems reviewed & are unremarkable except as noted in Subjective Physical Exam Physical Exam: CONSTITUTIONAL: WNWD, M in NAD, on 6L suppl. O2 EYES: normal conjunctivae, no scleral icterus ENT: external ear and nose normal, oropharynx clear, NECK: supple RESPIRATORY: + rhonchi, no wheezes, normal respiratory effort CARDIOVASCULAR: regular rate and rhythm, S1 and 2 heard without murmur CHEST: inspection of chest normal GASTROINTESTINAL: soft, nontender, ND, no guarding MUSCULOSKELETAL:head is normocephalic and atraumatic, moves extremities SKIN: warm and dry NEUROLOGIC:Awake alert oriented, speech fluent, no facial asymmetry, moves extremities Results & Data Results & Data Vital Signs (Past 12 Hours) Vital Signs Temp Pulse Pulse Pulse Resp BP Pulse Ox 10/11/22 03:25 36.4 C L 73 18 102/44 L 96 10/11/22 00:23 81 10/10/22 21:00 10/10/22 23:34 36.4 C L 80 18 112/61 100 10/10/22 20:16 36.8 C 91 H 18 108/63 95 O2 Del Method O2 Flow Rate 10/11/22 03:25 Nasal Cannula 6 10/11/22 00:23 10/10/22 21:00 Nasal Cannula 6 10/10/22 23:34 Nasal Cannula 6 10/10/22 20:16 Nasal Cannula 6 Laboratory Results 10/11/22 10/11/22 10/11/22 Range/Units 04:37 04:37 04:37 WBC (4.8-10.8) K/ul RBC (4.70-6.10) M/uL Hgb (14.0-18.0) g/dl Hct (42.0-52.0) % MCV (80.0-100.0) fL MCH (25.0-34.0) pg MCHC (32.0-36.0) g/dL RDW Std Deviation (36.4-46.3) fL RDW Coeff of Ana María (11.5-14.5) % Plt Count (130-400) K/uL MPV (9.4-12.4) fL Sodium 133 L (136-145) mmol/L Potassium 4.4 (3.5-5.1) mmol/L Chloride 91 L (98-107) mmol/L Carbon Dioxide 30 (21-32) mmol/L Anion Gap 12 H (3-11) BUN 44 H (6-23) mg/dl Creatinine 5.25 H* D (0.6-1.4) mg/dl Est Cr Clr Drug Dosing 13.1 ml/min Est GFR ( Amer) 11.7 ml/min Est GFR (Non-Af Amer) 10.1 ml/min BUN/Creatinine Ratio 8.4 L (10-20) Glucose 165 H (70-99(Fasting)) mg/dl POC Glucose (70-99) mg/dl Estimat Average Glucose Pending Hemoglobin A1c Pending Calcium 9.3 (8.6-10.3) mg/dl Phosphorus (2.5-4.9) mg/dl Magnesium (1.7-2.4) mg/dl Iron 115 (35-175) mcg/dl Unsaturated IBC < 55 L (155-355) mcg/dl Ferritin 1867.0 H (8-388) ng/ml Total Bilirubin (0.2-1.0) mg/dl AST (13-39) U/L ALT (7-52) U/L Alkaline Phosphatase (34-104) U/L Troponin I High Sens (0-20) pg/ml Total Protein (6.0-8.3) gm/dl Albumin (3.4-5.0) gm/dl Globulin (2.5-4.0) gm/dl Albumin/Globulin Ratio (0.9-2) Procalcitonin (0-0.5) ng/ml Nasal Screen MRSA (PCR) (Negative) 10/11/22 10/10/22 10/10/22 Range/Units 04:37 20:28 16:41 WBC 9.63 (4.8-10.8) K/ul RBC 3.05 L (4.70-6.10) M/uL Hgb 8.1 L (14.0-18.0) g/dl Hct 25.6 L (42.0-52.0) % MCV 83.9 (80.0-100.0) fL MCH 26.6 (25.0-34.0) pg MCHC 31.6 L (32.0-36.0) g/dL RDW Std Deviation 38.5 (36.4-46.3) fL RDW Coeff of Ana María 13.0 (11.5-14.5) % Plt Count 316 (130-400) K/uL MPV 9.7 (9.4-12.4) fL Sodium (136-145) mmol/L Potassium (3.5-5.1) mmol/L Chloride (98-107) mmol/L Carbon Dioxide (21-32) mmol/L Anion Gap (3-11) BUN (6-23) mg/dl Creatinine (0.6-1.4) mg/dl Est Cr Clr Drug Dosing ml/min Est GFR ( Amer) ml/min Est GFR (Non-Af Amer) ml/min BUN/Creatinine Ratio (10-20) Glucose (70-99(Fasting)) mg/dl POC Glucose 266 H 166 H (70-99) mg/dl Estimat Average Glucose Hemoglobin A1c Calcium (8.6-10.3) mg/dl Phosphorus (2.5-4.9) mg/dl Magnesium (1.7-2.4) mg/dl Iron (35-175) mcg/dl Unsaturated IBC (155-355) mcg/dl Ferritin (8-388) ng/ml Total Bilirubin (0.2-1.0) mg/dl AST (13-39) U/L ALT (7-52) U/L Alkaline Phosphatase (34-104) U/L Troponin I High Sens (0-20) pg/ml Total Protein (6.0-8.3) gm/dl Albumin (3.4-5.0) gm/dl Globulin (2.5-4.0) gm/dl Albumin/Globulin Ratio (0.9-2) Procalcitonin (0-0.5) ng/ml Nasal Screen MRSA (PCR) (Negative) 10/10/22 10/10/22 10/10/22 Range/Units 11:41 09:35 07:37 WBC (4.8-10.8) K/ul RBC (4.70-6.10) M/uL Hgb (14.0-18.0) g/dl Hct (42.0-52.0) % MCV (80.0-100.0) fL MCH (25.0-34.0) pg MCHC (32.0-36.0) g/dL RDW Std Deviation (36.4-46.3) fL RDW Coeff of Ana María (11.5-14.5) % Plt Count (130-400) K/uL MPV (9.4-12.4) fL Sodium (136-145) mmol/L Potassium (3.5-5.1) mmol/L Chloride (98-107) mmol/L Carbon Dioxide (21-32) mmol/L Anion Gap (3-11) BUN (6-23) mg/dl Creatinine (0.6-1.4) mg/dl Est Cr Clr Drug Dosing ml/min Est GFR ( Amer) ml/min Est GFR (Non-Af Amer) ml/min BUN/Creatinine Ratio (10-20) Glucose (70-99(Fasting)) mg/dl POC Glucose 233 H (70-99) mg/dl Estimat Average Glucose Hemoglobin A1c Calcium (8.6-10.3) mg/dl Phosphorus (2.5-4.9) mg/dl Magnesium (1.7-2.4) mg/dl Iron (35-175) mcg/dl Unsaturated IBC (155-355) mcg/dl Ferritin (8-388) ng/ml Total Bilirubin (0.2-1.0) mg/dl AST (13-39) U/L ALT (7-52) U/L Alkaline Phosphatase (34-104) U/L Troponin I High Sens (0-20) pg/ml Total Protein (6.0-8.3) gm/dl Albumin (3.4-5.0) gm/dl Globulin (2.5-4.0) gm/dl Albumin/Globulin Ratio (0.9-2) Procalcitonin 1.05 H (0-0.5) ng/ml Nasal Screen MRSA (PCR) Negative (Negative) 10/10/22 Range/Units 06:20 WBC (4.8-10.8) K/ul RBC (4.70-6.10) M/uL Hgb (14.0-18.0) g/dl Hct (42.0-52.0) % MCV (80.0-100.0) fL MCH (25.0-34.0) pg MCHC (32.0-36.0) g/dL RDW Std Deviation (36.4-46.3) fL RDW Coeff of Ana María (11.5-14.5) % Plt Count (130-400) K/uL MPV (9.4-12.4) fL Sodium 135 L (136-145) mmol/L Potassium 3.9 (3.5-5.1) mmol/L Chloride 93 L (98-107) mmol/L Carbon Dioxide 27 (21-32) mmol/L Anion Gap 15 H (3-11) BUN 49 H (6-23) mg/dl Creatinine 7.12 H* (0.6-1.4) mg/dl Est Cr Clr Drug Dosing 10.7 ml/min Est GFR ( Amer) 8.1 ml/min Est GFR (Non-Af Amer) 7.0 ml/min BUN/Creatinine Ratio 6.9 L (10-20) Glucose 173 H (70-99(Fasting)) mg/dl POC Glucose (70-99) mg/dl Estimat Average Glucose Hemoglobin A1c Calcium 9.9 (8.6-10.3) mg/dl Phosphorus 5.6 H (2.5-4.9) mg/dl Magnesium 1.8 (1.7-2.4) mg/dl Iron (35-175) mcg/dl Unsaturated IBC (155-355) mcg/dl Ferritin (8-388) ng/ml Total Bilirubin 0.4 (0.2-1.0) mg/dl AST 13 (13-39) U/L ALT 11 (7-52) U/L Alkaline Phosphatase 46 (34-104) U/L Troponin I High Sens 30.3 H (0-20) pg/ml Total Protein 7.2 (6.0-8.3) gm/dl Albumin 3.5 (3.4-5.0) gm/dl Globulin 3.7 (2.5-4.0) gm/dl Albumin/Globulin Ratio 0.9 (0.9-2) Procalcitonin (0-0.5) ng/ml Nasal Screen MRSA (PCR) (Negative) Medications Administered Current Inpatient Medications Acetaminophen (Acetaminophen 325 Mg Tab) 650 mg PO Q4H PRN PRN Reason: Pain or Fever Stop: 11/09/22 11:07 Aspirin (Aspirin 81 Mg Ectab) 81 mg PO QPM MARIO Stop: 11/09/22 20:59 Last Admin: 10/10/22 20:23 Dose: 81 mg Clopidogrel Bisulfate (Clopidogrel Bisulfate 75 Mg Tab) 75 mg PO QAM [facility] Stop: 11/10/22 08:59 Dextrose (Dextrose 50% 50 Ml Syringe) 25 - 50 ml IV UD PRN; Protocol PRN Reason: Hypoglycemia Protocol Stop: 11/09/22 11:07 Ezetimibe (Ezetimibe 10 Mg Tablet) 10 mg PO QAM [facility] [place] Stop: 11/09/22 11:14 Last Admin: 10/10/22 16:38 Dose: 10 mg Glucagon (Glucagon For Inj 1 Mg Vial) 1 mg SQ UD PRN; Protocol PRN Reason: Hypoglycemia Protocol Stop: 11/09/22 11:07 Glucose (Glucose 10 Tab/Tube) 4 - 8 tab PO UD PRN; Protocol PRN Reason: Hypoglycemia Treatment Stop: 11/09/22 11:07 Glucose (Glucose 40% Gel 15 Gm Tube) 15 - 30 gm PO UD PRN; Protocol PRN Reason: Hypoglycemia Protocol Stop: 11/09/22 11:07 Heparin Sodium (Porcine) (Heparin Sod 5,000 Unit/0.5 Ml Vial) 5,000 units SQ Q8 [facility] [place] Stop: 11/09/22 13:59 Last Admin: 10/11/22 05:59 Dose: 5,000 units Hydroxyzine HCl (Hydroxyzine Hcl 25 Mg Tab) 25 mg PO Q6 PRN PRN Reason: Itching Stop: 11/09/22 11:03 Cefepime HCl 1,000 mg/ Syringe 10 mls @ 5 mls/min IV Q24H [facility] [place]; Protocol Stop: 10/18/22 05:59 Last Admin: 10/11/22 05:59 Dose: 5 mls/min Insulin Aspart (Insulin Aspart Per Unit Charge) 0 units SC ACHS [facility] [place] Stop: 11/09/22 11:29 Last Admin: 10/10/22 20:34 Dose: 6 units Levothyroxine Sodium (Levothyroxine Sodium 75 Mcg Tablet) 75 mcg PO DAILYBB [facility] [place] Stop: 11/10/22 06:29 Last Admin: 10/11/22 07:11 Dose: 75 mcg Metoprolol Succinate (Metoprolol Succ 25mg Ext Rel Tab) 25 mg PO QAM [facility] [place] Stop: 11/09/22 11:14 Last Admin: 10/10/22 16:41 Dose: 25 mg Miscellaneous (Entecavir 0.5 Mg Tablet ~ Order Awaiting Action) 1 each N/A QS [facility] [place] Stop: 11/09/22 15:59 Last Admin: 10/11/22 00:16 Dose: Not Given Miscellaneous (Carbohydrates For Hypoglycemia ) 15 - 30 gm PO UD PRN PRN Reason: Hypoglycemia Protocol Stop: 11/09/22 11:07 Mycophenolate Mofetil (Mycophenolate Mofetil 250 Mg Cap) 250 mg PO BID [facility] [place] Stop: 11/09/22 20:59 Polyethylene Glycol (Polyethylene (Miralax) 17 Gm Pack) 17 gm PO DAILY PRN PRN Reason: Constipation Stop: 11/09/22 11:07 Tacrolimus (Tacrolimus 1 Mg Cap) 1 mg PO BID@0730,1930 [facility] [place] Stop: 11/09/22 19:29 Last Admin: 10/10/22 20:27 Dose: 1 mg Vitamin D (Cholecalciferol 1,000 Units 25 Mcg Tab) 2,000 units PO QAM [facility] [place] Stop: 11/10/22 08:59
--- NOTE | 2022-10-11 07:43 | Pulmonary Consultation ---
Date of Consultation October 11, 2022 Assessment & Plan (1) Idiopathic interstitial pneumonia: (2) Acute hypoxemic respiratory failure: (3) Abnormal CT scan, chest: (4) Pulmonary nodule: Plan Impression: 72-year-old male with interstitial lung disease identified on CT from several years ago. His x-ray does show progression of both interstitial and ill-defined densities. Pattern is nonspecific and could be related to fluid, progression of interstitial lung disease, infectious or inflammatory (SHIP WIRER, pulm hemorrhage) etiologies. His care unfortunately is fragmented between at least 3 different healthcare systems ([facility], [facility], and [facility]). We do not have his prior imaging to review. Recommendations: 1. Recommend proceeding with CT of the chest. Given the parenchymal abnormalities, I think pulmonary vascular disease is unlikely so will defer contrast. Request the primary service get films from [facility] as well as his prior pulmonary notes from Dr. Espinoza and his current asset protection specialist for review including most recent pulmonary function testing. 2. Would consider having nephrology potentially challenge the patient with additional fluid removal with HD to see whether there is a component of hydrostatic pulmonary edema. 3. Patient's been initiated on cefepime I. My suspicion for underlying infectious process is low although the patient did have white blood cell count of 11,000 on presentation now down to 9000. Fever curve may be unreliable in liver transplant/dialysis patient on immune suppression. Seems reasonable to continue antibiotics for now especially with a mildly elevated procalcitonin. We will check Legionella urinary antigen and follow-up cultures. Depending on CT scan, could consider additional intervention such as bronchoscopy and BAL. The patient is not expectorating sputum currently so sputum culture and DFA for PJP cannot be obtained at this time. Check LDH. 4. Hypoxemic respiratory failure: Acute on chronic. Continue supplemental oxygen. Would titrate oxygen saturations around 90%. Wean as tolerated. Incentive spirometry and out of bed to chair as tolerated. Thanks for the opportunity participating in the care of this patient. We will continue to follow with you. Feel free to contact us with questions or concerns in the interim History of Present Illness Attending Physician: Dao Dacosta MD History of Present Illness Asked by hospitalist service to assist in evaluation management this patient with hypoxemic respiratory failure and interstitial lung disease/COPD. History is obtained from discussion with the patient and review electronic medical record. Patient is a 72-year-old male with a history of orthotopic lung transplant and kidney failure on dialysis. He is followed by the [facility] pulmonary group and actually has an appointment to see them on Wednesday. He was recently admitted to [facility] where he apparently had some sort of pulmonary evaluation as well as an interrogation of his cardiac stents. He was advised at that point time that his shortness of breath was related to his lungs and not his cardiovascular disease. Patient states that he has been oxygen dependent for about 4 years. About 3 months ago he had a increase his oxygen up to 3 L/min and over the last several days to weeks has had increased up to 6 L/min. He is not coughing or expectorating phlegm. He denies fevers chills or night sweats. He is not experiencing any chest pain or palpitations. No significant lower extremity edema. He is dialysis dependent and has been undergoing dialysis with fluid removal without any issues. He states that they are keeping him out around his dry weight. The patient did have a CT scan performed at [facility] within the last few weeks. Unfortunately that film is not yet available to review. He states it has been forwarded to [facility]. Is unclear what evaluation the patient had for his interstitial lung disease. His serological evaluation back in 2019 did demonstrate an elevated rheumatoid factor with negative CCP. [place] [employer] light chains were elevated the rest of his serological evaluation was unrevealing Allergies Allergy/AdvReac Type Severity Reaction Status Date / Time adhesive tape AdvReac Severe skin tears Verified 06/12/22 06:52 Zsekdew-YHT-BmC Reductase AdvReac Severe muscle and Verified 06/12/22 06:52 Inhibitor joint aches [Ctyxeec-Ipq-Pbv Reductase Inhibitor] lisinopril AdvReac Unknown Unknown Verified 06/12/22 06:52 Home Medications Medication Instructions Recorded Confirmed Type cholecalciferol (vitamin D3) 50 2,000 unit PO QAM 07/10/19 10/10/22 History mcg (2,000 unit) capsule (Vitamin D3) entecavir 0.5 mg tablet 0.5 mg PO QAM 07/10/19 10/10/22 History ezetimibe 10 mg tablet (Zetia) 10 mg PO QAM 07/10/19 10/10/22 History hydroxyzine HCl 25 mg tablet 25 mg PO Q6 PRN Itching 07/10/19 10/10/22 History levothyroxine 75 mcg tablet 75 mcg PO QAM 07/10/19 10/10/22 History mycophenolate mofetil 250 mg 250 mg PO BID 07/10/19 10/10/22 History capsule tacrolimus 1 mg capsule, 1 mg PO Q12H 07/10/19 10/10/22 History immediate-release albuterol sulfate 5 mg/mL(0.5 %) 2.5 mg inhalation UD PRN Shortness 06/21/20 10/10/22 History solution for nebulization Of Breath aspirin 81 mg tablet,delayed 81 mg PO QPM 10/10/22 10/10/22 History release clopidogrel 75 mg tablet 75 mg PO QAM 10/10/22 10/10/22 History fluticasone 250 mcg-salmeterol 50 1 inh inhalation BID 10/10/22 10/10/22 History mcg/dose blistr powdr for inhalation (Wixela Inhub) linagliptin 5 mg tablet 5 mg PO DAILY 10/10/22 10/10/22 History metoprolol succinate 25 mg 25 mg PO QAM 10/10/22 10/10/22 History tablet,extended release 24 hr tiotropium bromide 2.5 1 puff inhalation BID 10/10/22 10/10/22 History mcg/actuation mist for inhalation (Spiriva Respimat) Patient History Medical History ACEI/ARB contraindicated 2/2 ESRD Anemia AV fistula left arm Carpal tunnel syndrome CKD (chronic kidney disease) stage 4, GFR 15-29 ml/min CKD (chronic kidney disease) stage 5, GFR less than 15 ml/min COPD (chronic obstructive pulmonary disease) Dental caries s/p multiple teeth extraction 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 Duodenal ulcer with hemorrhage DVT (deep venous thrombosis) Acute DVT in bilateral lower extremities 07/19/2019 Esophageal varices ESRD (end stage renal disease) on dialysis Dialysis tue/thur/sat at [facility] in [place] Hepatic encephalopathy History of hepatocellular carcinoma (~2010) associated with HERNANDEZ cirrhosis; s/p liver transplant--also had chemo Hypertension Hypothyroidism Immunocompromised patient 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 HERNANDEZ (nonalcoholic steatohepatitis) On home oxygen therapy 2L N/C hs/prn Peripheral vascular disease in diabetes mellitus Rotator cuff syndrome of right shoulder Sleep apnea O2 at 2L N/C at hs Spinal stenosis of lumbar region without neurogenic claudication Warthin's tumor Surgical History History of abdominal paracentesis (~2012) prior to liver transplant History of arthroscopy of right shoulder History of bilateral carpal tunnel release History of cholecystectomy at same time as liver transplant History of colonoscopy History of esophagogastroduodenoscopy (EGD) History of liver biopsy malignant History of open heart surgery (~1992) in [facility]--had an accident where a nail went into his right ventricle and had to be removed History of open reduction and internal fixation (ORIF) procedure right hip--hardware in place History of tooth extraction S/P arteriovenous (AV) fistula creation left arm Status post liver transplant (~2012) @ [facility] Family History Mother Diabetes Colorectal cancer Father Non-Hodgkin lymphoma Sister Renal cancer Sister Diabetes Brother Diabetes Other No family history of adverse response to anesthesia Social History Smoking Status: Former smoker Tobacco Type: Cigarettes Age Quit Using Tobacco: 40; Second Hand Exposure: No; Do You Dip or Chew Tobacco: No; Tobacco Cessation Education Requested by Patient: No Hx Alcohol Use: Yes Alcohol type: beer Alcohol Intake Frequency: 2-4 x/Month Hx Substance Use: No Preferred Language: Guamanian Communication Ability: Effective Block Engraver Required: No Beliefs That Will Affect Care: None Current Living Situation: Spouse Current Living Situation Comment: Other Information That Helps Us Care for You: No Feels Safe at Home: Yes Safety Concerns: Feels Safe At This Time Assistive Devices: Glasses Review of Systems Review of Systems: Please refer to admission H&P. No additions or deletions Physical Exam Constitutional: WD/WN, vitals as above Eyes: PERRL, conjunctivae normal, anicteric sclerae Neck: trachea midline, no thyromegaly Respiratory: no respiratory distress, no labored breathing, no cough and not tachypneic Auscultation: + crackles and + rales; no wheezes Cardiovascular: Heart Sounds: normal S1 and normal S2; no murmur Extremities: + AV fistula; no edema Gastrointestinal (Abdomen): normal bowel sounds, soft, nontender, no hepatosplenomegaly Results & Data Results & Data Vital Signs (Past 12 Hours) Vital Signs Temp Pulse Pulse Pulse Resp BP Pulse Ox 10/11/22 03:25 36.4 C L 73 18 102/44 L 96 10/11/22 00:23 81 10/10/22 21:00 10/10/22 23:34 36.4 C L 80 18 112/61 100 10/10/22 20:16 36.8 C 91 H 18 108/63 95 O2 Del Method O2 Flow Rate 10/11/22 03:25 Nasal Cannula 6 10/11/22 00:23 10/10/22 21:00 Nasal Cannula 6 10/10/22 23:34 Nasal Cannula 6 10/10/22 20:16 Nasal Cannula 6 Critical Care Results & Data Vital Signs (Past 12 Hours) Vital Signs Temp Pulse Pulse Pulse Resp BP Pulse Ox 10/11/22 03:25 36.4 C L 73 18 102/44 L 96 10/11/22 00:23 81 10/10/22 21:00 10/10/22 23:34 36.4 C L 80 18 112/61 100 10/10/22 20:16 36.8 C 91 H 18 108/63 95 O2 Del Method O2 Flow Rate 10/11/22 03:25 Nasal Cannula 6 10/11/22 00:23 10/10/22 21:00 Nasal Cannula 6 10/10/22 23:34 Nasal Cannula 6 10/10/22 20:16 Nasal Cannula 6 Lab & Micro Results (Past 24 Hours) RBC 3.05 M/uL (4.70-6.10) L 10/11/22 WBC 9.63 K/ul (4.8-10.8) 10/11/22 Hgb 8.1 g/dl (14.0-18.0) L 10/11/22 Hct 25.6 % (42.0-52.0) L 10/11/22 MCV 83.9 fL (80.0-100.0) 10/11/22 MCH 26.6 pg (25.0-34.0) 10/11/22 MCHC 31.6 g/dL (32.0-36.0) L 10/11/22 RDW Standard Deviation 38.5 fL (36.4-46.3) 10/11/22 RDW Coefficient of Variation 13.0 % (11.5-14.5) 10/11/22 Plt Count 316 K/uL (130-400) 10/11/22 MPV 9.7 fL (9.4-12.4) 10/11/22 Na 133 mmol/L (136-145) L 10/11/22 K 4.4 mmol/L (3.5-5.1) 10/11/22 Cl 91 mmol/L (98-107) L 10/11/22 CO2 30 mmol/L (21-32) 10/11/22 Anion Gap 12 (3-11) H 10/11/22 BUN 44 mg/dl (6-23) H 10/11/22 Creatinine 5.25 mg/dl (0.6-1.4) H* 10/11/22 Estimated GFR ( Amer) 11.7 ml/min 10/11/22 Estimated GFR (Non-Af Amer) 10.1 ml/min 10/11/22 BUN/Creatinine Ratio 8.4 (10-20) L 10/11/22 Glu 165 mg/dl (70-99(Fasting)) H 10/11/22 Ca 9.3 mg/dl (8.6-10.3) 10/11/22 Calcium Level 9.3 mg/dl (8.6-10.3) 10/11/22 04:37 Microbiology 10/10/22 06:45 Aerobic Blood Culture - Preliminary Blood No growth in Aerobic bottle after 24 hours. Anaerobic Blood Culture - Preliminary No growth in Anaerobic bottle after 24 hours. I & O Totals 24 Hours 10/10/22 10/11/22 10/12/22 06:59 06:59 06:59 Intake Total 1120 / 1120 Balance 1120 / 1120 Cumulative 10/10/22 05:54 thru 10/11/22 05:49 Intake Total 1120 Balance 1120 RT Ventilator Mngmt (Last Documented) Ventilator Ordered Settings Respiratory Rate 18 10/11/22 03:25 Ventilator - PT Measurements Respiratory Rate 18 PG Care Time/CCT Total # of Minutes Spent Total Time Spent with Patient: Total time spent is greater than 50% in coordination of care (as documented) at patient's floor/unit and/or counseling patient: Coding Level of Care Code 42730 INT INP/OBS CARE MIN Diagnoses Idiopathic interstitial pneumonia J84.111 Acute hypoxemic respiratory failure J96.[address] scan, chest R93.89 Pulmonary nodule R91.1
--- NOTE | 2022-10-11 09:04 | XRay Report ---
XR chest 1V portable CLINICAL HISTORY: follow up TECHNIQUE: Single frontal radiograph of the chest was obtained. Comparison: Comparison is made to chest radiograph 10/10/2022 FINDINGS: Median sternotomy wires are unchanged. Cardiomegaly is noted. The aortic arch is calcified. There is prominence and cephalization of the vasculature with Estela B lines seen. Interstitial opacities are seen in the lungs. Airspace opacities are seen most prominently in the right lower lung. Moderate rig ht pleural effusion is seen. IMPRESSION: 1. Cardiomegaly and mild to moderate pulmonary edema superimposed upon chronic interstitial disease. 2. Moderate right pleural effusion. Right lower lung airspace opacities likely represent atelectasis with or without superimposed aspiration/pneumonia. ACT 112: Negative or not required by law. Electronically signed by: Donny Baez M.D. 10/11/2022 9:02 AM
[2022-10-11] MEDS: INSULIN ASPART PER UNIT CHARGE SC SCH ×4 (09:06→20:17)
[2022-10-11] MEDS: CLOPIDOGREL BISULFATE 75 MG TAB PO SCH (09:07)
[2022-10-11] MEDS: CHOLECALCIFEROL 1,000 UNITS 25 MCG TAB PO SCH (09:07)
[2022-10-11] MEDS: EZETIMIBE 10 MG TABLET PO SCH (10:26)
[2022-10-11] MEDS: METOPROLOL SUCC 25MG EXT REL TAB PO SCH (10:26)
--- NOTE | 2022-10-11 10:28 | CT Scan Report ---
CT chest diagnostic wo con CLINICAL HISTORY: ILD follow up TECHNIQUE: Multidetector row helical CT of the chest was performed. Coronal and sagittal reformations were obtained. Automated dose lowering techniques and/or adjustment according to patient size were u tilized for this exam. CT DOSE: 559.13 mGy.cm Comparison: Comparison is made to chest radiograph 06/21/2020, chest radiograph 10/11/2022 and chest rad iograph 10/10/2022 FINDINGS: Lungs and pleura: There are groundglass opacities with a few consolidative foci most prominently in t he left upper lobe.. There is a small right pleural effusion with underlying atelectasis including pr ominent rounded atelectasis in the right lower lobe. Bronchiectasis and peripheral interstitial thickening is increased from prior CT. Heart and pericardium: There is cardiomegaly without evidence of pericardial effusion. Vessels: Severe atherosclerotic changes in the aorta and coronary arteries. Pulmonary trunk measures 32 mm in diameter. Mediastinum and natasha: Subcentimeter lymph nodes are seen. Chest wall and lower neck: Unremarkable. Abdomen: Unremarkable. Bones: Degenerative changes of the thoracic spine. Old healed rib fractures are seen. IMPRESSION: 1. Interval development of groundglass and a few consolidative opacities concerning for infectious/i nflammatory process. There is a small right pleural effusion with underlying atelectasis. 2. Prominent interstitial lung disease which has increased from 2020. ACT 112: Negative or not required by law. Electronically signed by: Donny Baez M.D. 10/11/2022 10:26 AM
--- NOTE | 2022-10-11 11:43 | Nephrology Progress Note ---
Date of Service October 11, 2022 Assessment & Plan (1) ESRD (end stage renal disease) on dialysis: Plan: Patient with ESRD on dialysis Wednesday at the [facility]. He had dialysis yesterday with net UF of about 3 L. Patient remains hypoxic. Chest x-ray today showing pulmonary edema and moderate pleural effusion on the right. We will do dialysis on Wednesday and Wednesday again. (2) Multifocal pneumonia: Plan: Patient admitted with the shortness of breath and chest x-ray showing bilateral opacities suggestive of multifocal pneumonia. Patient is on cefepime per primary team. Renally dose antibiotics for dialysis. Consider empiric treatment for PCP pneumonia (3) Status post liver transplant: Plan: patient is status post liver transplant on Prograf and CellCept. Agree with holding CellCept in setting of multifocal pneumonia. Continue Prograf Home dose Admission and Anticipated Discharge Date Admission Date: October 10, 2022 Subjective Seen for ESRD. Patient is still short of breath. He had dialysis yesterday Review of Systems Review of Systems: All other systems were reviewed and negative except as noted in HPI Physical Exam Physical Exam: General exam: Appears comfortable, mild resp distress HEENT: Pupils are equal and reactive to light Neck: No JVD, neck is supple trachea is midline Respiratory system: Clear breath sounds bilaterally. Gastrointestinal: Abdomen is soft, non distended, non tender, bowel sounds are present CVS: Regular rate and rhythm. No murmurs, rubs or gallops Musculoskeletal: No joint or muscle tenderness Extremities: Non tender, no edema, peripheral pulses are present Neuro: Oriented, no tremors, no focal neurological deficits Skin: No rashes Results & Data Vital Signs (Past 12 Hours) Vital Signs Temp Pulse Pulse Pulse Resp BP Pulse Ox 10/11/22 08:25 36.3 C L 76 20 120/66 100 10/11/22 06:25 76 10/11/22 07:50 10/11/22 03:25 36.4 C L 73 18 102/44 L 96 10/11/22 00:23 81 O2 Del Method O2 Flow Rate 10/11/22 08:25 Nasal Cannula 6 10/11/22 06:25 10/11/22 07:50 Nasal Cannula 6 10/11/22 03:25 Nasal Cannula 6 10/11/22 00:23 Laboratory Results 10/11/22 04:37 10/11/22 04:37 WBC 9.63 RBC 3.05 L MCV 83.9 MCH 26.6 MCHC 31.6 L RDW Std Deviation 38.5 RDW Coeff of Ana María 13.0 Plt Count 316 MPV 9.7
[2022-10-11] MEDS ORDERED: ENTECAVIR PO SCH (14:45)
[2022-10-11] MEDS: ENTECAVIR PO SCH (15:58)
[2022-10-11] MEDS: CEFEPIME 1,000 MG in SYRINGE 0 ML IV SCH (18:34)
[2022-10-11] MEDS: ASPIRIN 81 MG ECTAB PO SCH (20:06)
[2022-10-12 04:58] LABS: Hematocrit (blood only) 25.8 % (42.0-52.0); Hemoglobin 8.3 g/dl (14.0-18.0); Mean Corpuscular Hemoglobin 26.7 pg (25.0-34.0); Mean Corpuscular Hgb Conc 32.2 g/dL (32.0-36.0); Mean Platelet Volume 9.4 fL (9.4-12.4); Platelet Count 339 K/uL (130-400); RDW Standard Deviation 38.8 fL (36.4-46.3); Red Blood Count 3.11 M/uL (4.70-6.10); White Blood Count 9.91 K/ul (4.8-10.8)
[2022-10-12 05:14] LABS: BUN Creatinine Ratio 9.4 (10-20); Calcium 9.4 mg/dl (8.6-10.3); Creatinine Clr Calc Pharmacy 9.9 ml/min; Est GFR (African American) 8.3 ml/min; Est GFR (Non-African American) 7.1 ml/min; Magnesium 2.1 mg/dl (1.7-2.4); Phosphorus 6.6 mg/dl (2.5-4.9); Potassium 4.7 mmol/L (3.5-5.1)
[2022-10-12] MEDS: HEPARIN SOD 5,000 UNIT/0.5 ML VIAL SQ SCH ×3 (05:17→22:40)
[2022-10-12] MEDS: LEVOTHYROXINE SODIUM 75 MCG TABLET PO SCH (05:18)
[2022-10-12] MEDS: CEFEPIME 1,000 MG in SYRINGE 0 ML IV SCH ×2 (05:27→18:25)
[2022-10-12] MEDS ORDERED: SODIUM CHLORIDE 0.9% 1000ML 1,000 ML IV PRN (07:00)
[2022-10-12] MEDS ORDERED: EPOETIN ALFA 10,000 UNITS/ML VIAL IV ONE (07:00)
[2022-10-12] MEDS: TACROLIMUS 1 MG CAP PO SCH ×2 (07:30→19:14)
[2022-10-12 08:01] LABS: Estimated Average Glucose 140 mg/dl; Hemoglobin A1C 6.5 % (4.5-5.6)
[2022-10-12] MEDS: INSULIN ASPART PER UNIT CHARGE SC SCH ×4 (08:17→20:52)
--- NOTE | 2022-10-12 08:45 | Pulmonology Progress Note ---
Date of Service October 12, 2022 Assessment & Plan (1) Idiopathic interstitial pneumonia: (2) Acute hypoxemic respiratory failure: (3) Abnormal CT scan, chest: (4) Pulmonary nodule: Plan Impression: 72-year-old male with interstitial lung disease identified on CT from several years ago. His x-ray does show progression of both interstitial and ill-defined densities. Pattern is nonspecific and could be related to fluid, progression of interstitial lung disease, infectious or inflammatory (RESEARCH AND DEVELOPMENT RESEARCHER, pulm hemorrhage) etiologies. His care unfortunately is fragmented between at least 3 different healthcare systems ([facility], [facility], and [facility]). PFT 07/08/2022 personally reviewed: Nonspecific spirometry with no obstruction, inclining more towards restrictive pattern FVC 2.62 L 61%, FEV1 2.19 L 70%, FEV1/FVC 83% CT chest 10/11/2022 personally reviewed: Centrilobular and paraseptal emphysema appreciated bilaterally Increase reticular markings and interlobular thickening on the periphery of the upper and lower lobes Traction bronchiectasis Small right-sided pleural effusion with dependent rounded atelectasis/PNA No significant mediastinal lymphadenopathy Compared to CT chest done 10/01/2022, there is improvement in the patchy opacities as well as small right-sided pleural effusion Compared to HRCT done 07/2019, the groundglass opacities/NSIP pattern of the upper and lower lobes seems to be improved -- Acute hypoxic respiratory failure Multifactorial Underlying ILD, fluid overload from CKD as well as possible atypical pneumonia Possibility of overtures of infection like PJP is there but low in differential as mycophenolate is usually protective to get PJP Procalcitonin 1.49 BNP 501 COVID-19 NAAT negative LDH 158 Continue with antibiotics, follow sputum culture --Combined pulmonary fibrosis with emphysema On Symbicort and Spiriva at home Symbicort usually makes him cough, is able to tolerate Spiriva Would rather have him on Stiolto on discharge --Chronic right-sided pleural effusion S/p thoracentesis x2 at [facility] Nonmalignant as per the patient --Significant asbestos exposure while working [place] the [employer] for approximately 25 years -- Ex-smoker [id number] smoking history Quit at the age of approximately 35 PFT 07/08/2022 personally reviewed: Nonspecific spirometry with no obstruction, inclining more towards restrictive pattern FVC 2.62 L 61%, FEV1 2.19 L 70%, FEV1/FVC 83% Plan: Looking at the CT chest I would like to add atypical coverage with azithromycin, QTc 452 on 10/10/2022 Continue with antibiotics Overall the CT chest from yesterday shows improvement compared to the one which was done 10/01/2022. I will try to get official report of the CAT scan done at [facility] Patient's oxygen requirement is improving. I do think fluid overload was also playing a part We will hold back on any invasive procedures like bronchoscopy. Case was discussed with RN at bedside Case was discussed with Dr. Dacosta Please note the above document was generated using voice recognition software. It may contain grammatical, syntax or spelling errors.Any formal questions or concerns about the content, text or information contained within the body of this dictation should be directly addressed to the provider for clarification. Admission and Anticipated Discharge Date Admission Date: October 10, 2022 Subjective Patient was seen and examined at bedside. No acute distress, no adverse events overnight Patient's was in the room as well. He was saturating 95% on 5 L nasal cannula I went down to 3 L and he was still able to maintain his saturation 92-93% Denies any chest pain No chest heaviness No nausea or vomiting Does complain of cough which is mostly dry. Denies any hemoptysis Has been afebrile Review of Systems Review of Systems: All systems reviewed & are unremarkable except as noted in Subjective Physical Exam Physical Exam: Constitutional: No acute distress HEENT: EOMI, PERRLA Respiratory system: Decreased air entry bilaterally, no wheeze, no rhonchi, positive crackles bilateral lower lobes CVS: S1-S2 positive, positive 3 out of 6 systolic murmur appreciated best at aorta Abdomen: Soft, nontender, nondistended, positive bowel sounds x4 Extremities: +2 pulses bilaterally radialis/ dorsalis pedis, no cyanosis, no edema, left arm AV fistula Neuro: Awake alert oriented x3 Psych: Normal mood and affect G/U: No Srivastava Skin: no rashes, warm and dry Lymphatic: no cervical or axillary lymphadenopathy Results & Data Results & Data Vital Signs (Past 12 Hours) Vital Signs Temp Pulse Pulse Resp BP Pulse Ox O2 Del Method 10/12/22 08:19 74 10/12/22 08:19 Nasal Cannula 10/12/22 08:12 36.3 C L 75 20 126/71 94 Nasal Cannula 10/12/22 03:55 36.4 C L 72 20 106/52 L 99 Nasal Cannula 10/12/22 02:11 76 10/11/22 23:25 36.3 C L 74 20 125/75 96 Nasal Cannula O2 Flow Rate 10/12/22 08:19 10/12/22 08:19 6 10/12/22 08:12 6 10/12/22 03:55 6 10/12/22 02:11 10/11/22 23:25 6 Laboratory Results 10/12/22 04:11 10/12/22 04:11 PG Care Time/CCT Total # of Minutes Spent Total Time Spent with Patient: Total time spent is greater than 50% in coordination of care (as documented) at patient's floor/unit and/or counseling patient: Coding Level of Care Code 59711 SUB INP/OBS CARE 3/50MIN Diagnoses Idiopathic interstitial pneumonia J84.111 Acute hypoxemic respiratory failure J96.[address] scan, chest R93.89 Pulmonary nodule R91.1
[2022-10-12] MEDS: EZETIMIBE 10 MG TABLET PO SCH (08:56)
[2022-10-12] MEDS: CLOPIDOGREL BISULFATE 75 MG TAB PO SCH (08:56)
[2022-10-12] MEDS: METOPROLOL SUCC 25MG EXT REL TAB PO SCH (08:56)
[2022-10-12] MEDS: CHOLECALCIFEROL 1,000 UNITS 25 MCG TAB PO SCH (08:56)
--- NOTE | 2022-10-12 09:46 | Nephrology Progress Note ---
Date of Service October 12, 2022 Assessment & Plan (1) ESRD (end stage renal disease) on dialysis: Plan: Patient with ESRD on dialysis Wednesday at the [facility]. He had dialysis yesterday with net UF of about 3 L. Patient remains hypoxic. Chest x-ray today showing pulmonary edema and moderate pleural effusion on the right. Patient is tolerating dialysis well today. He is planned for 3-1/2 hours and target UF of 3.5 L. We will plan dialysis again tomorrow. (2) Multifocal pneumonia: Plan: Patient admitted with the shortness of breath and chest x-ray showing bilateral opacities suggestive of multifocal pneumonia. Patient is on cefepime per primary team. Renally dose antibiotics for dialysis. Consider empiric treatment for PCP pneumonia (3) Status post liver transplant: Plan: patient is status post liver transplant on Prograf and CellCept. Agree with holding CellCept in setting of multifocal pneumonia. Continue Prograf Home dose Admission and Anticipated Discharge Date Admission Date: October 10, 2022 Subjective Seen in follow-up for ESRD. Patient was seen and examined while on dialysis. Main complaint is still exertional dyspnea. He is on 6 L of oxygen. No leg swelling. Review of Systems Review of Systems: All other systems were reviewed and negative except as noted in HPI Physical Exam Physical Exam: General exam: Appears comfortable, mild resp distress HEENT: Pupils are equal and reactive to light Neck: No JVD, neck is supple trachea is midline Respiratory system: Clear breath sounds bilaterally. Gastrointestinal: Abdomen is soft, non distended, non tender, bowel sounds are present CVS: Regular rate and rhythm. No murmurs, rubs or gallops Musculoskeletal: No joint or muscle tenderness Extremities: Non tender, no edema, peripheral pulses are present Neuro: Oriented, no tremors, no focal neurological deficits Skin: No rashes Results & Data Vital Signs (Past 12 Hours) Vital Signs Temp Pulse Pulse Resp BP BP Pulse Ox 10/12/22 09:15 79 101/67 10/12/22 08:54 36.4 C L 84 10/12/22 08:19 74 10/12/22 08:19 10/12/22 08:12 36.3 C L 75 20 126/71 94 10/12/22 03:55 36.4 C L 72 20 106/52 L 99 10/12/22 02:11 76 10/11/22 23:25 36.3 C L 74 20 125/75 96 O2 Del Method O2 Flow Rate 10/12/22 09:15 10/12/22 08:54 10/12/22 08:19 10/12/22 08:19 Nasal Cannula 6 10/12/22 08:12 Nasal Cannula 6 10/12/22 03:55 Nasal Cannula 6 10/12/22 02:11 10/11/22 23:25 Nasal Cannula 6 Laboratory Results 10/12/22 04:11 10/12/22 10/12/22 04:11 04:11 WBC 9.91 RBC 3.11 L MCV 83.0 MCH 26.7 MCHC 32.2 RDW Std Deviation 38.8 RDW Coeff of Ana María 13.0 Plt Count 339 MPV 9.4 Phosphorus 6.6 H
[2022-10-12] MEDS: ENTECAVIR PO SCH (11:09)
--- NOTE | 2022-10-12 13:08 | Hospitalist Progress Note ---
Date of Service October 12, 2022 Assessment & Plan (1) Acute and chronic respiratory failure with hypoxia: Plan: Recently hospitalized for shortness of breath with no acute cause seen and optimization of chronic medical problems. Patient reports developing a cough du ring the admission for which he was given benzonatate and sent home. Cough has improved, however, now hypoxic. Bilateral pneumonia seen on CXR on admision. Procalcitonin elevated in support of possible bacterial pneumonia. Aspiration seems to be less likely. (2) Multifocal pneumonia: Plan: Antibiotics, sputum culture, will cover pseudomonas w/ cefepime. Nasal MRSA screen is negative so MRSA coverage with vancomycin not indicated. Consult pulm with h/o ILD and recent increasing oxygen needs since Jun 2022. He reports that baseline up to that time, he was using 2LPM with ambulation only. Now he is using approximately 6LPM at "baseline." Noted CT chest during recent admission to [facility] was negative for PE. CT chest repeated (10/11) 1. Interval development of groundglass and a few consolidative opacities concerning for infectious/inflammatory process. There is a small right pleural effusion with underlying atelectasis. 2. Prominent interstitial lung disease which has increased from 2020. 10/11 - Discussed with pulm. medicine. CT chest images sent to [facility] from [facility]. Medical records also requested from [facility], and [facility]. 10/12 -given CT findings, will continue with cefepime, also consider adding agent for atypical coverage. (3) Diastolic CHF, acute on chronic: Plan: chronic, although he has an elevated BNP, he doesn't appear overtly overloaded. He did not receive his HD session and nephrology has been notified about this on admission. Pt is now s/p HD (4) Abnormal CT scan, chest: Plan: h/o lower right lung nodule thought to be consistent with rounded atelectasis on most recent chest CT scan in July 2022. Cont outpatient workup for stability. (5) DM type 2 (diabetes mellitus, type 2): Plan: Chronic, controlled on linagliptin. Current Hgb A1c 6.5% He was given some steroids in the ER on admission, which we won't continue. This may cause hyperglycemia. Cont BSG checks regularly and correction factor ordered for now. (6) Interstitial lung disease: Plan: chronic, baseline oxygen needs are 2LPM with ambulation. [facility] made no mention about ILD, but did state that he has COPD gold D, that is smoking related with no recent flares. He recently stopped Wixela and spiriva inhalers one week ago because they "made me feels worse." Most recent PFTs in July 2022 reveal restrictive pattern with a partial bronchodilator response only in the small airways. He has a chronic right pleural effusion secondary to ESRD and CHF noted, also. Pulmonary medicine consulted, [facility]. records from pt's pulmonary visit requested and obtained. (7) ESRD (end stage renal disease) on dialysis: Plan: chronic, stable. Not overtly overloaded or acidotic and electrolytes are stable. He was unable to complete his HD session as scheduled on day of admission. s/p HD now (8) Immunocompromised patient: Plan: s/p liver transplant. Hold CellCept in infection without sepsis, cont tacrolimus. Restart Cellcept 4-6 weeks post infection or per transplant team guidance. Cont entecavir, which may need to be brought in from home. (9) Status post liver transplant: Plan: as above. (10) Sleep apnea: Plan: not on home CPAP (11) Hypothyroidism: Plan: chronic, stbale. TSH on 08/31/22 was 4.27. Cont current home dose Synthroid. (12) Anemia: Plan: chronic, but recent drop in H/H noted. CBC on 08/2022 shows H/H 12/38.7. Currently, after PCI, starting DAPT and recent hospitalization he is 8.5/26.5. No overt bleeding. Tachycardia likely related to hypoxia. Further labs in am to work this up. ESRD likely contributing. Repeat CBC in am. Full Code with status confirmed with him on admission DVT proph-heparin Dispo- PCU, complex pt, PT/OT ordered. CM to assist with needs and transition back home when medically stable for discharge. Lives at home with his . Admission and Anticipated Discharge Date Admission Date: October 10, 2022 Subjective Pt seen in follow up of acute on chronic resp. failure, ESRD on HD, recent pci w/ stent placement Currently lying in bed, in no acute distress, he is on 3 L (down from 6L) Had dialysis yesterday and today Reports comfortable right now, however whenever he moves, he desaturates to 70s. Reports he has been on less oxygen, about 2 L recently. Denies fevers chills chest pain. He does have a dry cough. Patient's present at the bedside. Pulmonary medicine following closely Review of Systems Review of Systems: All systems reviewed & are unremarkable except as noted in Subjective Physical Exam Physical Exam: CONSTITUTIONAL: WNWD, M in NAD, on 3L suppl. O2 EYES: normal conjunctivae, no scleral icterus ENT: external ear and nose normal, oropharynx clear, NECK: supple RESPIRATORY: + basilar crackles, no wheezes, normal respiratory effort CARDIOVASCULAR: regular rate and rhythm, syst. murmur CHEST: inspection of chest normal GASTROINTESTINAL: soft, nontender, ND, no guarding MUSCULOSKELETAL:head is normocephalic and atraumatic, moves extremities SKIN: warm and dry NEUROLOGIC:Awake alert oriented, speech fluent, no facial asymmetry, moves extremities Results & Data Results & Data Vital Signs (Past 12 Hours) Vital Signs Temp Pulse Pulse Resp BP BP Pulse Ox 10/12/22 12:00 78 93/59 L 10/12/22 11:30 78 99/66 L 10/12/22 11:00 83 96/59 L 10/12/22 10:30 75 97/60 L 10/12/22 10:00 76 107/58 L 10/12/22 09:30 76 105/68 10/12/22 09:15 79 101/67 10/12/22 08:54 36.4 C L 84 10/12/22 08:19 74 10/12/22 08:19 10/12/22 08:12 36.3 C L 75 20 126/71 94 10/12/22 03:55 36.4 C L 72 20 106/52 L 99 10/12/22 02:11 76 O2 Del Method O2 Flow Rate 10/12/22 12:00 10/12/22 11:30 10/12/22 11:00 10/12/22 10:30 10/12/22 10:00 10/12/22 09:30 10/12/22 09:15 10/12/22 08:54 10/12/22 08:19 10/12/22 08:19 Nasal Cannula 6 10/12/22 08:12 Nasal Cannula 6 10/12/22 03:55 Nasal Cannula 6 10/12/22 02:11 Laboratory Results 10/12/22 10/12/22 10/12/22 Range/Units 07:48 04:11 04:11 WBC 9.91 (4.8-10.8) K/ul RBC 3.11 L (4.70-6.10) M/uL Hgb 8.3 L (14.0-18.0) g/dl Hct 25.8 L (42.0-52.0) % MCV 83.0 (80.0-100.0) fL MCH 26.7 (25.0-34.0) pg MCHC 32.2 (32.0-36.0) g/dL RDW Std Deviation 38.8 (36.4-46.3) fL RDW Coeff of Ana María 13.0 (11.5-14.5) % Plt Count 339 (130-400) K/uL MPV 9.4 (9.4-12.4) fL Sodium 131 L (136-145) mmol/L Potassium 4.7 (3.5-5.1) mmol/L Chloride 91 L (98-107) mmol/L Carbon Dioxide 27 (21-32) mmol/L Anion Gap 13 H (3-11) BUN 66 H D (6-23) mg/dl Creatinine 6.99 H* D (0.6-1.4) mg/dl Est Cr Clr Drug Dosing 9.9 ml/min Est GFR ( Amer) 8.3 ml/min Est GFR (Non-Af Amer) 7.1 ml/min BUN/Creatinine Ratio 9.4 L (10-20) Glucose 110 H (70-99(Fasting)) mg/dl POC Glucose 155 H (70-99) mg/dl Estimat Average Glucose mg/dl Hemoglobin A1c (4.5-5.6) % Calcium 9.4 (8.6-10.3) mg/dl Phosphorus 6.6 H (2.5-4.9) mg/dl Magnesium 2.1 (1.7-2.4) mg/dl Procalcitonin (0-0.5) ng/ml Urine Legionella Ag 10/12/22 10/11/22 10/11/22 Range/Units 04:11 20:09 17:30 WBC (4.8-10.8) K/ul RBC (4.70-6.10) M/uL Hgb (14.0-18.0) g/dl Hct (42.0-52.0) % MCV (80.0-100.0) fL MCH (25.0-34.0) pg MCHC (32.0-36.0) g/dL RDW Std Deviation (36.4-46.3) fL RDW Coeff of Ana María (11.5-14.5) % Plt Count (130-400) K/uL MPV (9.4-12.4) fL Sodium (136-145) mmol/L Potassium (3.5-5.1) mmol/L Chloride (98-107) mmol/L Carbon Dioxide (21-32) mmol/L Anion Gap (3-11) BUN (6-23) mg/dl Creatinine (0.6-1.4) mg/dl Est Cr Clr Drug Dosing ml/min Est GFR ( Amer) ml/min Est GFR (Non-Af Amer) ml/min BUN/Creatinine Ratio (10-20) Glucose (70-99(Fasting)) mg/dl POC Glucose 248 H (70-99) mg/dl Estimat Average Glucose mg/dl Hemoglobin A1c (4.5-5.6) % Calcium (8.6-10.3) mg/dl Phosphorus (2.5-4.9) mg/dl Magnesium (1.7-2.4) mg/dl Procalcitonin 1.49 H (0-0.5) ng/ml Urine Legionella Ag Pending 10/11/22 10/11/22 Range/Units 17:02 04:37 WBC (4.8-10.8) K/ul RBC (4.70-6.10) M/uL Hgb (14.0-18.0) g/dl Hct (42.0-52.0) % MCV (80.0-100.0) fL MCH (25.0-34.0) pg MCHC (32.0-36.0) g/dL RDW Std Deviation (36.4-46.3) fL RDW Coeff of Ana María (11.5-14.5) % Plt Count (130-400) K/uL MPV (9.4-12.4) fL Sodium (136-145) mmol/L Potassium (3.5-5.1) mmol/L Chloride (98-107) mmol/L Carbon Dioxide (21-32) mmol/L Anion Gap (3-11) BUN (6-23) mg/dl Creatinine (0.6-1.4) mg/dl Est Cr Clr Drug Dosing ml/min Est GFR ( Amer) ml/min Est GFR (Non-Af Amer) ml/min BUN/Creatinine Ratio (10-20) Glucose (70-99(Fasting)) mg/dl POC Glucose 151 H (70-99) mg/dl Estimat Average Glucose 140 mg/dl Hemoglobin A1c 6.5 H (4.5-5.6) % Calcium (8.6-10.3) mg/dl Phosphorus (2.5-4.9) mg/dl Magnesium (1.7-2.4) mg/dl Procalcitonin (0-0.5) ng/ml Urine Legionella Ag Medications Administered Current Inpatient Medications Acetaminophen (Acetaminophen 325 Mg Tab) 650 mg PO Q4H PRN PRN Reason: Pain or Fever Stop: 11/09/22 11:07 Aspirin (Aspirin 81 Mg Ectab) 81 mg PO QPM [facility] Stop: 11/09/22 20:59 Last Admin: 10/11/22 20:06 Dose: 81 mg Clopidogrel Bisulfate (Clopidogrel Bisulfate 75 Mg Tab) [facility] [place] Stop: 11/10/22 08:59 Last Admin: 10/12/22 08:56 Dose: Not Given Dextrose (Dextrose 50% 50 Ml Syringe) 25 - 50 ml IV UD PRN; Protocol PRN Reason: Hypoglycemia Protocol Stop: 11/09/22 11:07 Ezetimibe (Ezetimibe 10 Mg Tablet) [facility] [place] Stop: 11/09/22 11:14 Last Admin: 10/12/22 08:56 Dose: Not Given Glucagon (Glucagon For Inj 1 Mg Vial) 1 mg SQ UD PRN; Protocol PRN Reason: Hypoglycemia Protocol Stop: 11/09/22 11:07 Glucose (Glucose 10 Tab/Tube) 4 - 8 tab PO UD PRN; Protocol PRN Reason: Hypoglycemia Treatment Stop: 11/09/22 11:07 Glucose (Glucose 40% Gel 15 Gm Tube) 15 - 30 gm PO UD PRN; Protocol PRN Reason: Hypoglycemia Protocol Stop: 11/09/22 11:07 Heparin Sodium (Porcine) (Heparin Sod 5,000 Unit/0.5 Ml Vial) 5,000 units SQ Q8 [facility] Stop: 11/09/22 13:59 Last Admin: 10/12/22 05:17 Dose: 5,000 units Hydroxyzine HCl (Hydroxyzine Hcl 25 Mg Tab) 25 mg PO Q6 PRN PRN Reason: Itching Stop: 11/09/22 11:03 Cefepime HCl 1,000 mg/ Syringe 10 mls @ 5 mls/min IV Q12H [facility]; Protocol Stop: 10/18/22 17:59 Last Admin: 10/12/22 05:27 Dose: 5 mls/min Insulin Aspart (Insulin Aspart Per Unit Charge) 0 units SC ACHS [facility] Stop: 11/09/22 11:29 Last Admin: 10/12/22 13:05 Dose: Not Given Levothyroxine Sodium (Levothyroxine Sodium 75 Mcg Tablet) 75 mcg PO DAILYBB [facility] Stop: 11/10/22 06:29 Last Admin: 10/12/22 05:18 Dose: 75 mcg Metoprolol Succinate (Metoprolol Succ 25mg Ext Rel Tab) 25 mg PO QAM [facility] Stop: 11/09/22 11:14 Last Admin: 10/12/22 08:56 Dose: Not Given Miscellaneous (Carbohydrates For Hypoglycemia ) 15 - 30 gm PO UD PRN PRN Reason: Hypoglycemia Protocol Stop: 11/09/22 11:07 Mycophenolate Mofetil (Mycophenolate Mofetil 250 Mg Cap) 250 mg PO BID [facility] Stop: 11/09/22 20:59 Entecavir ~ Non- Formulary Patient's Own Med 1 each PO DAILY@1000 [facility] Stop: 11/10/22 14:44 Last Admin: 10/12/22 11:09 Dose: Not Given Polyethylene Glycol (Polyethylene (Miralax) 17 Gm Pack) 17 gm PO DAILY PRN PRN Reason: Constipation Stop: 11/09/22 11:07 Tacrolimus (Tacrolimus 1 Mg Cap) 1 mg PO BID@0730,1930 [facility] Stop: 11/09/22 19:29 Last Admin: 10/12/22 07:30 Dose: 1 mg Vitamin D (Cholecalciferol 1,000 Units 25 Mcg Tab) 2,000 units PO QAM [facility] Stop: 11/10/22 08:59 Last Admin: 10/12/22 08:56 Dose: Not Given
[2022-10-12] MEDS: DOXYCYCLINE HYCLATE 100 MG CAP PO SCH (20:14)
[2022-10-12] MEDS: ASPIRIN 81 MG ECTAB PO SCH (20:15)
[2022-10-13] MEDS: HEPARIN SOD 5,000 UNIT/0.5 ML VIAL SQ SCH (06:08)
[2022-10-13] MEDS: LEVOTHYROXINE SODIUM 75 MCG TABLET PO SCH (06:09)
[2022-10-13] MEDS: CEFEPIME 1,000 MG in SYRINGE 0 ML IV SCH ×2 (06:14→20:21)
[2022-10-13 06:38] LABS: BUN Creatinine Ratio 7.6 (10-20); Calcium 9.4 mg/dl (8.6-10.3); Creatinine Clr Calc Pharmacy 12.5 ml/min; Est GFR (Non-African American) 9.5 ml/min; Magnesium 1.9 mg/dl (1.7-2.4); Phosphorus 5.3 mg/dl (2.5-4.9); Potassium 4.5 mmol/L (3.5-5.1)
[2022-10-13 06:41] LABS: Hematocrit (blood only) 27.5 % (42.0-52.0); Hemoglobin 8.7 g/dl (14.0-18.0); Mean Corpuscular Hemoglobin 26.6 pg (25.0-34.0); Mean Corpuscular Hgb Conc 31.6 g/dL (32.0-36.0); Mean Corpuscular Volume 84.1 fL (80.0-100.0); Mean Platelet Volume 9.5 fL (9.4-12.4); Platelet Count 320 K/uL (130-400); RDW Coefficient of Variation 13.1 % (11.5-14.5); RDW Standard Deviation 39.3 fL (36.4-46.3); Red Blood Count 3.27 M/uL (4.70-6.10); White Blood Count 7.11 K/ul (4.8-10.8)
[2022-10-13] MEDS: TACROLIMUS 1 MG CAP PO SCH ×2 (07:31→20:10)
[2022-10-13] MEDS: INSULIN ASPART PER UNIT CHARGE SC SCH ×4 (08:18→21:00)
[2022-10-13] MEDS: DOXYCYCLINE HYCLATE 100 MG CAP PO SCH ×2 (08:33→20:12)
[2022-10-13] MEDS: CLOPIDOGREL BISULFATE 75 MG TAB PO SCH (08:33)
[2022-10-13] MEDS: CHOLECALCIFEROL 1,000 UNITS 25 MCG TAB PO SCH (08:33)
[2022-10-13] MEDS: METOPROLOL SUCC 25MG EXT REL TAB PO SCH (08:34)
[2022-10-13] MEDS: EZETIMIBE 10 MG TABLET PO SCH (08:34)
--- NOTE | 2022-10-13 09:00 | Hospitalist Progress Note ---
Date of Service October 13, 2022 Assessment & Plan (1) Acute and chronic respiratory failure with hypoxia: Plan: Recently hospitalized for shortness of breath with no acute cause seen and optimization of chronic medical problems. Patient reports developing a cough du ring the admission for which he was given benzonatate and sent home. Cough has improved, however, now hypoxic. Bilateral pneumonia seen on CXR on admision. Procalcitonin elevated in support of possible bacterial pneumonia. Aspiration seems to be less likely. (2) Multifocal pneumonia: Plan: Antibiotics, sputum culture, will cover pseudomonas w/ cefepime. Nasal MRSA screen is negative so MRSA coverage with vancomycin not indicated. Consult pulm with h/o ILD and recent increasing oxygen needs since Jun 2022. He reports that baseline up to that time, he was using 2LPM with ambulation only. Now he is using approximately 6LPM at "baseline." Noted CT chest during recent admission to [facility] was negative for PE. CT chest repeated (10/11) 1. Interval development of groundglass and a few consolidative opacities concerning for infectious/inflammatory process. There is a small right pleural effusion with underlying atelectasis. 2. Prominent interstitial lung disease which has increased from 2020. 10/11 - Discussed with pulm. medicine. CT chest images sent to An[facility] Etienne from [facility]. Medical records also requested from [facility], and [facility]. 10/12 -given CT findings, will continue with cefepime, also consider adding agent for atypical coverage. Doxy added. 10/13 - discussed with pulmonary medicine, plan for bronchoscopy tomorrow (3) Diastolic CHF, acute on chronic: Plan: chronic, although he has an elevated BNP, he doesn't appear overtly overloaded. He did not receive his HD session and nephrology has been notified about this on admission. Pt is now s/p HD Recently PCI and stents placement in [facility] in August. Discussed with primary steam box tender, Dr. Kamara, and will repeat echocardiogram now. Echo LV is normal in size. There is mild concentric LVH. LV systolic function is normal. EF 60 to 65%. Grade 1 diastolic dysfunction. RV systolic function is normal. LA size is normal. RA size is normal. No significant valvular pathology. (4) Abnormal CT scan, chest: Plan: h/o lower right lung nodule thought to be consistent with rounded atelectasis on most recent chest CT scan in July 2022. Cont outpatient workup for stability. (5) DM type 2 (diabetes mellitus, type 2): Plan: Chronic, controlled on linagliptin. Current Hgb A1c 6.5% He was given some steroids in the ER on admission, which we won't continue. This may cause hyperglycemia. Cont BSG checks regularly and correction factor ordered for now. (6) Interstitial lung disease: Plan: chronic, baseline oxygen needs are 2LPM with ambulation. Most recent pulmonary outpatient note from [facility] made no mention about ILD, but did state that he has COPD gold D, that is smoking related with no recent flares. He recently stopped Wixela and spiriva inhalers one week ago because they "made me feels worse." Most recent PFTs in July 2022 reveal restrictive pattern with a partial bronchodilator response only in the small airways. He has a chronic right pleural effusion secondary to ESRD and CHF noted, also. Pulmonary medicine consulted, [facility]. records from pt's pulmonary visit requested and obtained. (7) ESRD (end stage renal disease) on dialysis: Plan: chronic, stable. Not overtly overloaded or acidotic and electrolytes are stable. He was unable to complete his HD session as scheduled on day of admission. s/p HD now (8) Immunocompromised patient: Plan: s/p liver transplant. Hold CellCept in infection without sepsis, cont tacrolimus. Restart Cellcept 4-6 weeks post infection or per transplant team guidance. Cont entecavir, which may need to be brought in from home. (9) Status post liver transplant: Plan: as above. (10) Sleep apnea: Plan: not on home CPAP (11) Hypothyroidism: Plan: chronic, stbale. TSH on 08/31/22 was 4.27. Cont current home dose Synthroid. (12) Anemia: Plan: chronic, but recent drop in H/H noted. CBC on 08/2022 shows H/H 12/38.7. Currently, after PCI, starting DAPT and recent hospitalization he is 8.5/26.5. No overt bleeding. Tachycardia likely related to hypoxia. Further labs in am to work this up. ESRD likely contributing. Repeat CBC in am. Full Code with status confirmed with him on admission DVT proph-heparin Dispo- PCU, complex pt, PT/OT ordered. CM to assist with needs and transition back home when medically stable for discharge. Lives at home with his . Admission and Anticipated Discharge Date Admission Date: October 10, 2022 Subjective Pt seen in follow up of acute on chronic resp. failure, ESRD on HD, recent pci w/ stent placement Currently lying in bed, in no acute distress, he is on 4 L (down from 6L) Had dialysis today Reports comfortable right now, however whenever he moves, he desaturates Reports he has been on less oxygen, about 2 L recently. Denies fevers chills chest pain. He does have a dry cough. Patient's present at the bedside yesterday and updated. Pulmonary medicine following closely - discussed w/ -plan for bronchoscopy tomorrow Also contacted by patient's primary steam box tender, Dr. Kamara, discussed his recent hospitalization at [facility], will check echocardiogram given recent history of stent placement Review of Systems Review of Systems: All systems reviewed & are unremarkable except as noted in Subjective Physical Exam Physical Exam: CONSTITUTIONAL: WNWD, M in NAD, on 4L suppl. O2 EYES: normal conjunctivae, no scleral icterus ENT: external ear and nose normal, oropharynx clear, NECK: supple RESPIRATORY: + basilar crackles, no wheezes, normal respiratory effort CARDIOVASCULAR: regular rate and rhythm, syst. murmur CHEST: inspection of chest normal GASTROINTESTINAL: soft, nontender, ND, no guarding MUSCULOSKELETAL:head is normocephalic and atraumatic, moves extremities SKIN: warm and dry NEUROLOGIC:Awake alert oriented, speech fluent, no facial asymmetry, moves extremities Results & Data Results & Data Vital Signs (Past 12 Hours) Vital Signs Temp Pulse Pulse Resp BP Pulse Ox O2 Del Method 10/13/22 07:57 36.4 C L 82 18 95/63 L 100 Nasal Cannula 10/13/22 07:40 76 10/13/22 07:40 Nasal Cannula 10/13/22 03:29 36.4 C L 79 18 126/74 100 Nasal Cannula 10/12/22 23:53 77 10/12/22 23:42 36.4 C L 80 18 98/53 L 98 Nasal Cannula O2 Flow Rate 10/13/22 07:57 5.0 10/13/22 07:40 10/13/22 07:40 5 10/13/22 03:29 5 10/12/22 23:53 10/12/22 23:42 5 Laboratory Results 10/13/22 10/13/22 10/13/22 Range/Units 07:55 05:51 05:51 WBC 7.11 (4.8-10.8) K/ul RBC 3.27 L (4.70-6.10) M/uL Hgb 8.7 L (14.0-18.0) g/dl Hct 27.5 L (42.0-52.0) % MCV 84.1 (80.0-100.0) fL MCH 26.6 (25.0-34.0) pg MCHC 31.6 L (32.0-36.0) g/dL RDW Std Deviation 39.3 (36.4-46.3) fL RDW Coeff of Ana María 13.1 (11.5-14.5) % Plt Count 320 (130-400) K/uL MPV 9.5 (9.4-12.4) fL Sodium 133 L (136-145) mmol/L Potassium 4.5 (3.5-5.1) mmol/L Chloride 93 L (98-107) mmol/L Carbon Dioxide 30 (21-32) mmol/L Anion Gap 10 (3-11) BUN 42 H D (6-23) mg/dl Creatinine 5.53 H* D (0.6-1.4) mg/dl Est Cr Clr Drug Dosing 12.5 ml/min Est GFR ( Amer) 11.0 ml/min Est GFR (Non-Af Amer) 9.5 ml/min BUN/Creatinine Ratio 7.6 L (10-20) Glucose 126 H (70-99(Fasting)) mg/dl POC Glucose 135 H (70-99) mg/dl Calcium 9.4 (8.6-10.3) mg/dl Phosphorus 5.3 H (2.5-4.9) mg/dl Magnesium 1.9 (1.7-2.4) mg/dl 10/12/22 10/12/22 Range/Units 20:22 16:49 WBC (4.8-10.8) K/ul RBC (4.70-6.10) M/uL Hgb (14.0-18.0) g/dl Hct (42.0-52.0) % MCV (80.0-100.0) fL MCH (25.0-34.0) pg MCHC (32.0-36.0) g/dL RDW Std Deviation (36.4-46.3) fL RDW Coeff of Ana María (11.5-14.5) % Plt Count (130-400) K/uL MPV (9.4-12.4) fL Sodium (136-145) mmol/L Potassium (3.5-5.1) mmol/L Chloride (98-107) mmol/L Carbon Dioxide (21-32) mmol/L Anion Gap (3-11) BUN (6-23) mg/dl Creatinine (0.6-1.4) mg/dl Est Cr Clr Drug Dosing ml/min Est GFR ( Amer) ml/min Est GFR (Non-Af Amer) ml/min BUN/Creatinine Ratio (10-20) Glucose (70-99(Fasting)) mg/dl POC Glucose 149 H 164 H (70-99) mg/dl Calcium (8.6-10.3) mg/dl Phosphorus (2.5-4.9) mg/dl Magnesium (1.7-2.4) mg/dl Medications Administered Current Inpatient Medications Acetaminophen (Acetaminophen 325 Mg Tab) 650 mg PO Q4H PRN PRN Reason: Pain or Fever Stop: 11/09/22 11:07 Aspirin (Aspirin 81 Mg Ectab) 81 mg PO QPM [facility] Stop: 11/09/22 20:59 Last Admin: 10/12/22 20:15 Dose: 81 mg Clopidogrel Bisulfate (Clopidogrel Bisulfate 75 Mg Tab) 75 mg PO QAM [facility] Stop: 11/10/22 08:59 Last Admin: 10/13/22 08:33 Dose: 75 mg Dextrose (Dextrose 50% 50 Ml Syringe) 25 - 50 ml IV UD PRN; Protocol PRN Reason: Hypoglycemia Protocol Stop: 11/09/22 11:07 Doxycycline Hyclate (Doxycycline Hyclate 100 Mg Cap) 100 mg PO BID [facility] Stop: 10/19/22 20:59 Last Admin: 10/13/22 08:33 Dose: 100 mg Ezetimibe (Ezetimibe 10 Mg Tablet) 10 mg PO QAM [facility] Stop: 11/09/22 11:14 Last Admin: 10/13/22 08:34 Dose: 10 mg Glucagon (Glucagon For Inj 1 Mg Vial) 1 mg SQ UD PRN; Protocol PRN Reason: Hypoglycemia Protocol Stop: 11/09/22 11:07 Glucose (Glucose 10 Tab/Tube) 4 - 8 tab PO UD PRN; Protocol PRN Reason: Hypoglycemia Treatment Stop: 11/09/22 11:07 Glucose (Glucose 40% Gel 15 Gm Tube) 15 - 30 gm PO UD PRN; Protocol PRN Reason: Hypoglycemia Protocol Stop: 11/09/22 11:07 Heparin Sodium (Porcine) (Heparin Sod 5,000 Unit/0.5 Ml Vial) 5,000 units SQ Q8 MARIO Stop: 11/09/22 13:59 Last Admin: 10/13/22 06:08 Dose: 5,000 units Hydroxyzine HCl (Hydroxyzine Hcl 25 Mg Tab) 25 mg PO Q6 PRN PRN Reason: Itching Stop: 11/09/22 11:03 Cefepime HCl 1,000 mg/ Syringe 10 mls @ 5 mls/min IV Q12H MARIO; Protocol Stop: 10/18/22 17:59 Last Admin: 10/13/22 06:14 Dose: 5 mls/min Insulin Aspart (Insulin Aspart Per Unit Charge) 0 units SC ACHS [facility] Stop: 11/09/22 11:29 Last Admin: 10/13/22 08:18 Dose: Not Given Levothyroxine Sodium (Levothyroxine Sodium 75 Mcg Tablet) 75 mcg PO DAILYBB [facility] Stop: 11/10/22 06:29 Last Admin: 10/13/22 06:09 Dose: 75 mcg Metoprolol Succinate (Metoprolol Succ 25mg Ext Rel Tab) 25 mg PO QAM [facility] Stop: 11/09/22 11:14 Last Admin: 10/13/22 08:34 Dose: Not Given Miscellaneous (Carbohydrates For Hypoglycemia ) 15 - 30 gm PO UD PRN PRN Reason: Hypoglycemia Protocol Stop: 11/09/22 11:07 Mycophenolate Mofetil (Mycophenolate Mofetil 250 Mg Cap) 250 mg PO BID [facility] Stop: 11/09/22 20:59 Entecavir ~ Non- Formulary Patient's Own Med 1 each PO DAILY@1000 [facility] Stop: 11/10/22 14:44 Last Admin: 10/12/22 11:09 Dose: Not Given Polyethylene Glycol (Polyethylene (Miralax) 17 Gm Pack) 17 gm PO DAILY PRN PRN Reason: Constipation Stop: 11/09/22 11:07 Tacrolimus (Tacrolimus 1 Mg Cap) 1 mg PO BID@2730,7540 [facility] Stop: 11/09/22 19:29 Last Admin: 10/13/22 07:31 Dose: 1 mg Vitamin D (Cholecalciferol 1,000 Units 25 Mcg Tab) 2,000 units PO QAM [facility] Stop: 11/10/22 08:59 Last Admin: 10/13/22 08:33 Dose: 2,000 units
--- NOTE | 2022-10-13 09:30 | Pulmonology Progress Note ---
Date of Service October 13, 2022 Assessment & Plan (1) Idiopathic interstitial pneumonia: (2) Acute hypoxemic respiratory failure: (3) Abnormal CT scan, chest: (4) Pulmonary nodule: Plan Impression: 72-year-old male with interstitial lung disease identified on CT from several years ago. His x-ray does show progression of both interstitial and ill-defined densities. Pattern is nonspecific and could be related to fluid, progression of interstitial lung disease, infectious or inflammatory ([employer] PHYSICIAN, pulm hemorrhage) etiologies. His care unfortunately is fragmented between at least 3 different healthcare systems ([facility], [facility], and [facility]). PFT 07/08/2022 personally reviewed: Nonspecific spirometry with no obstruction, inclining more towards restrictive pattern FVC 2.62 L 61%, FEV1 2.19 L 70%, FEV1/FVC 83% CT chest 10/11/2022 personally reviewed: Centrilobular and paraseptal emphysema appreciated bilaterally Increase reticular markings and interlobular thickening on the periphery of the upper and lower lobes Traction bronchiectasis Small right-sided pleural effusion with dependent rounded atelectasis/PNA No significant mediastinal lymphadenopathy Compared to CT chest done 10/01/2022, there is improvement in the patchy opacities as well as small right-sided pleural effusion Compared to HRCT done 07/2019, the groundglass opacities/NSIP pattern of the upper and lower lobes seems to be improved -- Acute hypoxic respiratory failure Multifactorial Underlying ILD, fluid overload from CKD as well as possible atypical pneumonia Possibility of overtures of infection like PJP is there but low in differential as mycophenolate is usually protective to get PJP Procalcitonin 1.49 BNP 501 COVID-19 NAAT negative LDH 158 Continue with antibiotics, follow sputum culture --Combined pulmonary fibrosis with emphysema On Symbicort and Spiriva at home Symbicort usually makes him cough, is able to tolerate Spiriva Would rather have him on Stiolto on discharge --Chronic right-sided pleural effusion S/p thoracentesis x2 at [facility] Nonmalignant as per the patient --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 postmidnight for bronchoscopy tomorrow to rule out opportunistic infection Hold anticoagulation Case was discussed with RN at bedside and Dr. Dacosta Please note the above document was generated using voice recognition software. It may contain grammatical, syntax or spelling errors.Any formal questions or concerns about the content, text or information contained within the body of this dictation should be directly addressed to the provider for clarification. Admission and Anticipated Discharge Date Admission Date: October 10, 2022 Subjective Patient seen and examined at bedside. No acute distress, no adverse events overnight He was in dialysis unit at the time of examination, saturating 98% on 3 L nasal cannula, I went down to 2 L He says that he is feeling the same when it comes to his breathing Does get short of breath on minimal exertion Denies any dizziness, no palpitation Fair appetite Still complains of dry cough. Review of Systems Review of Systems: All systems reviewed & are unremarkable except as noted in Subjective Physical Exam Physical Exam: Constitutional: No acute distress HEENT: EOMI, PERRLA Respiratory system: Decreased air entry bilaterally, no wheeze, no rhonchi, positive crackles bilateral lower lobes CVS: S1-S2 positive, positive 3 out of 6 systolic murmur appreciated best at aorta Abdomen: Soft, nontender, nondistended, positive bowel sounds x4 Extremities: +2 pulses bilaterally radialis/ dorsalis pedis, no cyanosis, no edema, left arm AV fistula Neuro: Awake alert oriented x3 Psych: Normal mood and affect G/U: No Srivastava Skin: no rashes, warm and dry Lymphatic: no cervical or axillary lymphadenopathy Results & Data Results & Data Vital Signs (Past 12 Hours) Vital Signs Temp Pulse Pulse Resp BP BP Pulse Ox 10/13/22 08:45 36.5 C 85 10/13/22 09:00 86 116/63 10/13/22 07:57 36.4 C L 82 18 95/63 L 100 10/13/22 07:40 76 10/13/22 07:40 10/13/22 03:29 36.4 C L 79 18 126/74 100 10/12/22 23:53 77 10/12/22 23:42 36.4 C L 80 18 98/53 L 98 O2 Del Method O2 Flow Rate 10/13/22 08:45 10/13/22 09:00 10/13/22 07:57 Nasal Cannula 5.0 10/13/22 07:40 10/13/22 07:40 Nasal Cannula 5 10/13/22 03:29 Nasal Cannula 5 10/12/22 23:53 10/12/22 23:42 Nasal Cannula 5 Laboratory Results 10/13/22 05:51 10/13/22 05:51 PG Care Time/CCT Total # of Minutes Spent Total Time Spent with Patient: Total time spent is greater than 50% in coordination of care (as documented) at patient's floor/unit and/or counseling patient: Coding Level of Care Code 76624 SUB INP/OBS CARE 2/35MIN Diagnoses Idiopathic interstitial pneumonia J84.111 Acute hypoxemic respiratory failure J96.[address] scan, chest R93.89 Pulmonary nodule R91.1
[2022-10-13] MEDS: ENTECAVIR PO SCH (11:04)
[2022-10-13] MEDS: FLUTICASONE PROPIONATE NA SPR 16 GM BTL SCH (11:04)
--- NOTE | 2022-10-13 11:24 | Dialysis Progress Note ---
Date of Service October 13, 2022 Assessment & Plan Admission and Anticipated Discharge Date Admission Date: October 10, 2022 Subjective Assessment & Plan (1) ESRD (end stage renal disease) on dialysis: Plan: Patient with ESRD on dialysis Wednesday at the [facility]. He had dialysis yesterday with net UF of about 3 L. Patient remains hypoxic. Chest x-ray today showing pulmonary edema and moderate pleural effusion on the right. Patient is tolerating dialysis well today. He is planned for 3 hours and target UF of 1.5 L. today is his regular schedule. next HD will be on (2) Multifocal pneumonia: Plan: Patient admitted with the shortness of breath and chest x-ray showing bilateral opacities suggestive of multifocal pneumonia. Patient is on cefepime per primary team. Renally dose antibiotics for dialysis. Pulmonary following (3) Status post liver transplant: Plan: patient is status post liver transplant on Prograf and CellCept. Agree with holding CellCept in setting of multifocal pneumonia. Continue Prograf Home dose Subjective Seen in Dialysis. BP somewhat low but usual for him--no Symptoms. Patient was seen and examined while on dialysis. Main complaint is still exertional dyspnea. now down to 2 liters o2 same as before. AVF fine. Review of Systems Review of Systems: All other systems were reviewed and negative except as noted in HPI Physical Exam Physical Exam: General exam: Appears comfortable, mild resp distress HEENT: Pupils are equal and reactive to light Neck: No JVD, neck is supple trachea is midline Respiratory system: Clear breath sounds bilaterally. Gastrointestinal: Abdomen is soft, non distended, non tender, bowel sounds are present CVS: Regular rate and rhythm. No murmurs, rubs or gallops Musculoskeletal: No joint or muscle tenderness Extremities: Non tender, no edema, peripheral pulses are present Neuro: Oriented, no tremors, no focal neurological deficits Skin: No rashes Results & Data Vital Signs (Past 12 Hours) Vital Signs Temp Pulse Pulse Resp BP BP Pulse Ox 10/13/22 11:00 59 L 90/53 L 10/13/22 10:30 86 90/55 L 10/13/22 10:00 87 94/61 L 10/13/22 09:30 82 118/69 10/13/22 08:45 36.5 C 85 10/13/22 09:00 86 116/63 10/13/22 07:57 36.4 C L 82 18 95/63 L 100 10/13/22 07:40 76 10/13/22 07:40 10/13/22 03:29 36.4 C L 79 18 126/74 100 10/12/22 23:53 77 10/12/22 23:42 36.4 C L 80 18 98/53 L 98 O2 Del Method O2 Flow Rate 10/13/22 11:00 10/13/22 10:30 10/13/22 10:00 10/13/22 09:30 10/13/22 08:45 10/13/22 09:00 10/13/22 07:57 Nasal Cannula 5.0 10/13/22 07:40 10/13/22 07:40 Nasal Cannula 5 10/13/22 03:29 Nasal Cannula 5 10/12/22 23:53 10/12/22 23:42 Nasal Cannula 5
--- NOTE | 2022-10-13 14:17 | XRay Report ---
XR chest 1V portable HISTORY: Shortness of breath. Follow-up. COMPARISON: Chest 10/03/2022. FINDINGS: No pneumothorax. The correct silhouette remains mildly enlarged. There are poststernotomy c hanges. There are old, healed right-sided rib fractures again noted. A small right pleural effusion a nd right basilar densities persist. Diffuse interstitial thickening is again noted. No new focal lung consolidations identified. IMPRESSION: 1. No change in the small right pleural effusion and right basilar densities. 2. Diffuse interstitial thickening persists. This could be chronic or represent a superimposed pneumo nitis/congestive change. ACT 112: Negative or not required by law. Electronically signed by: Saurabh Nunez M.D. 10/13/2022 2:15 PM
[2022-10-13] MEDS: ASPIRIN 81 MG ECTAB PO SCH (20:12)
[2022-10-14] MEDS: LEVOTHYROXINE SODIUM 75 MCG TABLET PO SCH (05:50)
[2022-10-14 06:20] LABS: Hematocrit (blood only) 31.2 % (42.0-52.0); Hemoglobin 9.9 g/dl (14.0-18.0); Mean Corpuscular Hgb Conc 31.7 g/dL (32.0-36.0); Mean Platelet Volume 9.4 fL (9.4-12.4); Platelet Count 366 K/uL (130-400); RDW Coefficient of Variation 13.2 % (11.5-14.5); RDW Standard Deviation 40.1 fL (36.4-46.3); Red Blood Count 3.67 M/uL (4.70-6.10); White Blood Count 9.16 K/ul (4.8-10.8)
[2022-10-14 06:36] LABS: Calcium 9.7 mg/dl (8.6-10.3); Magnesium 1.8 mg/dl (1.7-2.4); Potassium 3.9 mmol/L (3.5-5.1)
[2022-10-14 06:48] LABS: BUN Creatinine Ratio 6.9 (10-20); Est GFR (African American) 12.6 ml/min; Est GFR (Non-African American) 10.9 ml/min; Phosphorus 4.3 mg/dl (2.5-4.9)
--- NOTE | 2022-10-14 07:12 | Pulmonology Progress Note ---
Date of Service October 14, 2022 Assessment & Plan (1) Idiopathic interstitial pneumonia: (2) Acute hypoxemic respiratory failure: (3) Abnormal CT scan, chest: (4) Pulmonary nodule: Plan Impression: 72-year-old male with interstitial lung disease identified on CT from several years ago. His x-ray does show progression of both interstitial and ill-defined densities. Pattern is nonspecific and could be related to fluid, progression of interstitial lung disease, infectious or inflammatory (ACCOUNTANT COST, pulm hemorrhage) etiologies. His care unfortunately is fragmented between at least 3 different healthcare systems ([facility], [facility], and [facility]). PFT 07/08/2022 personally reviewed: Nonspecific spirometry with no obstruction, inclining more towards restrictive pattern FVC 2.62 L 61%, FEV1 2.19 L 70%, FEV1/FVC 83% CT chest 10/11/2022 personally reviewed: Centrilobular and paraseptal emphysema appreciated bilaterally Increase reticular markings and interlobular thickening on the periphery of the upper and lower lobes Traction bronchiectasis Small right-sided pleural effusion with dependent rounded atelectasis/PNA No significant mediastinal lymphadenopathy Compared to CT chest done 10/01/2022, there is improvement in the patchy opacities as well as small right-sided pleural effusion Compared to HRCT done 07/2019, the groundglass opacities/NSIP pattern of the upper and lower lobes seems to be improved -- Acute hypoxic respiratory failure Multifactorial Underlying ILD, fluid overload from CKD as well as possible atypical pneumonia Possibility of overtures of infection like PJP is there but low in differential as mycophenolate is usually protective to get PJP Procalcitonin 1.49 BNP 501 COVID-19 NAAT negative LDH 158 Continue with antibiotics, follow sputum culture --Combined pulmonary fibrosis with emphysema On Symbicort and Spiriva at home Symbicort usually makes him cough, is able to tolerate Spiriva Would rather have him on Stiolto on discharge --Chronic right-sided pleural effusion S/p thoracentesis x2 at [facility] Nonmalignant as per the patient --Significant asbestos exposure while working on the [employer] for approximately 25 years -- Ex-smoker [id number] smoking history Quit at the age of approximately 35 PFT 07/08/2022 personally reviewed: Nonspecific spirometry with no obstruction, inclining more towards restrictive pattern FVC 2.62 L 61%, FEV1 2.19 L 70%, FEV1/FVC 83% --Coronary artery disease S/p stent August 2022 Plan: Continue with antibiotics with atypical coverage For bronchoscopy today Risk and benefit of the procedure explained the patient in depth. Case was discussed with RN at bedside and Dr. Dacosta Please note the above document was generated using voice recognition software. It may contain grammatical, syntax or spelling errors.Any formal questions or concerns about the content, text or information contained within the body of this dictation should be directly addressed to the provider for clarification. Admission and Anticipated Discharge Date Admission Date: October 10, 2022 Subjective Patient seen and examined at bedside. No acute distress, notable since over night He was saturating 100% on 4 L nasal cannula. Denies any headache, no nausea, no vomiting He is complaining of cough which is mostly dry. No hemoptysis Does complain of shortness of breath on exertion. At rest he is doing okay N.p.o. today for bronchoscopy Review of Systems Review of Systems: All systems reviewed & are unremarkable except as noted in Subjective Physical Exam Physical Exam: Constitutional: No acute distress HEENT: EOMI, PERRLA Respiratory system: Decreased air entry bilaterally, no wheeze, no rhonchi, positive crackles bilateral lower lobes CVS: S1-S2 positive, positive 3 out of 6 systolic murmur appreciated best at aorta Abdomen: Soft, nontender, nondistended, positive bowel sounds x4 Extremities: +2 pulses bilaterally radialis/ dorsalis pedis, no cyanosis, no edema, left arm AV fistula Neuro: Awake alert oriented x3 Psych: Normal mood and affect G/U: No Srivastava Skin: no rashes, warm and dry Lymphatic: no cervical or axillary lymphadenopathy Results & Data Results & Data Vital Signs (Past 12 Hours) Vital Signs Temp Pulse Pulse Resp BP Pulse Ox O2 Del Method 10/14/22 03:00 36.4 C L 82 20 109/66 98 Nasal Cannula 10/13/22 22:04 93 H 10/13/22 20:10 Nasal Cannula 10/14/22 01:40 36.5 C 84 18 10/13/22 23:00 36.3 C L 96 H 21 122/62 92 Nasal Cannula O2 Flow Rate 10/14/22 03:00 10/13/22 22:04 10/13/22 20:10 4 10/14/22 01:40 10/13/22 23:00 Laboratory Results 10/14/22 05:39 10/14/22 05:39 PG Care Time/CCT Total # of Minutes Spent Total Time Spent with Patient: Total time spent is greater than 50% in coordination of care (as documented) at patient's floor/unit and/or counseling patient: Coding Level of Care Code 00929 SUB INP/OBS CARE 3/50MIN Diagnoses Idiopathic interstitial pneumonia J84.111 Acute hypoxemic respiratory failure J96.[address] scan, chest R93.89 Pulmonary nodule R91.1
[2022-10-14] MEDS: TACROLIMUS 1 MG CAP PO SCH ×2 (07:40→20:11)
[2022-10-14] MEDS: INSULIN ASPART PER UNIT CHARGE SC SCH ×4 (07:54→20:38)
[2022-10-14] MEDS: METOPROLOL SUCC 25MG EXT REL TAB PO SCH (09:42)
[2022-10-14] MEDS: DOXYCYCLINE HYCLATE 100 MG CAP PO SCH ×2 (09:42→20:12)
[2022-10-14] MEDS: FLUTICASONE PROPIONATE NA SPR 16 GM BTL SCH (09:42)
[2022-10-14] MEDS: EZETIMIBE 10 MG TABLET PO SCH (09:43)
[2022-10-14] MEDS: ENTECAVIR PO SCH (09:43)
[2022-10-14] MEDS: CHOLECALCIFEROL 1,000 UNITS 25 MCG TAB PO SCH (09:43)
[2022-10-14] MEDS: CLOPIDOGREL BISULFATE 75 MG TAB PO SCH (09:45)
[2022-10-14] MEDS ORDERED: MIDAZOLAM HCL 5 MG/ML 1 ML VIAL ONE (11:59)
[2022-10-14] MEDS ORDERED: fentaNYL citrate PF 100 MCG/2 ML VIAL ONE (11:59)
--- NOTE | 2022-10-14 12:07 | Pre Anesthesia Assessment ---
Date of Service October 14, 2022 Pre Sedation Assessment Vital Signs Temp Pulse Pulse Resp BP Pulse Ox O2 Del Method 10/14/22 11:59 81 18 128/67 100 Oxymask 10/14/22 07:50 36.4 C L 86 18 115/64 97 Nasal Cannula 10/14/22 07:44 96 H 10/14/22 07:44 Nasal Cannula 10/14/22 03:00 36.4 C L 82 20 109/66 98 Nasal Cannula 10/13/22 22:04 93 H 10/13/22 20:10 Nasal Cannula 10/14/22 01:40 36.5 C 84 18 10/13/22 23:00 36.3 C L 96 H 21 122/62 92 Nasal Cannula 10/13/22 19:00 36.7 C 92 H 18 101/55 L 97 Nasal Cannula 10/13/22 15:36 93 H 10/13/22 15:16 36.7 C 94 H 18 104/50 L 93 Nasal Cannula O2 Flow Rate 10/14/22 11:59 4 10/14/22 07:50 4.0 10/14/22 07:44 10/14/22 07:44 4 10/14/22 03:00 10/13/22 22:04 10/13/22 20:10 4 10/14/22 01:40 10/13/22 23:00 10/13/22 19:00 10/13/22 15:36 10/13/22 15:16 4.0 Pre-Sedation Airway Assessment Smoking Status: Former smoker Hx Sleep Apnea: No Short, Thick Neck: No Thyromental Distance: > or= 3.5 Finger Breadths Oral Cavity: + WNL Mallampati Class: II ASA: ASA3 NPO Status Date of Last Intake of Fluids: 10/13/22 Time of Last Intake of Fluids: 22:00 Date of Last Intake of Solid Food: 10/13/22 Time of Last Intake of Solid Foods: 22:00 Procedure Planning Contraindications for Sedation: none Current Medications Reviewed: Yes Notes The planned sedation has been discussed with the patient. Informed Consent was obtained. I have identified the patient, determined the appropriateness of sedation and have assessed the patient immediately prior to the procedure. All medicine(s) and interventions are by my order.
--- NOTE | 2022-10-14 12:27 | Post Anesthesia Assessment ---
Date of Service October 14, 2022 Post Sedation Assessment Vital Signs Temp Pulse Pulse Resp BP Pulse Ox O2 Del Method 10/14/22 12:25 88 18 123/71 97 Oxymask 10/14/22 12:20 85 18 128/70 97 Oxymask 10/14/22 12:17 87 18 107/73 97 Oxymask 10/14/22 11:59 81 18 128/67 100 Oxymask 10/14/22 07:50 36.4 C L 86 18 115/64 97 Nasal Cannula 10/14/22 07:44 96 H 10/14/22 07:44 Nasal Cannula 10/14/22 03:00 36.4 C L 82 20 109/66 98 Nasal Cannula 10/13/22 22:04 93 H 10/13/22 20:10 Nasal Cannula 10/14/22 01:40 36.5 C 84 18 10/13/22 23:00 36.3 C L 96 H 21 122/62 92 Nasal Cannula 10/13/22 19:00 36.7 C 92 H 18 101/55 L 97 Nasal Cannula 10/13/22 15:36 93 H 10/13/22 15:16 36.7 C 94 H 18 104/50 L 93 Nasal Cannula O2 Flow Rate 10/14/22 12:25 4 10/14/22 12:20 4 10/14/22 12:17 4 10/14/22 11:59 4 10/14/22 07:50 4.0 10/14/22 07:44 10/14/22 07:44 4 10/14/22 03:00 10/13/22 22:04 10/13/22 20:10 4 10/14/22 01:40 10/13/22 23:00 10/13/22 19:00 10/13/22 15:36 10/13/22 15:16 4.0 Discharge Sedation Level of Care: Fast Track Phase II Post Sedation Plan On clinical assessment, the patient appears to have tolerated the sedation without complications. Patient is recovering as anticipated. Patient will continue to be monitored by nursing and may be discharged when sedation discharge criteria are met per below protocol. Upon Completions of procedure up to 15 minutes continue every 5 minute vital signs and the P.A.R. score; then discharge to a Phase I or Fast Track to Phase II per the following guidelines: * Discharge Patient to appropriate Phase II area if PAR is 8 or greater or return to pre- procedure baseline. The post - procedure orders will be as directed. * If PAR score is less than 8 or not return to pre-procedure baseline then patient will follow Phase I monitoring till PAR is reached for Phase II. The Phase I may be done in procedure room or may call to secure a Phase I area. * If naloxone or flumazenil are used for reversal, hold in Phase I for con tinued monitoring from when last reversal dose was given for a minimum of 60 minutes or longer pending the nurse and/or physician discretion of patient condition before discharge to Phase II. Please call the Sedation Physician to re-evaluate and complete post-note for discharge to Phase II area. Do NOT discharge from procedure sedation or Phase 1 until post- sedation evaluation note is complete by procedure /sedation MD Sedation Discharge Instructions to be given to the patient at discharge to home.
--- NOTE | 2022-10-14 12:28 | Procedure Note ---
Procedure Note: Bronchoscopy Procedure PREOPERATIVE DIAGNOSIS: Multilobar infiltrate with right lower lobe rounded atelectasis POSTOPERATIVE DIAGNOSIS: Multilobar infiltrate with right lower lobe rounded atelectasis PROCEDURE PERFORMED: Flexible fiberoptic bronchoscopy with bronchoalveolar lavage of the left upper lobe and right lower lobe COMPLICATIONS: None. INDICATION: Rule out infection PROCEDURE: After obtaining an informed consent, the patient was brought to the Bronchoscopy Suite. The patient had appropriate oxygen, blood pressure, heart rate, and respiratory rate monitoring applied and monitored continuously throughout the procedure. Supplemental oxygen via nasal cannula as per nursing records was applied to the nasopharynx with adequate saturations achieved. Topical anesthesia with nebulized 1% lidocaine was achieved. Subsequent to this, the patient was premedicated with 2 mg of midazolam and 50 mcg of fentanyl. Sedation was started at 12:13 PM, procedure was started at 12:15 PM and ended at 12:25 PM Upper Airway: The oropharynx and larynx were well visualized and showed normal mucosa. There was normal vocal cord motion without masses or lesions. Additional topical anesthesia with 1% lidocaine was applied to the trachea and natalie. The trachea appeared normal.The bronchoscope was then advanced through the natalie, which was sharp. The scope was then advanced into the right main stem and each segment, subsegement in the right upper lobe, right middle lobe and right lower lobe were visualized. There were minimal amount of clear secretions which were suctioned out. There were no other findings including evidence of mass, anatomic distortions, or hemorrhage. The bronchoscope was subsequently withdrawn and advanced into the left mainstem. Again, each segment and subsegment was well visualized. No specific masses or other lesions were identified throughout the tracheobronchial tree on the left. There were minimal amount of clear secretion which were suctioned out. Generalized atrophy of the mucosa bilaterally was seen. The bronchoscope was then wedged in the left upper lobe apical posterior segment and bronchoalveolar lavage samples were obtained. 80 ml of saline was instilled and 30 ml of fluid was aspirated back.The bronchoscope was withdrawn and the area was suctioned clear. The bronchoscope was then wedged in the right lower lobe lateral and anterior segment and bronchoalveolar lavage samples were obtained. 120 ml of saline was instilled and 40 ml of fluid was aspirated back.The bronchoscope was withdrawn and the area was suctioned clear. The bronchoscope was then withdrawn to the mainstem. The area was suctioned clear. The bronchoscope was then withdrawn. The patient tolerated the procedure well without evidence of desaturation or complications. Bronchoalveolar lavage samples were sent for cell count, Gram stain and bacterial culture, AFB culture and smear, fungal culture and smear, flow cytometry, cryptococcus, Coccidioides, histoplasma, Blastomyces PCR, PJP PCR and cytology. Recommendations: Follow-up micro, cytology and pathology Follow-up chest x-ray Please note the above document was generated using voice recognition software. It may contain grammatical, syntax or spelling errors.Any formal questions or concerns about the content, text or information contained within the body of this dictation should be directly addressed to the provider for clarification. [facility] [place] [facility] Procedure Codes (Charges) Pulmonary/Thoracic Procedure 1: Pulmonary and Thoracic: 31698 Dx bronchoscopy/BAL Sedation/Anesthesia Procedure 1: Sedation/Anesthesia: 93263 Mod Sedation by the same physician;Init15 Min Child Age 5 & Up
--- NOTE | 2022-10-14 13:32 | XRay Report ---
SINGLE VIEW CHEST CLINICAL HISTORY: Status post bronchoscopy. FINDINGS: An AP, portable, upright chest radiograph is compared to study dated 09/16/2022 and correlate d with chest CT dated 10/11/2022. The patient is status post midline sternotomy. The heart is enlarged noting atherosclerotic calcification of the thoracic aorta. There is mild pulmonary vascular congest ion Emphysema and chronic interstitial thickening similar to previous. Diffuse interstitial thickenin g with mild space opacities is unchanged. There is a right pleural effusion with right basilar consol idation. No pneumothorax is seen. The skeletal structures are osteopenic. There are chronic/healed bi lateral rib fractures. Surgical clips are noted in the upper abdomen. IMPRESSION: 1. Cardiomegaly and emphysema with mild pulmonary vascular congestion. 2. No pneumothorax is seen post procedure. 3. Right pleural effusion and right basilar consolidation. 4. Interstitial thickening and mild bilateral airspace opacities is similar to previous. ACT 112: Negative or not required by law. Electronically signed by: Hari Sanabria M.D. 10/14/2022 1:30 PM
--- NOTE | 2022-10-14 15:52 | Hospitalist Progress Note ---
Date of Service October 14, 2022 Assessment & Plan (1) Acute and chronic respiratory failure with hypoxia: Plan: Recently hospitalized for shortness of breath with no acute cause seen and optimization of chronic medical problems. Patient reports developing a cough du ring the admission for which he was given benzonatate and sent home. Cough has improved, however, now hypoxic likely multifactorial from ILD, fluid overload from CKD and possible atypical pneumonia as seen on imaging. He remains hypoxic and dyspnea on exertion requiring 4 L of NC. Continue supplemental oxygen, wean off as tolerated. Pulmonology following. Had bronchoscopy today-Labs pending. (2) Multifocal pneumonia: Plan: On empiric cefepime/Doxy pending bronchoscopy results Has h/o ILD and recent increasing oxygen needs since Jun 2022. He reports that baseline up to that time, he was using 2LPM with ambulation only. Now he is using approximately 6LPM at "baseline." Noted CT chest during recent admission to [facility] was negative for PE. CT chest repeated (10/11) 1. Interval development of groundglass and a few consolidative opacities concerning for infectious/inflammatory process. There is a small right pleural effusion with underlying atelectasis. 2. Prominent interstitial lung disease which has increased from 2020. 10/11 - Discussed with pulm. medicine. CT chest images sent to Anna Eitenne from [facility]. Medical records also requested from [facility], and [facility]. 10/12 -given CT findings, will continue with cefepime, also consider adding agent for atypical coverage. Doxy added. 10/14-bronchoscopy today- labs pending (3) Abnormal CT scan, chest: Plan: h/o lower right lung nodule thought to be consistent with rounded atelectasis on most recent chest CT scan in July 2022. Cont outpatient workup for stability. (4) DM type 2 (diabetes mellitus, type 2): Plan: Chronic, controlled on linagliptin. Current Hgb A1c 6.5% Continue insulin-adjust as indicated. (5) Interstitial lung disease: Plan: chronic, baseline oxygen needs are 2LPM with ambulation. Most recent pulmonary outpatient note from [facility] made no mention about ILD, but did state that he has COPD gold D, that is smoking related with no recent flares. He recently stopped Wixela and spiriva inhalers one week ago because they "made me feels worse." Most recent PFTs in July 2022 reveal restrictive pattern with a partial bronchodilator response only in the small airways. He has a chronic right pleural effusion secondary to ESRD and CHF noted, also. Pulmonology following (6) ESRD (end stage renal disease) on dialysis: Plan: Continue dialysis as per nephrology (7) Immunocompromised patient: Plan: s/p liver transplant. Hold CellCept in infection without sepsis, cont tacrolimus. Restart Cellcept 4-6 weeks post infection or per transplant team guidance. Cont entecavir, which may need to be brought in from home. (8) Status post liver transplant: Plan: as above. (9) Sleep apnea: Plan: not on home CPAP (10) Hypothyroidism: Plan: chronic, stable. TSH on 08/31/22 was 4.27. Continue Synthroid. (11) Anemia: Plan: Anemia of CKD-hemoglobin stable. No bleeding. On Procrit. 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 Continue dual antiplatelet, beta-blockers. Echo reviewed. DVT proph- sc heparin Dispo-continue current management. Continue empiric antibiotics pending bronchoscopy results, continue to wean of oxygen as tolerated. PT OT evaluation. Admission and Anticipated Discharge Date Admission Date: October 10, 2022 Subjective Patient was seen and examined at bedside. He feels about the same since admission. Still on supplemental oxygen. Feels fine at rest but states his oxygen level desaturates when he takes off the nasal cannula. He also gets dyspneic when ambulating to the bathroom and washing, within 5 minutes. No fever, chills, chest pain, cough, nausea vomiting abdominal pain. Review of Systems Review of Systems: All systems reviewed & are unremarkable except as noted in Subjective Physical Exam Physical Exam: General: Lying comfortably in bed, not in distress, on 4LNC HEENT: EOMI, KHLOE, MMM Chest: Clear breath sounds bilaterally with basilar crackles CVS: Regular rate and rhythm, normal heart sounds, systolic murmur Abdomen: Soft, non tender, not distended, normal bowel sounds Neuro: Awake, alert, oriented, conversing well, non focal Extremities: No cyanosis, clubbing or edema Left arm AV fistula Results & Data Results & Data Vital Signs (Past 12 Hours) Vital Signs Temp Pulse Pulse Pulse Resp BP Pulse Ox 10/14/22 13:25 10/14/22 12:59 85 16 108/44 L 92 10/14/22 12:40 91 H 16 106/71 93 10/14/22 12:25 88 18 123/71 97 10/14/22 12:20 85 18 128/70 97 10/14/22 12:17 87 18 107/73 97 10/14/22 11:59 81 18 128/67 100 10/14/22 07:50 36.4 C L 86 18 115/64 97 10/14/22 07:44 96 H 10/14/22 07:44 O2 Del Method O2 Flow Rate 10/14/22 13:25 Oxymask 10/14/22 12:59 Nasal Cannula 10/14/22 12:40 Nasal Cannula 4 10/14/22 12:25 Oxymask 4 10/14/22 12:20 Oxymask 4 10/14/22 12:17 Oxymask 4 10/14/22 11:59 Oxymask 4 10/14/22 07:50 Nasal Cannula 4.0 10/14/22 07:44 10/14/22 07:44 Nasal Cannula 4 Laboratory Results Short CBC 10/14/22 Range/Units 05:39 WBC 9.16 (4.8-10.8) K/ul Hgb 9.9 L (14.0-18.0) g/dl Hct 31.2 L (42.0-52.0) % Plt Count 366 (130-400) K/uL BMP 10/14/22 05:39 Sodium 133 L Potassium 3.9 Chloride 94 L Carbon Dioxide 28 BUN 34 H Creatinine 4.94 H* D Glucose 128 H Calcium 9.7 Medications Administered Current Inpatient Medications Acetaminophen (Acetaminophen 325 Mg Tab) 650 mg PO Q4H PRN PRN Reason: Pain or Fever Stop: 11/09/22 11:07 Aspirin (Aspirin 81 Mg Ectab) 81 mg PO QPM [facility] Stop: 11/09/22 20:59 Last Admin: 10/13/22 20:12 Dose: 81 mg Clopidogrel Bisulfate (Clopidogrel Bisulfate 75 Mg Tab) 75 mg PO QAM [facility] Stop: 11/10/22 08:59 Last Admin: 10/14/22 09:45 Dose: 75 mg Dextrose (Dextrose 50% 50 Ml Syringe) 25 - 50 ml IV UD PRN; Protocol PRN Reason: Hypoglycemia Protocol Stop: 11/09/22 11:07 Doxycycline Hyclate (Doxycycline Hyclate 100 Mg Cap) 100 mg PO BID [facility] Stop: 10/19/22 20:59 Last Admin: 10/14/22 09:42 Dose: 100 mg Ezetimibe (Ezetimibe 10 Mg Tablet) 10 mg PO QAM [facility] Stop: 11/09/22 11:14 Last Admin: 10/14/22 09:43 Dose: 10 mg Epoetin Dirk (Epoetin Dirk 4,000 Unit/Ml Vial) 4,000 units IV Th@0700 [facility] Stop: 10/15/22 16:00 Fluticasone Propionate (Fluticasone Propionate Na Spr 16 Gm Btl) 2 sprays NA DAILY [facility] Stop: 11/12/22 09:29 Last Admin: 10/14/22 09:42 Dose: Not Given Glucagon (Glucagon For Inj 1 Mg Vial) 1 mg SQ UD PRN; Protocol PRN Reason: Hypoglycemia Protocol Stop: 11/09/22 11:07 Glucose (Glucose 10 Tab/Tube) 4 - 8 tab PO UD PRN; Protocol PRN Reason: Hypoglycemia Treatment Stop: 11/09/22 11:07 Glucose (Glucose 40% Gel 15 Gm Tube) 15 - 30 gm PO UD PRN; Protocol PRN Reason: Hypoglycemia Protocol Stop: 11/09/22 11:07 Heparin Sodium (Porcine) (Heparin Sod 5,000 Unit/0.5 Ml Vial) 5,000 units SQ Q8 [facility] Stop: 11/09/22 13:59 Last Admin: 10/13/22 06:08 Dose: 5,000 units Hydroxyzine HCl (Hydroxyzine Hcl 25 Mg Tab) 25 mg PO Q6 PRN PRN Reason: Itching Stop: 11/09/22 11:03 Cefepime HCl 1,000 mg/ Syringe 10 mls @ 5 mls/min IV Q24H [facility]; Protocol Stop: 10/18/22 17:59 Last Admin: 10/13/22 20:21 Dose: 5 mls/min Sodium Chloride (Nss 1000ml) 1,000 mls @ 0 mls/hr IV .Q0M PRN PRN Reason: For Hemodialysis Use ONLY Stop: 10/15/22 12:59 Insulin Aspart (Insulin Aspart Per Unit Charge) 0 units SC ACHS [facility] Stop: 11/09/22 11:29 Last Admin: 10/14/22 12:07 Dose: Not Given Levothyroxine Sodium (Levothyroxine Sodium 75 Mcg Tablet) 75 mcg PO DAILYBB [facility] Stop: 11/10/22 06:29 Last Admin: 10/14/22 05:50 Dose: 75 mcg Metoprolol Succinate (Metoprolol Succ 25mg Ext Rel Tab) 25 mg PO QAM [facility] Stop: 11/09/22 11:14 Last Admin: 10/14/22 09:42 Dose: 25 mg Miscellaneous (Carbohydrates For Hypoglycemia ) 15 - 30 gm PO UD PRN PRN Reason: Hypoglycemia Protocol Stop: 11/09/22 11:07 Mycophenolate Mofetil (Mycophenolate Mofetil 250 Mg Cap) 250 mg PO BID [facility] Stop: 11/09/22 20:59 Entecavir ~ Non- Formulary Patient's Own Med 1 each PO DAILY@1000 [facility] Stop: 11/10/22 14:44 Last Admin: 10/14/22 09:43 Dose: 1 tab Polyethylene Glycol (Polyethylene (Miralax) 17 Gm Pack) 17 gm PO DAILY PRN PRN Reason: Constipation Stop: 11/09/22 11:07 Tacrolimus (Tacrolimus 1 Mg Cap) 1 mg PO BID@0730,1930 [facility] Stop: 11/09/22 19:29 Last Admin: 10/14/22 07:40 Dose: 1 mg Vitamin D (Cholecalciferol 1,000 Units 25 Mcg Tab) 2,000 units PO QAM [facility] Stop: 11/10/22 08:59 Last Admin: 10/14/22 09:43 Dose: 2,000 units
[2022-10-14 16:29] LABS: Fluid Mono/Macrophage 82 %; Lymphocyte Body Fluid Man 0 %; Neutrophil Body Fluid Man 18 %
[2022-10-14] MEDS ORDERED: Nursing to Pharmacy Communication SCH (18:36)
[2022-10-14] MEDS: CEFEPIME 1,000 MG in SYRINGE 0 ML IV SCH (20:11)
[2022-10-14] MEDS: ASPIRIN 81 MG ECTAB PO SCH (20:12)
[2022-10-15] MEDS: LEVOTHYROXINE SODIUM 75 MCG TABLET PO SCH (06:16)
[2022-10-15 06:46] LABS: Hemoglobin 8.4 g/dl (14.0-18.0); Mean Corpuscular Hemoglobin 26.9 pg (25.0-34.0); Mean Corpuscular Hgb Conc 32.3 g/dL (32.0-36.0); Mean Corpuscular Volume 83.3 fL (80.0-100.0); Mean Platelet Volume 9.4 fL (9.4-12.4); Platelet Count 289 K/uL (130-400); RDW Coefficient of Variation 13.3 % (11.5-14.5); RDW Standard Deviation 38.8 fL (36.4-46.3); Red Blood Count 3.12 M/uL (4.70-6.10); White Blood Count 8.72 K/ul (4.8-10.8)
[2022-10-15 07:00] LABS: BUN Creatinine Ratio 7.2 (10-20); Calcium 9.5 mg/dl (8.6-10.3); Creatinine Clr Calc Pharmacy 9.6 ml/min; Est GFR (Non-African American) 6.9 ml/min; Magnesium 1.8 mg/dl (1.7-2.4); Phosphorus 5.5 mg/dl (2.5-4.9); Potassium 4.5 mmol/L (3.5-5.1)
[2022-10-15] MEDS ORDERED: SODIUM CHLORIDE 0.9% 1000ML 1,000 ML IV PRN (07:00)
[2022-10-15] MEDS ORDERED: EPOETIN ALFA 4,000 UNIT/ML VIAL IV SCH (07:00)
--- NOTE | 2022-10-15 07:40 | Pulmonology Progress Note ---
Date of Service October 15, 2022 Assessment & Plan (1) Idiopathic interstitial pneumonia: (2) Acute hypoxemic respiratory failure: (3) Abnormal CT scan, chest: (4) Pulmonary nodule: Plan Impression: 72-year-old male with interstitial lung disease identified on CT from several years ago. His x-ray does show progression of both interstitial and ill-defined densities. Pattern is nonspecific and could be related to fluid, progression of interstitial lung disease, infectious or inflammatory ([employer], pulm hemorrhage) etiologies. His care unfortunately is fragmented between at least 3 different healthcare systems ([facility], [facility], and [facility]). PFT 07/08/2022 personally reviewed: Nonspecific spirometry with no obstruction, inclining more towards restrictive pattern FVC 2.62 L 61%, FEV1 2.19 L 70%, FEV1/FVC 83% CT chest 10/11/2022 personally reviewed: Centrilobular and paraseptal emphysema appreciated bilaterally Increase reticular markings and interlobular thickening on the periphery of the upper and lower lobes Traction bronchiectasis Small right-sided pleural effusion with dependent rounded atelectasis/PNA No significant mediastinal lymphadenopathy Compared to CT chest done 10/01/2022, there is improvement in the patchy opacities as well as small right-sided pleural effusion Compared to HRCT done 07/2019, the groundglass opacities/NSIP pattern of the upper and lower lobes seems to be improved -- Acute hypoxic respiratory failure Multifactorial Underlying ILD, fluid overload from CKD as well as possible atypical pneumonia Possibility of overtures of infection like PJP is there but low in differential as mycophenolate is usually protective to get PJP S/p bronch 10/14/2022, no signs of diffuse alveolar hemorrhage Bronc BAL cytology negative for malignancy Procalcitonin 1.49 BNP 501 COVID-19 NAAT negative LDH 158 Continue with antibiotics, follow sputum culture --Combined pulmonary fibrosis with emphysema On Symbicort and Spiriva at home Symbicort usually makes him cough, is able to tolerate Spiriva Would rather have him on Stiolto on discharge --Chronic right-sided pleural effusion S/p thoracentesis x2 at [facility] Nonmalignant as per the patient --Significant asbestos exposure while working [place] the [employer] for approximately 25 years -- Ex-smoker [id number] smoking history Quit at the age of approximately 35 PFT 07/08/2022 personally reviewed: Nonspecific spirometry with no obstruction, inclining more towards restrictive pattern FVC 2.62 L 61%, FEV1 2.19 L 70%, FEV1/FVC 83% --Coronary artery disease S/p stent August 2022 Plan: Complete the course of atypical antibiotics for total of 7 days Keep O2 saturation between 90-92% Follow-up outpatient pulmonary (follow[facility] with [facility], [facility] Follow-up micro from the BAL For cough can take dnad-cec-ltryasi antihistamine on as-needed basis along with Flonase. Mucinex-DM can also be considered Case was discussed with Dr. Gill Please note the above document was generated using voice recognition software. It may contain grammatical, syntax or spelling errors.Any formal questions or concerns about the content, text or information contained within the body of this dictation should be directly addressed to the provider for clarification. Admission and Anticipated Discharge Date Admission Date: October 10, 2022 Subjective Patient seen and examined at bedside. No acute distress, no adverse events overnight. Patient was saturating 93% on 2 L nasal cannula. Denied any headache, no nausea, no vomiting Still complaining of dry cough. Review of Systems Review of Systems: All systems reviewed & are unremarkable except as noted in Subjective Physical Exam Physical Exam: Constitutional: No acute distress HEENT: EOMI, PERRLA Respiratory system: Decreased air entry bilaterally, no wheeze, no rhonchi, positive crackles bilateral lower lobes CVS: S1-S2 positive, positive 3 out of 6 systolic murmur appreciated best at aorta Abdomen: Soft, nontender, nondistended, positive bowel sounds x4 Extremities: +2 pulses bilaterally radialis/ dorsalis pedis, no cyanosis, no edema, left arm AV fistula Neuro: Awake alert oriented x3 Psych: Normal mood and affect G/U: No Srivastava Skin: no rashes, warm and dry Lymphatic: no cervical or axillary lymphadenopathy Results & Data Results & Data Vital Signs (Past 12 Hours) Vital Signs Temp Pulse Pulse Resp BP Pulse Ox O2 Del Method 10/14/22 22:02 84 10/15/22 03:00 36.3 C L 78 18 127/67 99 Nasal Cannula 10/14/22 23:00 36.7 C 84 21 107/68 100 Nasal Cannula 10/14/22 20:00 Nasal Cannula O2 Flow Rate 10/14/22 22:02 10/15/22 03:00 4 10/14/22 23:00 4 10/14/22 20:00 4 Laboratory Results 10/15/22 05:39 10/15/22 05:39 PG Care Time/CCT Total # of Minutes Spent Total Time Spent with Patient: Total time spent is greater than 50% in coordination of care (as documented) at patient's floor/unit and/or counseling patient: Coding Level of Care Code 03275 SUB INP/OBS CARE 2/35MIN Diagnoses Idiopathic interstitial pneumonia J84.111 Acute hypoxemic respiratory failure J96.[address] scan, chest R93.89 Pulmonary nodule R91.1
[2022-10-15] MEDS: INSULIN ASPART PER UNIT CHARGE SC SCH ×2 (07:50→12:40)
[2022-10-15] MEDS: DOXYCYCLINE HYCLATE 100 MG CAP PO SCH (07:51)
[2022-10-15] MEDS: CLOPIDOGREL BISULFATE 75 MG TAB PO SCH (07:51)
[2022-10-15] MEDS: CHOLECALCIFEROL 1,000 UNITS 25 MCG TAB PO SCH (07:51)
[2022-10-15] MEDS: EZETIMIBE 10 MG TABLET PO SCH (07:53)
[2022-10-15] MEDS: FLUTICASONE PROPIONATE NA SPR 16 GM BTL SCH (07:53)
[2022-10-15] MEDS: TACROLIMUS 1 MG CAP PO SCH (07:54)
--- NOTE | 2022-10-15 09:10 | XRay Report ---
XR chest 1V portable HISTORY: Shortness of breath. Follow-up. COMPARISON: Chest 10/14/2022. FINDINGS: No pneumothorax. The cardiac silhouette remains top normal in size. There are poststernotom y changes. Interstitial thickening and patchy bibasilar densities persist. There is a small right ple ural effusions, unchanged. Old, healed bilateral rib fractures again noted. IMPRESSION: 1. Patchy bibasilar densities and a small right pleural effusion persist. 2. No pneumothorax. 2. Diffuse interstitial thickening again noted. ACT 112: Negative or not required by law. Electronically signed by: Saurabh Nunez M.D. 10/15/2022 9:09 AM
--- NOTE | 2022-10-15 11:27 | Dialysis Progress Note ---
Date of Service October 15, 2022 Assessment & Plan Admission and Anticipated Discharge Date Admission Date: October 10, 2022 Subjective Subjective Assessment & Plan (1) ESRD (end stage renal disease) on dialysis: Plan: Patient with ESRD on dialysis Wednesday at the [facility]. He had dialysis yesterday with net UF of about 3 L. Patient remains hypoxic. Chest x-ray today showing pulmonary edema and moderate pleural effusion on the right. Patient is tolerating dialysis well today. He is planned for 3 hours and target UF of 1.5 L. today is his regular schedule. next HD will be on Wednesday (2) Multifocal pneumonia: Plan: Patient admitted with the shortness of breath and chest x-ray showing bilateral opacities suggestive of multifocal pneumonia. Patient is on cefepime per primary team. Renally dose antibiotics for dialysis. Pulmonary following (3) Status post liver transplant: Plan: patient is status post liver transplant on Prograf and CellCept. Agree with holding CellCept in setting of multifocal pneumonia. Continue Prograf Home dose Subjective Seen in Dialysis. BP somewhat low but usual for him--no Symptoms. Patient was seen and examined while on dialysis. Main complaint is still exertional dyspnea. On 4 liters o2 but has 100% sats AVF fine. he had bronchoscopy[y done yesterday Review of Systems Review of Systems: All other systems were reviewed and negative except as noted in HPI Physical Exam Physical Exam: General exam: Appears comfortable, mild resp distress HEENT: Pupils are equal and reactive to light Neck: No JVD, neck is supple trachea is midline Respiratory system: Clear breath sounds bilaterally. Gastrointestinal: Abdomen is soft, non distended, non tender, bowel sounds are present CVS: Regular rate and rhythm. No murmurs, rubs or gallops Musculoskeletal: No joint or muscle tenderness Extremities: Non tender, no edema, peripheral pulses are present Neuro: Oriented, no tremors, no focal neurological deficits Skin: No rashes Results & Data Vital Signs (Past 12 Hours) Vital Signs Temp Pulse Pulse Resp BP BP Pulse Ox 10/15/22 11:00 84 98/51 L 10/15/22 10:48 70 10/15/22 10:30 76 102/65 10/15/22 10:00 84 105/65 10/15/22 09:30 83 114/65 10/15/22 09:00 79 105/52 L 10/15/22 08:30 84 100/61 10/15/22 08:21 82 92/57 L 10/15/22 08:15 36.3 C L 84 10/15/22 07:30 10/15/22 07:56 36.3 C L 78 20 126/61 95 10/15/22 03:00 36.3 C L 78 18 127/67 99 O2 Del Method O2 Flow Rate 10/15/22 11:00 10/15/22 10:48 10/15/22 10:30 10/15/22 10:00 10/15/22 09:30 10/15/22 09:00 10/15/22 08:30 10/15/22 08:21 10/15/22 08:15 10/15/22 07:30 Nasal Cannula 4 10/15/22 07:56 Nasal Cannula 4 10/15/22 03:00 Nasal Cannula 4
[2022-10-15] MEDS: METOPROLOL SUCC 25MG EXT REL TAB PO SCH (12:44)
[2022-10-15] MEDS: ENTECAVIR PO SCH (12:45)
[2022-10-15] MEDS ORDERED: CETIRIZINE HCL 10 MG TABLET PO SCH (15:00)
--- NOTE | 2022-10-15 16:53 | Discharge Summary ---
Date of Service October 15, 2022 Admission HPI Per Admitting Provider The patient is a 72-year-old man with multiple medical problems including ESRD on hemodialysis who was sent over for significant hypoxia noted during his session today. He has a history of chronic respiratory failure with interstitial lung disease. He notes feeling well on 2LPM oxygen supplemnentation up until Jun 2022, when he started requiring more oxygen. In August 2022 he underwent a cardiac catheterization as part of upcoming kidney transplant workup. He had successful angioplasty and stenting with a STACY to an unprotected left main and proximal to mid LAD via right radial access. For one week he did feel better, but then became more short of breath. He was admitted to [facility] and ACS was ruled out. Per cardiology at that time, his elevated troponin was secondary to a nonischemic mechanism of myocardial injury in the setting of ESRD on hemodialysis and congestive heart failure. He has not felt well since he was discharged from the hospital approximately one week ago. He developed a cough at the end of admission and was given Benzonatate which he reports has helped. Denies fevers or chills. He incidentally had a focal area of concern noted in the right lower lobe which was not worked up with PET scan as previously recommended. However most recent CT scan of the chest without contrast in July 2022 reveals this to be consistent with rounded atelectasis with additional imaging in 3 to 4 months recommended. He has type 2 diabetes without use of insulin with A1C reflecting good control. He is status post liver transplant on CellCept and tacrolimus and awaiting kidney transplantation. Today, he presents via EMS from the dialysis center with complaints of hypoxia and shortness of breath. Staff there noticed he had increased work of breathing cough and SPO2 of 79% on 6 L/min supplemental oxygen via nasal cannula and called 911. Patient reported he had a chest x-ray several days ago that showed "beginning of pneumonia "and was not started on anything for it. He was given Solu-Medrol and DuoNebs x2 in route to [facility]. Blood glucose was 201. EMS vitals included blood pressure of 120/70 pulse of 120 and sinus tachycardia respiratory rate of 30 breaths/min and SPO2 of 90% on 6 L/min via nasal cannula when resting. Patient desaturated quickly into the high 70s with any movement. On arrival he was awake alert and oriented x4 and reported improvement in his breathing following medication administration. On arrival to the ER he was found to be 76% on his baseline 6LPM oxygen supplementation. This improved to 92% after titration up to 10LPM. Work-up today reveals evidence of multifocal pneumonia in the setting of chronic interstitial thickening with a known h/o ILD. He was given additional solumedrol 125mg IV, cefepime 2gm IV, guaifensin 1200mg and an additional albuterol 3mL NEB. Admission Exam Per Admitting Provider CONSTITUTIONAL: WNWD, vitals as above, generally well-appearing, NAD EYES: normal conjunctivae, no scleral icterus ENT: external ear and nose normal, oropharynx clear, NECK: trachea midline, no lymphadenopathy RESPIRATORY: fine crackles at left base, coarse rhonchi at left base, no rales or wheezes, normal respiratory effort CARDIOVASCULAR: regular rate and rhythm, S1 and 2 heard without murmurs, gallops or rubs, no JVD, no peripheral edema CHEST: inspection of chest was normal GASTROINTESTINAL: soft, nontender, ND, no guarding MUSCULOSKELETAL: strength 5/5 throughout, head is normocephalic and atraumatic, SKIN: warm and dry NEUROLOGIC: CN 2-12 grossly intact, no sensory deficit, normal cognition, normal speech, no tremor PSYCHIATRIC: alert cooperative and oriented to person, place and time. Euthymic mood, makes good eye contact, language grossly intact, recent and remote memory grossly intact. Principal Diagnosis Acute on chronic resp failure with hypoxia, atypical pneumonia, ILD, COPD, Immunocompromised status s/p liver transplant Discharge Exam General: Lying comfortably in bed, not in distress, down to 2LNC HEENT: EOMI, KHLOE, MMM Chest: Fair breath sounds bilaterally with mild basilar crackles CVS: Regular rate and rhythm, normal heart sounds, systolic murmur Abdomen: Soft, non tender, not distended, normal bowel sounds Neuro: Awake, alert, oriented, conversing well, non focal Extremities: No cyanosis, clubbing or edema Left arm AV fistula Discharge Data Allergies Allergy/AdvReac Type Severity Reaction Status Date / Time adhesive tape AdvReac Severe skin tears Verified 10/14/22 12:08 [id number]-[id number]-VuQ Reductase AdvReac Severe muscle and Verified 10/14/22 12:08 Inhibitor joint aches [Vxisflm-Yui-Jde Reductase Inhibitor] lisinopril AdvReac Unknown Unknown Verified 10/14/22 12:08 Consultations 10/10/22 09:04 ED Decision to Admit Stat 10/10/22 10:45 Consult Nephrology Routine 10/10/22 11:08 Consult Pulmonology Routine 10/11/22 08:59 HIM [Consult Health Information Management] Routine Procedures Performed Operation Date: 10/14/22 12:00 Actual Procedures p Bronchoscopy Radiology - Col[facility]ay [facility], [facility] Ordered Studies 10/11/22 07:39 CT chest diagnostic wo con Routine Laboratory Results WBC 8.72 K/ul (4.8-10.8) 10/15/22 05:39 RBC 3.12 M/uL (4.70-6.10) L 10/15/22 05:39 Hgb 8.4 g/dl (14.0-18.0) L 10/15/22 05:39 Hct 26.0 % (42.0-52.0) L 10/15/22 05:39 MCV 83.3 fL (80.0-100.0) 10/15/22 05:39 MCH 26.9 pg (25.0-34.0) 10/15/22 05:39 MCHC 32.3 g/dL (32.0-36.0) 10/15/22 05:39 RDW Std Deviation 38.8 fL (36.4-46.3) 10/15/22 05:39 RDW Coeff of Ana María 13.3 % (11.5-14.5) 10/15/22 05:39 Plt Count 289 K/uL (130-400) 10/15/22 05:39 MPV 9.4 fL (9.4-12.4) 10/15/22 05:39 Immature Gran % (Auto) 1.3 % 10/10/22 06:20 Neut % (Auto) 78.6 % 10/10/22 06:20 Lymph % (Auto) 8.8 % 10/10/22 06:20 [place] % (Auto) 9.1 % 10/10/22 06:20 Eos % (Auto) 1.8 % 10/10/22 06:20 Baso % (Auto) 0.4 % 10/10/22 06:20 Neut # (Auto) 8.72 K/uL (1.40-6.50) H 10/10/22 06:20 Lymph # (Auto) 0.97 K/uL (1.2-3.4) L 10/10/22 06:20 [place] # (Auto) 1.01 K/uL (0.11-0.59) H 10/10/22 06:20 Eos # (Auto) 0.20 K/uL (0-0.50) 10/10/22 06:20 Baso # (Auto) 0.04 K/uL (0-0.2) 10/10/22 06:20 Immature Gran # (Auto) 0.14 K/uL (0.01-0.20) 10/10/22 06:20 PT 12.4 Seconds (9.0-12.0) H 10/10/22 06:20 INR 1.1 (0.9-1.1) 10/10/22 06:20 APTT 29.9 Seconds (21.0-31.0) 10/10/22 06:20 PTT Ratio 1.1 10/10/22 06:20 Sodium 134 mmol/L (136-145) L 10/15/22 05:39 Potassium 4.5 mmol/L (3.5-5.1) 10/15/22 05:39 Chloride 96 mmol/L (98-107) L 10/15/22 05:39 Carbon Dioxide 27 mmol/L (21-32) 10/15/22 05:39 Anion Gap 11 (3-11) 10/15/22 05:39 BUN 52 mg/dl (6-23) H 10/15/22 05:39 Creatinine 7.19 mg/dl (0.6-1.4) H* D 10/15/22 05:39 Est Cr Clr Drug Dosing 9.6 ml/min 10/15/22 05:39 Est GFR ( Amer) 8.0 ml/min 10/15/22 05:39 Est GFR (Non-Af Amer) 6.9 ml/min 10/15/22 05:39 BUN/Creatinine Ratio 7.2 (10-20) L 10/15/22 05:39 Glucose 106 mg/dl (70-99(Fasting)) H 10/15/22 05:39 POC Glucose 112 mg/dl (70-99) H 10/15/22 12:30 Estimat Average Glucose 140 mg/dl 10/11/22 04:37 Hemoglobin A1c 6.5 % (4.5-5.6) H 10/11/22 04:37 Calcium 9.5 mg/dl (8.6-10.3) 10/15/22 05:39 Phosphorus 5.5 mg/dl (2.5-4.9) H 10/15/22 05:39 Magnesium 1.8 mg/dl (1.7-2.4) 10/15/22 05:39 Iron 115 mcg/dl (35-175) 10/11/22 04:37 Unsaturated IBC < 55 mcg/dl (155-355) L 10/11/22 04:37 Ferritin 1867.0 ng/ml (8-388) H 10/11/22 04:37 Total Bilirubin 0.4 mg/dl (0.2-1.0) 10/10/22 06:20 AST 13 U/L (13-39) 10/10/22 06:20 ALT 11 U/L (7-52) 10/10/22 06:20 Alkaline Phosphatase 46 U/L (34-104) 10/10/22 06:20 Lactate Dehydrogenase 158 U/L (86-244) 10/11/22 07:53 Troponin I High Sens 30.3 pg/ml (0-20) H 10/10/22 06:20 B-Natriuretic Peptide 501 pg/ml (0-100) H 10/10/22 06:20 Total Protein 7.2 gm/dl (6.0-8.3) 10/10/22 06:20 Albumin 3.5 gm/dl (3.4-5.0) 10/10/22 06:20 Globulin 3.7 gm/dl (2.5-4.0) 10/10/22 06:20 Albumin/Globulin Ratio 0.9 (0.9-2) 10/10/22 06:20 Procalcitonin 1.49 ng/ml (0-0.5) H 10/12/22 04:11 Fluid Neutrophils % 18 % 10/14/22 Unknown Fluid Lymphocytes % 0 % 10/14/22 Unknown Fl Monocyt/Macrophag % 82 % 10/14/22 Unknown Fluid Comment 10/14/22 Unknown Nasal Screen MRSA (PCR) Negative (Negative) 10/10/22 09:35 Urine Legionella Ag SEE NOTE 10/11/22 17:30 SARS-CoV-2, RNA, NAAT NEGATIVE (NEGATIVE) 10/10/22 06:[address] 10/11/22 07:39 CT chest diagnostic wo con CLINICAL HISTORY: ILD follow up TECHNIQUE: Multidetector row helical CT of the chest was performed. Coronal and sagittal reformations were obtained. Automated dose lowering techniques and/or adjustment according to patient size were utilized for this exam. CT DOSE: 559.13 mGy.cm Comparison: Comparison is made to chest radiograph 06/21/2020, chest radiograph 10/11/2022 and chest radiograph 10/10/2022 FINDINGS: Lungs and pleura: There are groundglass opacities with a few consolidative foci most prominently in the left upper lobe.. There is a small right pleural effusion with underlying atelectasis including prominent rounded atelectasis in the right lower lobe. Bronchiectasis and peripheral interstitial thickening is increased from prior CT. Heart and pericardium: There is cardiomegaly without evidence of pericardial effusion. Vessels: Severe atherosclerotic changes in the aorta and coronary arteries. Pulmonary trunk measures 32 mm in diameter. Mediastinum and natasha: Subcentimeter lymph nodes are seen. Chest wall and lower neck: Unremarkable. Abdomen: Unremarkable. Bones: Degenerative changes of the thoracic spine. Old healed rib fractures are seen. IMPRESSION: 1. Interval development of groundglass and a few consolidative opacities concerning for infectious/inflammatory process. There is a small right pleural effusion with underlying atelectasis. 2. Prominent interstitial lung disease which has increased from 2020. ACT 112: Negative or not required by law. Electronically signed by: Donny Baez M.D. 10/11/2022 10:26 AM Chest X-Ray 10/15/22 07:00 XR chest 1V portable HISTORY: Shortness of breath. Follow-up. COMPARISON: Chest 10/14/2022. FINDINGS: No pneumothorax. The cardiac silhouette remains top normal in size. There are poststernotomy changes. Interstitial thickening and patchy bibasilar densities persist. There is a small right pleural effusions, unchanged. Old, healed bilateral rib fractures again noted. IMPRESSION: 1. Patchy bibasilar densities and a small right pleural effusion persist. 2. No pneumothorax. 2. Diffuse interstitial thickening again noted. ACT 112: Negative or not required by law. Electronically signed by: Saurabh Nunez M.D. 10/15/2022 9:09 AM Hospital Course (1) Acute and chronic respiratory failure with hypoxia: Recently hospitalized for shortness of breath with no acute cause seen and optimization of chronic medical problems. Patient reports developing a cough during the admission for which he was given benzonatate and sent home. Cough has improved, however, now hypoxic likely multifactorial from ILD, fluid overload from CKD and possible atypical pneumonia as seen on imaging. Seen by Pulm- s/p empiric cefepime/doxy and now only on doxy for atypical coverage Hypoxia improved and now down to 2 L NC. He feels better and ready to go home. PT cleared him for discharge home. Declined any home needs. Cleared by pulm for discharge with doxy for 7 day course along with Stiolto (instead of his home spiriva and Wixela) and OP follow up with Dr Lara for pending BAL results (2) Multifocal pneumonia: Suspected atypical, had bronchoscopy and on doxy for atypical coverage pending bronchoscopy results Has h/o ILD and recent increasing oxygen needs since Jun 2022. He reports that baseline up to that time, he was using 2LPM with ambulation only. Now he is down to [address] chest during recent admission to [facility] was negative for PE. CT chest repeated (10/11) 1. Interval development of groundglass and a few consolidative opacities concerning for infectious/inflammatory process. There is a small right pleural effusion with underlying atelectasis. 2. Prominent interstitial lung disease which has increased from 2020. Per pulperry, Compared to CT chest done 10/01/2022, there is improvement in the patchy opacities as well as small right-sided pleural effusion Compared to HRCT done 07/2019, the groundglass opacities/NSIP pattern of the upper and lower lobes seems to be improved -- Acute hypoxic respiratory failure Multifactorial Underlying ILD, fluid overload from CKD as well as possible atypical pneumonia Possibility of overtures of infection like PJP is there but low in differential as mycophenolate is usually protective to get PJP S/p bronch 10/14/2022, no signs of diffuse alveolar hemorrhage Bronc BAL cytology negative for malignancy Unfortunately his care unfortunately is fragmented between at least 3 different healthcare systems ([facility], [facility], and [facility]). 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 OP f/u with pulm (4) DM type 2 (diabetes mellitus, type 2): Chronic, controlled on linagliptin. Current Hgb A1c 6.5% (5) Interstitial lung disease: As above (6) ESRD (end stage renal disease) on dialysis: Continue dialysis as per nephrology (7) Immunocompromised patient: s/p liver transplant. Hold CellCept in infection without sepsis, cont tacrolimus. Restart Cellcept 4-6 weeks post infection or per transplant team guidance. Cont entecavir (8) Status post liver transplant: as above. (9) Sleep apnea: not on home CPAP (10) Hypothyroidism: chronic, stable. TSH on 08/31/22 was 4.27. Continue Synthroid. (11) Anemia: Anemia of CKD-hemoglobin stable. No bleeding. On Procrit. Coronary disease status post stenting August 2022-no chest pain. Continue dual antiplatelet, beta-blockers. Echo reviewed. Total Time Total Time Spent Total Time Spent (In Minutes): 40 Discharge Plan Discharge Items Patient Disposition: Home - Self-Care Reason For Visit: HYPOXIA Discharge Diagnosis: Acute on chronic resp failure with hypoxia, atypical pneumonia, ILD, COPD, Immunocompromised status s/p liver transplant Activity: Resume your previous activity Non-emergency contact: Primary Care Provider and Instructor [employer] Call non-emergency contact if: you have any medication questions, your symptoms worsen and you have a fever Follow-up/Referrals: Graeme Lara MD [Physician] - Herberth Maldonado MD [Primary Care Provider] - Diet: Dialysis Renal Addtl Attending Provider Instructions: Continue the antibiotic doxycycline twice daily for 5 more days starting tonight Follow up with the lung doctor Dr Lara for the pending bronchoscopy results We have switched your home inhalers to Stiolto once daily as per lung doctor's recommendations Cough medicine, flonase, zyrtec as needed- you can get them over the counter. Get dialysis as scheduled Follow up with your lung doctor Pending Studies at Discharge: Yes Studies:: Bronchoscopy labs Stand-Alone Forms: [facility], Smoking Cessation Medications and DC Order Prescriptions: New cetirizine 10 mg Tablet 10 mg PO QAM Qty: 10 0RF fluticasone propionate 50 mcg/actuation Lamar,Suspension 2 spray NA DAILY Qty: 15 0RF Stiolto Respimat 2.5-2.5 mcg/actuation mist 2 inh inhalation DAILY Qty: 4 0RF doxycycline hyclate 100 mg Capsule 100 mg PO BID 5 Days Qty: 10 0RF Continued mycophenolate mofetil 250 mg Capsule 250 mg PO BID levothyroxine 75 mcg Tablet 75 mcg PO QAM hydroxyzine HCl 25 mg Tablet 25 mg PO Q6 PRN (Reason: Itching) tacrolimus 1 mg Capsule 1 mg PO Q12H ezetimibe [Zetia] 10 mg Tablet 10 mg PO QAM entecavir 0.5 mg Tablet 0.5 mg PO QAM Rx Instructions: Take 1 tab daily, on empty stomach cholecalciferol (vitamin D3) [Vitamin D3] 50 mcg (2,000 unit) Capsule 2,000 unit PO QAM albuterol sulfate 5 mg/mL Solution For Nebulization 2.5 mg INHALATION UD PRN (Reason: Shortness Of Breath) clopidogrel 75 mg Tablet 75 mg PO QAM aspirin 81 mg Tablet,Delayed Release (Dr/Ec) 81 mg PO QPM metoprolol succinate 25 mg tablet extended release 24 hr 25 mg PO QAM linagliptin 5 mg Tablet 5 mg PO DAILY Discontinued fluticasone propion-salmeterol [Wixela Inhub] 250-50 mcg/dose Blister With Device 1 inh INHALATION BID Spiriva Respimat 2.5 mcg/actuation Mist 1 puff INHALATION BID Discharge Orders: Discharge Order (Routine); Ordered 10/15/22 Ordered By: Kiko Cook/Other Patient Handouts: Managing Type 2 Diabetes Admission Data Admit Date/Time: 10/10/22 09:43 Attending Provider: Kiko Gill Admit Provider: Lola Bautista Primary Care Provider: Herberth Maldonado Other Providers: Lola Bautista ; Kaycee Sin ; Graeme Lara Other Interventions: Discharge Summary Assessment (RN) Last Done: 10/15/22 15:51
== END 2022-10-15 16:50 | disposition home or self-care (01) | DRG 193 ==
LOC: ED 06:00 → SUATTDRO 09:43 → 4W 09:43